=== PATIENT | female | born 1975 | race Caucasian/White ===

== ENCOUNTER 2023-04-22 14:44 | Emergency (ER) | payer MEDICARE, MEDICAID, SELFPAY ==
[2023-04-22 14:52] VITALS: BP 128/92; PULSE 96; RESP 18; TEMP 36.8; O2SAT 99; BMI 37.8
--- NOTE | 2023-04-22 15:15 | ED_ITS ---
HPI - General Adult General Chief complaint: Extremity Injury, Lower Stated complaint: LOWER EXTREMITY PAIN RIGHT LEG Time Seen by Provider: 04/22/23 15:00 Source: patient Mode of arrival: walk-in Limitations: no limitations History of Present Illness HPI narrative: [age] female presents for right hip pain. This is an ongoing issue. She sees an orthopedist in [place] and recently had an MRI. Some hardware she states was shifted and she is going to get an injection. She ran out of her Percocet. No new injury and no new symptoms. The pain is moderate to severe Related Data Previous Rx's Medication Instructions Recorded oxycodone-acetaminophen 5 mg-325 1 tab PO Q6H PRN pain 3 days #10 04/22/23 mg tablet (Percocet) tabs Review of Systems ROS Narrative A ten point review of systems is negative except as noted above. PFSH PFSH Social History Smoking status: Current every day smoker Exam Narrative Exam Narrative: Nurses note and vital signs reviewed and patient is not hypoxic. General: The patient appears well and in no apparent distress. Patient is resting comfortably on cart. Skin: Warm, dry, no pallor noted. There is no rash noted. Head: Normocephalic, atraumatic Eye: Normal conjunctiva, no drainage Ears, Nose, Mouth, and Throat: oral mucosa is moist. Nares patent. Cardiovascular: Regular Rate and Rhythm Respiratory: Patient is in no distress, no accessory muscle use Back: non-tender GI: Normal bowel sounds, no tenderness to palpation, no masses appreciated. No rebound, guarding, or rigidity noted. Musculoskeletal: lidocaine patch present on her right hip. No bruising or rash Neurological: A&O, normal speech Psychiatric: Cooperative Constitutional Vital Signs, click to edit/add: Last Vital Signs Temp 98.3 F 04/22/23 14:52 Pulse 96 H 04/22/23 14:52 Resp 18 04/22/23 14:52 BP 128/92 H 04/22/23 14:52 Pulse Ox 99 04/22/23 14:52 Course Vital Signs Vital signs: Vital Signs Temperature 98.3 F 04/22/23 14:52 Pulse Rate 96 H 04/22/23 14:52 Respiratory Rate 18 04/22/23 14:52 Blood Pressure 128/92 H 04/22/23 14:52 Pulse Oximetry 99 04/22/23 14:52 Temperature 98.3 F 04/22/23 14:52 Pulse Rate 96 H 04/22/23 14:52 Respiratory Rate 18 04/22/23 14:52 Blood Pressure 128/92 H 04/22/23 14:52 Pulse Oximetry 99 04/22/23 14:52 Medical Decision Making MDM Narrative Medical decision making narrative: she was provided a prescription for ten Percocet and she'll follow-up with her PCP. Treatment diagnosis and follow-up were discussed with the patient. Differential Diagnosis Differential Diagnosis: chronic hip pain Discharge Plan Discharge Chief Complaint: Extremity Injury, Lower Clinical Impression: Chronic right hip pain Patient Disposition: Home, Self-Care Time of Disposition Decision: 15:12 Condition: Good Mode of Transportation: Private Vehicle Prescriptions / Home Meds: New oxycodone-acetaminophen [Percocet] 5-325 mg tablet 1 tab PO Q6H PRN (Reason: pain) 3 Days Qty: 10 0RF Instructions: Hip Pain (ED) Stand Alone Forms: Portal Instructions Referrals: Physician,Non-Staff, MD [Primary Care Provider] - 1 week
== END 2023-04-22 15:18 | disposition home or self-care (01) ==
PROVIDERS: Emergency Provider Emergency Medicine
DX: M25.551 Pain in right hip (principal); G89.29 Other chronic pain; F17.210 Nicotine dependence, cigarettes, uncomplicated
CPT/HCPCS: 99283

== ENCOUNTER 2023-05-27 14:06 | Emergency (ER) | payer MEDICARE, MEDICAID, SELFPAY ==
[2023-05-27 14:12] VITALS: BP 143/96; PULSE 80; RESP 18; TEMP 36.7; O2SAT 98; BMI 29.8
--- NOTE | 2023-05-27 14:22 | XR_ITS ---
The [address] [address] Patient Name: CLAIRE VICKERS MRN: [id number] date: 1975 Sex: F Assigned Patient Location: ED.MAIN Current Patient Location: ER Accession/Order Number: [id number] Exam Date: 05/27/2023 14:40 Report Date: 05/27/2023 15:17 At the request of: JAGDISH ORLANDO Procedure: XR hip RT min 2V EXAM: XR hip RT min 2V INDICATION: hip pain, no injury. COMPARISON: None. TECHNIQUE: Right hip, 2 views FINDINGS: No acute fracture or dislocation. Right hip joint is preserved. Unremarkable soft tissues. XR/XR hip RT min 2V IMPRESSION: No acute osseous abnormality of the right hip. Electronically authenticated by: FILEMON FRANK Date: 05/27/2023 15:17
--- OUTSIDE RECORDS SUMMARY | 2023-05-27 14:35 | XMS_ITS | CCD ---
Demographics Address [address] [place] [address] Home Phone Preferred Language en Marital Status Single Quaker Affiliation Unknown Race White Ethnic Group Not or Lati no Author Name Unknown Address [address] [place] [address] Organization [facility] Care Team Providers Care Supervisor Water [employer] Name Role Phone E, Spasic Michael Primary Care Provider Unavailabl e E, SPASIC MICHAEL Primary Care Unavailable SELINA TYLER Attending Unavailable E, SPASIC MICHAEL Primary Care Unavailable JESSICA SMITH Attending Unavailable E, SPASIC MICHAEL Referring Unavailable E, SPASIC MICHAEL Primary Care Unavailable E, SPASIC MICHAEL Primary Care Unavailable E, SPASIC MICHAEL Primary Care Unavailable GEE MCMAHON Attending Unavailable PROVIDER, UNKNOWN Attending Unavailable PROVIDER, UNKNOWN Admitting Unavailable E, Spasic Michael Primary Care Provider Duglas Gomez Unavailable [facility] Primary Care [facility] ider RADHA Moreno-Vishal Oakley Attending Provider [phone] DR MATT RECINOS Admitting Unavailabl e JORJE, DR MATT Oalkey Attending Unavailabl e SPAAUSTINC, MICHAEL Primary Care Unavailable JORJE, DR MATT Oakley Consulting Unavailabl e JORJE, DR MATT Oakley Admitting Unavailabl e JORJE, DR MATT Oakley Attending Unavailabl e DIANESIC, MICHAEL Primary Care Unavailable JORJE, DR MATT Oakley Consulting Unavailabl e YOAV KOENIG Consulting Unavailable FABIEN ADAMS Consulting Unavailable JORJE, DR MATT Oakley Admitting Unavailabl e JORJE, DR MATT Oakley Attending Unavailabl e MISC, DR DOCTOR Primary Care Unavailable [facility] Care Prov ider Spasic, SUPERVISOR FINISHING DEPARTMENT-C Michael Oakley Attending Provider [facility] Prov ider Spasic, SUPERVISOR FINISHING DEPARTMENT-C Michael Oakley Attending Provider [facility] Prov ider Spasic, SUPERVISOR FINISHING DEPARTMENT-C Michael Oakley Attending Provider Spasic, Michael E Unavailable Kulwinder Atkinson DO Unavailable Kulwinder Atkinson DO Unavailable Spasic, Michael E Attending Unavailable Spasic, Michael E Admitting Unavailable [facility] Primary Care U navailable Spasic, Michael E Admitting Unavailable [facility] Primary Care U navailable Spasic, Michael E Attending Unavailable Spasic, Imchael E Admitting Unavailable [facility] Primary Care U navailable Spasic, Michael E Attending Unavailable Spasic, Michael E Admitting Unavailable [facility] Primary Care U navailable Spasic, Michael E Attending Unavailable Spasic, Michael E Attending Unavailable [facility] Primary Care U navailable Spasic, Michael E Admitting Unavailable Spasic, Michael E Attending Unavailable Spasic, Michael E Admitting Unavailable [facility] Primary Care U navailable Vonda Bautista Unavailable Spasic SUPERVISOR FINISHING DEPARTMENTMichael Unavailable [phone] FRANK, FRANK Referring Unavailable FRANK, FRANK Attending Unavailable FRANK, FRANK Admitting Unavailable SCOTCH, SALMA Attending Unavailable SCOTCH, SALMA Referring Unavailable SCOTCH, SALMA Referring Unavailable KULWINDER ATKINSON Referring Unavailable SCOTCH, SALMA Attending Unavailable SCOTCH, SALMA Referring Unavailable FRANK, FRANK Attending Unavailable Allergies Allergy Classification Reported Allergen(s) Allergy Type Date of Onset Reaction(s) Facility Anti-Epileptic Agents (3 sources) Phenytoin Drug Allergy 10-27-19 16 [facility] Baclofen (3 sources) Baclofen Drug Allergy 10-27-19 16 [facility] Quinolones (antibiotic) (3 sources) Ciprofloxacin Drug Allergy 01-11-20 19 [facility] (20 sources) Baclofen Drug Allergy 05-20-20 14 Hives [place], [place] (20 sources) Ciprofloxacin; Translations: [CIPROFLOXACIN] Drug Allergy 03-27-20 17 Other: See Comments [place], [place] (14 sources) Phenytoin Drug Allergy 10-27-19 16 [place] (4 sources) Buprenorphine / Naloxone Drug Allergy Unknown [facility] Other (20 sources) Phenytoin; Translations: [PHENYTOIN] Drug Allergy 05-20-20 14 Other: See Comments [facility] (4 sources) any type of ear drops Propensity to adverse reactions seizures [facility] Other (9 sources) Buprenorphine; Translations: [buprenorphine] Drug Allergy 11-30-19 19 Unknown Reaction [facility] (9 sources) Hydrocortisone; Translations: [hydrocortisone] Drug Allergy 11-30-19 19 Seizure [facility] (9 sources) Naloxone; Translations: [naloxone] Drug Allergy 11-30-19 19 Unknown Reaction [facility] (1 source) Baclofen Drug Allergy 01-24-20 13 [facility] (1 source) Ciprofloxacin Drug Allergy 04-11-20 22 [facility] (1 source) Dexamethasone Drug Allergy 04-11-20 22 [facility] (1 source) mirabegron Drug Allergy 08-18-19 21 [facility] (1 source) Phenytoin Drug Allergy 11-28-19 13 [facility] (1 source) Phenytoin Drug Allergy 04-11-20 22 [facility] (1 source) Baclofen Drug Allergy 11-30-19 19 [facility] (1 source) Ciprofloxacin Drug Allergy 11-30-19 19 [facility] (1 source) Phenytoin Drug Allergy 11-30-19 19 [facility] (1 source) Baclofen; Translations: [BACLOFEN (BULK)] Drug Allergy 05-20-20 14 [facility] Medications Current Medications Medication Drug Class(es) Dates Sig (Normalized) Sig (Original) acetaminophen 300 mg / codeine phosphate 30 mg oral tablet (2 sources) Opioid Agonist Start: 11-01-2020 End: 11-04-2020 acetaminophen-code ine (TYLENOL/CODEINE #3) 300-30 MG per tablet Indications: Strain of lumbar region, initial encounter Take 1 tablet by mouth every 8 hours as needed for Pain for up to 3 days. Intended supply: 3 days. Take lowest dose possible to manage pain 9 tablet 0 11/01/2020 11/04/2020 Active [id number] 200 actuat albuterol 0.09 mg/actuat metered dose inhaler (1 source) beta2-Adrenergic Agonist Start: 04-11-2023 take 2 puff(s) by inhalation every four to six hours as needed Albuterol Sulfate HFA 108 (90 Base) MCG/ACT 2 puffs as needed Inhalation every 4-6 hours for 14 days Apr, Active amitriptyline hydrochloride 25 mg oral tablet (20 sources) Tricyclic Antidepressant Start: 07-03-2018 take 25 mg by mouth once daily Amitriptyline Active 25 MG PO Daily July 03, 2018 1:00am Start: 03-26-2017 End: 11-21-2017 take 25 mg by mouth once daily at bedtime Amitriptyline Discontinued 25 MG PO Daily at bedtime March 26, 2017 12:00am November 21, 2017 4:53pm End: 06-11-2019 take 1 tablet by mouth twice daily amitriptyline (ELAVIL) 25 MG tablet Take 25 mg by mouth 2 times daily 0 06/11/2019 Discontinued (LIST CLEANUP) Comment on above: Take 25 mg by mouth daily at bedtime. amoxicillin 875 mg / clavulanate 125 mg oral tablet (4 sources) Penicillin-class Antibacterial Start: 06-11-2019 End: 06-21-2019 take 1 tablet by mouth twice daily amoxicillin-cla vulanate (AUGMENTIN) 875-125 MG per tablet Take 1 tablet by mouth 2 times daily for 10 days 20 tablet 0 06/11/2019 06/21/2019 Active Start: 06-11-2019 End: 06-11-2019 amoxicillin-clavulanate (AUG MENTIN) 875-125 MG per tablet 1 tablet amylase [id number] unt / lipase [id number] unt / protease [id number] unt delayed release oral capsule (5 sources) Start: 12-13-2021 take 1 capsule by mouth every eight hours Zenpep [id number] UNIT 1 CAPSULE Orally THREE TIMES A DAY for 30 days PLEASE CHECK ALLERGIES Dec, Active Start: 11-15-2021 take 1 capsule by mo [facility] every eight hours Creon [id number] UNIT 1 CAPSULE Orally THREE TIMES A DAY for 30 days Nov, Active atorvastatin 20 mg oral tablet (20 sources) HMG-CoA Reductase Inhibitor Start: 11-29-2018 take 20 mg by mouth once daily Atorvastatin Active 20 MG PO Daily November 29, 2018 12:00am benzocaine 15 mg / menthol 2.6 mg oral lozenge (7 sources) Standardized Chemical Allergen Start: 02-19-2020 End: 02-06-2021 Benzocaine-Menthol (CEPACOL SORE THROAT) 15-2.6 MG LOZG lozenge Take 1 lozenge by mouth every 2 hours as needed for Sore Throat 36 lozenge 0 02/19/2020 02/06/2021 Discontinued (Therapy completed) Start: 02-19-2020 End: 02-19-2020 benzocaine-menthol (CEPACOL SORE THROAT) lozenge 1 lozenge Start: 02-19-2020 End: 02-19-2020 benzocaine-menthol (CEPACOL SORE THROAT) lozenge 1 lozenge busPIRone hydrochloride 15 m g oral tablet (9 sources) [facility] BuSpar 15 MG 1 tablet Orally Twice a day Active take 1 tablet by mouth twice ingrid ly busPIRone (BUSPAR) 5 MG tablet Take 5 mg by mouth 2 times daily 0 Active clonazePAM 0.5 mg oral tablet (7 sources) Benzodiazepine End: 06-11-2019 take 1 tablet by mouth twice daily clonazePAM (KLONOPIN) 0.5 MG tablet Take 0.5 mg by mouth 2 times daily 0 06/11/2019 Discontinued (LIST CLEANUP) dextromethorphan hydrobromide 15 mg / guaiFENesin 400 mg / pseudoephedrine hydrochloride 60 mg oral tablet (1 source) alpha-Adrenergic Agonist, Uncompetitive U-thgncc-I-aspartate Receptor Antagonist, Sigma-1 Agonist Start: 04-11-2023 take 4 tablets by mouth every twenty-four hours as needed Capmist DM 60-15-400 MG as needed Orally every 4-6 hours as needed, max 4 tablets in 24 hours for 5 days Apr, Active dextromethorphan hydrobromide 3 mg/ml / promethazine hydrochloride 1.25 mg/ml oral solution (7 sources) Phenothiazine, Uncompetitive M-jfijbv-Y-aspartate Receptor Antagonist, Sigma-1 Agonist Start: 01-02-2019 End: 06-11-2019 promethazine-dext romethorphan (PROMETHAZINE-DM) 6.25-15 MG/5ML syrup Take 6.25 mLs by mouth every 4 hours as needed 0 01/02/2019 06/11/2019 Discontinued (LIST CLEANUP) dicyclomine hydrochloride 20 mg oral tablet (12 sources) Anticholinergic Start: 11-30-2017 End: 02-15-2018 take 1 tablet by mouth every eight hours Dicyclomine HCl 20 MG 1 tablet Orally three times a day for 30 day(s) Nov, Active DULoxetine 60 mg oral capsule (7 sources) Serotonin and Norepinephrine Reuptake Inhibitor End: 06-11-2019 take 60 mg by mouth once daily DULoxetine HCl (CYMBALTA PO) Take 60 mg by mouth daily 0 06/11/2019 Discontinued (LIST CLEANUP) esomeprazole 40 mg delayed release oral capsule (10 sources) Proton Pump Inhibitor Start: 09-15-2020 take 1 capsule by mouth every twelve hours Esomeprazole Magnesium 40 MG 1 capsule Orally bid for 30 days Sep, Active take 1 capsule by [facility] once daily, then take 6 capsules by mouth in the morning esomeprazole (NEXIUM) 20 mg capsule Take 20 mg by mouth DAILY (6 AM). 0 Active Comment on above: Take 20 mg by mouth DAILY (6 AM). Famotidine (4 sources) Histamine-2 Receptor Antagonist Pepcid Active fluticasone propionate 0.05 mg/actuat metered dose nasal spray (1 source) Corticosteroid Fluticasone Propionate 50 MCG/ACT SHAKE LIQUID AND USE 1 SPRAY IN EACH NOSTRIL TWICE DAILY FOR 14 DAYS for 90 Active gabapentin 600 mg oral tablet (20 sources) Anti-epileptic Agent Start: take 600 mg by mouth three times daily Gabapentin Active 600 MG PO Three times daily July 03, 2018 1:00am Start: 03-26-2017 End: 03-02-2018 take 600 mg by mouth three times daily Gabapentin Discontinued 600 MG PO Three times daily March 26, 2017 12:00am March 02, 2018 5:03pm gabapentin (NEUR ONTIN) 600 mg tablet Take 800 mg by mouth once daily. 0 Active gabapentin (NEUR ONTIN) 100 MG capsule Take 600 mg by mouth 3 times daily. 0 Active Comment on above: Take 600 mg by mouth three times daily. Take 800 mg by mouth once daily. hydrocortisone 10 mg/ml / neomycin 3.5 mg/ml / polymyxin b [id number] unt/ml otic suspension (3 sources) Aminoglycoside Antibacterial, Polymyxin-class Antibacterial, Corticosteroid Start: 06-11-19 End: 06-21-19 20 neomycin-polymyxin- hydrocortisone (CORTISPORIN) 3.5-29804-[address] 3 drops into the right ear 4 times daily for 10 days 1 Bottle 0 06/11/2019 06/21/2019 Active 12 hr hyoscyamine sulfate 0.375 mg extended release oral tablet (4 sources) take 1 tablet by mouth every twelve hours Hyoscyamine Sulfate ER 0.375 MG TAKE 1 TABLET BY MOUTH EVERY 12 HOURS for 90 Active ibuprofen 800 mg oral tablet (20 sources) Nonsteroidal Anti-inflammatory Drug Start: 01-16-20 19 take 1 tablet by mouth every eight hours as needed for pain ibuprofen (ADVIL;MOTRIN) 800 MG tablet Take 1 tablet by mouth every 8 hours as needed for Pain 30 tablet 0 02/19/2020 Active Start: 07-03-2018 take 800 mg by mouth three times daily Ibuprofen Active 800 MG PO Three times daily July 03, 2018 1:00am Start: 01-18-2018 End: 02-07-2018 Ibuprofen (Motrin Ib) 200 mg Tablet Discontinued 800 MG PO Q4H January 18, 2018 12:00am February 07, 2018 4:02pm Start: 10-14-2017 End: 01-18-2018 take 800 mg by mouth three times daily Ibuprofen Discontinued 800 MG PO Three times daily December 22, 2017 3:01pm January 18, 2018 3:04pm Start: 02-08-2017 End: 10-13-2017 Ibuprofen (Motrin Ib) 200 mg Tablet Discontinued 800 MG PO Once February 08, 2017 12:00am October 13, 2017 5:13pm Start: 09-16-2014 take 1 tablet by angie th every eight hours as needed ibuprofen (MOTRIN) 600 mg tablet Take 1 tablet by mouth every 8 hours as needed (for pain and inflammation. Take as prescribed for 10-14 days then as needed). 90 tablet 1 09/16/2014 Active Comment on above: Take 1 tablet by angie th every 8 hours as needed (for pain and inflammation. Take as prescribed for 10-14 days then as needed). meclizine hydrochloride 12.5 mg oral tablet (10 sources) Antiemetic Start: 06-11-19 End: 06-14-19 20 take 1 tablet by mouth three times daily as needed for dizziness meclizine (ANTIVERT) 12.5 MG tablet Take 1 tablet by mouth 3 times daily as needed for Dizziness 9 tablet 0 06/11/2019 06/14/2019 Active Start: 04-04-2018 End: 07-03-2018 take 25 mg by mouth three times daily Meclizine Discontinued 25 MG PO Three times daily April 04, 2018 12:00am July 03, 2018 4:12pm metroNIDAZOLE 500 mg oral tablet (2 sources) Nitroimidazole Antimicrobial Start: 02-06-2021 End: 02-06-2021 take 4 tablets by mouth once metroNIDAZOLE (FLAGYL) 500 MG tablet Take 4 tablets by mouth once for 1 dose 4 tablet 0 02/06/2021 02/06/2021 Discontinued (DUPLICATE) Start: 02-06-2021 End: 02-06-2021 metroNIDAZOLE (FLAGYL) table t 2,000 mg Misc. Devices (CRUTCH) MISC (7 sources) Start: 10-27-2015 End: 06-11-2019 Misc. Devices (CRUTCH) MISC 1 each by Does not apply route daily as needed Use cautiously to avoid fall or further trauma Diagnosis bilateral foot pain and right hip pain 1 each 0 10/27/2015 06/11/2019 Discontinued (LIST CLEANUP) Start: 10-27-2015 Misc. Devices (CRUTCH) MISC 1 each by Does not apply route daily as needed Use cautiously to avoid fall or further trauma Diagnosis bilateral foot pain and right hip pain 1 each 0 10/27/2015 Active mometasone furoate 0.05 mg/actuat metered dose nasal spray (8 sources) Corticosteroid Start: 07-29-2018 take 1 spray(s) nasal route once daily Mometasone (Nasonex) 50 mcg/actuation spray,non-aerosol Active 2 SPRAY INTRANASAL Daily July 29, 2018 1:00am administer into each nostril naloxone hydrochloride 40 mg/ml nasal spray (5 sources) Opioid Antagonist Start: 03-17-2019 End: 06-11-2019 naloxone 4 MG/0.1ML LIQD nasal spray 1 spray by Nasal route as needed for Opioid Reversal 1 each 5 03/17/2019 06/11/2019 Discontinued (LIST CLEANUP) pantoprazole 40 mg delayed release oral tablet (20 sources) Proton Pump Inhibitor Start: 10-13-2017 take 1 tablet by mouth every twelve hours Pantoprazole Sodium 40 MG 1 tablet Orally BID for 30 days Nov, Active take 1 tablet by mouth once annabel y pantoprazole DR (PROTONIX) 40 mg tablet Take 40 mg by mouth once daily. 0 Active Protonix Active take 20 mg by mouth twice daily Pantoprazole Sodium (PROTONIX PO) Take 20 mg by mouth 2 times daily 0 Active Comment on above: Take 40 mg by mouth once daily. predniSONE 20 mg oral tablet (12 sources) Start: 11-01-2020 End: 11-06-2020 take 2 tablets by mouth once daily predniSONE (DELTASONE) 20 MG tablet Take 2 tablets by mouth daily for 5 days 10 tablet 0 11/01/2020 11/06/2020 Active Start: 01-15-2019 End: 01-15-2019 predniSONE (DELTASONE) table t 60 mg Start: 01-15-2019 End: 01-25-2019 take 4 tablets by mouth once daily predniSONE (DELTASONE) 10 MG tablet Take 4 tablets by mouth once daily for 5 days 20 tablet 0 01/15/2019 01/25/2019 Active Start: 01-18-2018 End: 02-07-2018 take 60 mg by mouth once daily Prednisone Discontinued 60 MG PO Daily January 18, 2018 12:00am February 07, 2018 4:03pm rOPINIRole (7 sources) Nonergot Dopamine Agonist End: 06-11-2019 ROPINIRole HCl (REQUIP PO) Take 1 tablet by mouth 0 06/11/2019 Discontinued (LIST CLEANUP) ROPINIRole HCl ( REQUIP PO) Take 1 tablet by mouth 0 Active Sodium Chloride-Sodium Bicar b 1.57 g PACK (7 sources) Start: 01-02-2019 End: 06-11-2019 Sodium Chloride-Sodium Bicar b 1.57 g PACK 1 packet by Nasal route 2 times daily 0 01/02/2019 06/11/2019 Discontinued (LIST CLEANUP) Start: 01-02-2019 Sodium Chlorid e-Sodium Bicarb 1.57 g PACK 1 packet by Nasal route 2 times daily 0 01/02/2019 Active tiZANidine 4 mg oral tablet (16 sources) Central alpha-2 Adrenergic Agonist Start: 11-29-2018 take 4 mg by mouth at bedtime Tizanidine Active 4 MG PO Bedtime November 29, 2018 12:00am Start: 12-22-2017 End: 01-18-2018 take 1 tablet by mouth three times daily Tizanidine (Zanaflex) 4 mg Tablet Discontinued 4 MG PO Three times daily December 22, 2017 12:00am January 18, 2018 3:04pm traMADol hydrochloride 50 mg oral tablet (1 source) Opioid Agonist Start: 12-03-2020 End: 12-05-2020 traMADol (ULTRAM) 50 MG tablet Indications: Back spasm Take 1 tablet by mouth every 4 hours as needed for Pain for up to 6 doses. Intended supply: 3 days. Take lowest dose possible to manage pain 6 tablet 0 12/03/2020 12/05/2020 Active Completed/Discontinued Medications Medication Drug Class(es) Dates Sig (Normalized) Sig (Original) acetaminophen 325 mg / HYDROcodone bitartrate 5 mg oral tablet (20 sources) Opioid Agonist Start: 02-05-2021 End: 02-05-2021 HYDROcodone-acetam inophen (NORCO) 5-325 MG per tablet 1 tablet Start: 11-01-2020 End: 11-01-2020 HYDROcodone-acetaminophen (N ORCO) 5-325 MG per tablet 2 tablet Start: 06-11-2019 HYDROcodone-ac etaminophen (NORCO) 5-325 MG per tablet 1 tablet Start: 01-15-2019 hydrocodone-ac etaminophen (NORCO) tablet 5-325 mg (STARTER PACK) Start: 01-15-2019 End: 01-15-2019 HYDROcodone-acetaminophen (N ORCO) 5-325 MG per tablet 2 tablet Start: 01-11-2019 End: 01-14-2019 take 1 tablet by mouth every six hours as needed for pain HYDROcodone-acetaminophen (NORCO) 5-325 MG per tablet Indications: Postoperative pain Take 1 tablet by mouth every 6 hours as needed for Pain for up to 3 days. 12 tablet 0 01/11/2019 01/14/2019 Active Start: 03-01-2018 End: 03-08-2018 take 1 tablet by mouth every six hours Hydrocodone-Acetaminophen Discontinued 1 TAB PO Q6H 30 12March 01, 2018 March 08, 2018 12:02am Start: 10-13-2017 End: 10-16-2017 take 1 tablet by mouth every six hours Hydrocodone-Acetaminophen (Perley) 5-325 mg tablet Discontinued 1 TAB PO Q6H October 13, 2017 October 16, 2017 4:27pm Start: 06-06-2017 End: 06-23-2017 take 1 tablet by mouth every four to six hours Hydrocodone-Acetaminophen (Perley) 5-325 mg tablet Discontinued 1 TAB PO EVERY 4-6 HOURS June 06, 2017 June 23, 2017 1:09pm Start: 02-08-2017 End: 03-26-2017 Hydrocodone-Acetaminophen (N orco) 5-325 mg tablet Discontinued 1 TAB PO every 6 to 8 hours February 08, 2017 March 26, 2017 8:58pm take 1 tablet by angie th every eight hours as needed HYDROcodone-acetaminophen (NORCO) 5-325 mg per tablet Take 1 tablet by mouth every 8 hours as needed for pain. 0 Active End: 03-17-2019 take 30 mL by mouth four times daily as needed for pain, then take 15 mL by mouth as needed for pain HYDROcodone-acetaminophen 7.5-325 MG per 15ML solution Take 30 mLs by mouth 4 times daily as needed for Pain. 0 03/17/2019 Discontinued (LIST CLEANUP) Comment on above: Take 1 tablet by angie th every 8 hours as needed for pain. acetaminophen 325 mg / oxyCODONE hydrochloride 5 mg oral tablet (3 sources) Opioid Agonist Start: 03-16-2019 End: 03-16-2019 oxyCODONE-acetaminop hen (PERCOCET) 5-325 MG per tablet 2 tablet Start: 03-16-2019 End: 03-20-2019 take 1 tablet by mouth every six hours as needed for pain, then take 1 tablet by mouth as needed for pain oxyCODONE-acetaminophen (PERCOCET) 5-325 MG per tablet Indications: Sciatica of right side Take 1 tablet by mouth every 6 hours as needed for Pain for up to 3 days. Intended supply: 3 days. Take lowest dose possible to manage pain 12 tablet 0 03/17/2019 03/20/2019 Active amoxicillin 250 mg oral capsule (18 sources) Penicillin-class Antibacterial Start: 01-15-2019 End: 01-15-2019 amoxicillin (AMOXIL) capsule 500 mg Start: 01-15-2019 End: 01-22-2019 take 1 capsule by mouth three times daily amoxicillin (AMOXIL) 500 MG capsule Take 1 capsule by mouth 3 times daily for 7 days 21 capsule 0 01/15/2019 01/22/2019 Active Start: 06-23-2017 End: 06-28-2017 take 500 mg by mouth three times daily Amoxicillin Discontinued 500 MG PO Three times daily 30 June 23, 2017 1:00am June 28, 2017 7:56pm Start: 06-06-2017 End: 06-23-2017 take 875 mg by mouth twice daily Amoxicillin Discontinued 875 MG PO Twice daily June 06, 2017 1:00am June 23, 2017 1:09pm 12 hr carBAMazepine 400 mg extended release oral tablet (20 sources) Mood Stabilizer Start: 02-07-2018 End: 02-15-2018 take 400 mg by mouth twice daily Carbamazepine Discontinued 400 MG PO Twice daily February 07, 2018 12:00am February 15, 2018 12:57pm Start: 02-08-2017 End: 07-19-2017 take 1 tablet by mouth every twelve hours Carbamazepine (Tegretol) 200 mg Tablet Discontinued 200 MG PO Q12H February 08, 2017 12:00am July 19, 2017 8:29am End: 06-11-2019 take 1 tablet by mouth twice daily carBAMazepine (TEGRETOL XR) 100 MG SR tablet Take 100 mg by mouth 2 times daily 0 06/11/2019 Discontinued (LIST CLEANUP) cephalexin 500 mg oral capsule (8 sources) Cephalosporin Antibacterial Start: 03-02-2018 End: 03-12-2018 take 2 capsules by mouth twice daily Cephalexin (Keflex) 500 mg capsule Discontinued 1000 MG PO Twice daily 40 March 02, 2018 12:00am March 12, 2018 12:01am COMPOUNDED PRESCRIPTION (7 sources) Start: 04-01-2017 COMPOUNDED PRESCRIPTION Wheeled Walker Dx: gait and balance impairment 1 Each 0 04/01/2017 Active Comment on above: Wheeled Walker Dx: gait and balance impairment cyclobenzaprine hydrochloride 10 mg oral tablet (20 sources) Muscle Relaxant Start: 12-03-2020 End: 12-13-2020 cyclobenzaprine (FLEXERIL) tablet 10 mg Start: 11-01-2020 End: 11-08-2020 cyclobenzaprine (FLEXERIL) t ablet 10 mg Start: 01-18-2018 End: 02-07-2018 take 10 mg by mouth at bedtime Cyclobenzaprine Discont inued 10 MG PO Bedtime January 18, 2018 12:00am February 07, 2018 4:02pm Start: 11-21-2017 End: 12-22-2017 take 10 mg by mouth three times daily Cyclobenzaprine Discontinued 10 MG PO Three times daily November 21, 2017 12:00am December 22, 2017 2:11pm dexamethasone phosphate 10 mg/ml injectable solution (1 source) Corticosteroid Start: 11-01-2020 End: 11-01-2020 dexamethasone (DECADRON) injection 10 mg diazePAM 5 mg oral tablet (1 source) Benzodiazepine Start: 03-16-2019 End: 03-16-2019 diazepam (VALIUM) tablet 5 mg Start: 03-16-2019 End: 03-16-2019 diazepam (VALIUM) tablet 5 m g diphenhydrAMINE hydrochloride 25 mg oral tablet (8 sources) Histamine-1 Receptor Antagonist Start: 04-04-2018 End: 07-03-2018 take 1 tablet by mouth every six hours Diphenhydramine Hcl (Benadryl Allergy) 25 mg tablet Discontinued 25 MG PO Q6H April 04, 2018 12:00am July 03, 2018 4:12pm until resolution of severe allergic reaction 2 ml fentaNYL 0.05 mg/ml injection (1 source) Opioid Agonist Start: 12-03-2020 End: 12-03-2020 fentaNYL (SUBLIMAZE) injection 50 mcg 1 ml ketorolac tromethamine 15 mg/ml cartridge (2 sources) Nonsteroidal Anti-inflammatory Drug, Cyclooxygenase Inhibitor Start: 12-03-2020 End: 12-03-2020 ketorolac (TORADOL) injection 30 mg Start: 03-24-2019 End: 03-24-2019 ketorolac (TORADOL) injectio n 30 mg lidocaine 0.05 mg/mg medicated patch (14 sources) Antiarrhythmic, Amide Local Anesthetic Start: 11-21-2017 End: 12-22-2017 apply 1 dose topically once daily Lidocaine (Lidoderm) 5 % adhesive patch,medicated Discontinued 1 PATCH TOPICAL Daily November 21, 2017 12:00am December 22, 2017 2:13pm leave on for 12 hrs ; cover most painful area; may cut into smaller pieces apply 1 dose transde rmal route every twenty-four hours lidocaine (LIDODERM) 5 % Apply 1 Patch a s directed every 24 hours. 0 Active Comment on above: Apply 1 Patch as dir ected every 24 hours. naproxen sodium 220 mg oral tablet (20 sources) Nonsteroidal Anti-inflammatory Drug Start: 8 End: 8 take 2 tablets by mouth every four hours Naproxen Sodium (Aleve) 220 mg Tablet Discontinued 440 MG PO Q4H January 18, 2018 12:00am February 07, 2018 4:02pm Start: 06-23-2017 End: 07-03-2017 take 1 tablet by mouth twice daily at mealtime Naproxen (Naprosyn) 500 mg tablet Discontinued 500 MG PO Twice daily 24 03June 23, 2017 1:00am July 03, 2017 1:02am administer with food or milk Start: 02-08-2017 End: 03-26-2017 Naproxen Discontinued 375 MG PO 2-3 TIMES PER DAY February 08, 2017 12:00am March 26, 2017 8:58pm ondansetron 4 mg disintegrating oral tablet (18 sources) Serotonin-3 Receptor Antagonist Start: 11-01-2020 End: 11-01-2020 ondansetron (ZOFRAN-ODT) disintegrating tablet 4 mg Start: 01-15-2019 End: 01-15-2019 ondansetron (ZOFRAN) injecti on 4 mg Start: 04-04-2018 End: 04-09-2018 take 1 tablet by mouth every eight hours Ondansetron Hcl (Zofran) 4 mg tablet Discontinued 4 MG PO Q8H 17 10April 04, 2018 12:00am April 09, 2018 1:01am Start: 06-23-2017 End: 10-13-2017 take 1 tablet by mouth every eight hours Ondansetron (Zofran Odt) 4 mg tablet,disintegrating Discontinued 4 MG PO Q8H June 23, 2017 1:00am October 13, 2017 5:13pm 2 ml orphenadrine citrate 30 mg/ml injection (1 source) Muscle Relaxant Start: 03-24-2019 End: 03-24-2019 orphenadrine (NORFLEX) injection 60 mg oxybutynin chloride 5 mg oral tablet (6 sources) Cholinergic Muscarinic Antagonist take 1 tablet by mouth three times daily oxybutynin (DITROPAN) 5 mg tablet Take 5 mg by mouth three times daily. 0 Active Comment on above: Take 5 mg by mouth t hree times daily. penicillin v potassium 500 mg oral tablet (8 sources) Start: 10-13-2017 End: 11-21-2017 take 500 mg by mouth three times daily Penicillin V Potassium Discontinued 500 MG PO Three times daily October 13, 2017 12:00am November 21, 2017 4:53pm 50 ml sodium chloride 9 mg/ml injection (10 sources) Start: 01-15-2019 End: 01-15-2019 0.9 % sodium chloride bolus Start: 01-07-2019 End: 02-06-2021 sodium chloride (OCEAN) 0.65 % nasal spray 2 sprays by Nasal route 0 01/07/2019 02/06/2021 Discontinued (Therapy completed) topiramate 100 mg oral tablet (20 sources) Start: 12-22-2017 End: 03-01-2018 take 1 tablet by mouth three times daily Topiramate (Topamax) 100 mg Tablet Discontinued 100 MG PO Three times daily December 22, 2017 12:00am March 01, 2018 10:10am Start: 04-01-2017 End: 06-11-2019 take 1 tablet by mouth twice daily topiramate (TOPAMAX) 100 mg tablet Take 1 tablet by mouth twice daily. 0 04/01/2017 Active Start: 02-08-2017 End: 11-21-2017 take 1 tablet by mouth twice daily Topiramate (Topamax) 200 mg Tablet Discontinued 200 MG PO Twice daily February 08, 2017 12:00am November 21, 2017 4:53pm Comment on above: Take 1 tablet by angie th twice daily. Problems Active Problems Problem Classification Problem Date Documented Da te Episodic/Chronic Abdominal pain (20 sources) Vaginal pain; Translations: [Pelvic and perineal pain] Onset: 2 Resolved: 2 Episodic Administrative/social admission (17 sources) Impaired mobility; Translations: [Other reduced mobility] 02-22-2016 Episodic Biliary tract disease (8 sources) Biliary colic; Translations: [Calculus of bile duct without cholangitis or cholecystitis without obstruction] 07-19-2017 Episodic Diabetes mellitus with complications (1 source) Type 2 diabetes mellitus with diabetic polyneuropathy; Translations: [TYPE 2 DM W/DIABETIC POLYNEUROPATHY] Onset: 2 Chronic Disorders of lipid metabolism (2 sources) Hyperlipidemia, unspecified; Translations: [Mixed hyperlipidemia] Onset: 2 Chronic E Codes: Fall (1 source) Accidental fall ; Translations: [Fall (on) (from) other stairs and steps, initial encounter] Episodic Epilepsy; convulsions (8 sources) Epilepsy, unspecified, not intractable, without status epilepticus; Translations: [Epilepsy] Onset: 7 03-27-2017 Chronic Epilepsy; convulsions (20 sources) Seizure; Translations: [Unspecified convulsions] Onset: 1 04-25-2011 Episodic Esophageal disorders (20 sources) Gastroesophageal reflux disease; Translations: [Gastro-esophageal reflux disease without esophagitis] Onset: 2 Resolved: 2 08-10-2011 Chronic Gastritis and duodenitis (5 sources) Chronic gastritis; Translations: [Unspecified chronic gastritis without bleeding] Onset: 2 Chronic Gastroduodenal ulcer (except hemorrhage) (4 sources) Peptic ulcer; Translations: [Peptic ulcer, site unspecified, unspecified as acute or chronic, without hemorrhage or perforation] Chronic Gastroduodenal ulcer (except hemorrhage) (5 sources) Pyloric ulcer; Translations: [Acute gastric ulcer without hemorrhage or perforation] Onset: 2 Resolved: 2 Episodic Gastrointestinal hemorrhage (4 sources) Gastrointestinal hemorrhage; Translations: [Melena] Episodic Genitourinary symptoms and ill-defined conditions (1 source) Other symptoms and signs involving the genitourinary system; Translations: [Other symptoms and signs involving the genitourinary system] Onset: 3 Episodic Headache; including migraine (8 sources) Migraine; Translations: [Migraine, unspecified, not intractable, without status migrainosus] 07-19-2017 Chronic Joint disorders and dislocations; trauma-related (4 sources) Internal derangement of right knee; Translations: [Unspecified internal derangement of right knee] Chronic Joint disorders and dislocations; trauma-related (8 sources) Closed traumatic dislocation of coccyx; Translations: [Dislocation of sacroiliac and sacrococcygeal joint, initial encounter] 07-19-2017 Episodic Nausea and vomiting (20 sources) Nausea and vomiting; Translations: [Nausea with vomiting, unspecified] Onset: 2 07-19-2017 Episodic Other and unspecified benign neoplasm (1 source) Benign neoplasm of rectum; Translations: [BENIGN NEOPLASM OF RECTUM] Onset: 2 Episodic Other and unspecified benign neoplasm (1 source) Polyp of colon; Translations: [POLYP OF COLON] Onset: 2 Episodic Other and unspecified benign neoplasm (1 source) Personal history of colonic polyps; Translations: [PERSONAL HISTORY OF COLONIC POLYPS] Onset: 2 Episodic Other connective tissue disease (17 sources) Weakness of foot; Translations: [Other symptoms and signs involving the musculoskeletal system] 02-22-2016 Episodic Other connective tissue disease (4 sources) Enthesopathy of hip region; Translations: [Trochanteric bursitis, right hip] Episodic Other connective tissue disease (8 sources) Musculoskeletal finding; Translations: [Other symptoms and signs involving the musculoskeletal system] 07-19-2017 Episodic Other connective tissue disease (1 source) Fibromyalgia; Translations: [FIBROMYALGIA] Onset: 2 Episodic Other connective tissue disease (5 sources) Tendinitis of right psoas tendon; Translations: [Psoas tendinitis, right hip] Onset: 3 03-24-2023 Episodic Other endocrine disorders (7 sources) Disorder of pituitary gland; Translations: [Other disorders of pituitary gland] Onset: 7 01-10-2007 Chronic Other gastrointestinal disorders (4 sources) Irritable bowel syndrome with diarrhea; Translations: [Irritable bowel syndrome with diarrhea] Chronic Other gastrointestinal disorders (4 sources) Diarrhea; Translations: [Diarrhea, unspecified] Episodic Other gastrointestinal disorders (4 sources) Constipation; Translations: [Constipation, unspecified] Episodic Other gastrointestinal disorders (8 sources) Occult blood in stools; Translations: [Other fecal abnormalities] 10-02-2017 Episodic Other gastrointestinal disorders (1 source) Diarrhea, unspecified; Translations: [DIARRHEA UNSPECIFIED] Onset: 2 Episodic Other infections; including parasitic (1 source) Infection by Trichomonas; Translations: [Trichomonal vulvovaginitis] Episodic Other injuries and conditions due to external causes (2 sources) Traumatic AND/OR non-traumatic injury; Translations: [Injury] Episodic Other nervous system disorders (4 sources) Chronic pain; Translations: [Other chronic pain] Chronic Other nervous system disorders (1 source) Other chronic pain; Translations: [OTHER CHRONIC PAIN] Onset: 2 Chronic Other nervous system disorders (8 sources) Right-sided piriformis syndrome; Translations: [Lesion of sciatic nerve, right lower limb] Onset: 3 02-20-2023 Chronic Other nervous system disorders (1 source) Lesion of sciatic nerve, right lower limb; Translations: [Piriformis syndrome of right side] Onset: 3 Chronic Other nervous system disorders (15 sources) Paresthesia of skin; Translations: [Paresthesia of right lower limb] 02-22-2016 Episodic Other non-traumatic joint disorders (9 sources) Pain in right hip joint; Translations: [Pain in right hip] 02-21-2016 Episodic Other non-traumatic joint disorders (1 source) Pain in right hip; Translations: [Pain of right hip] Onset: 3 Episodic Other non-traumatic joint disorders (9 sources) Pain in right hip joint; Translations: [Right hip pain] 02-21-2016 Other nutritional; endocrine; and metabolic disorders (4 sources) Obese class II; Translations: [Body mass index (BMI) 35.0-35.9, adult] Chronic Other nutritional; endocrine; and metabolic disorders (4 sources) Weight loss; Translations: [Abnormal weight loss] Episodic Other nutritional; endocrine; and metabolic disorders (2 sources) Abnormal weight loss; Translations: [ABNORMAL WEIGHT LOSS] Onset: 2 Resolved: 2 Episodic Other screening for suspected conditions (not mental disorders or infectious disease) (8 sources) Elevated liver enzymes level; Translations: [Other specified abnormal findings of blood chemistry] Episodic Other upper respiratory infections (2 sources) Sore throat symptom; Translations: [Acute upper respiratory infection, unspecified] Episodic Otitis media and related conditions (17 sources) Acute serous otitis media of right ear; Translations: [Acute right otitis media] Episodic Residual codes; unclassified (1 source) Acquired absence of both cervix and uterus; Translations: [ACQUIRED ABSENCE BOTH CERVIX AND UTERUS] Onset: 2 Episodic Residual codes; unclassified (1 source) Pain; Translations: [Pain, unspecified] 02-27-2023 Episodic Residual codes; unclassified (1 source) Pain, unspecified; Translations: [Pain] Onset: 3 Episodic Rheumatoid arthritis and related disease (1 source) Rheumatoid arthritis, unspecified; Translations: [RHEUMATOID ARTHRITIS UNSPECIFIED] Onset: 2 Chronic Spondylosis; intervertebral disc disorders; other back problems (20 sources) Lumbosacral spondylosis without myelopathy; Translations: [Osteoarthritis of lumbar spinal facet joint] Onset: 6 01-15-2016 Chronic Spondylosis; intervertebral disc disorders; other back problems (20 sources) Backache; Translations: [Sciatica] Onset: 2 08-10-2011 Episodic Sprains and strains (14 sources) Low back strain; Translations: [Strain of muscle, fascia and tendon of lower back, initial encounter] Onset: 3 Episodic Substance-related disorders (5 sources) Opioid abuse; Translations: [Opioid abuse, uncomplicated] Onset: 2 Chronic Unclassified (1 source) GASTR-ESOPH RFLX DS ESPHGTS W/O BLD; Translations: [GASTR-ESOPH RFLX DS ESPHGTS W/O BLD] Onset: 2 Unclassified (1 source) CONTACT W/AND (SUSP) EXPOS COVID-19; Translations: [CONTACT W/AND (SUSP) EXPOS COVID-19] Onset: 2 Unclassified (1 source) Opioid use, unspecified, uncomplicated; Translations: [Opioid use, unspecified, uncomplicated] Onset: 3 Unclassified (1 source) Acquired absence of other organs; Translations: [Acquired absence of other organs] Onset: 3 Unclassified (1 source) Other specified disorders of bone, other site; Translations: [Other specified disorders of bone, other site] Onset: 3 Past or Other Problems Problem Classification Problem Date Documented Date Episodic/Chronic Conditions associated with dizziness or vertigo (1 source) Dizziness Episodic Diabetes mellitus without complication (17 sources) Blood glucose level - finding; Translations: [Other abnormal glucose] Onset: 04-25-2011 04-25-2011 Episodic Other ear and sense organ disorders (1 source) Otalgia of right ear Episodic Other nervous system disorders (2 sources) Postoperative pain ; Translations: [Postoperative pain] Episodic Other nervous system disorders (2 sources) Paresthesia of lower extremity; Translations: [Right leg paresthesias] 02-22-2016 Episodic Other nutritional; endocrine; and metabolic disorders (17 sources) H/O: raised blood lipids; Translations: [Personal history of other endocrine, metabolic, and immunity disorders] Onset: 04-25-2011 04-25-2011 Episodic Other skin disorders (17 sources) Eruption; Translations: [Rash and other nonspecific skin eruption] Onset: 08-30-2011 08-30-2011 Episodic Other skin disorders (1 source) Nonscarring hair loss, unspecified; Translations: [Nonscarring hair loss, unspecified] Onset: 09-06-2022 Episodic Other skin disorders (1 source) Localized swelling, mass and lump, trunk; Translations: [Localized swelling, mass and lump, trunk] Onset: 06-23-2022 Episodic Residual codes; unclassified (1 source) Disorientation, unspecified; Translations: [Disorientation, unspecified] Onset: 07-19-2022 Episodic Syncope (17 sources) Syncope; Translations: [Syncope and collapse] Onset: 04-25-2011 04-25-2011 Episodic Unclassified (1 source) Contact with and (suspected) exposure to covid-19 Z20.822 Urinary tract infections (1 source) Urinary tract infection, site not specified; Translations: [Urinary tract infection, site not specified] Onset: 08-11-2022 Episodic Results Test Name Value Interpretation Reference Range Facility HISTORY PHYSICALon 3 HISTORY PHYSICAL HNO ID: [id number] Author: Mayra Garrido APRN.[employer] Service: ? Author Type: Nurse Practitioner Type: HANDP Filed: 05/19/2023 2:22 PM Note Text: PROCEDURAL SEDATION HISTORY AND PHYSICAL EXAM SERVICE DATE: 05/19/2023 SERVICE TIME: 2:05 PM Subjective HPI: This is a 48 year old female who presents with back pain PAST ANESTHESIA HISTORY: No history of adverse event PAST MEDICAL HISTORY Diagnosis Date Anxiety Panic disorder PAST SURGICAL HISTORY Procedure Laterality Date CHOLECYSTECTOMY HIP SURGERY HX 2015 HYSTERECTOMY 2006 Prior to Admission medications as of 03/24/23 1523 Medication Sig Last Dose Taking HYDROcodone-acetaminophen (NORCO) 5-325 mg per tablet Take 1 tablet by mouth every 8 hours as needed for pain. esomeprazole (NEXIUM) 20 mg capsule Take 20 mg by mouth DAILY ([address] (PROTONIX) 40 mg tablet Take 40 mg by mouth once daily. oxybutynin (DITROPAN) 5 mg tablet Take 5 mg by mouth three times daily. lidocaine (LIDODERM) 5 % Apply 1 Patch as directed every 24 hours. COMPOUNDED PRESCRIPTION Wheeled Walker Dx: gait and balance impairment gabapentin (NEURONTIN) 600 mg tablet Take 800 mg by mouth once daily. ibuprofen (MOTRIN) 600 mg tablet Take 1 tablet by mouth every 8 hours as needed (for pain and inflammation. Take as prescribed for 10-14 days then as needed). ALLERGIES Allergen Reactions Baclofen (Bulk) Hives Ciprofloxacin Other: See Comments seizures Dilantin [Phenytoin] Other: See Comments Aches and pain Objective PHYSICAL EXAM: The remainder of the physical exam is noncontributory. AIRWAY: Airway Visualization of Uvula: Yes Mouth opening greater than 2 fingerbreadths: Yes Neck Full Range of Motion: Yes LUNGS: Lungs clear to auscultation CARDIAC: Regular rhythm,Regular rate Assessment/Plan ASA Class: ASA Class:: Patient with severe systemic disease Active Problems: Piriformis syndrome of right side [G57.01] Radiculopathy, lumbosacral region [M54.17] Medication and Non-Pharmacologic VTE Prophylaxis/Anticoagulant s VTE Prophylaxis: NA Provisional Diagnosis/Treatment Plan: BLOCK PIRIFORMIS INCLUDING IMAGING GUIDANCE,WHEN PERFORMED - Right SIGNATURE: Mayra Garrido APRN.CNP PATIENT NAME: Roseann Stephen Radhika DATE: May 19, 2023 TIME: 2:05 PM Normal [facility] OPERATIVE NOon 05-19-2023 OPERATIVE NO HNO ID: [id number] Author: Frank Marie DO Service: Pain Management Author Type: Physician Type: Operative Report Filed: 05/19/2023 3:32 PM Note Text: Patient Name Medical Record # Roseann Garrido [id number] Date of : 1975 Admit Date: May 19, 2023 Sex / Age: female/48 year old Discharge Date: May 19, 2023 Attending Physician: Frank Marie DO Date:May 19, 2023 LOG ID: [id number] Surgery/Procedure Date: 05/19/2023 Incision/Procedure Start Time: 3:29 PM Incision Close/Procedure End Time: 3:32 PM Surgeon(s)/Proceduralist( s) and Applied Mathematician(s): Surgeon(s) and Role: * Frank Marie DO - Primary * Nisha Ragland MD - Fellow No Additional Staff Service: OPERATIVE REPORT DATE OF PROCEDURE: May 19, 2023 PREOPERATIVE DIAGNOSIS: Right Piriformis muscle pain POSTOPERATIVE DIAGNOSIS: Same NAME OF OPERATION: Right piriformis muscle steroid injection under fluoroscopy ANESTHESIA: Moderate sedation and local anesthesia using: Versed 2 mg IV INFORMED CONSENT: Risks, benefits and alternatives were discussed with the patient in detail. She verbalized understanding and agreed to proceed. DESCRIPTION OF PROCEDURE: The patient was brought to the fluoroscopy suite. IV access was obtained prior to the procedure. The patient was positioned prone on the fluoroscopy table. Continuous hemodynamic monitoring was initiated including blood pressure, EKG, and pulse oximetry. Intravenous sedation was administered incrementally to allow the patient to remain comfortable and conversant throughout the procedure.. The skin was prepped with povidone-iodine three times, and draped in a sterile fashion. With a PMC 25 gauge needle 1.5 needle, was injected subcutaneously over the entry site. The Right hip joint was visualized in an AP view. The tip of a 22-gauge 3 1/2 inch Quincke-type spinal needle was advanced just above the right hip joint, midway between the greater trochanter and sacrum, and stopped before contacting the Right hip joint. After negative aspiration for blood, 2 ml of Omnipaque 300 contrast agent was slowly injected. Confirmation of spread of contrast agent within the piriformis muscle was made in the AP fluoroscopic view. Subsequently, 5 ml of Bupivacaine 0.25% and 40 mg Kenalog was slowly administered. The needle was removed and bleeding was nil. A sterile dressing was applied. Complications: None. Estimated Blood Loss: None. Drains: None. Implantable Device: None. Specimen: None. I was present during the entire procedure, assisted as needed, patient tolerated well and no apparant complications, plan as outlined. DO Roseann Moeller is status post Right piriformis injection. she did very well without any apparent complications. she She is to return to clinic in 4 weeks for followup. Postoperative instructions were given. She voiced understanding, and she was was taken to the Post-block Recovery Area for further observation. Frank Marie DO Pain Management May 19, 2023 [facility] 05-03-2023 [facility] Telephone (LOORRM) ----- ROSEANN GARRIDO ([id number]) 1975 F Date Time Provider Department 05/03/23 [facility] During your visit today, we recorded the following information about you: Gisele Ernst 05/03/2023 8:44 AM Signed Attempted to contact patient to schedule an US Hip Injection with Dr. Espinosa. Left voicemail with my direct phone number. Gisele Ernst 05/04/2023 2:23 PM Signed Second attempt. Contacted patient and scheduled an appointment with Dr. Espinosa on 06/13/23. Appointment has been placed on the waitlist. The patient only wants to be seen at [place]. Allergies As of Date: 05/03/2023 Noted Allergy Reaction BACLOFEN (BULK) 05/20/2014 4 - Hives CIPROFLOXACIN 03/27/2017 14 - Other: See Comments Comments: seizures DILANTIN (PHENYTOIN) 05/20/2014 14 - Other: See Comments Comments: Aches and pain Date Reviewed: 03/24/2023 Reviewed by: Salma Gamino PA-C - Fully Assessed Reason for Visit: Schedule US Hip Injection [Other] Prescriptions as of 05/04/2023 - HYDROcodone-acetaminophen (NORCO) 5-325 mg per tablet Take 1 tablet by mouth every 8 hours as needed for pain. - esomeprazole (NEXIUM) 20 mg capsule Take 20 mg by mouth DAILY (6 AM). - pantoprazole DR (PROTONIX) 40 mg tablet Take 40 mg by mouth once daily. - oxybutynin (DITROPAN) 5 mg tablet Take 5 mg by mouth three times daily. - lidocaine (LIDODERM) 5 % Apply 1 Patch as directed every 24 hours. - COMPOUNDED PRESCRIPTION Wheeled Walker Dx: gait and balance impairment - gabapentin (NEURONTIN) 600 mg tablet Take 800 mg by mouth once daily. - ibuprofen (MOTRIN) 600 mg tablet Take 1 tablet by mouth every 8 hours as needed (for pain and inflammation. Take as prescribed for 10-14 days then as needed). 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] 01/10/2007 Epilepsy (HCC) [G40.909] 03/27/2017 Piriformis syndrome of right side [G57.01] 02/20/2023 Radiculopathy, lumbosacral region [M54.17] 02/20/2023 Psoas tendinitis of right side [M76.11] 03/24/2023 Tear of right acetabular labrum [S73.191A] 03/24/2023 Encounter Status:Closed by GISELE ERNST on 05/03/23 Normal [facility] MRI HIP WO IVCON RTon 2022 MRI HIP WO IVCON RT * * *Final Report* * * DATE OF EXAM: Apr 13 2023 7:43AM M2M [id number] - MRI HIP WO IVCON RT / PROCEDURE REASON: Pain of right hip * * * * Physician Interpretation * * * * MRI HIP WO IVCON RT INDICATION: Hx of labral tear in 2014, ? re-tear, vs psoas tendinitis/bursitis, with pirifor mis tendinitis .. COMPARISON: Radiographs dated 03/24/2023. TECHNIQUE: Hip MRI protocol. RESULT: Right Hip: Postoperative changes with suture anchor tracks seen in the anterior acetabulum compatible with prior labral repair. There is increased T2 signal at the labral chondral junction in the superior labrum posterior to the suture anchors (7:10 and 6:15 for example). No articular cartilage defect. No fractures. No avascular necrosis. No joint effusion. No synovitis. Left Hip: Increased T2 signal seen at the superior labral chondral junction similar to the right hip. No fractures. No avascular necrosis. Large field of view images limits evaluation of labrum and cartilage Sacroiliac joints: Within normal limits. Pubic symphysis: Within normal limits. Tendons: Mild insertional gluteal tendinosis bilaterally, greater on the left. Otherwise within normal limits including the iliopsoas, hamstring, gluteal and rectus femoris tendons. Muscles: Within normal limits. Bone Marrow: Within normal limits. No fractures or marrow replacing lesions. Bilateral greater trochanteric bursal thickening bilaterally. IMPRESSION: 1. POSTOPERATIVE CHANGES OF ACETABULAR ANTERIOR LABRAL REPAIR IN THE RIGHT HIP WITH FINDINGS SUGGESTING LABRAL DEGENERATION AND DEGENERATIVE TEARING IN THE SUPERIOR LABRUM. 2. MILD INSERTIONAL GLUTEAL TENDINOSIS BILATERALLY, WORSE ON THE LEFT AND MILD GREATER TROCHANTERIC BURSITIS BILATERALLY. 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: [facility] Transcribe Date/Time: Apr 13 2023 7:59A Dictated by : LILLIAM GUEVARA MD This examination was interpreted and the report reviewed and electronically signed by: LILLIAM GUEVARA MD on Apr 13 2023 8:07AM EST [id number] Normal [facility] SARS-CoV-2 (COVID-19) RNA NA A+probe Ql (Resp)on 04-11-2023 SARS-CoV-2 (COVID-19) RNA LULU+probe Ql (Unsp spec) Negative [place] Other [place] 03-24-2023 [facility] Office Visit (LOORR ) ----- ROSEANN GARRIDO ([id number]) 1975 F Date Time Provider Department 03/24/23 2:30 PM SALMA GAMINO LOORRSue During your visit today, we recorded the following information about you: Salma Gamino PA-C 03/30/2023 5:55 PM Signed SERVICE DATE: March 24, 2023 PCP: No primary care provider on file. Consult requested by Kulwinder Atkinson DO for an opinion regarding chief complaint as stated below. My final impression and recommendations will be communicated back to the requesting physician by way of the shared medical record or letter via US mail. Subjective Patient ID: Roseann is a 47 year old female. Chief Complaint: Patient presents with: Right Hip - New, Pain Left Hip - New, Pain PAIN EVALUATION 03/24/2023 1500 Pain Level: 7 Pain Location: -- hips Description: Aching;Spasm;Sharp swelling Duration Units: Days Frequency: Continuous Intervention/Comfort measure: Heat;Medication;Exercise pain patches, PT Patient is a 47-year-old 5 foot 4 inch 192 pound female who is here with complaints of right hip pain which has been going on for about a year. She notes that it feels like a knot or ball in the buttock when she sits him for the past couple of days has been quite intense. She notes that is better with walking and worse with sitting and cannot find a comfortable position. She saw Dr. Marie who has been treating her for her back bulging disks who feels that it is piriformis syndrome and sent her for physical therapy. She has had 5 sessions and feels that it is making things worse rather than better. Has been using pain patches and heat and taking occasional Percocet. Now beginning to have achiness and spasms in her left hip from compensating. Pain level on the right is 6-7/10 and can be sharp at times. Pain is primarily at the anterior and posterior hip. Denies numbness or tingling. Denies radicular symptoms down the leg. She has a history of ulcers and cannot tolerate oral NSAIDs. She had a right hip arthroscopy done by Dr. Stark in 2014 for a labral tear. Did well after this. TREATMENTS PRIOR TO INITIAL CONSULT: Right Physical Therapy Right Physical Therapy - Patient Unable to Tolerate Right right hip arthroscopy surgery; Date: 2014 Review of Systems Constitutional: Negative for fever. HENT: Negative for congestion. Respiratory: Negative for cough and shortness of breath. Cardiovascular: History of mitral valve prolapse Gastrointestinal: History of gastritis and ulcers Endocrine: Diet-controlled diabetic Skin: Negative for color change and rash. Neurological: Negative for numbness. History of seizures Musculoskeletal: Negative for joint swelling. All other systems reviewed and are negative. ACTIVE PROBLEM LIST Other Disorders of The Pituitary and Other Syndromes of Diencephalohypophyseal Origin Epilepsy (Hcc) Piriformis Syndrome of Right Side Radiculopathy, Lumbosacral Region Psoas Tendinitis of Right Side Tear of Right Acetabular Labrum PAST MEDICAL HISTORY Diagnosis Date Anxiety Panic disorder PAST SURGICAL HISTORY Procedure Laterality Date CHOLECYSTECTOMY HIP SURGERY HX 2015 HYSTERECTOMY 2007 FAMILY HISTORY Problem Relation Age of Onset Seizures Father other (parkinsons) Father Seizures Brother Social History Tobacco Use Smoking status: Every Day Packs/day: 1 Types: Cigarettes Smokeless tobacco: Current Substance Use Topics Alcohol use: No Drug use: No ALLERGIES Allergen Reactions Baclofen (Bulk) Hives Ciprofloxacin Other: See Comments seizures Dilantin [Phenytoin] Other: See Comments Aches and pain MEDICATIONS: HYDROcodone-acetaminophen (NORCO) 5-325 mg per tablet Take 1 tablet by mouth every 8 hours as needed for pain. esomeprazole (NEXIUM) 20 mg capsule Take 20 mg by mouth DAILY ([address] (PROTONIX) 40 mg tablet Take 40 mg by mouth once daily. oxybutynin (DITROPAN) 5 mg tablet Take 5 mg by mouth three times daily. lidocaine (LIDODERM) 5 % Apply 1 Patch as directed every 24 hours. COMPOUNDED PRESCRIPTION Wheeled Walker Dx: gait and balance impairment gabapentin (NEURONTIN) 600 mg tablet Take 800 mg by mouth once daily. ibuprofen (MOTRIN) 600 mg tablet Take 1 tablet by mouth every 8 hours as needed (for pain and inflammation. Take as prescribed for 10-14 days then as needed). Allergies, medications, past surgical history, family history and past medical history were reviewed per this encounter. Objective Right Hip Exam Tenderness The patient is experiencing tenderness in the anterior and posterior (Tenderness at the psoas and anterior hip capsule as well as at the piriformis). Range of Motion Abduction: 40 Adduction: 30 Extension: 0 Flexion: 110 (Anterior hip discomfort at extreme) External rotation: 70 Internal rotation: 30 (Tightn (more content not included)... Normal [facility] XR HIP 3V PELV+ AP/LAT RTon 03-24-2023 XR HIP 3V PELV+ AP/LAT RT * * *Final Report* * * DATE OF EXAM: Mar 24 2023 2:36PM ALEJANDROX [id number] - XR HIP 3V PELV+ AP/LAT RT / PROCEDURE REASON: Pain * * * * Physician Interpretation * * * * EXAMINATION: XR HIP 3V PELV+ AP/LAT RT HISTORY: right hip pain/ feels out of place/ no injury Pain . TECHNIQUE: XR HIP 3V PELV+ AP/LAT RT Laterality: RIGHT Number of different views (projections): 3 M: XB_1 COMPARISON: RESULT: Maintained sacroiliac joints and pubic symphysis. There are minimal degenerative changes of the right hip joint. Similar degenerative change of the left hip. No acute fracture or dislocation. There are no bony erosions. IMPRESSION: Minimal degenerative changes. No acute osseous findings. 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 [facility] Comment on above: Result Comment: ===== TOXASSURE COMP DRUG ANALYSIS,UR ===== Test Result Flag Units Drug Present Hydromorphone 261 ng/mg creat Norhydrocodone 433 ng/mg creat Hydromorphone and norhydrocodone are expected metabolites of hydrocodone. Sources of hydrocodone are scheduled prescription medications. Hydromorphone is also available as a scheduled prescription medication. Gabapentin PRESENT Acetaminophen PRESENT Ibuprofen PRESENT ===== Test Result Flag Units Ref Range Creatinine 33 mg/dL >=20 ===== Declared Medications: Medication list was not provided. ===== For clinical consultation, please call . ===== Performed at: [facility] [address] [place] [address] [id number] Java Spring Developer: Amaya Martínez, Phone: [phone] PERFORMED BY: [facility] [place] [address] PATHOLOGIST TOP LIFT COMPRESSOR ANNALEE PARRISH M.D. Performed By: #### T OXASSURE #### [facility] , CNPNon 02-22-2023 CNPN Telephone (ORLORA) ----- RADHIKAROSEANN L ([id number]) 1975 F Date Time Provider Department 02/22/23 FRANK MARIE During your visit today, we recorded the following information about you: Marta Issa 02/22/2023 5:13 PM Signed Spoke to patient. She states that she is supposed to get updated imaging. A CT and Xray of her hip and MRI of the spine. I do not see any orders placed. Please advise and send to scheduling to contact patient for those as soon as possible. Right Piriformis muscle steroid injection ROSEANN GARRIDO [phone] RH FRANK -THINNERS -DM Patient prefers to have imaging done prior to injection. Clementina Silver LPN 02/23/2023 10:51 AM Signed Message left for patient to return call regarding her message below. Chart will be sent back over for xray order to be put in. Patient can still schedule Right Piriformis injection. Insurance will not pay for MRI until patient has completed conservative therapies (PT) first. Order for physical therapy in system can schedule. PLAN: Dr. Marie 02/20/23 1) Xray of lumbar spine 2) Right Piriformis injection 3) Physical therapy, consider MRI lumbar spine. 3) RTC in 8 weeks for F/U. Mulu Aquino LPN 02/24/2023 11:20 AM Signed Please assist pt with scheduling PT, Lumbar Xray AND follow up appt(8 weeks) PLAN: 1) Xray of lumbar spine 2) Right Piriformis injection 3) Physical therapy, consider MRI lumbar spine. 3) RTC in 8 weeks for F/U. Ivette Garcia 02/27/2023 1:06 PM Addendum Called patient in an attempt to get her scheduled for Xray and Physical Therapy. Patient expressed that she lives in [place] and requested that orders be faxed to [facility]. She would like to complete both Physical Therapy and Xray closed to home. PSS explained to patient that she would have to make sure that she asks for a disc after she gets the XRay and she would have to make sure that [facility] sends results to Dr. Marie. Patient aware that MRI would not be covered unless there is documentation of conservative therapies first. Patient aware and will get disc and [facility] to Dr. Marie. [facility] Marta Issa 03/14/2023 11:43 AM Signed Left voicemail for patient. Checking back to see if she got xray and PT done and if she wanted to schedule injection. If patient calls back, please connect with surgery coordinator at [phone]. Allergies As of Date: 02/22/2023 Noted Allergy Reaction BACLOFEN (BULK) 05/20/2014 4 - Hives CIPROFLOXACIN 03/27/2017 14 - Other: See Comments Comments: seizures DILANTIN (PHENYTOIN) 05/20/2014 14 - Other: See Comments Comments: Aches and pain Date Reviewed: 04/01/2017 Reviewed by: Colette Corbett (Rn) - Fully Assessed Reason for Visit: Schedule Injection [3498] Primary Visit Diagnosis:Radiculopathy, lumbosacral region [M54.17] Order(s):XR LUMBAR GENERAL 3V AP/LAT/L5-S1 [[id number]] Order #: [id number] FUTURE Prescriptions as of 03/14/2023 - COMPOUNDED PRESCRIPTION Wheeled Walker Dx: gait and balance impairment - esomeprazole (NEXIUM) 20 mg capsule Take 20 mg by mouth DAILY (6 AM). - gabapentin (NEURONTIN) 600 mg tablet Take 800 mg by mouth once daily. - HYDROcodone-acetaminophen (NORCO) 5-325 mg per tablet Take 1 tablet by mouth every 8 hours as needed for pain. - ibuprofen (MOTRIN) 600 mg tablet Take 1 tablet by mouth every 8 hours as needed (for pain and inflammation. Take as prescribed for 10-14 days then as needed). - lidocaine (LIDODERM) 5 % Apply 1 Patch as directed every 24 hours. - oxybutynin (DITROPAN) 5 mg tablet Take 5 mg by mouth three times daily. - pantoprazole DR (PROTONIX) 40 mg tablet Take 40 mg by mouth once daily. 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] 01/10/2007 Epilepsy (HCC) [G40.909] 03/27/2017 Piriformis syndrome of right side [G57.01] 02/20/2023 Radiculopathy, lumbosacral region [M54.17] 02/20/2023 Encounter Status:Closed by ROSEANN BRYSON on 02/27/23 Normal [facility] CNOVon 02-20-2023 CNOV Office Visit (PAINLN ) ----- RADHIKAROSEANN ([id number]) 1975 F Date Time Provider Department 02/20/23 2:30 PM FRANK MARIE PAINLN During your visit today, we recorded the following information about you: Pulse Height 96/minute 1.626 m Frank Marie, 02/20/2023 3:40 PM Signed [facility] Initial Evaluation February 20, 2023 This appointment was requested by Michael Moreno CNP, for my medical opinion regarding the evaluation and management of the patient's Roseann Garrido problems, and my final recommendations will be communicated to the requesting health care provider by way of the shared medical record for internal providers or letter via the [employer] for external providers. SUBJECTIVE: Roseann Garrido a 47 year old presents to [facility], accompanied by daughter, was referred by Michael Moreno CNP, for an initial evaluation for low back. The pain is located in the low back and radiates into the right hip area and around to the front of the hip Distribution: right hip area is greater in pain Started years ago, She states she feels a hard lump in the lower right buttocks area and has difficulty sitting. Patient has to put her weight to her left hip. , and symptoms have been persistent. Characterized as burning and dull Currently the pain is a rated at a 8 on a scale of 0-10. Worst pain score is rated at 10 on a scale of 0-10. Best pain score is rated at 5 on a scale of 0-10. Aggravated by sitting and walking. Mitigated by standing. Current treatments and response: Perley PRN - helps only 4 hrs Gabapentin 800 mg- once daily- Lidocaine Patch- some relief Response to previous treatments: Cortizone injection in [place] - no relief PT- yrs ago - no relief Alcohol Abuse - No Drug Abuse - No Current Anticoagulant Therapy: No Sleep Disturbance: Yes: Difficulty staying asleep. PAST MEDICAL HISTORY Diagnosis Date Anxiety Panic disorder PAST SURGICAL HISTORY Procedure Laterality Date CHOLECYSTECTOMY HIP SURGERY HX 2015 HYSTERECTOMY 2007 Social History Tobacco Use Smoking status: Every Day Packs/day: 1 Types: Cigarettes Smokeless tobacco: Current Substance Use Topics Alcohol use: No Drug use: No FAMILY HISTORY Problem Relation Age of Onset Seizures Father other (parkinsons) Father Seizures Brother ALLERGIES Allergen Reactions Baclofen (Bulk) Hives Ciprofloxacin Other: See Comments seizures Dilantin [Phenytoin] Other: See Comments Aches and pain Current Outpatient Medications Medication Sig HYDROcodone-acetaminophen (NORCO) 5-325 mg per tablet Take 1 tablet by mouth every 8 hours as needed for pain. esomeprazole (NEXIUM) 20 mg capsule Take 20 mg by mouth DAILY ([address] (PROTONIX) 40 mg tablet Take 40 mg by mouth once daily. oxybutynin (DITROPAN) 5 mg tablet Take 5 mg by mouth three times daily. COMPOUNDED PRESCRIPTION Wheeled Walker Dx: gait and balance impairment gabapentin (NEURONTIN) 600 mg tablet Take 800 mg by mouth once daily. ibuprofen (MOTRIN) 600 mg tablet Take 1 tablet by mouth every 8 hours as needed (for pain and inflammation. Take as prescribed for 10-14 days then as needed). No current facility-administered medications for this visit. Review of Symptoms: GENERAL:No weight loss, malaise or fevers., SEE HPI HEENT:Negative for frequent or significant headaches, No changes in hearing or vision, no nose bleeds or other nasal problems NECK:Negative for lumps, goiter, pain and significant neck swelling RESPIRATORY: Negative for cough, wheezing or shortness of breath. CARDIOVASCULAR: Negative for chest pain, leg swelling and palpitations GASTROINTESTINAL: Negative for abdominal discomfort, blood in stools or black stools or change in bowel habits GENITOURINARY: No history of dysuria, frequency or incontinence SOFTWARE LEAD: Negative for abnormal vaginal bleeding, abnormal vaginal discharge MUSCULOSKELETAL:low back NEUROLOGIC:Negative for focal numbness or weakness, headaches and dizziness or syncope. SKIN:Negative for lesions, rash, and itching. PSYCHIATRIC: Negative for sleep disturbance, mood disorder and recent psychosocial stressors. HEMATOLOGIC/LYMPHATIC/IMM UNOLOGIC:Negative for prolonged bleeding, bruising easily or swollen nodes. ENDOCRINE: Negative for cold or heat intolerance, polyuria, polydipsia and goiter. The remainder of the ROS was negative. PREVIOUS TREATMENTS LASTING SIX WEEKS IN THE LAST SIX MONTHS Active conservative therapy lasting 6 weeks in the last six months (see below) 1. Physical therapy: No 2. Home exercise program after PT: No 3. Occupational therapy: No 4. A physician supervised home exercise program (HEP): No 5. Plant Technician/Control Room Operator: No Passive conservative therapy lasting 6 weeks in the last six m (more content not included)... Normal [facility] Drugs identified in UrineOrd ered By: Michael Moreno on 01-12-2023 Drugs identified Nom (U) Final . [facility] Comment on above: =====TOXASSURE COMP DRUG ANALYSIS,UR Specimen AlertNote: Urinary creatinine is low; ability to detect somedrugs may be compromised. Interpret resultswith caution. Test Result Flag UnitsDrug Present Hydromorphone 617 ng/mg creat Norhydrocodone 1050 ng/mg creat Hydromorphone and norhydrocodone are expected metabolites of hydrocodone. Sources of hydrocodone are scheduled prescription medications. Hydromorphone is also available as a scheduled prescription medication. Gabapentin PRESENT Acetaminophen PRESENT Test Result Flag Units Ref Range Creatinine 18 L mg/dL >=20 =========Declared Medications: Medication list was not provided. For clinical consultation, please call . Performed at: [facility] [address] [id number] Director: Amaya Chapin [facility], Phone: [phone] Toxassure, Urineon 3 Toxassure, Urine Summary FINAL Normal . [facility] Comment on above: Order Comment: Reaso n for Exam Lumbago with sciatica, right side Specimen Comment: ToxAssure, ToxAssure FLEX or MAT drug testing: Specimen Comment: -Technical component - Data analysis performed at Specimen Comment: <[address] [facility], [id number]> Result Comment: ===== TOXASSURE COMP DRUG ANALYSIS,UR ===== Specimen Alert Note: Urinary creatinine is low; ability to detect some drugs may be compromised. Interpret results with caution. ===== Test Result Flag Units Drug Present Hydromorphone 617 ng/mg creat Norhydrocodone 1050 ng/mg creat Hydromorphone and norhydrocodone are expected metabolites of hydrocodone. Sources of hydrocodone are scheduled prescription medications. Hydromorphone is also available as a scheduled prescription medication. Gabapentin PRESENT Acetaminophen PRESENT ===== Test Result Flag Units Ref Range Creatinine 18 L mg/dL >=20 ===== Declared Medications: Medication list was not provided. ===== For clinical consultation, please call . ===== Performed at: [facility] [address] [place] [id number] Java Spring Developer: Amaya Chapin [facility], Phone: [phone] PERFORMED BY: [place] [address] PATHOLOGIST TOP LIFT COMPRESSOR ANNALEE PARRISH M.D. Performed By: #### T OXASSURE ####[facility] , XR hip RT min 2V(w/wo pelvis )*on 01-12-2023 XR hip RT min 2V(w/wo pelvis)* [facility] [place] [address] XRay Report Signed Patient: Roseann Garrido MR#: [id number] : 1975 Acct:[id number] Age/Sex: 47 / F ADM Date: 01/12/23 Loc: XD Room: Type: [facility] Attending Dr: Michael LISA Copies to: MARIA L Green Ordering Provider: MARIA L Green Date of Service: 01/12/23 XR/XR KUB: Urethral pain ([id number]) XR/XR hip RT min 2V(w/wo pelvis)*: R39.89, M25.551 CLINICAL DATA: Right hip and leg pain. History of kidney stones. KUB: COMPARISON: CT 08/17/2021 Supine view the abdomen and pelvis was obtained. There is moderate stool along the colon. No dilated small bowel is seen. The kidneys are obscured. No obvious radiopaque renal or ureteral stones are noted. There are no soft tissue masses. There is minor degenerative change at the spine. XR/XR KUB IMPRESSION: MODERATE STOOL. NO OBVIOUS RADIOPAQUE STONES. RIGHT HIP - 2 views COMPARISON: 12/30/2021 AP and frog-lateral views were obtained. No fracture or dislocation is identified. No joint space narrowing or hypertrophy is seen. No soft tissue abnormality is are present. IMPRESSION: NO ACUTE BONY FINDINGS. Impression dictated by: Alejandra Gutierrez M.D.01/12/2023 3:50 PM Dictation Location: [place] [address] Transcribed By: [facility] 01/12/23 1550 Dictated By: Alejandra Gutierrez MD 01/12/23 1543 Signed By: 01/12/23 1550 Normal [facility] Alanine aminotransferase [En zymatic activity/volume] in Serum or PlasmaOrdered By: Michael Moreno on 09-06-2022 ALT [Catalytic activity/Vol] 37 U/L 7-52 [facility] Albumin [Mass/volume] in Ser um or Plasma by Bromocresol green (BCG) dye binding methoOrdered By: Michael Moreno on 09-06-2022 Albumin BCG dye [Mass/Vol] 4.3 g/dL 3.5-5.7 [facility] Alkaline phosphatase [Enzyma tic activity/volume] in Serum or PlasmaOrdered By: Michael Moreno on 09-06-2022 ALP [Catalytic activity/Vol] 87 U/L 34-104 [facility] Aspartate aminotransferase [ Enzymatic activity/volume] in Serum or PlasmaOrdered By: Michael Moreno on 09-06-2022 AST [Catalytic activity/Vol] 24 U/L 13-39 [facility] Basophils Auto (Bld) [#/Vol] Ordered By: Michael Moreno on 09-06-2022 Basophils (Bld) [#/Vol] 0.0 10*3/uL 0.0-0.2 [facility] Basophils/100 WBC Auto (Bld) Ordered By: Michael Moreno on 09-06-2022 Basophils/100 WBC (Bld) 0.2 % . [facility] Bilirubin.total [Mass/volume ] in Serum or PlasmaOrdered By: Michael Moreno on 09-06-2022 Bilirubin [Mass/Vol] 0.3 mg/dL 0.3-1.0 [facility] Calcium [Mass/volume] in Ser um or PlasmaOrdered By: Michael Moreno on 09-06-2022 Calcium [Mass/Vol] 9.6 mg/dL 8.6-10.3 [facility] Carbon dioxide, total [Moles /volume] in Serum or PlasmaOrdered By: Michael Moreno on 09-06-2022 CO2 [Moles/Vol] 27.8 mmol/L 21.0-31.0 [facility] Chloride [Moles/volume] in S layla or PlasmaOrdered By: Michael Moreno on 09-06-2022 Chloride [Moles/Vol] 103 mmol/L 98-107 [facility] Complete Blood Count Auto Di ffon 09-06-2022 Basophils (Bld) [#/Vol] 0.0 10*3/uL Normal 0.0-0.2 [facility] Comment on above: Order Comment: Reaso n for Exam History of tonsillectomy Result Comment: PERF ORMED BY: [place] [address] PATHOLOGIST TOP LIFT COMPRESSOR ANNALEE PARRISH M.D. Performed By: #### F E and TIBC, TSH3, CBC, CMP #### [facility] [address] Basophils/100 WBC (Bld) 0.2 % Normal . [facility] Comment on above: Order Comment: Reaso n for Exam History of tonsillectomy Performed By: #### F E and TIBC, TSH3, CBC, CMP #### [facility] [address] Eosinophils (Bld) [#/Vol] 0.4 10*3/uL Normal 0.0-0.45 [facility] Comment on above: Order Comment: Reaso n for Exam History of tonsillectomy Performed By: #### F E and TIBC, TSH3, CBC, CMP #### [address] Eosinophils/100 WBC (Bld) 4.0 % Normal . [facility] Comment on above: Order Comment: Reaso n for Exam History of tonsillectomy Performed By: #### F E and TIBC, TSH3, CBC, CMP #### [address] Erythrocyte distribution width (RBC) [Ratio] 13.8 % Normal 11.9-15.3 [facility] Comment on above: Order Comment: Reaso n for Exam History of tonsillectomy Performed By: #### F E and TIBC, TSH3, CBC, CMP #### [address] Hematocrit (Bld) [Volume fraction] 42.9 % Normal 34.0-46.4 [facility] Comment on above: Order Comment: Reaso n for Exam History of tonsillectomy Performed By: #### F E and TIBC, TSH3, CBC, CMP #### [address] Hemoglobin (Bld) [Mass/Vol] 14.7 g/dL Normal 11.8-15.4 [facility] Comment on above: Order Comment: Reaso n for Exam History of tonsillectomy Performed By: #### F E and TIBC, TSH3, CBC, CMP #### [address] Lymphocytes (Bld) [#/Vol] 3.5 10*3/uL Normal 1.00-4.8 [facility] Comment on above: Order Comment: Reaso n for Exam History of tonsillectomy Performed By: #### F E and TIBC, TSH3, CBC, CMP #### [address] Lymphocytes/100 WBC (Bld) 36.2 % Normal . [facility] Comment on above: Order Comment: Reaso n for Exam History of tonsillectomy Performed By: #### F E and TIBC, TSH3, CBC, CMP #### [address] MCH (RBC) [Entitic mass] 32.3 pg Normal 24.7-34.3 [facility] Comment on above: Order Comment: Reaso n for Exam History of tonsillectomy Performed By: #### F E and TIBC, TSH3, CBC, CMP #### [address] MCV (RBC) [Entitic vol] 94.4 fL Normal 80-100 [facility] Comment on above: Order Comment: Reaso n for Exam History of tonsillectomy Performed By: #### F E and TIBC, TSH3, CBC, CMP #### [address] Mean Corpuscular HGB Conc 34.2 g/dL Normal 32.0-35.0 [facility] Comment on above: Order Comment: Reaso n for Exam History of tonsillectomy Performed By: #### F E and TIBC, TSH3, CBC, CMP #### [address] Monocytes (Bld) [#/Vol] 0.7 10*3/uL Normal 0.0-0.8 [facility] Comment on above: Order Comment: Reaso n for Exam History of tonsillectomy Performed By: #### F E and TIBC, TSH3, CBC, CMP #### [address] Monocytes/100 WBC (Bld) 6.8 % Normal . [facility] Comment on above: Order Comment: Reaso n for Exam History of tonsillectomy Performed By: #### F E and TIBC, TSH3, CBC, CMP #### [address] Neutrophils (Bld) [#/Vol] 5.2 10*3/uL Normal 1.8-7.7 [facility] Comment on above: Order Comment: Reaso n for Exam History of tonsillectomy Performed By: #### F E and TIBC, TSH3, CBC, CMP #### [facility] [facility] [address] Neutrophils/100 WBC (Bld) 52.8 % Normal . [facility] Comment on above: Order Comment: Reaso n for Exam History of tonsillectomy Performed By: #### F E and TIBC, TSH3, CBC, CMP #### [facility] [address] NRBC% 0.2 /100{WBC} Normal 0-0.5 [facility] Comment on above: Order Comment: Reaso n for Exam History of tonsillectomy Performed By: #### F E and TIBC, TSH3, CBC, CMP #### [facility] [address] Platelet mean volume (Bld) [Entitic vol] 7.1 fL Normal 6.3-10.7 [facility] Comment on above: Order Comment: Reaso n for Exam History of tonsillectomy Performed By: #### F E and TIBC, TSH3, CBC, CMP #### [facility] [address] Platelets (Bld) [#/Vol] 312 10*3/uL Normal 150-450 [facility] Comment on above: Order Comment: Reaso n for Exam History of tonsillectomy Performed By: #### F E and TIBC, TSH3, CBC, CMP #### [facility] [address] RBC (Bld) [#/Vol] 4.54 10*6/uL Normal 3.60-5.00 [facility] Comment on above: Order Comment: Reaso n for Exam History of tonsillectomy Performed By: #### F E and TIBC, TSH3, CBC, CMP #### [facility] [address] WBC (Bld) [#/Vol] 9.8 10*3/uL Normal 3.8-11.6 [facility] Comment on above: Order Comment: Reaso n for Exam History of tonsillectomy Performed By: #### F E and TIBC, TSH3, CBC, CMP #### [facility] [address] Comprehensive Metabolic Pane [place] 09-06-2022 Albumin [Mass/Vol] 4.3 g/dL Normal 3.5-5.7 [facility] Comment on above: Order Comment: Reaso n for Exam History of tonsillectomy Reason for Exam Hair loss Performed By: #### F E and TIBC, TSH3, CBC, CMP #### [facility] [address] Albumin/Globulin [Mass ratio] 2.4 {ratio} Normal [facility] Comment on above: Order Comment: Reaso n for Exam History of tonsillectomy Reason for Exam Hair loss Performed By: #### F E and TIBC, TSH3, CBC, CMP #### [address] ALP [Catalytic activity/Vol] 87 U/L Normal 34-104 [facility] Comment on above: Order Comment: Reaso n for Exam History of tonsillectomy Reason for Exam Hair loss Performed By: #### F E and TIBC, TSH3, CBC, CMP #### [address] ALT [Catalytic activity/Vol] 37 U/L Normal 7-52 [facility] Comment on above: Order Comment: Reaso n for Exam History of tonsillectomy Reason for Exam Hair loss Performed By: #### F E and TIBC, TSH3, CBC, CMP #### [address] Anion gap [Moles/Vol] 11.0 mmol/L Normal 6.0-15.0 [facility] Comment on above: Order Comment: Reaso n for Exam History of tonsillectomy Reason for Exam Hair loss Performed By: #### F E and TIBC, TSH3, CBC, CMP #### [facility] [address] AST [Catalytic activity/Vol] 24 U/L Normal 13-39 [facility] Comment on above: Order Comment: Reaso n for Exam History of tonsillectomy Reason for Exam Hair loss Performed By: #### F E and TIBC, TSH3, CBC, CMP #### [facility] [address] Bilirubin [Mass/Vol] 0.3 mg/dL Normal 0.3-1.0 [facility] Comment on above: Order Comment: Reaso n for Exam History of tonsillectomy Reason for Exam Hair loss Performed By: #### F E and TIBC, TSH3, CBC, CMP #### [facility] [address] Calcium [Mass/Vol] 9.6 mg/dL Normal 8.6-10.3 [facility] Comment on above: Order Comment: Reaso n for Exam History of tonsillectomy Reason for Exam Hair loss Performed By: #### F E and TIBC, TSH3, CBC, CMP #### [facility] [address] Chloride [Moles/Vol] 103 mmol/L Normal 98-107 [facility] Comment on above: Order Comment: Reaso n for Exam History of tonsillectomy Reason for Exam Hair loss Performed By: #### F E and TIBC, TSH3, CBC, CMP #### [facility] [address] CO2 [Moles/Vol] 27.8 mmol/L Normal 21.0-31.0 [facility] Comment on above: Order Comment: Reaso n for Exam History of tonsillectomy Reason for Exam Hair loss Performed By: #### F E and TIBC, TSH3, CBC, CMP #### [facility] [address] [place] [address] [place] Creatinine [Mass/Vol] 0.88 mg/dL Normal 0.60-1.20 [facility] Comment on above: Order Comment: Reaso n for Exam History of tonsillectomy Reason for Exam Hair loss Performed By: #### F E and TIBC, TSH3, CBC, CMP #### [facility] [address] [place] [address] [place] GFR/1.73 sq M.predicted MDRD (S/P/Bld) [Vol rate/Area] mL/min/{1.73_m2} [facility] Comment on above: Order Comment: Reaso n for Exam History of tonsillectomy Reason for Exam Hair loss Performed By: #### F E and TIBC, TSH3, CBC, CMP #### [facility] [address] Globulin (S) [Mass/Vol] 1.8 g/dL Normal [facility] Comment on above: Order Comment: Reaso n for Exam History of tonsillectomy Reason for Exam Hair loss Performed By: #### F E and TIBC, TSH3, CBC, CMP #### [address] Glucose [Mass/Vol] 89 mg/dL Normal 70-100 [facility] Comment on above: Order Comment: Reaso n for Exam History of tonsillectomy Reason for Exam Hair loss Result Comment: [facility] Glucose Reference Range is dependent on time and content of last meal. Glucose of more than 200 mg/dL in a nonstressed, ambulatory subject supports the diagnosis of Diabetes Mellitus. ADA recommended reference range Performed By: #### F E and TIBC, TSH3, CBC, CMP #### [address] Potassium [Moles/Vol] 4.8 mmol/L Normal 3.5-5.1 [facility] Comment on above: Order Comment: Reaso n for Exam History of tonsillectomy Reason for Exam Hair loss Performed By: #### F E and TIBC, TSH3, CBC, CMP #### [address] Protein [Mass/Vol] 6.1 g/dL Low 6.4-8.9 [facility] Comment on above: Order Comment: Reaso n for Exam History of tonsillectomy Reason for Exam Hair loss Performed By: #### F E and TIBC, TSH3, CBC, CMP #### [address] [place] [address] [place] Sodium [Moles/Vol] 137 mmol/L Normal 136-145 [facility] Comment on above: Order Comment: Reaso n for Exam History of tonsillectomy Reason for Exam Hair loss Performed By: #### F E and TIBC, TSH3, CBC, CMP #### [facility] [address] [place] [address] [place] Urea nitrogen [Mass/Vol] 12 mg/dL Normal 7-25 [facility] Comment on above: Order Comment: Reaso n for Exam History of tonsillectomy Reason for Exam Hair loss Performed By: #### F E and TIBC, TSH3, CBC, CMP #### [facility] [address] [place] [address] [place] Creatinine [Mass/volume] in Serum or PlasmaOrdered By: Michael Moreno on 09-06-2022 Creatinine [Mass/Vol] 0.88 mg/dL 0.60-1.20 [facility] Eosinophils Auto (Bld) [#/Vo l]Ordered By: Michael Moreno on 09-06-2022 Eosinophils (Bld) [#/Vol] 0.4 10*3/uL 0.0-0.45 [facility] Eosinophils/100 WBC Auto (Bl d)Ordered By: Michael Moreno on 09-06-2022 Eosinophils/100 WBC (Bld) 4.0 % . [facility] Erythrocyte distribution wid th Auto (RBC) [Ratio]Ordered By: Michael Moreno on 09-06-2022 Erythrocyte distribution width (RBC) [Ratio] 13.8 % 11.9-15.3 [facility] Globulin Calc (S) [Mass/Vol] Ordered By: Michael Moreno on 09-06-2022 Globulin (S) [Mass/Vol] 1.8 g/dL [facility] Glucose [Mass/volume] in Ser um or PlasmaOrdered By: Michael Moreno on 09-06-2022 Glucose [Mass/Vol] 89 mg/dL 70-100 [facility] Comment on above: ADA recommended refe rence rangeRandom Glucose Reference Range is dependent on time and content of last meal. Glucose of more than 200 mg/dL in a nonstressed, ambulatory subject supports the diagnosis of Diabetes Mellitus. Hematocrit Auto (Bld) [Volum e fraction]Ordered By: Michael Moreno on 09-06-2022 Hematocrit (Bld) [Volume fraction] 42.9 % 34.0-46.4 [facility] Hemoglobin [Mass/volume] in BloodOrdered By: Michael Moreno on 09-06-2022 Hemoglobin (Bld) [Mass/Vol] 14.7 g/dL 11.8-15.4 [facility] Iron [Mass/volume] in Serum or PlasmaOrdered By: Michael Moreno on 09-06-2022 Iron [Mass/Vol] 52 ug/dL 50-212 [facility] Iron and TIBC Profileon % Iron Saturation 11.8 % Low 20-50 [facility] Comment on above: Order Comment: Reaso n for Exam History of tonsillectomy Reason for Exam Hair loss Performed By: #### F E and TIBC, TSH3, CBC, CMP #### [facility] [address] [place] [id number] [facility] Iron [Mass/Vol] 52 ug/dL Normal 50-212 [facility] Comment on above: Order Comment: Reaso n for Exam History of tonsillectomy Reason for Exam Hair loss Performed By: #### F E and TIBC, TSH3, CBC, CMP #### [facility] [address] [place] [address] [place] Total Iron Binding Capacity 440 ug/dL Normal 255-450 [facility] Comment on above: Order Comment: Reaso n for Exam History of tonsillectomy Reason for Exam Hair loss Performed By: #### F E and TIBC, TSH3, CBC, CMP #### [facility] [address] [place] [address] [place] Transferrin [Mass/Vol] 314 mg/dL Normal 203-362 [facility] Comment on above: Order Comment: Reaso n for Exam History of tonsillectomy Reason for Exam Hair loss Performed By: #### F E and TIBC, TSH3, CBC, CMP #### [facility] [address] [place] [address] [facility] Iron binding capacity [Mass/ volume] in Serum or PlasmaOrdered By: Michael Moreno on 09-06-2022 Iron binding capacity [Mass/Vol] 440 ug/dL 255-450 [facility] Iron saturation [Mass Fracti on] in Serum or PlasmaOrdered By: Michael Moreno on 09-06-2022 Iron saturation [Mass fraction] 11.8 % 20-50 [facility] Leukocytes [#/volume] correc shirley for nucleated erythrocytes in Blood by Automated counOrdered By: Michael Moreno on 09-06-2022 WBC corrected for nucl RBC Auto (Bld) [#/Vol] 9.8 10*3/uL 3.8-11.6 [facility] Lymphocytes Auto (Bld) [#/Vo l]Ordered By: Michael Moreno on 09-06-2022 Lymphocytes (Bld) [#/Vol] 3.5 10*3/uL 1.00-4.8 [facility] Lymphocytes/100 WBC Auto (Bl d)Ordered By: Michael Moreno on 09-06-2022 Lymphocytes/100 WBC (Bld) 36.2 % . [facility] MCH Auto (RBC) [Entitic mass ]Ordered By: Michael Moreno on 09-06-2022 MCH (RBC) [Entitic mass] 32.3 pg 24.7-34.3 [facility] MCHC Auto (RBC) [Mass/Vol]Or dered By: Michael Moreno on 09-06-2022 MCHC (RBC) [Mass/Vol] 34.2 g/dL 32.0-35.0 [facility] MCV Auto (RBC) [Entitic vol] Ordered By: Michael Moreno on 09-06-2022 MCV (RBC) [Entitic vol] 94.4 fL 80-100 [facility] Monocytes Auto (Bld) [#/Vol] Ordered By: Michael Moreno on 09-06-2022 Monocytes (Bld) [#/Vol] 0.7 10*3/uL 0.0-0.8 [facility] Monocytes/100 WBC Auto (Bld) Ordered By: Michael Moreno on 09-06-2022 Monocytes/100 WBC (Bld) 6.8 % . [facility] Neutrophils Auto (Bld) [#/Vo l]Ordered By: Michael Moreno on 09-06-2022 Neutrophils (Bld) [#/Vol] 5.2 10*3/uL 1.8-7.7 [facility] Neutrophils/100 WBC Auto (Bl d)Ordered By: Michael Moreno on 09-06-2022 Neutrophils/100 WBC (Bld) 52.8 % . [facility] No Panel InformationOrdered By: Michael Moreno on 09-06-2022 Estimated GFR (CKD-EPI) > 60.0 mL/Min [facility] Creatinine Clearance (Chem N/A [facility] Nucleated erythrocytes [Pres ence] in Blood by Automated countOrdered By: Michael Moreno on 09-06-2022 Nucleated RBC Auto Ql (Bld) 0.2 /100{WBC} 0-0.5 [facility] Platelet mean volume Auto (B ld) [Entitic vol]Ordered By: Michael Moreno on 09-06-2022 Platelet mean volume (Bld) [Entitic vol] 7.1 fL 6.3-10.7 [facility] Platelets Auto (Bld) [#/Vol] Ordered By: Michael Moreno on 09-06-2022 Platelets (Bld) [#/Vol] 312 10*3/uL 150-450 [facility] Potassium [Moles/volume] in Serum or PlasmaOrdered By: Michael Moreno on 09-06-2022 Potassium [Moles/Vol] 4.8 mmol/L 3.5-5.1 [facility] Protein [Mass/volume] in Ser um or PlasmaOrdered By: Micheal Moreno on 09-06-2022 Protein [Mass/Vol] 6.1 g/dL 6.4-8.9 [facility] RBC Auto (Bld) [#/Vol]Ordere d By: Michael Moreno on 09-06-2022 RBC (Bld) [#/Vol] 4.54 10*6/uL 3.60-5.00 [facility] Serum or plasma albumin/glob ulin mass ratioOrdered By: Michael Moreno on 09-06-2022 Albumin/Globulin [Mass ratio] 2.4 {ratio} [facility] Serum or plasma anion gap de terminationOrdered By: Michael Moreno on 09-06-2022 Anion gap [Moles/Vol] 11.0 mmol/L 6.0-15.0 [facility] Sodium [Moles/volume] in Ser um or PlasmaOrdered By: Michael Moreno on 09-06-2022 Sodium [Moles/Vol] 137 mmol/L 136-145 [facility] Thyroid Stimulating Hormoneo n 09-06-2022 TSH Qn 1.32 m[IU]/L Normal 0.45-5.33 [facility] Comment on above: Order Comment: Reaso n for Exam History of tonsillectomy Reason for Exam Hair loss Result Comment: PERF ORMED BY: [facility] [address] [place] [address] PATHOLOGIST [employer] ANNALEE PARRISH M.D. Performed By: #### F E and TIBC, TSH3, CBC, CMP ####[facility] [address] [place] [id number] [facility] Thyrotropin [Units/volume] i n Serum or PlasmaOrdered By: Michael Moreno on 09-06-2022 TSH Qn 1.32 m[IU]/L 0.45-5.33 [facility] Transferrin [Mass/volume] in Serum or PlasmaOrdered By: Michael Moreno on 09-06-2022 Transferrin [Mass/Vol] 314 mg/dL 203-362 [facility] Urea nitrogen [Mass/volume] in Serum or PlasmaOrdered By: Michael Moreno on 09-06-2022 Urea nitrogen [Mass/Vol] 12 mg/dL 7-25 [facility] WBC Auto (Bld) [#/Vol]Ordere d By: Michael Moreno on 09-06-2022 WBC (Bld) [#/Vol] 9.8 10*3/uL 3.8-11.6 [facility] Alanine aminotransferase [En zymatic activity/volume] in Serum or PlasmaOrdered By: Michael Moreno on 08-11-2022 ALT [Catalytic activity/Vol] 31 U/L 7-52 [facility] Albumin [Mass/volume] in Ser um or Plasma by Bromocresol green (BCG) dye binding methoOrdered By: Michael Moreno on 08-11-2022 Albumin BCG dye [Mass/Vol] 4.6 g/dL 3.5-5.7 [facility] Alkaline phosphatase [Enzyma tic activity/volume] in Serum or PlasmaOrdered By: Michael Moreno on 08-11-2022 ALP [Catalytic activity/Vol] 94 U/L 34-104 [facility] Amphetamine Screen Ql (U)Ord ered By: Michael Moreno on 08-11-2022 Amphetamines Ql (U) Negative Negative [facility] Aspartate aminotransferase [ Enzymatic activity/volume] in Serum or PlasmaOrdered By: Michael Moreno on 08-11-2022 AST [Catalytic activity/Vol] 24 U/L 13-39 [facility] Barbiturates [Presence] in U rine by Screen methodOrdered By: Michael Moreno on 08-11-2022 Barbiturates Screen Ql (U) Negative Negative [facility] Basophils Auto (Bld) [#/Vol] Ordered By: Michael Moreno on 08-11-2022 Basophils (Bld) [#/Vol] 0.1 10*3/uL 0.0-0.2 [facility] Basophils/100 WBC Auto (Bld) Ordered By: Michael Moreno on 08-11-2022 Basophils/100 WBC (Bld) 0.6 % . [facility] Benzodiazepines Screen Ql (U )Ordered By: Michael Moreno on 08-11-2022 Benzodiazepines Ql (U) Negative Negative [facility] Benzoylecgonine [Presence] i n Urine by Screen methodOrdered By: Michael Moreno on 08-11-2022 Benzoylecgonine Screen Ql (U) Negative Negative [facility] Bilirubin.total [Mass/volume ] in Serum or PlasmaOrdered By: Michael Moreno on 08-11-2022 Bilirubin [Mass/Vol] 0.3 mg/dL 0.3-1.0 [facility] Calcium [Mass/volume] in Ser um or PlasmaOrdered By: Michael Moreno on 08-11-2022 Calcium [Mass/Vol] 9.7 mg/dL 8.6-10.3 [facility] Cannabinoids [Presence] in U rine by Screen methodOrdered By: Michael Moreno on 08-11-2022 Cannabinoids Screen Ql (U) Negative Negative [facility] Comment on above: These are unconfirme d results and should not be used for legal purposes. Drug Cut-Off Concentration: AMPH 1000 ng/mL KRISHNA 200 ng/mL GAURI 200 ng/mL COCM 300 ng/mL OP 300 ng/mL PCP 25 ng/mL THC 20 ng/mL Carbon dioxide, total [Moles /volume] in Serum or PlasmaOrdered By: Michael Moreno on 08-11-2022 CO2 [Moles/Vol] 26.9 mmol/L 21.0-31.0 [facility] Chloride [Moles/volume] in S layla or PlasmaOrdered By: Michael Moreno on 08-11-2022 Chloride [Moles/Vol] 107 mmol/L 98-107 [facility] Cholesterol [Mass/volume] in Serum or PlasmaOrdered By: Michael Moreno on 08-11-2022 Cholesterol [Mass/Vol] 207 mg/dL 140-200 [facility] Comment on above: Chol less than 200 m g/dl low riskChol 201-239 mg/dl borderline riskChol 240 mg/dl and greater high risk Cholesterol in LDL Calc [Mas s/Vol]Ordered By: Michael Moreno on 08-11-2022 Cholesterol in LDL [Mass/Vol] 127 mg/dL 0-100 [facility] Comment on above: LDL ATP III CLASSIFI CATIONLDL less than 100 mg/dL OptimalLDL 100-129 mg/dL Near or above optimalLDL 130-159 mg/dL Borderline highLDL 160-189 mg/dL HighLDL greater than 189 mg/dL Very high Cholesterol in VLDL Calc [Ma ss/Vol]Ordered By: Michael Moreno on 08-11-2022 Cholesterol in VLDL [Mass/Vol] 44 mg/dL [facility] Complete Blood Count Auto Di ffon 08-11-2022 Basophils (Bld) [#/Vol] 0.1 10*3/uL Normal 0.0-0.2 [facility] Comment on above: Order Comment: Reaso n for Exam Mixed hyperlipidemia Result Comment: PERF ORMED BY: [place] [id number] PATHOLOGIST [employer] ANNALEE PARRISH M.D. Performed By: #### C BC, URDS, CMP, LIPID #### [facility] [address] [place] [address] [place] Basophils/100 WBC (Bld) 0.6 % Normal . [facility] Comment on above: Order Comment: Reaso n for Exam Mixed hyperlipidemia Performed By: #### C BC, URDS, CMP, LIPID #### [facility] [address] [place] [address] Eosinophils (Bld) [#/Vol] 0.2 10*3/uL Normal 0.0-0.45 [facility] Comment on above: Order Comment: Reaso n for Exam Mixed hyperlipidemia Performed By: #### C BC, URDS, CMP, LIPID #### [facility] [address] [place] [address] [place] Eosinophils/100 WBC (Bld) 2.5 % Normal . [facility] Comment on above: Order Comment: Reaso n for Exam Mixed hyperlipidemia Performed By: #### C BC, URDS, CMP, LIPID #### [facility] [address] [place] [address] Erythrocyte distribution width (RBC) [Ratio] 13.3 % Normal 11.9-15.3 [facility] Comment on above: Order Comment: Reaso n for Exam Mixed hyperlipidemia Performed By: #### C BC, URDS, CMP, LIPID #### [facility] [address] [place] [address] Hematocrit (Bld) [Volume fraction] 44.0 % Normal 34.0-46.4 [facility] Comment on above: Order Comment: Reaso n for Exam Mixed hyperlipidemia Performed By: #### C BC, URDS, CMP, LIPID #### [facility] [address] Hemoglobin (Bld) [Mass/Vol] 15.0 g/dL Normal 11.8-15.4 [facility] Comment on above: Order Comment: Reaso n for Exam Mixed hyperlipidemia Performed By: #### C BC, URDS, CMP, LIPID #### [facility] [address] Lymphocytes (Bld) [#/Vol] 2.9 10*3/uL Normal 1.00-4.8 [facility] Comment on above: Order Comment: Reaso n for Exam Mixed hyperlipidemia Performed By: #### C BC, URDS, CMP, LIPID #### [address] Lymphocytes/100 WBC (Bld) 32.8 % Normal . [facility] Comment on above: Order Comment: Reaso n for Exam Mixed hyperlipidemia Performed By: #### C BC, URDS, CMP, LIPID #### [address] MCH (RBC) [Entitic mass] 32.1 pg Normal 24.7-34.3 [facility] Comment on above: Order Comment: Reaso n for Exam Mixed hyperlipidemia Performed By: #### C BC, URDS, CMP, LIPID #### [address] MCV (RBC) [Entitic vol] 94.1 fL Normal 80-100 [facility] Comment on above: Order Comment: Reaso n for Exam Mixed hyperlipidemia Performed By: #### C BC, URDS, CMP, LIPID #### [address] Mean Corpuscular HGB Conc 34.1 g/dL Normal 32.0-35.0 [facility] Comment on above: Order Comment: Reaso n for Exam Mixed hyperlipidemia Performed By: #### C BC, URDS, CMP, LIPID #### [address] Monocytes (Bld) [#/Vol] 0.6 10*3/uL Normal 0.0-0.8 [facility] Comment on above: Order Comment: Reaso n for Exam Mixed hyperlipidemia Performed By: #### C BC, URDS, CMP, LIPID #### [facility] [address] [place] [address] [place] Monocytes/100 WBC (Bld) 6.5 % Normal . [facility] Comment on above: Order Comment: Reaso n for Exam Mixed hyperlipidemia Performed By: #### C BC, URDS, CMP, LIPID #### [facility] [address] [place] [address] [place] Neutrophils (Bld) [#/Vol] 5.1 10*3/uL Normal 1.8-7.7 [facility] Comment on above: Order Comment: Reaso n for Exam Mixed hyperlipidemia Performed By: #### C BC, URDS, CMP, LIPID #### [facility] [address] [place] [address] [place] Neutrophils/100 WBC (Bld) 57.6 % Normal . [facility] Comment on above: Order Comment: Reaso n for Exam Mixed hyperlipidemia Performed By: #### C BC, URDS, CMP, LIPID #### [facility] [address] [place] [address] [place] NRBC% 0.0 /100{WBC} Normal 0-0.5 [facility] Comment on above: Order Comment: Reaso n for Exam Mixed hyperlipidemia Performed By: #### C BC, URDS, CMP, LIPID #### [facility] [address] [place] [address] [place] Platelet mean volume (Bld) [Entitic vol] 7.7 fL Normal 6.3-10.7 [facility] Comment on above: Order Comment: Reaso n for Exam Mixed hyperlipidemia Performed By: #### C BC, URDS, CMP, LIPID #### [facility] [address] [place] [address] [place] Platelets (Bld) [#/Vol] 284 10*3/uL Normal 150-450 [facility] Comment on above: Order Comment: Reaso n for Exam Mixed hyperlipidemia Performed By: #### C BC, URDS, CMP, LIPID #### [facility] [address] RBC (Bld) [#/Vol] 4.68 10*6/uL Normal 3.60-5.00 [facility] Comment on above: Order Comment: Reaso n for Exam Mixed hyperlipidemia Performed By: #### C BC, URDS, CMP, LIPID #### [facility] [address] WBC (Bld) [#/Vol] 8.8 10*3/uL Normal 3.8-11.6 [facility] Comment on above: Order Comment: Reaso n for Exam Mixed hyperlipidemia Performed By: #### C BC, URDS, CMP, LIPID #### [facility] [address] Comprehensive Metabolic Pane [place] 08-11-2022 Albumin [Mass/Vol] 4.6 g/dL Normal 3.5-5.7 [facility] Comment on above: Order Comment: Reaso n for Exam Mixed hyperlipidemia Performed By: #### C BC, URDS, CMP, LIPID #### [facility] [address] Albumin/Globulin [Mass ratio] 2.0 {ratio} Normal [facility] Comment on above: Order Comment: Reaso n for Exam Mixed hyperlipidemia Performed By: #### C BC, URDS, CMP, LIPID #### [facility] [address] [place] [id number] [facility] ALP [Catalytic activity/Vol] 94 U/L Normal 34-104 [facility] Comment on above: Order Comment: Reaso n for Exam Mixed hyperlipidemia Performed By: #### C BC, URDS, CMP, LIPID #### [facility] [address] [place] [id number] [place] ALT [Catalytic activity/Vol] 31 U/L Normal 7-52 [facility] Comment on above: Order Comment: Reaso n for Exam Mixed hyperlipidemia Performed By: #### C BC, URDS, CMP, LIPID #### [facility] [address] Anion gap [Moles/Vol] 10.0 mmol/L Normal 6.0-15.0 [facility] Comment on above: Order Comment: Reaso n for Exam Mixed hyperlipidemia Performed By: #### C BC, URDS, CMP, LIPID #### [facility] [address] AST [Catalytic activity/Vol] 24 U/L Normal 13-39 [facility] Comment on above: Order Comment: Reaso n for Exam Mixed hyperlipidemia Performed By: #### C BC, URDS, CMP, LIPID #### [facility] [address] Bilirubin [Mass/Vol] 0.3 mg/dL Normal 0.3-1.0 [facility] Comment on above: Order Comment: Reaso n for Exam Mixed hyperlipidemia Performed By: #### C BC, URDS, CMP, LIPID #### [facility] [address] [address] Calcium [Mass/Vol] 9.7 mg/dL Normal 8.6-10.3 [facility] Comment on above: Order Comment: Reaso n for Exam Mixed hyperlipidemia Performed By: #### C BC, URDS, CMP, LIPID #### [facility] [address] [place] [address] [place] Chloride [Moles/Vol] 107 mmol/L Normal 98-107 [facility] Comment on above: Order Comment: Reaso n for Exam Mixed hyperlipidemia Performed By: #### C BC, URDS, CMP, LIPID #### [facility] [address] [place] [address] [place] CO2 [Moles/Vol] 26.9 mmol/L Normal 21.0-31.0 [facility] Comment on above: Order Comment: Reaso n for Exam Mixed hyperlipidemia Performed By: #### C BC, URDS, CMP, LIPID #### [facility] [address] [place] [address] [place] Creatinine [Mass/Vol] 0.91 mg/dL Normal 0.60-1.20 [facility] Comment on above: Order Comment: Reaso n for Exam Mixed hyperlipidemia Performed By: #### C BC, URDS, CMP, LIPID #### [facility] [address] [place] [address] [place] GFR/1.73 sq M.predicted MDRD (S/P/Bld) [Vol rate/Area] mL/min/{1.73_m2} [facility] Comment on above: Order Comment: Reaso n for Exam Mixed hyperlipidemia Performed By: #### C BC, URDS, CMP, LIPID #### [facility] [address] Globulin (S) [Mass/Vol] 2.3 g/dL [facility] Comment on above: Order Comment: Reaso n for Exam Mixed hyperlipidemia Performed By: #### C BC, URDS, CMP, LIPID #### [address] Glucose [Mass/Vol] 107 mg/dL Normal 74-109 [facility] Comment on above: Order Comment: Reaso n for Exam Mixed hyperlipidemia Result Comment: [facility] Glucose Reference Range is dependent on time and content of last meal. Glucose of more than 200 mg/dL in a nonstressed, ambulatory subject supports the diagnosis of Diabetes Mellitus. ADA recommended reference range Performed By: #### C BC, URDS, CMP, LIPID #### [address] Potassium [Moles/Vol] 4.9 mmol/L Normal 3.5-5.1 [facility] Comment on above: Order Comment: Reaso n for Exam Mixed hyperlipidemia Performed By: #### C BC, URDS, CMP, LIPID #### [facility] [address] Protein [Mass/Vol] 6.9 g/dL Normal 6.4-8.9 [facility] Comment on above: Order Comment: Reaso n for Exam Mixed hyperlipidemia Performed By: #### C BC, URDS, CMP, LIPID #### [address] Sodium [Moles/Vol] 139 mmol/L Normal 136-145 [facility] Comment on above: Order Comment: Reaso n for Exam Mixed hyperlipidemia Performed By: #### C BC, URDS, CMP, LIPID #### [facility] [address] Urea nitrogen [Mass/Vol] 14 mg/dL Normal 7-25 [facility] Comment on above: Order Comment: Reaso n for Exam Mixed hyperlipidemia Performed By: #### C BC, URDS, CMP, LIPID #### [facility] [address] Creatinine [Mass/volume] in Serum or PlasmaOrdered By: Michael Moreno on 08-11-2022 Creatinine [Mass/Vol] 0.91 mg/dL 0.60-1.20 [facility] Drug Screen,Urineon 08-12-19 23 Amphetamine Screen,Urine Negative Normal Negative [facility] Comment on above: Order Comment: Reaso n for Exam Urinary tract infection without hematuria, site unspecified Performed By: #### C BC, URDS, CMP, LIPID #### [facility] [address] Barbiturate Screen,Urine Negative Normal Negative [facility] Comment on above: Order Comment: Reaso n for Exam Urinary tract infection without hematuria, site unspecified Performed By: #### C BC, URDS, CMP, LIPID #### [facility] [address] Benzodiazepines Screen,Urine Negative Normal Negative [facility] Comment on above: Order Comment: Reaso n for Exam Urinary tract infection without hematuria, site unspecified Performed By: #### C BC, URDS, CMP, LIPID #### [facility] [address] Cannabinoid Screen,Urine Negative Normal Negative [facility] Comment on above: Order Comment: Reaso n for Exam Urinary tract infection without hematuria, site unspecified Result Comment: Thes e are unconfirmed results and should not be used for legal purposes. Drug Cut-Off Concentration: AMPH 1000 ng/mL KRISHNA 200 ng/mL GAURI 200 ng/mL COCM 300 ng/mL OP 300 ng/mL PCP 25 ng/mL THC 20 ng/mL PERFORMED BY: [place] [id number] PATHOLOGIST [employer] ANNALEE PARRISH M.D. Performed By: #### C BC, URDS, CMP, LIPID #### [facility] [address] Cocaine Screen,Urine Negative Normal Negative [facility] Comment on above: Order Comment: Reaso n for Exam Urinary tract infection without hematuria, site unspecified Performed By: #### C BC, URDS, CMP, LIPID #### [facility] [address] Opiate Screen,Urine Negative Normal Negative [facility] Comment on above: Order Comment: Reaso n for Exam Urinary tract infection without hematuria, site unspecified Performed By: #### C BC, URDS, CMP, LIPID #### [facility] [address] Phencyclidine Screen,Urine Negative Normal Negative [facility] Comment on above: Order Comment: Reaso n for Exam Urinary tract infection without hematuria, site unspecified Performed By: #### C BC, URDS, CMP, LIPID #### [facility] [address] Eosinophils Auto (Bld) [#/Vo l]Ordered By: Michael Moreno on 08-11-2022 Eosinophils (Bld) [#/Vol] 0.2 10*3/uL 0.0-0.45 [facility] Eosinophils/100 WBC Auto (Bl d)Ordered By: Michael Moreno on 08-11-2022 Eosinophils/100 WBC (Bld) 2.5 % . [facility] Erythrocyte distribution wid th Auto (RBC) [Ratio]Ordered By: Michael Moreno on 08-11-2022 Erythrocyte distribution width (RBC) [Ratio] 13.3 % 11.9-15.3 [facility] Globulin Calc (S) [Mass/Vol] Ordered By: Michael Moreno on 08-11-2022 Globulin (S) [Mass/Vol] 2.3 g/dL [facility] Glucose [Mass/volume] in Ser um or PlasmaOrdered By: Michael Moreno on 08-11-2022 Glucose [Mass/Vol] 107 mg/dL 74-109 [facility] Comment on above: ADA recommended refe rence rangeRandom Glucose Reference Range is dependent on time and content of last meal. Glucose of more than 200 mg/dL in a nonstressed, ambulatory subject supports the diagnosis of Diabetes Mellitus. Hematocrit Auto (Bld) [Volum e fraction]Ordered By: Michael Moreno on 08-11-2022 Hematocrit (Bld) [Volume fraction] 44.0 % 34.0-46.4 [facility] Hemoglobin [Mass/volume] in BloodOrdered By: Michael Moreno on 08-11-2022 Hemoglobin (Bld) [Mass/Vol] 15.0 g/dL 11.8-15.4 [facility] Laboratory - Chemistry and C hemistry - challengeOrdered By: Michael Moreno on 08-11-2022 GFR/1.73 sq M.predicted MDRD (S/P/Bld) [Vol rate/Area] mL/min/{1.73_m2} [facility] Leukocytes [#/volume] correc shirley for nucleated erythrocytes in Blood by Automated counOrdered By: Michael Moreno on 08-11-2022 WBC corrected for nucl RBC Auto (Bld) [#/Vol] 8.8 10*3/uL 3.8-11.6 [facility] Lipid Panelon 08-11-2022 Cholesterol [Mass/Vol] 207 mg/dL High 140-200 [facility] Comment on above: Order Comment: Reaso n for Exam Mixed hyperlipidemia Result Comment: Chol less than 200 mg/dl low risk Chol 201-239 mg/dl borderline risk Chol 240 mg/dl and greater high risk Performed By: #### C BC, URDS, CMP, LIPID #### [facility] [address] [place] [address] [place] Cholesterol in HDL [Mass/Vol] 35 mg/dL Normal 35-85 [facility] Comment on above: Order Comment: Reaso n for Exam Mixed hyperlipidemia Result Comment: HDL CHOL ATP-III CLASSIFICATION Cardiovascular Risk HDL > or equal to 60 mg/dL LOW HDL < 40 mg/dL HIGH Performed By: #### C BC, URDS, CMP, LIPID #### [facility] [address] [place] [address] [place] Cholesterol.total/Chol esterol in HDL [Mass ratio] 5.9 {ratio} Normal <5.0 [facility] Comment on above: Order Comment: Reaso n for Exam Mixed hyperlipidemia Result Comment: PERF ORMED BY: [place] [id number] PATHOLOGIST [employer] ANNALEE PARRISH M.D. Performed By: #### C BC, URDS, CMP, LIPID #### [facility] [address] LDL Cholesterol,Calculated 127 mg/dL High 0-100 [facility] Comment on above: Order Comment: Reaso n for Exam Mixed hyperlipidemia Result Comment: LDL ATP III CLASSIFICATION LDL less than 100 mg/dL Optimal LDL 100-129 mg/dL Near or above optimal LDL 130-159 mg/dL Borderline high LDL 160-189 mg/dL High LDL greater than 189 mg/dL Very high Performed By: #### C BC, URDS, CMP, LIPID #### [facility] [address] Triglyceride w/Reflex 223 mg/dL High 0-149 [facility] Comment on above: Order Comment: Reaso n for Exam Mixed hyperlipidemia Result Comment: TRIG ATP III CLASSIFICATION TRIG less than 150 mg/dL Normal TRIG 150-199 mg/dL Borderline high TRIG 200-500 mg/dL High TRIG greater than 500 mg/dL Very high Standard traceable to the Center for Disease Conrtrol and Prevention (CDC) test method. Performed By: #### C BC, URDS, CMP, LIPID #### [facility] [address] VLDL CHOLESTEROL 44 mg/dL Normal [facility] Comment on above: Order Comment: Reaso n for Exam Mixed hyperlipidemia Performed By: #### C BC, URDS, CMP, LIPID #### [facility] [address] [place] [address] [place] Lymphocytes Auto (Bld) [#/Vo l]Ordered By: Michael Moreno on 08-11-2022 Lymphocytes (Bld) [#/Vol] 2.9 10*3/uL 1.00-4.8 [facility] Lymphocytes/100 WBC Auto (Bl d)Ordered By: Michael Moreno on 08-11-2022 Lymphocytes/100 WBC (Bld) 32.8 % . [facility] MCH Auto (RBC) [Entitic mass ]Ordered By: Michael Moreno on 08-11-2022 MCH (RBC) [Entitic mass] 32.1 pg 24.7-34.3 [facility] MCHC Auto (RBC) [Mass/Vol]Or dered By: Michael Moreno on 08-11-2022 MCHC (RBC) [Mass/Vol] 34.1 g/dL 32.0-35.0 [facility] MCV Auto (RBC) [Entitic vol] Ordered By: Michael Moreno on 08-11-2022 MCV (RBC) [Entitic vol] 94.1 fL 80-100 [facility] Monocytes Auto (Bld) [#/Vol] Ordered By: Michael Moreno on 08-11-2022 Monocytes (Bld) [#/Vol] 0.6 10*3/uL 0.0-0.8 [facility] Monocytes/100 WBC Auto (Bld) Ordered By: Michael Moreno on 08-11-2022 Monocytes/100 WBC (Bld) 6.5 % . [facility] Neutrophils Auto (Bld) [#/Vo l]Ordered By: Michael Moreno on 08-11-2022 Neutrophils (Bld) [#/Vol] 5.1 10*3/uL 1.8-7.7 [facility] Neutrophils/100 WBC Auto (Bl d)Ordered By: Michael Moreno on 08-11-2022 Neutrophils/100 WBC (Bld) 57.6 % . [facility] No Panel InformationOrdered By: Michael Moreno on 08-11-2022 Pharmacy Creatinine Clearance (Chem N/A [facility] Nucleated erythrocytes [Pres ence] in Blood by Automated countOrdered By: Michael Moreno on 08-11-2022 Nucleated RBC Auto Ql (Bld) 0.0 /100{WBC} 0-0.5 [facility] Opiates [Presence] in Urine by Screen methodOrdered By: Michael Moreno on 08-11-2022 Opiates Screen Ql (U) Negative Negative [facility] Phencyclidine Screen Ql (U)O rdered By: Michael Moreno on 08-11-2022 Phencyclidine Ql (U) Negative Negative [facility] Platelet mean volume Auto (B ld) [Entitic vol]Ordered By: Michael Moreno on 08-11-2022 Platelet mean volume (Bld) [Entitic vol] 7.7 fL 6.3-10.7 [facility] Platelets Auto (Bld) [#/Vol] Ordered By: Michael Moreno on 08-11-2022 Platelets (Bld) [#/Vol] 284 10*3/uL 150-450 [facility] Potassium [Moles/volume] in Serum or PlasmaOrdered By: Michael Moreno on 08-11-2022 Potassium [Moles/Vol] 4.9 mmol/L 3.5-5.1 [facility] Protein [Mass/volume] in Ser um or PlasmaOrdered By: Michael Moreno on 08-11-2022 Protein [Mass/Vol] 6.9 g/dL 6.4-8.9 [facility] RBC Auto (Bld) [#/Vol]Ordere d By: Michael Moreno on 08-11-2022 RBC (Bld) [#/Vol] 4.68 10*6/uL 3.60-5.00 [facility] Serum or plasma albumin/glob ulin mass ratioOrdered By: Michael Moreno on 08-11-2022 Albumin/Globulin [Mass ratio] 2.0 {ratio} [facility] Serum or plasma anion gap de terminationOrdered By: Michael Moreno on 08-11-2022 Anion gap [Moles/Vol] 10.0 mmol/L 6.0-15.0 [facility] Serum or plasma high density lipoprotein (HDL) cholesterol measurementOrdered By: Michael Moreno on 08-11-2022 Cholesterol in HDL [Mass/Vol] 35 mg/dL 35-85 [facility] Comment on above: HDL CHOL ATP-III CLA SSIFICATION Cardiovascular RiskHDL > or equal to 60 mg/dL LOWHDL < 40 mg/dL HIGH Serum or plasma total choles terol/high density lipoprotein (HDL) cholesterol mass ratOrdered By: Michael Moreno on 08-11-2022 Cholesterol.total/Chol esterol in HDL [Mass ratio] 5.9 {ratio} <5.0 [facility] Sodium [Moles/volume] in Ser um or PlasmaOrdered By: Michael Moreno on 08-11-2022 Sodium [Moles/Vol] 139 mmol/L 136-145 [facility] Triglyceride [Mass/volume] i n Serum or PlasmaOrdered By: Michael Moreno on 08-11-2022 Triglyceride [Mass/Vol] 223 mg/dL 0-149 [facility] Comment on above: TRIG ATP III CLASSIF ICATIONTRIG less than 150 mg/dL NormalTRIG 150-199 mg/dL Borderline highTRIG 200-500 mg/dL High TRIG greater than 500 mg/dL Very highStandard traceable to the Center for Disease Conrtrol and Prevention (CDC) test method. Urea nitrogen [Mass/volume] in Serum or PlasmaOrdered By: Michael Moreno on 08-11-2022 Urea nitrogen [Mass/Vol] 14 mg/dL 7-25 [facility] WBC Auto (Bld) [#/Vol]Ordere d By: Michael Moreno on 08-11-2022 WBC (Bld) [#/Vol] 8.8 10*3/uL 3.8-11.6 [facility] Drugs identified in UrineOrd ered By: Michael Moreno on 07-19-2022 Drugs identified Nom (U) Final . [facility] Comment on above: =====TOXASSURE COMP DRUG ANALYSIS,UR Test Result Flag UnitsDrug Present Carboxy-THC 540 ng/mg creat Carboxy-THC is a metabolite of tetrahydrocannabinol (THC). Source of THC is most commonly herbal marijuana or marijuana-based products, but THC is also present in a scheduled prescription medication. Trace amounts of THC can be present in hemp and cannabidiol (CBD) products. This test is not intended to distinguish between wutgo-3-tbdvplxyqquucnbkhfvp, the predominant form of THC in most herbal or marijuana-based products, and emzye-3-wruigmtlwopewjijghpx. Hydrocodone 1305 ng/mg creat Hydromorphone 595 ng/mg creat Norhydrocodone 1905 ng/mg creat Sources of hydrocodone include scheduled prescription medications. Hydromorphone and norhydrocodone are expected metabolites of hydrocodone. Hydromorphone is also available as a scheduled prescription medication. Gabapentin PRESENT Desmethylcyclobenzaprine PRESENT Desmethylcyclobenzaprine is an expected metabolite of cyclobenzaprine. Acetaminophen PRESENT Diphenhydramine PRESENT Test Result Flag Units Ref Range Creatinine 20 mg/dL >=20 =========Declared Medications: Medication list was not provided. For clinical consultation, please call . Performed at: [employer] [address] [id number] Director: Amaya Martínez, Phone: [phone] Toxassure, Urineon 3 Toxassure, Urine Summary FINAL Normal . [facility] Comment on above: Order Comment: Micaela villela for Exam Disorientation Result Comment: ===== TOXASSURE COMP DRUG ANALYSIS,UR ===== Test Result Flag Units Drug Present Carboxy-THC 540 ng/mg creat Carboxy-THC is a metabolite of tetrahydrocannabinol (THC). Source of THC is most commonly herbal marijuana or marijuana-based products, but THC is also present in a scheduled prescription medication. Trace amounts of THC can be present in hemp and cannabidiol (CBD) products. This test is not intended to distinguish between wkwye-9-tqihfkwvdsswdkoavbkt, the predominant form of THC in most herbal or marijuana-based products, and jyhnv-3-jikiwxcrikkttzxrqjma. Hydrocodone 1305 ng/mg creat Hydromorphone 595 ng/mg creat Norhydrocodone 1905 ng/mg creat Sources of hydrocodone include scheduled prescription medications. Hydromorphone and norhydrocodone are expected metabolites of hydrocodone. Hydromorphone is also available as a scheduled prescription medication. Gabapentin PRESENT Desmethylcyclobenzaprine PRESENT Desmethylcyclobenzaprine is an expected metabolite of cyclobenzaprine. Acetaminophen PRESENT Diphenhydramine PRESENT ===== Test Result Flag Units Ref Range Creatinine 20 mg/dL >=20 ===== Declared Medications: Medication list was not provided. ===== For clinical consultation, please call . ===== Performed at: [employer] [address] [place] [id number] [employer] Developer: Amaya Chapin [facility], Phone: [phone] PERFORMED BY: [address] [address] PATHOLOGIST [employer] COM[employer] ANNALEE PARRISH M.D. Performed By: #### T OXASSURE ####[facility] , CT lumbar spine wo [facility] CT lumbar spine wo [facility] Main [address] [address] [address] Scan Report Signed Patient: Roseann Garrido MR#: [id number] : 1975 Acct:[id number] Age/Sex: 47 / F ADM Date: 06/23/22 Loc: CT Room: Type: [facility] Attending Dr: Michael LISA Copies to: MARIA L Green Ordering Provider: MARIA L Green Date of Service: 06/23/22 CT/CT lumbar spine wo con: Mass of spine;Mass of buttock CT lumbar spine wo con 06/23/2022 5:48 PM History:Low back pain radiating down right leg TECHNIQUE: Multi detector CT axial slices of the lumbar spine were obtained without IV contrast. Volumetric acquisition sagittal, coronal, and 3-D reconstructions were performed and reviewed on a separate workstation. CT was performed with one or more of the following dose reduction techniques: Automated exposure control, adjustment of the mA and/or kV according to patient size, or use of iterative reconstruction technique. COMPARISON: Lumbar spine MRI 12/19/2017 FINDINGS: There is preservation of the vertebral body heights. Broad-based disc bulge is accompanied mild disc height loss at L3-4, L4-5, and L5-S1. Neural foraminal stenosis is present bilaterally at L3-L4 and L4-L5 similar to the prior MRI, greatest at L4-L5. No fractures or dislocations are seen. The alignment of the lumbar spine is normal. Mild degenerative changes are noted sacroiliac joints bilaterally. The paraspinous soft tissues are within normal limits. The visualized lung parenchyma is unremarkable. Surgical clips are present in the right upper quadrant consistent with prior cholecystectomy. Mild atherosclerotic changes are present in the abdominal aorta. CT/CT lumbar spine wo con IMPRESSION: Broad-based disc bulge is accompanied mild disc height loss at L3-4, L4-5, and L5-S1. Neural foraminal stenosis is present bilaterally at L3-L4 and L4-L5 similar to the prior MRI, greatest at L4-L5. Mild degenerative changes are noted sacroiliac joints bilaterally. Impression dictated by: Mehrdad Pino M.D.06/23/2022 6:22 PM Dictation Location: [place] [address] Transcribed By: [facility] 06/23/221821 Dictated By: Mehrdad Pino II, MD 06/23/221815 Signed By: 06/23/221821 [facility] H PYLORI TISSUEon 04-20-2022 H PYL TISSUE, UREASE Negative Normal NEGATIVE [facility] Comment on above: Performed By: #### H PYLT #### [facility] [address] [place] [address] Dr. Jet Nichols AMYLASEon 04-18-2022 Amylase [Catalytic activity/Vol] 35 U/L Normal 25-115 [facility] Comment on above: Performed By: #### L IPA, CMP, QUINCY #### [facility] [address] [place] [address] Dr. Jet Nichols CBC AUTO DIFFon 04-18-2022 BASO # 0.1 103/ul Normal 0.0-0.1 [facility] Comment on above: Performed By: #### C BC #### [facility] [address] [place] [address] Dr. Jet Nichols Basophils/100 WBC (Bld) 0.7 % Normal 0.2-2.0 [facility] Comment on above: Performed By: #### C BC #### [facility] [address] [place] [address] Dr. Jet Nichols EO # 0.3 103/ul Normal 0.0-0.7 [facility] Comment on above: Performed By: #### C BC #### [facility] [address] [place] [address] Dr. Jet Nichols Eosinophils/100 WBC (Bld) 3.6 % Normal 0.9-7.0 [facility] Comment on above: Performed By: #### C BC #### [facility] [address] [place] [address] Dr. Jet Nichols Erythrocyte distribution width (RBC) [Ratio] 12.7 % Normal 11.0-15.0 [facility] Comment on above: Performed By: #### C BC #### [facility] [address] [place] [address] Dr. Jet Nichols Hematocrit (Bld) [Volume fraction] 45.6 % Normal 36.0-48.0 [facility] Comment on above: Performed By: #### C BC #### [facility] [address] [place] [address] Dr. Jet Nichols Hemoglobin (Bld) [Mass/Vol] 15.9 g/dL Normal 12.0-16.0 [facility] Comment on above: Performed By: #### C BC #### [facility] [address] [place] [address] Dr. Jet Nichols IG # 0.01 10e3/ul Normal 0.00-0.03 [facility] Comment on above: Performed By: #### C BC #### [facility] [address] [place] [address] Dr. Jet Nichols IG % 0.1 % Normal 0.0-0.5 [facility] Comment on above: Performed By: #### C BC #### [facility] [address] [place] [address] Dr. Jet Nichols LYMPH # 2.6 103/ul Normal 1.2-3.8 [facility] Comment on above: Performed By: #### C BC #### [facility] [address] [place] [address] Dr. Jet Nichols Lymphocytes/100 WBC (Bld) 37.3 % Normal 20.5-60.0 [facility] Comment on above: Performed By: #### C BC #### [facility] [address] [place] [address] Dr. Jet Nichols MANUAL DIFF REQ NO Normal [facility] Comment on above: Performed By: #### C BC #### [facility] [address] [place] [address] Dr. Jet Nichols MCH (RBC) [Entitic mass] 32.3 pg Normal 26.7-34.0 [facility] Comment on above: Performed By: #### C BC #### [facility] [address] [place] [address] Dr. Jet Nichols MCHC (RBC) [Mass/Vol] 34.9 g/dL Normal 29.9-35.2 [facility] Comment on above: Performed By: #### C BC #### [facility] [address] [place] [address] Dr. Jet Nichols MCV (RBC) [Entitic vol] 92.7 fL Normal 81.0-99.0 [facility] Comment on above: Performed By: #### C BC #### [facility] [address] [place] [address] Dr. Jet Nichols MONO # 0.5 103/ul Normal 0.3-0.8 [facility] Comment on above: Performed By: #### C BC #### [facility] [address] [place] [address] Dr. Jet Nichols Monocytes/100 WBC (Bld) 7.3 % Normal 1.7-12.0 [facility] Comment on above: Performed By: #### C BC #### [facility] [address] [place] [address] Dr. Jet Nichols NEUT # 3.5 103/ul Normal 1.4-6.5 [facility] Comment on above: Performed By: #### C BC #### [facility] [address] [place] [address] Dr. Jet Nichols Neutrophils/100 WBC (Bld) 51.0 % Normal 43.0-75.0 [facility] Comment on above: Performed By: #### C BC #### [facility] [address] [place] [address] Dr. Jet Nichols Platelet mean volume (Bld) [Entitic vol] 8.9 fL Critically low 9.5-13.5 [facility] Comment on above: Performed By: #### C BC #### [facility] [address] [place] [address] Dr. Jet Nichols PLT 287 103/ul Normal 150-450 [facility] Comment on above: Performed By: #### C BC #### [facility] [address] [place] [address] Dr. Jet Nichols RBC 4.92 106/ul Normal 4.20-5.40 [facility] Comment on above: Performed By: #### C BC #### [facility] [address] [place] [address] Dr. Jet Nichols WBC 6.9 103/ul Normal 4.0-11.0 [facility] [facility] Comment on above: Performed By: #### C BC #### [facility] [address] [place] [address] Dr. Jet Nichols Covid-19 PCR (CVDTB)on 04-05 SARS-CoV-2 (COVID-19) RNA LULU+probe Ql (Unsp spec) Not detected Normal NOT DETECTED [facility] Comment on above: Result Comment: This test is not yet approved or cleared by the [place] FDA. When there are no FDA-approved or cleared tests available, and other criteria are met, FDA can make tests available under an emergency access mechanism called an Emergency Use Authorization (EUA). The EUA for this test is supported by the Dialysis Social Worker of Health and Human Service's (HHS's) declaration that circumstances exist to justify the emergency use of in vitro diagnostics for the detection and/or diagnosis of the virus that causes COVID-19. This EUA will remain in effect (meaning this test can be used) for the duration of the COVID-19 declaration justifying emergency of IVDs, unless it is terminated or revoked by FDA (after which the test may no longer be used). When diagnostic testing is negative, the possibility of a false negative should be considered in the context of a patient's recent exposures and the presence of clinical signs and symptoms consistent with SARS-CoV-2. Performed By: #### C VDTB #### [facility] [address] [place] [address] Dr. Jet Nichols LIPASEon 04-18-2022 Lipase [Catalytic activity/Vol] 45.0 U/L Critically low 73.0-393.0 [facility] Comment on above: Performed By: #### L IPA, CMP, QUINCY #### [facility] [address] [place] [address] Dr. Jet Nichols PROF 14(COMP METB)on 022 Albumin [Mass/Vol] 3.8 g/dL Normal 3.4-5.0 [facility] Comment on above: Performed By: #### L IPA, CMP, QUINCY #### [facility] [address] [place] [address] Dr. Jet Nichols Albumin/Globulin [Mass ratio] 1.1 {ratio} Normal [facility] Comment on above: Performed By: #### L IPA, CMP, QUINCY #### [facility] [address] [address] [address] Jet Nichols ALP [Catalytic activity/Vol] 107 U/L Normal 46-116 [facility] Comment on above: Performed By: #### L IPA, CMP, QUINCY #### [facility] [address] [address] [address] Jet Nichols ALT [Catalytic activity/Vol] 20 U/L Normal 14-59 [facility] Comment on above: Performed By: #### L IPA, CMP, QUINCY #### [facility] [address] [address] [address] Jet Nichols Anion gap [Moles/Vol] 9.8 mmol/L Normal [facility] Comment on above: Performed By: #### L IPA, CMP, QUINCY #### [facility] [address] [place] [address] Dr. Jet Nichols AST [Catalytic activity/Vol] 15 U/L Normal 15-37 [facility] Comment on above: Performed By: #### L IPA, CMP, QUINCY #### [facility] [address] [place] [address] Dr. Jet Nichols Bilirubin [Mass/Vol] 0.4 mg/dL Normal 0.2-1.0 [facility] Comment on above: Performed By: #### L IPA, CMP, QUINCY #### [facility] [address] [place] [address] Dr. Jet Nichols Calcium [Mass/Vol] 9.6 mg/dL Normal 8.5-10.1 [facility] Comment on above: Performed By: #### L IPA, CMP, QUINCY #### [facility] [address] [place] [address] Dr. Jet Nichols Chloride [Moles/Vol] 104 mmol/L Normal 98-107 [facility] Comment on above: Performed By: #### L IPA, CMP, QUINCY #### [facility] [address] [place] [address] Dr. Jet Nichols CO2 [Moles/Vol] 27.8 mmol/L Normal 21.0-32.0 [facility] Comment on above: Performed By: #### L IPA, CMP, QUINCY #### [facility] [address] [address] [address] Jet Nichols Creatinine [Mass/Vol] 0.96 mg/dL Normal 0.55-1.02 [facility] Comment on above: Performed By: #### L IPA, CMP, QUINCY #### [facility] [address] [address] [address] Jet Nichols EGFR-AF MALAGASY >60 Normal >=60 [facility] Comment on above: Performed By: #### L IPA, CMP, QUINCY #### [facility] [address] [address] [address] Jet Nichols EGFR-NON AF MALAGASY >60 Normal >=60 [facility] Comment on above: Performed By: #### L IPA, CMP, QUINCY #### [facility] [address] [address] [address] Jet Nichols Globulin (S) [Mass/Vol] 3.5 g/dL Normal [facility] Comment on above: Performed By: #### L IPA, CMP, QUINCY #### [facility] [address] [address] [address] Jet Nichols Glucose [Mass/Vol] 95 mg/dL Normal 74-106 [facility] Comment on above: Performed By: #### L IPA, CMP, QUINCY #### [facility] [address] [address] [address] Jet Nichols Potassium [Moles/Vol] 4.6 mmol/L Normal 3.5-5.1 [facility] Comment on above: Performed By: #### L IPA, CMP, QUINCY #### [facility] [address] [address] [address] Jet Nichols Protein [Mass/Vol] 7.3 g/dL Normal 6.4-8.2 [facility] Comment on above: Performed By: #### L IPA, CMP, QUINCY #### [facility] [address] [address] [address] Jet Nichols Sodium [Moles/Vol] 137 mmol/L Normal 136-145 [facility] Comment on above: Performed By: #### L IPA CMP, QUINCY #### [facility] [address] [address] [address] Jet Nichols Urea nitrogen [Mass/Vol] 13.0 mg/dL Normal 7.0-18.0 [facility] Comment on above: Performed By: #### L IPA CMP, QUINCY #### [facility] [address] [address] [address] Jet Nichols Urea nitrogen/Creatinine [Mass ratio] 13.5 mg/mg Normal [facility] Comment on above: Performed By: #### L IPA CMP, QUINCY #### [facility] [address] [place] [address] Dr. Jet Nichols Chlamydia/GC DNA, Uron 02-09 Chlamydia Probe, Ur Negative Normal NEG [facility] Comment on above: Result Comment: CHLA MYDIA TRACHOMATIS DNA not detected by nucleic acid amplification. This test is intended for medical purposes only and is not valid for the evaluation of suspected sexual abuse or for other forensic purposes. In certain contexts, culture may be required to meet applicable laws and regulations for diagnosis of C. trachomatis and N. gonorrhoeae infections. Per 2014 CDC recommendations, this test does not include confirmation of positive results by an alternative nucleic acid target. Performed By: #### U CG #### [place] [address] Java Spring Developer: Jerman Haynes MD Gonorrhea Probe, Ur Negative Normal NEG [facility] Comment on above: Result Comment: NEIS SERIA GONORRHOEAE DNA not detected by nucleic acid amplification. This test is intended for medical purposes only and is not valid for the evaluation of suspected sexual abuse or for other forensic purposes. In certain contexts, culture may be required to meet applicable laws and regulations for diagnosis of C. trachomatis and N. gonorrhoeae infections. Per 2014 CDC recommendations, this test does not include confirmation of positive results by an alternative nucleic acid target. Performed By: #### U CGP #### [facility] [place] [address] Java Spring Developer: Jerman Haynes MD Comp Metabolic Profon 2020 (cont.) Normal [facility] Comment on above: Result Comment: Aver age GFR for 40-49 years old: 99 mL/min/1.73sq m Chronic Kidney Disease: <60 mL/min/1.73sq m Kidney failure: <15 mL/min/1.73sq m eGFR calculated using average adult body mass. Additional eGFR calculator available at: http://www.[employer]/multiple_crcl_2012.htm Performed By: #### C P, CDP #### [facility] [address] [place] [address] Java Spring Developer: Duglas Hanley MD Albumin [Mass/Vol] 4.1 g/dL Normal 3.5-5.2 [facility] Comment on above: Performed By: #### C P, CDP #### [facility] [address] [place] [address] [address] [place], [place] [id number] Java [employer] Developer: Duglas Hanley MD Albumin/Glob Ratio 1.5 Normal 1.0-2.5 [facility] Comment on above: Performed By: #### C P, CDP #### [facility] [address] [place], [place] [id number] Java [employer] Developer: Duglas Hanley MD Alkaline Phos 85 U/L Normal 35-104 [facility] Comment on above: Performed By: #### C P, CDP #### [facility] [address] [place], [place] [id number] Java Spring Developer: Duglas Hanley MD ALT [Catalytic activity/Vol] 9 U/L Normal 5-33 [facility] Comment on above: Performed By: #### C P, CDP #### [facility] [address] [place] [address] [employer] Spring Developer: Duglas Hanley MD Anion gap [Moles/Vol] 11 mmol/L Normal 9-17 [facility] Comment on above: Performed By: #### C P, CDP #### [facility] [address] [place], [place] [phone] Java Spring Developer: Duglas Hanley MD AST [Catalytic activity/Vol] 13 U/L Normal <32 [facility] Comment on above: Performed By: #### C P, CDP #### [facility] [address] [place], [place] [phone] Java Spring Developer: Duglas Hanley MD Bilirubin [Mass/Vol] 0.18 mg/dL Low 0.3-1.2 [facility] Comment on above: Performed By: #### C P, CDP #### [facility] [address] [place], [place] [phone] Java Spring Developer: Duglas Hanley MD BUN/CRE Ratio 12 Normal 9-20 [facility] Comment on above: Performed By: #### C P, CDP #### [facility] [address] [place], [place] [id number] Java Spring Developer: Duglas Hanley MD Calcium [Mass/Vol] 9.4 mg/dL Normal 8.6-10.4 [facility] Comment on above: Performed By: #### C P, CDP #### [facility] [address] [place], [place] [id number] Java Spring Developer: Duglas Hanley MD Chloride [Moles/Vol] 103 mmol/L Normal 98-107 [facility] Comment on above: Performed By: #### C P, CDP #### [facility] [address] [place], [place] [phone] [employer] Developer: Duglas Hanley MD CO2 [Moles/Vol] 25 mmol/L Normal 20-31 [facility] Comment on above: Performed By: #### C P, CDP #### [facility] [address] [place], [place] [phone] Java Spring Developer: Duglas Hanley MD Creatinine [Mass/Vol] 1.11 mg/dL High 0.50-0.90 [facility] Comment on above: Performed By: #### C P, CDP #### [facility] [address] [place], [place] [phone] Java Spring Developer: Duglas Hanley MD GFR, Amer >60 Normal >60 [facility] Comment on above: Performed By: #### C P, CDP #### [facility] [address] [place], [place] [phone] Java Spring Developer: Duglas Hanley MD GFR,non Amer 54 mL/min Low >60 [facility] Comment on above: Performed By: #### C P, CDP #### [facility] [address] [place], [place] [phone] Java Spring Developer: Duglas Hanley MD Glucose [Mass/Vol] 88 mg/dL Normal 70-99 [facility] Comment on above: Performed By: #### C P, CDP #### [address] [place], [place] [phone] Java Spring Developer: Duglas Hanley MD Potassium [Moles/Vol] 3.8 mmol/L Normal 3.7-5.3 [facility] Comment on above: Performed By: #### C P, CDP #### [facility] [address] [place], [place] [phone] Java Spring Developer: Duglas Hanley MD Protein [Mass/Vol] 6.8 g/dL Normal 6.4-8.3 [facility] Comment on above: Performed By: #### C P, CDP #### [facility] [address] [place], [place] [phone] Java Spring Developer: Duglas Hanley MD Sodium [Moles/Vol] 139 mmol/L Normal 135-144 [facility] Comment on above: Performed By: #### C P, CDP #### [facility] [address] [place] [address] [place] [address] Java Spring Developer: Duglas Hanley MD Staging: Normal [facility] Comment on above: Result Comment: Stag e 1: Some kidney damage normal GFR Stage 2: Mild kidney damage GFR 60-89 Stage 3: Moderate kidney damage GFR 30-59 Stage 4: Severe kidney damage GFR 15-29 Stage 5: Severe kidney damage GFR <15 ESRD - chronic treatment by dialysis or transplant Performed By: #### C P, CDP #### [facility] [address] [place] [address] [place] [address] Java Spring Developer: Duglas Hanley MD Urea nitrogen [Mass/Vol] 13 mg/dL Normal 6-20 [facility] Comment on above: Performed By: #### C P, CDP #### [address] [place] [address] Java Spring Developer: Duglas Hanley MD Trichomonas/Wet Prepon 02-06 Trichomonas/Wet Prep Specimen Descriptio n .VAGINA Special Requests NOT REPORTED Direct Exam NO YEAST OBSERVED MODERATE TRICHOMONAS NO CLUE CELLS SEEN Report Status FINAL 02/06/2021 Normal [facility] Comment on above: Performed By: #### W P #### [address] [place], [place] [phone] Java Spring Developer: Duglas Hanley MD Wet Prep, GenitalOrdered By: Gee Mcmahon on 02-06-2021 Direct Exam NO [facility]BSERVED [facility]: Direct Exam MODERATE TRICHOMONAS Abnormal [facility] Phone: Direct Exam NO CLUE CELLS SEEN [facility] Phone: Interpretation and review of laboratory results Abnormal [facility] Phone: Special Requests NOT REPORTED [facility] Phone: Specimen Description .VAGINA [facility] [employer] Phone: [employer] Phone: CBC auto differentialOrdered By: Gee Mcmahon on 02-05-2021 [facility] # 0.41 [facility] Work Phone: Absolute Immature Granulocyte 0.05 [employer] Work Phone: Absolute Lymph # 4.23 High [facility] Work Phone: Absolute [place] # 1.01 [facility] Work Phone: Basophils (Bld) [#/Vol] 0.07 10*3/uL [employer] Work Phone: Basophils/100 WBC (Bld) 1 % 0 - 2 % [employer] Work Phone: Differential Type NOT REPORTED [employer] Phone: Eosinophils/100 WBC (Bld) 3 % 1 - 4 % [employer] Phone: Hematocrit (Bld) [Volume fraction] 42.8 % 36.3 - 47.1 % [employer] Work Phone: Hemoglobin.gastrointes tinal spec 1 Ql (Stl) 14.1 g/dL 11.9 - 15.1 g/dL [employer] Phone: Immature granulocytes/100 WBC (Bld) 0 % 0 [employer] Phone: Interpretation and review of laboratory results Abnormal [employer] Phone: Lymphocytes/100 WBC (Bld) 35 % 24 - 43 % [employer] Phone: MCH (RBC) [Entitic mass] 31.8 pg 25.2 - 33.5 pg [employer] Phone: MCHC (RBC) [Mass/Vol] 32.9 g/dL 28.4 - 34.8 g/dL [employer] Phone: MCV (RBC) [Entitic vol] 96.4 fL 82.6 - 102.9 fL [employer] Work Phone: Monocytes/100 WBC (Bld) 8 % 3 - 12 % [employer] Work Phone: NRBC Automated 0.0 0.0 per 100 WBC [employer] Phone: Platelet distribution width (Bld) [Ratio] 12.7 % 11.8 - 14.4 % [employer] Phone: Platelet Estimate NOT REPORTED [employer] Work Phone: Platelet mean volume (Bld) [Entitic vol] 9.3 fL 8.1 - 13.5 fL [employer] Phone: Platelets (Bld) [#/Vol] 288 10*3/uL [employer] Phone: RBC (Bld) [#/Vol] 4.44 10*6/uL 3.95 - 5.11 m/uL [employer] Work Phone: RBC (Bld) [#/Vol] NOT REPORTED [employer] Phone: Segmented neutrophils/100 WBC (Bld) 53 % 36 - 65 % [employer] Work Phone: Segs Absolute 6.48 [employer] Work Phone: WBC (Bld) [#/Vol] 12.3 10*3/uL High [employer] Work Phone: WBC (Bld) [#/Vol] NOT REPORTED [employer] Work Phone: [employer] Work Phone: CBC with Diffon 02-05-2021 Abs. Basophil 0.07 k/uL Normal 0.00-0.20 [facility] Comment on above: Performed By: #### C P, CDP #### [facility] [address] [place] [address] Java Spring Developer: Duglas Hanley MD Abs.Imm.Granulocyte 0.05 k/uL Normal 0.00-0.30 [facility] Comment on above: Performed By: #### C P, CDP #### [address] [place], [place] [address] Java Spring Developer: Duglas Hanley MD Abs.Neutrophil (Seg) 6.48 k/uL Normal 1.50-8.10 [facility] Comment on above: Performed By: #### C P, CDP #### [address] [place], [place] [address] [employer] Developer: Duglas Hanley MD Basophils/100 WBC (Bld) 1 % Normal 0-2 [facility] Comment on above: Performed By: #### C P, CDP #### [address] [place] [address] Java [employer] Developer: Duglas Hanley MD Eosinophils (Bld) [#/Vol] 0.41 10*3/uL Normal 0.00-0.44 [facility] Comment on above: Performed By: #### C P, CDP #### [address] [place] [address] Java [employer] Developer: Duglas Hanley MD Eosinophils/100 WBC (Bld) 3 % Normal 1-4 [facility] Comment on above: Performed By: #### C P, CDP #### [address] [place], [place] [address] [employer] Developer: Duglas Hanley MD Erythrocyte distribution width (RBC) [Ratio] 12.7 % Normal 11.8-14.4 [facility] Comment on above: Performed By: #### C P, CDP #### [address] [place] [id number] Java [employer] Developer: Duglas Hanley MD Hematocrit (Bld) [Volume fraction] 42.8 % Normal 36.3-47.1 [facility] Comment on above: Performed By: #### C P, CDP #### [facility] [address] [place], [place] [phone] Java [employer] Developer: Duglas Hanley MD Hemoglobin (Bld) [Mass/Vol] 14.1 g/dL Normal 11.9-15.1 [facility] Comment on above: Performed By: #### C P, CDP #### [facility] [address] [place], [place] [phone] Java Spring Developer: Duglas Hanley MD Immature granulocytes/100 WBC (Bld) 0 % Normal 0 [facility] Comment on above: Performed By: #### C P, CDP #### [address] [place], [place] [phone] [employer] Developer: Duglas Hanley MD Lymphocytes (Bld) [#/Vol] 4.23 10*3/uL High 1.10-3.70 [facility] Comment on above: Performed By: #### C P, CDP #### [address] [place], [place] [phone] [employer] Developer: Duglas Hanley MD Lymphocytes/100 WBC (Bld) 35 % Normal 24-43 [facility] Comment on above: Performed By: #### C P, CDP #### [address] [place], [place] [phone] Java [employer] Developer: Duglas Hanley MD MCH (RBC) [Entitic mass] 31.8 pg Normal 25.2-33.5 [facility] Comment on above: Performed By: #### C P, CDP #### [address] [place], [place] [address]83 Java [employer] Developer: Duglas Hanley MD MCHC (RBC) [Mass/Vol] 32.9 g/dL Normal 28.4-34.8 [facility] Comment on above: Performed By: #### C P, CDP #### [address] [place] [phone] Java [employer] Developer: Duglas Hanley MD MCV (RBC) [Entitic vol] 96.4 fL Normal 82.6-102.9 [facility] Comment on above: Performed By: #### C P, CDP #### [facility] [address] [place] [address] Java Spring Developer: Duglas Hanley MD Monocytes (Bld) [#/Vol] 1.01 10*3/uL Normal 0.10-1.20 [facility] Comment on above: Performed By: #### C P, CDP #### [address] [place] [address] Java [employer] Developer: Duglas Hanley MD Monocytes/100 WBC (Bld) 8 % Normal 3-12 [facility] Comment on above: Performed By: #### C P, CDP #### [address] [place], [facility] Java Spring Developer: Duglas Hanley MD Neutrophil (Seg) 53 % Normal 36-65 [facility] Comment on above: Performed By: #### C P, CDP #### [address] [place] [address] Java Spring Developer: Duglas Hanley MD NRBC Automated 0.0 per 100 WBC Normal 0.0 [facility] Comment on above: Performed By: #### C P, CDP #### [address] [place], [facility]83 Java Spring Developer: Duglas Hanley MD Platelet mean volume (Bld) [Entitic vol] 9.3 fL Normal 8.1-13.5 [facility] Comment on above: Performed By: #### C P, CDP #### [address] [place] [address] Java Spring Developer: Duglas Hanley MD Platelets (Bld) [#/Vol] 288 10*3/uL Normal 138-453 [facility] Comment on above: Performed By: #### C P, CDP #### [facility] [address] [place], [place] [phone] Java [employer] Developer: Duglas Hanley MD RBC (Bld) [#/Vol] 4.44 10*6/uL Normal 3.95-5.11 [facility] Comment on above: Performed By: #### C P, CDP #### [facility] [address] [place], [place] [phone] Java Spring Developer: Duglas Hanley MD WBC (Bld) [#/Vol] 12.3 10*3/uL High 3.5-11.3 [facility] Comment on above: Performed By: #### C P, CDP #### [facility] [address] [place] [address] Java Spring Developer: Duglas Hanley MD Auto Diff Performed NOT REPORTED Normal [facility] Comment on above: Performed By: #### C P, CDP #### [facility] [address] [place], [place] [address] Java Spring Developer: Duglas Hanley MD Platelet Estimate NOT REPORTED Normal [facility] Comment on above: Performed By: #### C P, CDP #### [facility] [address] [place] [address] [place] [address] Java [employer] Developer: Duglas Hanley MD RBC morphology finding Nom (Bld) NOT REPORTED Normal [facility] Comment on above: Performed By: #### C P, CDP #### [facility] [address] [place], [place] [phone] Java [employer] Developer: Duglas Hanley MD WBC Morphology NOT REPORTED Normal [facility] Comment on above: Performed By: #### C P, CDP #### [facility] [address] [place], [place] [phone] [employer] Developer: Duglas Hanley MD Comprehensive Metabolic Pane lOrdered By: Gee Mcmahon on 02-05-2021 Albumin [Mass/Vol] 4.1 g/dL 3.5 - 5.2 g/dL [employer] Phone: Albumin/Globulin [Mass ratio] 1.5 {ratio} [employer] Phone: ALP (Bld) [Catalytic activity/Vol] 85 U/L 35 - 104 U/L [employer] Phone: ALT [Catalytic activity/Vol] 9 U/L 5 - 33 U/L [employer] Phone: Anion gap [Moles/Vol] 11 mmol/L 9 - 17 mmol/L [employer] Phone: AST [Catalytic activity/Vol] 13 U/L <32 [employer] Phone: Bilirubin [Mass/Vol] 0.18 mg/dL Low 0.3 - 1 .2 mg/dL [employer] Phone: Calcium [Mass/Vol] 9.4 mg/dL 8.6 - 10. 4 mg/dL [employer] Phone: Chloride [Moles/Vol] 103 mmol/L 98 - 10 7 mmol/L [employer] Phone: CO2 [Moles/Vol] 25 mmol/L 20 - 31 mmol/L [employer] Phone: Creatinine [Mass/Vol] 1.11 mg/dL High 0.50 - 0.90 mg/dL [employer] Phone: Free PSA/Total PSA [Mass fraction] 6.8 g/dL 6.4 - 8.3 g/dL [employer] Phone: GFR >60 >60 mL/min [employer] Phone: GFR Non- 54 mL/min Low >60 [employer] Phone: Glucose [Mass/Vol] 88 mg/dL 70 - 99 mg/dL [employer] Phone: Interpretation and review of laboratory results Abnormal [employer] Phone: Potassium [Moles/Vol] 3.8 mmol/L 3.7 - 5.3 mmol/L [employer] Phone: Sodium [Moles/Vol] 139 mmol/L 135 - 144 mmol/L [employer] Phone: Urea nitrogen (BldV) [Mass/Vol] 13 mg/dL 6 - 20 mg/dL [employer] Phone: Urea nitrogen/Creatinine (Bld) [Mass ratio] 12 [employer] Phone: [employer] Phone: Laboratory - Chemistry and C hemistry - challengeOrdered By: Gee Mcmahon on 02-05-2021 GFR/1.73 sq M.predicted MDRD (S/P/Bld) [Vol rate/Area] [employer] Phone: Comment on above: Average GFR for 40-4 9 years old: 99 mL/min/1.73sq m Chronic Kidney Disease: <60 mL/min/1.73sq m Kidney failure: <15 mL/min/1.73sq m eGFR calculated using average adult body mass. Additional eGFR calculator available at: http://www.[employer]/multiple_crcl_2012.htm Stage 1: Some kidney damage normal GFR Stage 2: Mild kidney damage GFR 60-89 Stage 3: Moderate kidney damage GFR 30-59 Stage 4: Severe kidney damage GFR 15-29 Stage 5: Severe kidney damage GFR <15 ESRD - chronic treatment by dialysis or transplant Urinalysis w/ Microon 2020 ----- Normal [facility] Comment on above: Performed By: #### U AMI #### [facility] [address] [place] [address] Java Spring Developer: Duglas Hanley MD Bacteria 3+ Abnormal NONE [facility] Comment on above: Performed By: #### U AMIC #### [facility] [address] [place], [place] [id number] Java Spring Developer: Duglas Hanley MD Bilirubin, SemiQt,Ur SMALL Abnormal NEG [facility] Comment on above: Performed By: #### U AMIC #### [facility] [address] [place], [facility]83 Java Spring Developer: Duglas Hanley MD Blood, Urine 2+ Abnormal NEG [facility] Comment on above: Performed By: #### U AMIC #### [facility] [address] [place] [id number] Java Spring Developer: Duglas Hanley MD Clarity (U) CLOUDY Abnormal CLEAR [facility] Comment on above: Performed By: #### U AMIC #### [facility] [address] [place], [facility]83 Java Spring Developer: Duglas Hanley MD Color (U) YELLOW Normal YEL [facility] Comment on above: Performed By: #### U AMIC #### [facility] [address] [place] [address] Dr. [place], [facility]83 Java Spring Developer: Duglas Hanley MD Epithelial cells LM Ql (Urine sed) 5 TO 10 Normal 0-25 [facility] Comment on above: Performed By: #### U AMIC #### [facility] [address] [place], [facility]83 Java Spring Developer: Duglas Hanley MD Glucose Ql (U) Negative Normal NEG [facility] Comment on above: Performed By: #### U AMIC #### [facility] [address] [place] [address] Java Spring Developer: Duglas Hanley MD Ketones Ql (U) Negative Normal NEG [facility] Comment on above: Performed By: #### U AMIC #### [facility] [address] [place] [id number] Java Spring Developer: Duglas Hanley MD Leukocyte esterase Test strip Ql (U) MODERATE Abnormal NEG [facility] Comment on above: Performed By: #### U AMIC #### [facility] [address] [place] [address] Java Spring Developer: Duglas Hanley MD Nitrite,Ur Negative Normal NEG [facility] Comment on above: Performed By: #### U AMIC #### [facility] [address] [place] [address] Java Spring Developer: Duglas Hanley MD PH,Ur 6.0 Normal 5.0-9.0 [facility] Comment on above: Performed By: #### U AMIC #### [facility] [address] [place], [place] [id number] Java Spring Developer: Duglas Hanley MD Protein Ql (U) 1+ Abnormal NEG [facility] Comment on above: Performed By: #### U AMIC #### [facility] [address] [place] [address] Java Spring Developer: Duglas Hanley MD Spec. Napoleon,Ur >1.030 High 1.010-1.02 0 [facility] Comment on above: Performed By: #### U AMIC #### [facility] [address] [place], [place] [id number] Java Spring Developer: Duglas Hanley MD Urine RBC's 2 TO 5 Normal 0-2 [facility] Comment on above: Performed By: #### U AMIC #### [facility] [address] [place] [address] Java Spring Developer: Duglas Hanley MD Urine WBC's 20 TO 50 Normal 0-5 [facility] Comment on above: Performed By: #### U AMIC #### [facility] [address] [place] [address] Java Spring Developer: Duglas Hanley MD Urobilinogen,Ur Normal Normal NORM [facility] Comment on above: Performed By: #### U AMIC #### [facility] [address] [place] [address] Java Spring Developer: Duglas Hanley MD Amorphous sediment LM Ql (Urine sed) NOT REPORTED Normal NONE [facility] Comment on above: Performed By: #### U AMIC #### [facility] [address] [place] [address] Java Spring Developer: Duglas Hanley MD Casts NOT REPORTED Normal [facility] Comment on above: Performed By: #### U AMIC #### [facility] [address] [place] [address] Java Spring Developer: Duglas Hanley MD Comment NOT REPORTED Normal [facility] Comment on above: Performed By: #### U AMIC #### [facility] [address] [place], [place] [id number] Java Spring Developer: Duglas Hanley MD Crystals LM Nom (Urine sed) NOT REPORTED Normal [facility] Comment on above: Performed By: #### U AMIC #### [facility] [address] [place], [place] [id number] Java Spring Developer: Duglas Hanley MD Epithelial, Renal NOT REPORTED Normal 0 [facility] Comment on above: Performed By: #### U AMIC #### [facility] [address] [place], [place] [id number] Java Spring Developer: Duglas Hanley MD Mucus Strands NOT REPORTED Normal [facility] Comment on above: Performed By: #### U AMIC #### [facility] [address] [place], [place] [id number] Java Spring Developer: Duglas Hanley MD Other Observations NOT REPORTED Normal NREQ [facility] Comment on above: Performed By: #### U AMIC #### [facility] [address] [place], [place] [id number] Java Spring Developer: Duglas Hanley MD Trichomonas NOT REPORTED Normal [facility] Comment on above: Performed By: #### U AMIC #### [facility] [address] [place], [place] [id number] Java Spring Developer: Duglas Hanley MD Yeast NOT REPORTED Normal [facility] Comment on above: Performed By: #### U AMIC #### [facility] [address] [place] [address] Java Spring Developer: Duglas Hanley MD Urinalysis with microscopicO rdered By: Gee Mcmahon on 02-05-2021 - [facility] [employer] Work Phone: Amorphous, UA NOT REPORTED None [facility] Work Phone: Bacteria, UA 3+ Abnormal None [facility] Work Phone: Bilirubin Urine SMALL Abnormal NEGATIVE [facility] Work Phone: Casts UA NOT REPORTED /LPF [facility] Work Phone: Color, UA YELLOW YELLOW [facility] Work Phone: Crystals, UA NOT REPORTED None /HPF [facility] Work Phone: Epithelial Cells UA 5 TO 10 [facility] Work Phone: Glucose, Ur Negative NEGATIVE [facility] Work Phone: Interpretation and review of laboratory results Abnormal [facility] Work Phone: Ketones Ql (U) Negative NEGATIVE [facility] Work Phone: Leukocyte esterase Test strip Ql (U) MODERATE Abnormal NEGATIVE [facility] [employer] Phone: Mucus, UA NOT REPORTED None [facility] Work Phone: Nitrite, Urine Negative NEGATIVE [facility] Work Phone: Other Observations UA NOT REPORTED NOT REQ. [facility] Work Phone: pH, UA 6.0 [facility] Work Phone: Protein, UA 1+ Abnormal NEGATIVE [facility] Work Phone: RBC, UA 2 TO 5 [facility] Work Phone: Renal Epithelial, UA NOT REPORTED 0 /HPF [facility] [employer] Work Phone: Specific Napoleon, UA >1.030 High [employer] Work Phone: Trichomonas, UA NOT REPORTED None [facility] Work Phone: Turbidity UA CLOUDY Abnormal CLEAR [facility] Work Phone: Urinalysis Comments NOT REPORTED [facility] [employer] Work Phone: Urine Hgb 2+ Abnormal NEGATIVE [facility] Work Phone: Urobilinogen, Urine Normal Normal [facility] Work Phone: WBC, UA 20 TO 50 [facility] Work Phone: Yeast, UA NOT REPORTED None [facility] Work Phone: [facility] Work Phone: MRI LUMBAR SPINE WO CONTRAST on 11-23-2020 MRI LUMBAR SPINE WO CONTRAST EXAMINATION: MRI OF THE LUMBAR SPINE WITHOUT CONTRAST, 11/23/2020 2:18 pm TECHNIQUE: Multiplanar multisequence MRI of the lumbar spine was performed without the administration of intravenous contrast. COMPARISON: 04/03/2019 HISTORY: ORDERING SYSTEM PROVIDED HISTORY: Low back pain, unspecified back pain laterality, unspecified chronicity, unspecified whether sciatica present TECHNOLOGIST PROVIDED HISTORY: Is the patient ?->No FINDINGS: BONES/ALIGNMENT: There is normal alignment of the spine. The vertebral body heights are maintained. The bone marrow signal appears unremarkable. No acute fracture is detected. SPINAL CORD: The conus terminates normally. SOFT TISSUES: No paraspinal mass identified. L1-L2: There is no significant disc herniation, spinal canal stenosis or neural foraminal narrowing. L2-L3: Small central disc protrusion is identified resulting in no significant stenosis. L3-L4: Minimal shallow disc bulge flattens the thecal sac. L4-L5: There is no significant disc herniation, spinal canal stenosis or neural foraminal narrowing. L5-S1: Central annular tear is identified. No significant stenosis is identified. IMPRESSION: New small central disc protrusion at L2-L3 resulting in no significant nerve root compression or stenosis. Stable central annular tear at L5-S1. Interpreted by: Trip Garcia MD Signed by: Trip Garcia MD 11/23/20 Final result Normal [facility] MRI LUMBAR SPINE WO CONTRAST Ordered By: Josh [place] on 11-23-2020 New small central di sc protrusion at L2-L3 resulting in no significant nerve root compression or stenosis. Stable central annular tear at L5-S1. [employer] Phone: EXAMINATION: MRI OF THE LUMBAR SPINE WITHOUT CONTRAST, 11/23/2020 2:18 pm TECHNIQUE: Multiplanar multisequence MRI of the lumbar spine was performed without the administration of intravenous contrast. COMPARISON: 04/03/2019 HISTORY: ORDERING SYSTEM PROVIDED HISTORY: Low back pain, unspecified back pain laterality, unspecified chronicity, unspecified whether sciatica present TECHNOLOGIST PROVIDED HISTORY: Is the patient ?->No FINDINGS: BONES/ALIGNMENT: There is normal alignment of the spine. The vertebral body heights are maintained. The bone marrow signal appears unremarkable. No acute fracture is detected. SPINAL CORD: The conus terminates normally. SOFT TISSUES: No paraspinal mass identified. L1-L2: There is no significant disc herniation, spinal canal stenosis or neural foraminal narrowing. L2-L3: Small central disc protrusion is identified resulting in no significant stenosis. L3-L4: Minimal shallow disc bulge flattens the thecal sac. L4-L5: There is no significant disc herniation, spinal canal stenosis or neural foraminal narrowing. L5-S1: Central annular tear is identified. No significant stenosis is identified. [employer] Phone: Ivan, Mhpn Incoming Radiant Results From [address]/[facility] [employer] - 11/23/2020 4:04 PM EDT EXAMINATION: MRI OF THE LUMBAR SPINE WITHOUT CONTRAST, 11/23/2020 2:18 pm TECHNIQUE: Multiplanar multisequence MRI of the lumbar spine was performed without the administration of intravenous contrast. COMPARISON: 04/03/2019 HISTORY: ORDERING SYSTEM PROVIDED HISTORY: Low back pain, unspecified back pain laterality, unspecified chronicity, unspecified whether sciatica present TECHNOLOGIST PROVIDED HISTORY: Is the patient ?->No FINDINGS: BONES/ALIGNMENT: There is normal alignment of the spine. The vertebral body heights are maintained. The bone marrow signal appears unremarkable. No acute fracture is detected. SPINAL CORD: The conus terminates normally. SOFT TISSUES: No paraspinal mass identified. L1-L2: There is no significant disc herniation, spinal canal stenosis or neural foraminal narrowing. L2-L3: Small central disc protrusion is identified resulting in no significant stenosis. L3-L4: Minimal shallow disc bulge flattens the thecal sac. L4-L5: There is no significant disc herniation, spinal canal stenosis or neural foraminal narrowing. L5-S1: Central annular tear is identified. No significant stenosis is identified. IMPRESSION: New small central disc protrusion at L2-L3 resulting in no significant nerve root compression or stenosis. Stable central annular tear at L5-S1. [employer] Phone: [employer] Phone: XR LUMBAR SPINE (2-3 VIEWS)o n 11-01-2020 XR LUMBAR SPINE (2-3 VIEWS) EXAMINATION: THREE XRAY VIEWS OF THE LUMBAR SPINE 11/01/2020 5:36 pm COMPARISON: None. HISTORY: ORDERING SYSTEM PROVIDED HISTORY: low back pain TECHNOLOGIST PROVIDED HISTORY: low back pain FINDINGS: No acute fracture or subluxation. Minimal to mild degenerative and degenerative disc changes. Pedicles are intact. SI joints are symmetrical. Mild levo scoliotic curvature is noted. Surgical clips in the gallbladder fossa. IMPRESSION: Minimal to mild degenerative and degenerative disc changes without acute fracture or subluxation. Interpreted by: Abida Be MD Signed by: Abida Be MD 11/01/20 Final result Normal [facility] XR LUMBAR SPINE (2-3 VIEWS)O rdered By: Rui To on 11-01-2020 Minimal to mild degenerative and degenerative disc changes without acute fracture or subluxation. [employer] Phone: EXAMINATION: THREE X RAY VIEWS OF THE LUMBAR SPINE 11/01/2020 5:36 pm COMPARISON: None. HISTORY: ORDERING SYSTEM PROVIDED HISTORY: low back pain TECHNOLOGIST PROVIDED HISTORY: low back pain FINDINGS: No acute fracture or subluxation. Minimal to mild degenerative and degenerative disc changes. Pedicles are intact. SI joints are symmetrical. Mild levo scoliotic curvature is noted. Surgical clips in the gallbladder fossa. [employer] Work Phone: Ivan, Mhpn Incoming Radiant Results From [employer] - 11/01/2020 5:43 PM EDT EXAMINATION: THREE XRAY VIEWS OF THE LUMBAR SPINE 11/01/2020 5:36 pm COMPARISON: None. HISTORY: ORDERING SYSTEM PROVIDED HISTORY: low back pain TECHNOLOGIST PROVIDED HISTORY: low back pain FINDINGS: No acute fracture or subluxation. Minimal to mild degenerative and degenerative disc changes. Pedicles are intact. SI joints are symmetrical. Mild levo scoliotic curvature is noted. Surgical clips in the gallbladder fossa. IMPRESSION: Minimal to mild degenerative and degenerative disc changes without acute fracture or subluxation. [employer] Work Phone: [employer] Phone: C Urineon 02-22-2020 Bacteria identified Cx Nom (U) Microbiology PROCEDURE: Urine Culture [R1] SOURCE: U CleanCatch BODY SITE: COLLECTED DATE/TIME: 02/20/2020 18:30 EDT RECEIVED DATE/TIME: 02/20/2020 18:44 EDT START DATE/TIME: 02/20/2020 18:45 EDT FREE TEXT SOURCE: Kay Garcai DO, DO, Erin FINAL REPORTS Final Report [] Verified Date/Time: 02/22/2020 11:33 EDT 1,000 cfu/ml Mixed skin contaminants Performing Locations R1: [facility], [address] [place] [address], [phone] , , [facility] Comment on above: Performed By: #### 1 [id number] ####[facility] [place] [address] CT Abdomen/Pelvis w/o Contra maritza 02-21-2020 CT Abdomen/Pelvis w/o Contrast Exam Date/Time: 02/20/2020 20:04 EDT Reason for Exam: Flank pain, kidney stone suspected;Other (please specify) Report IMPRESSION: MILD RIGHT HYDRONEPHROSIS AND PERIURETERAL FAT STRANDING ALONG THE RIGHT DISTAL URETER. NO RADIOPAQUE URETERAL STONE. FINDING COMPATIBLE WITH RECENTLY PASSED RIGHT DISTAL URETER STONE. RECOMMEND CLINICAL CORRELATION. CLINICAL HISTORY: Flank pain, kidney stone suspected COMPARISON: 03/11/2018. FINDINGS: Multiple axial CT images of the abdomen and pelvis were obtained every 3 mm interval without intravenous and oral contrast. Both lung bases are unremarkable. CT abdomen shows mild right hydronephrosis. There is a stable mildly dilated common bile duct, probably secondary to previous cholecystectomy. The rest of organs are unremarkable. CT pelvis shows right distal periureteral fat haziness. There are no ureter stone. Urinary bladder is well distended without stone or other abnormality. Patient is status post hysterectomy. There is no free fluid in the pelvic cavity. Bony structures are unremarkable. All CT scans at this facility use dose modulation, iterative reconstruction, and/or weight based dosing when appropriate to reduce radiation dose to as low as reasonably achievable. FINAL REPORT Dictated: 02/21/2020 6:56 am Josue Benites M.D. Signed (Electronic Signature): 02/21/2020 6:56 am Signed by: Josue Benites M.D. Transcribed by: DP Technologist: DPR Technical Comments Rectal Contrast Given? No Oral contrast amount in ml's: 0 Normal [facility] Coding Summary.on 02-21-2020 Coding Summary. 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 However, the narrative phrase printed from the coding software may appear abbreviated, or result in slightly different terminology. Revised Coded By: Carito Mills Revised Date Saved: 02/21/2020 07:59 am Normal [facility] Discharge Instructionson Discharge Instructions [id number]:1 27 Normal [facility] ED Clinical Summaryon 2019 ED Clinical Summary (Inserted Image. Swati ble to display) [place] [id number] ED Clinical Summary Person Information Name: ROSEANN GARRIDO Maria Isabel/[facility] Age: 44 Years : 1975 Sex: Female Language: Filipino PCP: MICHAEL MORENO CNP Marital Status: Visit Id: Visit Reason: Flank pain; SIDE PAIN Speciality: Acuity: 3 Enc Type: Emergency Med Service: Emergency Arrival: 02/20/2020 18:18:26 Discharge: 02/20/2020 22:11:31 LOS: 000 03:53 Checkin: 02/20/2020 18:18:26 Checkout: 02/20/2020 22:11:31 Dispo Type: Home (Routine DC) EVENTS: Event Name Event Status Request Date/Time Start Date/Time Complete Date/Time Arrive Complete 02/20/2020 18:18:26 02/20/2020 18:18:26 02/20/2020 18:18:26 Document Home Meds Request 02/20/2020 18:18:26 Triage Complete 02/20/2020 18:18:26 02/20/2020 18:23:27 02/20/2020 18:23:27 Bed Assign Complete 02/20/2020 18:23:40 02/20/2020 18:23:40 02/20/2020 18:23:40 Dr Exam Complete 02/20/2020 18:23:40 02/20/2020 19:25:59 02/20/2020 19:25:59 RN Exam Complete 02/20/2020 18:23:40 02/20/2020 18:28:40 02/20/2020 18:28:40 Pending Labs Complete 02/20/2020 18:28:04 02/20/2020 18:44:00 Lab Complete 02/20/2020 18:28:04 02/20/2020 18:44:00 Urine Collect Complete 02/20/2020 18:28:04 02/20/2020 18:44:00 Meds Admin Complete 02/20/2020 18:28:35 02/20/2020 18:52:45 Pending Labs Complete 02/20/2020 18:28:35 02/20/2020 19:42:15 Lab Complete 02/20/2020 18:28:35 02/20/2020 19:42:15 Patient Care Complete 02/20/2020 18:28:35 02/20/2020 18:55:04 Pending Labs Inlab 02/20/2020 18:35:56 02/20/2020 18:35:56 Lab Inlab 02/20/2020 18:35:56 02/20/2020 18:35:56 Pending Labs Complete 02/20/2020 19:17:37 02/20/2020 19:17:37 02/20/2020 19:17:38 Pending Labs Complete 02/20/2020 19:17:51 02/20/2020 19:17:51 02/20/2020 19:17:51 Pending Labs Complete 02/20/2020 19:21:38 02/20/2020 19:21:38 02/20/2020 19:39:33 Lab Complete 02/20/2020 19:21:38 02/20/2020 19:21:38 02/20/2020 19:39:33 Pending Labs Complete 02/20/2020 19:22:23 02/20/2020 19:22:23 02/20/2020 19:22:31 Lab Complete 02/20/2020 19:22:23 02/20/2020 19:22:23 02/20/2020 19:22:31 Registration Complete 02/20/2020 19:25:59 02/20/2020 19:30:47 02/20/2020 19:30:47 Reg Complete Request 02/20/2020 19:30:47 Reg Bed Request Complete 02/20/2020 19:30:47 02/20/2020 19:30:47 02/20/2020 19:30:47 Meds Admin Complete 02/20/2020 19:41:36 02/20/2020 19:54:21 Pending Labs Cancel 02/20/2020 19:41:36 02/20/2020 19:44:35 Lab Cancel 02/20/2020 19:41:36 02/20/2020 19:44:35 CT Complete 02/20/2020 19:41:36 02/20/2020 19:45:53 02/20/2020 20:04:55 Pending Labs Complete 02/20/2020 19:45:02 02/20/2020 19:45:02 02/20/2020 20:00:05 Lab Complete 02/20/2020 19:45:02 02/20/2020 19:45:02 02/20/2020 20:00:05 Meds Admin Complete 02/20/2020 20:54:04 02/20/2020 21:08:22 Meds Admin Complete 02/20/2020 21:49:11 02/20/2020 22:07:56 Discharge Complete 02/20/2020 21:51:22 02/20/2020 22:11:37 02/20/2020 22:11:37 Transfer Complete 02/20/2020 22:11:37 02/20/2020 22:11:37 02/20/2020 22:11:37 ADDRESS: [address] [place] [phone] [facility] DOC NOTES: MEDICAL INFORMATION: Prescriptions Given: New Medications Printed Prescriptions ketorolac (ketorolac 10 mg Tab) 1 Tablets By Mouth 4 times a day as needed for pain. Refills: 0. sulfamethoxazole-trimetho prim (Bactrim D.S. 800 mg-160 mg Tab) 1 Tablets By Mouth 2 times a day for 5 Days. Refills: 0. Medications to Continue with No Changes Other Medications ascorbic acid (Vitamin C) 100 Milligram Chewed every day. atorvastatin (atorvastatin 20 mg Tab) 1 Tablets By Mouth every day. biotin (Hair, Skin & Nails 5 mg oral capsule) 1 Capsules By Mouth every day. cholecalciferol (Vitamin D 1000 intl units Tab) 1 Tablets By Mouth every day. famotidine (Pepcid 20 mg Tab) 1 Tablets By Mouth every day. gabapentin (gabapentin 800 mg Tab) 1 Tablets By Mouth 3 times a day. multivitamin (Vitamin B Complex oral capsule) 1 Capsules By Mouth every day. niacin By Mouth every day. pantoprazole (Protonix) 40 Milligram By Mouth every day. PATIENT EDUCATION INFORMATION: Instructions: Hydronephrosis; Flank Pain Follow up: With: Address: When: MICHAEL JOSH [address] [place] [address] [employer] In 1 day 02/21/2020 Comments: drink plenty of fluids and followup with your doctor for a recheck DIAGNOSIS: 1:Right flank pain; 2:Hydronephrosis of right kidney; 3:Hydroureter, right Normal [facility] ED Patient Education Noteon 02-21-2020 ED Patient Education Note Family Medicine Hydronephrosis Hydronephrosis is an abnormal enlargement of your kidney. It can affect one or both the kidneys. It results from the backward pressure of urine on the kidneys, when the flow of urine is blocked. Normally, the urine drains from the kidney through the urine tube (ureter), into a sac which holds the urine until urination (bladder). When the urinary flow is blocked, the urine collects above the block. This causes an increase in the pressure inside the kidney, which in turn leads to its enlargement. The block can occur at the point where the kidney joins the ureter. Treatment depends on the cause and location of the block. CAUSES The causes of this condition include: ? defect of the kidney or ureter. ? Kink at the point where the kidney joins the ureter. ? Stones and blood clots in the kidney or ureter. ? Cancer, injury, or infection of the ureter. ? Scar tissue formation. ? Backflow of urine (reflux). ? Cancer of bladder or prostate gland. ? Abnormality of the nerves or muscles of the kidney or ureter. ? Lower part of the ureter protruding into the bladder (ureterocele). ? Abnormal contractions of the bladder. ? Both the kidneys can be affected during . This is because the enlarging uterus presses on the ureters and blocks the flow of urine. SYMPTOMS The symptoms depend on the location of the block. They also depend on how long the block has been present. You may feel pain on the affected side. Sometimes, you may not have any symptoms. There may be a dull ache or discomfort in the flank. The common symptoms are: ? Flank pain. ? Swelling of the abdomen. ? Pain in the abdomen. ? Nausea and vomiting. ? Fever. ? Pain while passing urine. ? Urgency for urination. ? Frequent or urgent urination. ? Infection of the urinary tract. DIAGNOSIS Your caregiver will examine you after asking about your symptoms. You may be asked to do blood and urine tests. Your caregiver may order a special X-ray, ultrasound, or CT scan. Sometimes a rigid or flexible telescope (cystoscope) is used to view the site of the blockage. TREATMENT Treatment depends on the site, cause, and duration of the block. The goal of treatment is to remove the blockage. Your caregiver will plan the treatment based on your condition. The different types of treatment are: ? Putting in a soft plastic tube (ureteral stent) to connect the bladder with the kidney. This will help in draining the urine. ? Putting in a soft tube (nephrostomy tube). This is placed through skin into the kidney. The trapped urine is drained out through the back. A plastic bag is attached to your skin to hold the urine that has drained out. ? Antibiotics to treat or prevent infection. ? Breaking down of the stone (lithotripsy). HOME CARE INSTRUCTIONS ? It may take some time for the hydronephrosis to go away (resolve). Drink fluids as directed by your caregiver , and get a lot of rest. ? If you have a drain in, your caregiver will give you directions about how to care for it. Be sure you understand these directions completely before you go home. ? Take any antibiotics, pain medications, or other prescriptions exactly as prescribed. ? Follow-up with your caregivers as directed. SEEK MEDICAL CARE IF: ? You continue to have flank pain, nausea, or difficulty with urination. ? You have any problem with any type of drainage device. ? Your urine becomes cloudy or bloody. SEEK IMMEDIATE MEDICAL CARE IF: ? You have severe flank and/or abdominal pain. ? You develop vomiting and are unable to hold down fluids. ? You develop a fever above 100.5? F (38.1? C), or as per your caregiver. MAKE SURE YOU: ? Understand these instructions. ? Will watch your condition. ? Will get help right away if you are not doing well or get worse. Document Released: 03/18/2008 Document Revised: 08/13/2012 Document Reviewed: 05/05/2011 ExitCare? Patient Information ?2015 [employer]. This information is not intended to replace advice given to you by your health care provider. Make sure you discuss any questions you have with your health care provider. Flank Pain Flank pain refers to pain that is located on the side of the body between the upper abdomen and the back. The pain may occur over a short period of time (acute) or may be long-term or reoccurring (chronic). It may be mild or severe. Flank pain can be caused by many things. CAUSES Some of the more common causes of flank pain include: ? Muscle strains. ? ? Muscle spasms. ? ? A disease of your spine (vertebral disk disease). ? ? A lung infection (pneumonia). ? ? Fluid around your lungs (pulmonary edema). ? ? A kidney infection. ? ? Kidney stones. ? ? A very painful skin rash caused by the chickenpox virus (shingles). ? ? Gallbladder disease. ? HOME CARE INSTRUCTIONS Home care will depend on the cause of your pain. In general, ? Rest as directed by your caregiver. ? Drink enough fluids to keep your urine clear or pale yellow. ? Only take ivon-idp-opsdwey or prescription medicines as directed by your caregiver. Some medicines may help relieve the pain. ? Tell your caregiver about any changes in your pain. ? Follow up with your caregiver as directed. SEEK IMMEDIATE MEDICAL CARE IF: ? Your pain is not controlled with medicine. ? ? You have new or worsening symptoms. ? Your pain increases. ? ? You have abdominal pain. ? ? You have shortness of breath. ? ? You have persistent nausea or vomiting. ? ? You have swelling in your abdomen. ? ? You feel faint or pass out. ? ? You have blood in your urine. ? You have a fever or persistent symptoms for more than 2?3 days. ? You have a fever and your symptoms suddenly get worse. MAKE SURE YOU: ? Understand these instructions. ? Will watch your condition. ? Will get help right away if you are not doing well or get worse. Document Released: 07/13/2006 Document Revised: 02/13/2013 Document Reviewed: 01/03/2013 ExitCare? Patient Information ?2015 [employer]. This information is not intended to replace advice given to you by your health care provider. Make sure you discuss any questions you have with your health care provider. Normal [facility] ED Patient Summaryon 020 ED Patient Summary (Inserted Image. Swati ble to display) [address] [address] Patient Discharge Instructions Person Information Name: ROSEANN GARRIDO Age: 44 Years Arrival Date: 02/20/2020 18:18:26 Discharge Diagnosis: 1:Right flank pain; 2:Hydronephrosis of right kidney; 3:Hydroureter, right Primary Care Physician: MICHAEL MORENO CNP Provider Information Primary Provider: Warren Hodges MD Advanced Pyrotechnician:None The exam and treatment you received in the Emergency Department were for an urgent problem and are not intended as complete care. It is important that you follow up with a doctor, nurse practitioner, or physician?s contract assistant for ongoing care. If your symptoms become worse or you do not improve as expected and you are unable to reach your usual health care provider, you should return to the Emergency Department. We are available 24 hours a day. ROSEANN GARRIDO has been given the following list of patient education materials, prescriptions and follow-up instructions: Follow-up Instructions: With: Address: When: MICHAEL MORENO [address] [place] [address] Business (1) In 1 day 02/21/2020 Comments: drink plenty of fluids and followup with your doctor for a recheck In the event that this physician does not participate in your insurance network, please consult with your insurance company to find a nearby participating provider. Patient Education Materials: Hydronephrosis; Flank Pain A MESSAGE TO ALL PATIENTS REGARDING OPIOIDS PRESCRIPTION OPIOIDS: WHAT YOU NEED TO KNOW Prescription opioids can be used to help relieve fscyypvx-wy-zbrfba pain and are often prescribed following a surgery or injury, or for certain health conditions. These medications can be an important part of the treatment but also come with serious risks. It is important to work with your healthcare provider to make sure you are getting the safest, most effective care. WHAT ARE THE RISKS AND SIDE EFFECTS OF OPIOID USE? Prescription opioids carry serious risks of addiction and overdose, especially with prolonged use. An opioid overdose, often marked by slowed breathing, can cause sudden . The use of prescription opioids can have a number of side effects as well, even when taken as directed: ? Tolerance?meaning you might need to take more of the medication for the same pain relief ? Physical dependence?meaning you have symptoms of withdrawal when a medication is stopped ? Increased sensitivity to pain ? Constipation ? Nausea, vomiting, and dry mouth ? Sleepiness and dizziness ? Confusion ? Depression ? Low levels of testosterone that can result in lower sex drive, energy, and strength ? Itching and sweating RISKS ARE GREATER WITH: ? History of drug misuse, substance use disorder, or overdose ? Mental health conditions (such as depression or anxiety) ? Sleep apnea ? Older age (65 years and older) ? Avoid alcohol while taking prescription opioids. Also, unless specifically advised by your health care provider, medications to avoid include: ? Benzodiazepines (such as Xanax or Valium) ? Muscle relaxants (such as Soma or Flexeril) ? Hypnotics (such as Ambien or Lunesta) ? Other prescription opioids KNOW YOUR OPTIONS Talk to your health care provider about ways to manage your pain that don?t involve prescription opioids. Some of these options may actually work better and have fewer risks and side effects. Options may include: ? Pain relievers such as acetaminophen, ibuprofen, and naproxen ? Some medication that are also used for depression or seizures ? Physical therapy and exercise ? Cognitive behavioral therapy, a psychological, goal-directed approach, in which patients learn how to modify physical, behavioral, and emotional triggers of pain and stress. IF YOU ARE PRESCRIBED OPIOIDS FOR PAIN: ? Never take opioids in greater amounts or more often than prescribed. ? Follow up with your primary health care provider. o Work together to create a plan on how to manage your pain. o Talk about ways to help manage your pain that don?t involve prescription opioids. o Talk about any and all concerns and side effects. ? Help prevent misuse and abuse o Never sell or share prescription opioids. o Never use another person?s prescription opioids. ? Store prescription opioids in a secure place and out of reach of others (this may include visitors, children, friends, and family). ? Safely dispose of unused prescription opioids: Find your community drug take-back program or your pharmacy mail-back program, or flush them down the toilet, following guidance from the Food and Drug Administration (www.fda.gov/Drugs/Resour cesForYou). ? Visit www.cdc.gov/drugoverdose to learn about the risks of opioids abuse and overdose. ? If you believe you may be struggling with addiction, tell your health home care aide and ask for guidance or call [facility]S National Helpline at 3-396-740-MTOF. u Source: US Department of Health and Human Services/Center for Disease Control & Prevention [facility] Medications Given: Medication Dose Route Sodium Chloride 0.9% 1000.00 mL IV Right Antecubit Franklin morphine 4.00 mg IV Push Right Antecubit Liss ondansetron 4.00 mg Oral Sodium Chloride 0.9% 1000.00 mL IV Piggyback Right Antecubit [place] orphenadrine 60.00 mg IntraMuscular Left Ventragluteal fentanyl 50.00 microgram IV Push Right Antecubit [place] ondansetron 4.00 mg IV Push Right Antecubit [place] ketorolac 30.00 mg IV Push Right Antecubit Franklin ceftriaxone 1000.00 mg IV Piggyback Right Antecubit Liss acetaminophen-hydrocodone 1.00 EA Oral Medication Information: New Medications Printed Prescriptions ketorolac (ketorolac 10 mg Tab) 1 Tablets By Mouth 4 times a day as needed for pain. Refills: 0. sulfamethoxazole-trimetho prim (Bactrim D.S. 800 mg-160 mg Tab) 1 Tablets By Mouth 2 times a day for 5 Days. Refills: 0. Medications to Continue with No Changes Other Medications ascorbic acid (Vitamin C) 100 Milligram Chewed every day. atorvastatin (atorvastatin 20 mg Tab) 1 Tablets By Mouth every day. biotin (Hair, Skin & Nails 5 mg oral capsule) 1 Capsules By Mouth every day. cholecalciferol (Vitamin D 1000 intl units Tab) 1 Tablets By Mouth every day. famotidine (Pepcid 20 mg Tab) 1 Tablets By Mouth every day. gabapentin (gabapentin 800 mg Tab) 1 Tablets By Mouth 3 times a day. multivitamin (Vitamin B Complex oral capsule) 1 Capsules By Mouth every day. niacin By Mouth every day. pantoprazole (Protonix) 40 Milligram By Mouth every day. Comment: Pharmacy Information: LIANA Brar Thank you for choosing [facility] Patient Education Materials: Hydronephrosis Hydronephrosis is an abnormal enlargement of your kidney. It can affect one or both the kidneys. It results from the backward pressure of urine on the kidneys, when the flow of urine is blocked. Normally, the urine drains from the kidney through the urine tube (ureter), into a sac which holds the urine until urination (bladder). When the urinary flow is blocked, the urine collects above the block. This causes an increase in the pressure inside the kidney, which in turn leads to its enlargement. The block can occur at the point where the kidney joins the ureter. Treatment depends on the cause and location of the block. CAUSES The causes of this condition include: ? defect of the kidney or ureter. ? Kink at the point where the kidney joins the ureter. ? Stones and blood clots in the kidney or ureter. ? Cancer, injury, or infection of the ureter. ? Scar tissue formation. ? Backflow of urine (reflux). ? Cancer of bladder or prostate gland. ? Abnormality of the nerves or muscles of the kidney or ureter. ? Lower part of the ureter protruding into the bladder (ureterocele). ? Abnormal contractions of the bladder. ? Both the kidneys can be affected during . This is because the enlarging uterus presses on the ureters and blocks the flow of urine. SYMPTOMS The symptoms depend on the location of the block. They also depend on how long the block has been present. You may feel pain on the affected side. Sometimes, you may not have any symptoms. There may be a dull ache or discomfort in the flank. The common symptoms are: ? Flank pain. ? Swelling of the abdomen. ? Pain in the abdomen. ? Nausea and vomiting. ? Fever. ? Pain while passing urine. ? Urgency for urination. ? Frequent or urgent urination. ? Infection of the urinary tract. DIAGNOSIS Your caregiver will examine you after asking about your symptoms. You may be asked to do blood and urine tests. Your caregiver may order a special X-ray, ultrasound, or CT scan. Sometimes a rigid or flexible telescope (cystoscope) is used to view the site of the blockage. TREATMENT Treatment depends on the site, cause, and duration of the block. The goal of treatment is to remove the blockage. Your caregiver will plan the treatment based on your condition. The different types of treatment are: ? Putting in a soft plastic tube (ureteral stent) to connect the bladder with the kidney. This will help in draining the urine. ? Putting in a soft tube (nephrostomy tube). This is placed through skin into the kidney. The trapped urine is drained out through the back. A plastic bag is attached to your skin to hold the urine that has drained out. ? Antibiotics to treat or prevent infection. ? Breaking down of the stone (lithotripsy). HOME CARE INSTRUCTIONS ? It may take some time for the hydronephrosis to go away (resolve). Drink fluids as directed by your caregiver , and get a lot of rest. ? If you have a drain in, your caregiver will give you directions about how to care for it. Be sure you understand these directions completely before you go home. ? Take any antibiotics, pain medications, or other prescriptions exactly as prescribed. ? Follow-up with your caregivers as directed. SEEK MEDICAL CARE IF: ? You continue to have flank pain, nausea, or difficulty with urination. ? You have any problem with any type of drainage device. ? Your urine becomes cloudy or bloody. SEEK IMMEDIATE MEDICAL CARE IF: ? You have severe flank and/or abdominal pain. ? You develop vomiting and are unable to hold down fluids. ? You develop a fever above 100.5? F (38.1? C), or as per your caregiver. MAKE SURE YOU: ? Understand these instructions. ? Will watch your condition. ? Will get help right away if you are not doing well or get worse. Document Released: 03/18/2008 Document Revised: 08/13/2012 Document Reviewed: 05/05/2011 ExitCare? Patient Information ?2014 [employer]. This information is not intended to replace advice given to you by your health care provider. Make sure you discuss any questions you have with your health care provider. Flank Pain Flank pain refers to pain that is located on the side of the body between the upper abdomen and the back. The pain may occur over a short period of time (acute) or may be long-term or reoccurring (chronic). It may be mild or severe. Flank pain can be caused by many things. CAUSES Some of the more common causes of flank pain include: ? Muscle strains. ? ? Muscle spasms. ? ? A disease of your spine (vertebral disk disease). ? ? A lung infection (pneumonia). ? ? Fluid around your lungs (pulmonary edema). ? ? A kidney infection. ? ? Kidney stones. ? ? A very painful skin rash caused by the chickenpox virus (shingles). ? ? Gallbladder disease. ? HOME CARE INSTRUCTIONS Home care will depend on the cause of your pain. In general, ? Rest as directed by your caregiver. ? Drink enough fluids to keep your urine clear or pale yellow. ? Only take vytc-fxc-trjuxeu or prescription medicines as directed by your caregiver. Some medicines may help relieve the pain. ? Tell your caregiver about any changes in your pain. ? Follow up with your caregiver as directed. SEEK IMMEDIATE MEDICAL CARE IF: ? Your pain is not controlled with medicine. ? ? You have new or worsening symptoms. ? Your pain increases. ? ? You have abdominal pain. ? ? You have shortness of breath. ? ? You have persistent nausea or vomiting. ? ? You have swelling in your abdomen. ? ? You feel faint or pass out. ? ? You have blood in your urine. ? You have a fever or persistent symptoms for more than 2?3 days. ? You have a fever and your symptoms suddenly get worse. MAKE SURE YOU: ? Understand these instructions. ? Will watch your condition. ? Will get help right away if you are not doing well or get worse. Document Released: 07/13/2006 Document Revised: 02/13/2013 Document Reviewed: 01/03/2013 ExitCare? Patient Information ?2015 [employer]. This information is not intended to replace advice given to you by your health care provider. Make sure you discuss any questions you have with your health care provider. RADHIKA Enamorado JESSICA L , have received the following patient education materials/instructions and have verbalized understanding: Patient Education Materials: Hydronephrosis; Flank Pain Follow-up Instructions: With: Address: When: MICHAEL JOSH [address] [place] [address] [employer] In 1 day 02/21/2020 Comments: drink plenty of fluids and followup with your doctor for a recheck Patient Signature ____ Date Clinician/Nurse Signature Date 02/20/2020 22:11:40 Normal [facility] Amylaseon 02-20-2020 Amylase [Catalytic activity/Vol] 30 unit/L Normal 25-157 [facility] Comment on above: Performed By: #### 2 [id number], 5965963, 65938662, 6045890, 1768818, 6772868 #### [facility] [address] [place] [address] Auto Diffon 02-20-2020 Basophils/100 WBC (Bld) 1.2 % Normal 0.0-2.0 [facility] Comment on above: Order Comment: Order Added by Discern Expert. Performed By: #### 2 530485, 9324168, 6298960, 2213870, 7946937, 21573050, 6615302, 2207654 ####[facility] [address] [place] [address] Basophils/Leukocytes Auto (Bld) [Pure # fraction] 0.1 E9/L Normal 0.0-0.2 [facility] Comment on above: Order Comment: Order Added by Discern Expert. Performed By: #### 2 438071, 9057724, 7579439, 2234189, 9417591, 33508648, 6252910, 9375299 ####[facility] [address] [place] [address] Eosinophils/100 WBC (Bld) 1.2 % Normal 0.0-8.0 [facility] Comment on above: Order Comment: Order Added by Discern Expert. Performed By: #### 2 583222, 6479914, 8758259, 8026300, 0659149, 13757775, 3118966, 6918323 ####[facility] [address] [place] [address] Eosinophils/Leukocytes Auto (Bld) [Pure # fraction] 0.1 E9/L Normal 0.0-0.5 [facility] Comment on above: Order Comment: Order Added by Discern Expert. Performed By: #### 2 959745, 8352446, 5278084, 7142409, 3453891, 51174903, 0865418, 8404886 ####[address] [address] Lymphocytes/100 WBC (Bld) 30.1 % Normal 14.0-50.0 [facility] Comment on above: Order Comment: Order Added by Tamanna Expert. Performed By: #### 2 841694, 5454482, 3370366, 1829208, 8936051, 19588150, 3656379, 0402623 ####[address] [place] [address] Lymphocytes/Leukocytes Auto (Bld) [Pure # fraction] 3.1 E9/L Normal 1.0-4.0 [facility] Comment on above: Order Comment: Order Added by Discern Expert. Performed By: #### 2 530158, 3236977, 7106072, 8384372, 2846099, 45909877, 2103440, 8610376 ####[address] [place] [address] Monocytes/100 WBC (Bld) 8.6 % Normal 4.0-14.0 [facility] Comment on above: Order Comment: Order Added by Tamanna Expert. Performed By: #### 2 126137, 3523929, 3394056, 5783130, 4755589, 27571297, 8410202, 3696335 ####[facility] [address] [place] [address] Monocytes/Leukocytes Auto (Bld) [Pure # fraction] 0.9 E9/L Normal 0.2-1.0 [facility] Comment on above: Order Comment: Order Added by Discern Expert. Performed By: #### 2 724662, 9433605, 0623689, 6190116, 3647869, 73153995, 4988450, 6230621 ####[address] [place] [address] Neutrophils/100 WBC (Bld) 58.9 % Normal 36.0-75.0 [facility] Comment on above: Order Comment: Order Added by Discern Expert. Performed By: #### 2 089181, 6912117, 6073338, 0626661, 0520722, 74630981, 9588322, 5475742 ####[address] [place] [address] Neutrophils/Leukocytes Auto (Bld) [Pure # fraction] 6.1 E9/L Normal 2.0-7.5 [facility] Comment on above: Order Comment: Order Added by Discern Expert. Performed By: #### 2 360895, 0553414, 0875648, 0105060, 8591843, 79703533, 7721943, 9796399 ####[facility] [address] [place] [address] BMP 02-20-2020 Creatinine [Mass/Vol] 1.1 mg/dL Normal 0.5-1.3 [facility] Comment on above: Performed By: #### 2 948631, 2053187, 1774419, 0645479, 1597653, 12865808, 9388688, 2230183 ####[address] [place] [address] Urea nitrogen [Mass/Vol] 12 mg/dL Normal 5-21 [facility] Comment on above: Performed By: #### 2 028913, 2869495, 8125490, 2789252, 4212571, 04255280, 7905556, 5981425 ####[facility] [address] [place] [address] Urea nitrogen/Creatinine [Mass ratio] 11 No Units Normal 10-20 [facility] Comment on above: Performed By: #### 2 396122, 4602805, 2693760, 3283263, 6505130, 53085599, 7462078, 5244333 ####[facility] [address] [place] [address] Anion gap [Moles/Vol] 12 mmol/L Normal 6-16 [facility] Comment on above: Performed By: #### 2 929344, 8392419, 7518243, 3606088, 9766245, 95819476, 6918824, 5543211 ####[facility] [address] [place] [address] Calcium [Mass/Vol] 8.4 mg/dL Low 8.9-11.1 [facility] Comment on above: Performed By: #### 2 884356, 8189330, 6072055, 8544768, 7543180, 07746146, 0879410, 2588769 ####[facility] [address] [place] [address] Chloride [Moles/Vol] 107 mmol/L Normal 101-111 [facility] Comment on above: Performed By: #### 2 830258, 8514761, 3045821, 5281761, 6892114, 75117005, 8456917, 7997739 ####[facility] [address] [place] [address] CO2 [Moles/Vol] 22 mmol/L Normal 21-31 [facility] Comment on above: Performed By: #### 2 038599, 6486513, 2998704, 1002335, 7382843, 47997308, 7906593, 8235408 ####[facility] [address] [place] [address] Glucose [Mass/Vol] 87 mg/dL Normal 55-199 [facility] Comment on above: Result Comment: If t his glucose result represents a fasting glucose, interpretation should refer to the following reference range: 55-99 mg/dL Performed By: #### 2 154061, 2523671, 1112536, 4146135, 8983423, 27328778, 2942718, 1384039 ####[facility] [address] [place] [address] Potassium [Moles/Vol] 3.8 mmol/L Normal 3.5-5.3 [facility] Comment on above: Performed By: #### 2 498971, 8748874, 0333776, 0349422, 5944046, 33965477, 6262725, 6200819 ####[facility] [address] [place] [address] Sodium [Moles/Vol] 137 mmol/L Normal 135-145 [facility] Comment on above: Performed By: #### 2 796350, 0440081, 7684946, 5203796, 1430788, 74649212, 7462553, 3914874 ####[facility] [address] [place] [address] CBC w/ Auto Diffon 0 Erythrocyte distribution width (RBC) [Ratio] 13.8 % Normal 10.9-14.2 [facility] Comment on above: Performed By: #### 2 374884, 9777116, 7388459, 8114271, 8980069, 13423686, 9673478, 9070835 ####[facility] [address] [place] [address] Hematocrit (Bld) [Volume fraction] 41.7 % Normal 34.0-46.0 [facility] Comment on above: Performed By: #### 2 833388, 3140831, 0950079, 9252672, 9893995, 31803513, 3889689, 6635059 ####[facility] [address] [place] [address] Hemoglobin (Bld) [Mass/Vol] 14.2 g/dL Normal 12.0-16.0 [facility] Comment on above: Performed By: #### 2 366167, 9466047, 4237297, 2719930, 7737880, 87915598, 9689670, 8492223 ####[address] [address] MCH (RBC) [Entitic mass] 32.4 pg Normal 27.0-34.0 [facility] Comment on above: Performed By: #### 2 500218, 0053021, 1325108, 0658661, 4348837, 93895028, 9348205, 7934151 ####[address] [address] MCHC (RBC) [Mass/Vol] 34.2 g/dL Normal 31.4-36.0 [facility] Comment on above: Performed By: #### 2 480638, 3166407, 2979709, 1380555, 6842472, 82564394, 6319588, 1310404 ####[address] [address] MCV (RBC) [Entitic vol] 94.9 fL Normal 80.0-100.0 [facility] Comment on above: Performed By: #### 2 935740, 5586211, 1384776, 5658994, 1258367, 72624205, 4739524, 0387458 ####[address] [address] Platelet mean volume (Bld) [Entitic vol] 8.2 fL Normal 6.4-10.8 [facility] Comment on above: Performed By: #### 2 711770, 1779835, 8814111, 2906199, 7941573, 88877800, 9368801, 3017704 ####[address] [address] Platelets (Bld) [#/Vol] 244.0 E9/L Normal 150.0-500. 0 [facility] Comment on above: Performed By: #### 2 161261, 3798330, 6880648, 1357513, 7629206, 12581166, 0627144, 0497060 ####[facility] [address] [place] [address] RBC (Bld) [#/Vol] 4.4 E12/L Normal 4.3-5.9 [facility] Comment on above: Performed By: #### 2 212776, 8171042, 7018118, 0244824, 5020627, 08425812, 6443395, 1097121 ####[facility] [address] [place] [address] WBC corrected for nucl RBC Auto (Bld) [#/Vol] 10.4 E9/L Normal 4.0-11.0 [facility] Comment on above: Performed By: #### 2 780319, 3785272, 8810944, 5277656, 8149337, 69758685, 8035261, 1780373 ####[facility] [address] [place] [address] Consent for Treatmenton 02-03 Consent for Treatment [id number]#1.00CD:12 7 Normal [facility] ED Note-Physicianon 02-20-20 20 ED Note-Physician Basic Information Time Seen: Warren Hodges MD 02/20/2020 19:26 Chief Complaint Urology surgery Monday, right sided flank pain comes and goes. Vomiting since Monday. PCP sent here for pain History of Present Illness presents complaining of right flank pain. States she has a procedure by Urology at [facility] 4 days ago and was discharged and in this pain ever since. Was seen by her PCP today and directed to the ER. Denies fever or dysuria. Complains of hematuria and nausea. States pain radiates to her genitalia Review of Systems Constitutional: no fever, no chills, no sweats, no weakness Respiratory: no shortness of breath, no cough, no orthopnea, no wheezing Cardiovascular: no chest pain, no palpitations, no edema Additional ROS info: Except as noted in the above Review of Systems and in the History of Present Illness all other systems have been reviewed and are negative or noncontributory. Physical Exam Vitals & Measurements T: 37.1 ?C (Oral) HR: 83(Monitored) RR: 16 BP: 124/74 SpO2: 95% HT: 163.0 cm HT: 163 cm WT: 94.0 kg WT: 94 kg BMI: 35.38 General: alert, moderate distress Skin: warm, dry Head: no trauma, normocephalic Neck: Trachea midline, no adenopathy, no tenderness Eye: normal conjunctiva, sclera clear ENMT: , oral mucosa moist, Cardiovascular: regular rate and rhythm, normal peripheral perfusion Respiratory: Lungs CTA, respirations non labored Chest wall: no deformity. Gastrointestinal: soft, non distended, RLQ tenderness, no guarding. tenderness right CVA, FLANK and RLQ Back: No tenderness, Normal ROM, Normal alignment. Extremities: no deformity, no trauma Neurological: oriented x 4, LOC appropriate for age, CN II-XII intact, motor strength equal & normal bilaterally, sensation equal & normal bilaterally, speech normal Psychiatric: cooperative, affect appropriate for age, normal judgement, normal psychiatric thoughts. Medical Decision Making patient presents complaining of pain for 4 days. pain started after Urologic procedure 4 days ago at [facility]. Patient states she is here now because of the continued pain. No fever or vomiting. CT with mild right sided hydroureteronephrosis and periureteral fat stranding. No visible obstructing radiopaque stone. Findings may be on the basis of recently passed stone or UTI. UA neg. nitrite and positive leukocyte. Patient treated with course of antibiotics and advised to followup with her physician. Assessment/Plan 1. Right flank pain (R10.9: Unspecified abdominal pain) 2. Hydronephrosis of right kidney (N13.30: Unspecified hydronephrosis) 3. Hydroureter, right (N13.4: Hydroureter) Orders: ceftriaxone + Sodium Chloride 0.9% intravenous solution 50 mL, 1,000 mg = 1 EA, IV Piggyback, Once, Stop date 02/20/20 20:53:00 EDT, STAT, Start date 02/20/20 20:53:00 EDT, 100 mL/hr, Infuse over 30 minute(s) fentanyl, 50 microgram = 1 mL, Injection, IV Push, Once, Stop date 02/20/20 19:40:00 EDT, STAT, Start date 02/20/20 19:40:00 EDT ketorolac, 30 mg = 1 mL, Injection, IV Push, Once, Stop date 02/20/20 20:53:00 EDT, STAT, Start date 02/20/20 20:53:00 EDT ondansetron, 4 mg = 2 mL, Injection, IV Push, Once, Stop date 02/20/20 19:41:00 EDT, STAT, Start date 02/20/20 19:41:00 EDT orphenadrine, 60 mg = 2 mL, Injection, IntraMuscular, Once, Stop date 02/20/20 19:39:00 EDT, STAT, Start date 02/20/20 19:39:00 EDT Sodium Chloride 0.9% intravenous solution, 1,000 mL, Soln-IV, IV Piggyback, Once, Stop date 02/20/20 19:39:00 EDT, STAT, Start date 02/20/20 19:39:00 EDT, 1,000 mL/hr, Infuse over 1, hour(s), Total Vol (mL): 1,000 CT Abdomen/Pelvis w/o Contrast Medications Administered Given fentaNYL 50 mcg/mL Inj 2 mL, 50 microgram, IV Push ketorolac 30 mg/mL Inj 1 mL, 30 mg, IV Push morphine 2 mg/mL Inj, 4 mg, IV Push NS 1000 ml Bolus, 1000 mL, IV [id number] [F], 1000 mL, IV Piggyback ondansetron 4 mg Dis Tab, 4 mg, Oral orphenadrine 30 mg/mL Inj, 60 mg, IntraMuscular Sodium Chloride 0.9% intravenous solution 50 mL + ceftriaxone additive 1000 mg, IV Piggyback Zofran 4 mg/2 mL Injection, 4 mg, IV Push Disposition Plan Discharge Prescription List Prescriptions No active prescription medications Follow-up No qualifying data available Problem List/Past Medical History Ongoing Anxiety Arthritis of spine Diabetes Diabetes mellitus Obesity 05-DEC-2013 12:37:00<$> Smoker 05-DEC-2013 12:37:00<$> Historical Acid reflux Anxiety Arthritis Bipolar Bursitis of hip Neurogenic syncope Seizure Sleep apnea Procedure/Surgical History Fasciotomy (10/30/2019), Epidural injection of cervical spine using fluoroscopic guidance (01/05/2015), Laparoscopic adhesiolysis (09/29/2014), Injection of steroid into hip joint (07/07/2014), Injection of sacroiliac joint using fluoroscopic guidance (06/04/2014), Epidural injection of lumbar spine using fluoroscopic guidance (03/07/2014), Arthroscopy of hip, gallbladder removed, Hysterectomy, Nasal septoplasty, NECK SURGERY 1990, Ovarian cystectomy, Tonsillectomy. Medications Inpatient No active inpatient medications Home atorvastatin 20 mg Tab, 20 mg= 1 tab(s), Oral, Daily gabapentin 800 mg Tab, 800 mg= 1 tab(s), Oral, TID Hair, Skin & Nails 5 mg oral capsule, 5 mg= 1 cap(s), Oral, Daily niacin, Oral, Daily Pepcid 20 mg Tab, 20 mg= 1 tab(s), Oral, Daily Protonix, 40 mg, Oral, Daily Vitamin B Complex oral capsule, 1 cap(s), Oral, Daily Vitamin C, 100 mg, Chewed, Daily Vitamin D 1000 intl units Tab, 1000 International_Unit= 1 tab(s), Oral, Daily Allergies Dilantin (made arm swell and cramp bad) baclofen (hives) Social History Alcohol - Denies Alcohol Use, 11/24/2011 Current, 02/20/2020 Substance Abuse - Denies Substance Abuse, 11/24/2011 Current, 02/20/2020 Tobacco - Medium Risk, 10/28/2014 10 or more cigarettes (1/2 pack or more)/day in last 30 days Tobacco Use:., 02/20/2020 Current, Cigarettes, 20 per day., 11/15/2011 Lab Results WBC: 10.4 E9/L (02/20/20 19:09:00) RBC: 4.4 E12/L (02/20/20:09:00) Hgb: 14.2 gm/dL (02/20/20 19:09:00) Hct: 41.7 % (02/20/20 19:09:00) MCV: 94.9 fL (02/20/20 19:09:00) MCH: 32.4 pg (02/20/20 19:09:00) MCHC: 34.2 gm/dL (02/20/20 19:09:00) RDW: 13.8 % (02/20/20 19:09:00) Platelet: 244 E9/L (02/20/20:09:00) MPV: 8.2 fL (02/20/20:09:00) Neutro Auto: 58.9 % (02/20/20:09:00) Lymph Auto: 30.1 % (02/20/20:09:00) Beckham Auto: 8.6 % (02/20/20:09:00) Eos Auto: 1.2 % (02/20/20:09:00) Basophil Auto: 1.2 % (02/20/20:09:00) Neutro Absolute: 6.1 E9/L (02/20/20:09:00) Lymph Absolute: 3.1 E9/L (02/20/20:09:00) Beckham Absolute: 0.9 E9/L (02/20/20:09:00) Eos Absolute: 0.1 E9/L (02/20/20:09:00) Basophil Absolute: 0.1 E9/L (02/20/20:09:00) Glucose Lvl: 87 mg/dL (02/20/20:09:00) BUN: 12 mg/dL (02/20/20:09:00) Creatinine: 1.1 mg/dL (02/20/20:09:00) eGFR: 54 mL/min/1.73 m2 Low (02/20/20::) eGFR AA: >60 (02/20/20:09:) BUN/Creat Ratio: 11 (02/20/20:09:) Sodium Lvl: 137 mmol/L (02/20/20:09:00) Potassium Lvl: 3.8 mmol/L (02/20/20:09:00) Chloride: 107 mmol/L (02/20/20:09:00) CO2: 22 mmol/L (02/20/20:09:00) AGAP: 12 mEq/L (02/20/20:09:00) Calcium Lvl: 8.4 mg/dL Low (02/20/20:09:00) Alk Phos: 63 Int._Unit/L (02/20/20:09:00) ALT: 9 Int._Unit/L (02/20/20 19:09:00) AST: 13 Int._Unit/L (02/20/20 19:09:00) Total Protein: 5.9 gm/dL Low (02/20/20 19:09:00) Albumin Lvl: 3.5 gm/dL (02/20/20 19:09:00) Globulin: 2.4 gm/dL (02/20/20 19:09:00) A/G Ratio: 1.5 (02/20/20 19:09:00) Bili Total: 0.9 mg/dL (02/20/20 19:09:00) Bili Direct: 0.1 mg/dL (02/20/20:09:00) Bili Indirect: 0.8 mg/dL (02/20/20:09:00) Amylase Lvl: 30 unit/L (02/20/20:09:00) Lipase Lvl: 14 unit/L (02/20/20:09:00) Lactic Acid Lvl: 0.8 mmol/L (02/20/20:09:00) UA Spec Desc: Clean Catch (02/20/20 18:30:00) UA Color: Yellow2 (02/20/20 18:30:00) UA Clarity: Cloudy2 Abnormal (02/20/20 18:30:00) UA Spec Grav: 1.010 (02/20/20 18:30:00) UA pH: 6.0 (02/20/20 18:30:00) UA Protein: NEGATIVE1 (02/20/20 18:30:00) UA Glucose: NEGATIVE1 (02/20/20 18:30:00) UA Ketones: NEGATIVE1 (02/20/20 18:30:00) UA Bili: NEGATIVE1 (02/20/20 18:30:00) UA Blood: 3+ Abnormal (02/20/20 18:30:00) UA Nitrite: NEGATIVE1 (02/20/20 18:30:00) UA Urobilinogen: 0.2 (02/20/20 18:30:00) UA Leuk Est: 1+ Abnormal (02/20/20 18:30:00) UA RBC: >30 Abnormal (02/20/20 18:30:00) UA Squam Epithelial: 3-4 (02/20/20 18:30:00) UA WBC: 0-5 (02/20/20 18:30:00) UA Bacteria: Trace2 (02/20/20 18:30:00) Diagnostic Results No qualifying data available. Normal [facility] Comment on above: Result Comment: Elec tronically Signed By: Carroll ZAMBRANO, Warren\.br\Date and Time Signed: 02/20/20 21:58 EDT Hep Func Panelon 02-20-2020 Albumin [Mass/Vol] 1.5 g/dL Normal 1.1-2.2 [facility] Comment on above: Performed By: #### 2 958521, 6704675, 4231006, 7494085, 9797508, 76413795, 8891595, 5670393 ####[facility] [address] [place] [address] Albumin [Mass/Vol] 3.5 g/dL Normal 3.3-5.0 [facility] Comment on above: Performed By: #### 2 705065, 2755976, 5072336, 2314957, 0259640, 62793780, 4079979, 4453132 ####[facility] [address] [place] [address] ALP [Catalytic activity/Vol] 63 Int._Unit/L Normal 21-98 [facility] Comment on above: Performed By: #### 2 126184, 5121380, 1925080, 1324376, 6457747, 06522156, 0360257, 9738798 ####[facility] [address] [place] [facility] [place] [address] ALT No additional P-5'-P [Catalytic activity/Vol] 9 Int._Unit/L Normal 6-46 [facility] Comment on above: Performed By: #### 2 190059, 0811246, 1905127, 1089846, 3813702, 19530918, 8485108, 9282753 ####[facility] [address] [place] [address] AST [Catalytic activity/Vol] 13 Int._Unit/L Normal 5-43 [facility] Comment on above: Performed By: #### 2 777834, 3583545, 4572517, 4508354, 0032326, 52581729, 7713157, 3336163 ####[facility] [address] [place] [address] Bilirubin [Mass/Vol] 0.9 mg/dL Normal 0.0-1.1 [facility] Comment on above: Performed By: #### 2 547661, 5742051, 1387438, 8930850, 3955603, 20006709, 9069674, 5863714 ####[address] [place] [address] Bilirubin.direct [Mass/Vol] 0.1 mg/dL Normal 0.1-0.4 [facility] Comment on above: Performed By: #### 2 356462, 0309015, 7352201, 4832305, 3913599, 02400690, 2234277, 3152607 ####[facility] [address] [place] [address] Bilirubin.direct [Mass/Vol] 0.8 mg/dL Normal 0.1-0.9 [facility] Comment on above: Performed By: #### 2 482672, 2183426, 6149588, 1663651, 4188978, 87997422, 8036369, 0878838 ####[facility] [address] [place] [address] Globulin (S) [Mass/Vol] 2.4 g/dL Normal 1.4-4.0 [facility] Comment on above: Performed By: #### 2 241505, 6798246, 3305130, 5884710, 9505291, 54981241, 0808882, 3617131 ####[facility] [address] [place] [address] Protein [Mass/Vol] 5.9 g/dL Low 6.0-7.8 [facility] Comment on above: Performed By: #### 2 227150, 9482782, 1986078, 0573880, 5989970, 56117792, 2061732, 1905825 ####[facility] [address] [place] [address] Lactic Acidon 02-20-2020 Lactate [Mass/Vol] 0.8 mmol/L Normal 0.5-2.2 [facility] Comment on above: Performed By: #### 2 693819, 0993213, 37075839, 5927780, 8170866, 7209838 #### [facility] [address] [place] [address] Lipase Levelon 02-20-2020 Lipase [Catalytic activity/Vol] 14 unit/L Normal 13-58 [facility] Comment on above: Performed By: #### 2 609075, 5493740, 2380161, 2061757, 9949812, 37552850, 4824555, 5292911 ####[facility] [address] [place] [address] RAD - Preliminary Cat Scan R eporton 02-20-2020 RAD - Preliminary Cat Scan Report [id number]#[id number]:1 27 Normal [facility] UA With Cult Reflexon 2019 Bacteria LM Ql (Urine sed) TRACE Normal Trace [facility] Comment on above: Performed By: #### 1 3875924, 1092524 ####[facility] [address] [place] [address] Bilirubin Ql (U) Negative Normal Negative [facility] Comment on above: Performed By: #### 1 0713691, 8631839 ####[facility] [address] [place] [address] Clarity (U) CLOUDY Abnormal Clear [facility] Comment on above: Performed By: #### 1 4537483, 9701681 ####[facility] [address] [place] [address] Color (U) YELLOW Normal Yellow [facility] Comment on above: Performed By: #### 1 1870921, 9778893 ####[facility] [address] [place] [address] Epithelial cells.squamous LM.HPF (Urine sed) [#/Area] 3-4 Normal 0-2 [facility] Comment on above: Performed By: #### 1 7348297, 3967141 ####[facility] [address] [place] [address] Glucose Test strip (U) [Mass/Vol] Negative Normal Negative [facility] Comment on above: Performed By: #### 1 6622133, 0616216 ####[facility] [address] [place] [address] Hemoglobin Ql (U) 3+ Abnormal Negative [facility] Comment on above: Performed By: #### 1 3682553, 6170670 ####[facility] [address] [place] [address] Ketones (U) [Mass/Vol] Negative Normal Negative [facility] Comment on above: Performed By: #### 1 5363293, 2317186 ####[facility] [address] [place] [address] [place].plasma/[place] .RBC (Bld) [Mass ratio] >30 Abnormal 0-3 [facility] Comment on above: Performed By: #### 1 0851444, 7605269 ####[facility] [address] [place] [address] Nitrite Ql (U) Negative Normal Negative [facility] Comment on above: Performed By: #### 1 9640260, 9381518 ####[facility] [address] [place] [address] pH (U) 6.0 [pH] 5.0-9.0 [facility] Comment on above: Performed By: #### 1 0752658, 4277660 ####[facility] [address] [place] [address] Protein (U) [Mass/Vol] Negative Normal Negative [facility] Comment on above: Performed By: #### 1 0493517, 8244657 ####[facility] [address] [place] [address] Specific gravity (U) [Rel density] 1.010 1.005-1.03 0 [facility] Comment on above: Performed By: #### 1 9175297, 0697522 ####[facility] [address] [place] [address] UA Spec Desc Clean Catch Normal [facility] Comment on above: Performed By: #### 1 9340093, 6633192 ####[facility] [address] [place] [address] Urobilinogen Qn (U) 0.2 {Shikha'U}/dL Normal 0.0-1.0 [facility] Comment on above: Performed By: #### 1 9922355, 0207198 ####[facility] [address] [place] [address] WBC Auto Ql (U) 1+ Abnormal Negative [facility] Comment on above: Performed By: #### 1 2952794, 6263667 ####[facility] [address] [place] [address] WBC LM.HPF (Urine sed) [#/Area] 0-5 Normal 0-5 [facility] Comment on above: Performed By: #### 1 8100912, 2353317 ####[facility] [address] [place] [address] eGFRon 02-20-2020 GFR/1.73 sq M predicted among blacks MDRD (S/P/Bld) [Vol rate/Area] mL/min/{1.73_m2} Normal >=59 [facility] Comment on above: Order Comment: Order added by Discern Expert. Result Comment: eGFR is race adjusted. AA=. Performed By: #### 2 453995, 8794901, 79991932, 6407886, 9052147, 3822502 #### [facility] [address] [place] [address] GFR/1.73 sq M predicted among non-blacks MDRD (S/P/Bld) [Vol rate/Area] 54 mL/min/1.73 m2 Low >=59 [facility] Comment on above: Order Comment: Order added by Discern Expert. Result Comment: Marketing Operations Assistant maddison kidney disease could be indicated at eGFR's of less than 60 mL/min/1.73m2. Kidney failure is indicated at less than 15 mL/min/1.73m2. Performed By: #### 2 381955, 8560626, 83362264, 6107590, 2322600, 9223503 #### [facility] [address] [place] [address] XR NECK SOFT TISSUEon 2019 XR NECK SOFT TISSUE EXAMINATION: TWO XRAY VIEWS OF THE NECK SOFT TISSUES 02/19/2020 12:52 am COMPARISON: None. HISTORY: ORDERING SYSTEM PROVIDED HISTORY: Throat pain and foreign body sensation. R/O gas in tissue and foreign body. TECHNOLOGIST PROVIDED HISTORY: Throat pain and foreign body sensation. R/O gas in tissue and foreign body. FINDINGS: The neck soft tissues are unremarkable. Airways are patent with normal morphology. No evidence of radiopaque foreign body is identified. Cervical spine alignment is grossly unremarkable. Disc joint spaces are preserved. IMPRESSION: Unremarkable radiographic views of the neck soft tissues and airways. Interpreted by: Frank Gr MD Signed by: Frank Gr MD 02/19/20 Final result Normal [facility] Unremarkable radiogr aphic views of the neck soft tissues and airways. [place] EXAMINATION: TWO XRA Y VIEWS OF THE NECK SOFT TISSUES 02/19/2020 12:52 am COMPARISON: None. HISTORY: ORDERING SYSTEM PROVIDED HISTORY: Throat pain and foreign body sensation. R/O gas in tissue and foreign body. TECHNOLOGIST PROVIDED HISTORY: Throat pain and foreign body sensation. R/O gas in tissue and foreign body. FINDINGS: The neck soft tissues are unremarkable. Airways are patent with normal morphology. No evidence of radiopaque foreign body is identified. Cervical spine alignment is grossly unremarkable. Disc joint spaces are preserved. [place], [place] Ivan, Mhpn Incoming Radiant Results From [employer] - 02/19/2020 1:11 AM EDT EXAMINATION: TWO XRAY VIEWS OF THE NECK SOFT TISSUES 02/19/2020 12:52 am COMPARISON: None. HISTORY: ORDERING SYSTEM PROVIDED HISTORY: Throat pain and foreign body sensation. R/O gas in tissue and foreign body. TECHNOLOGIST PROVIDED HISTORY: Throat pain and foreign body sensation. R/O gas in tissue and foreign body. FINDINGS: The neck soft tissues are unremarkable. Airways are patent with normal morphology. No evidence of radiopaque foreign body is identified. Cervical spine alignment is grossly unremarkable. Disc joint spaces are preserved. IMPRESSION: Unremarkable radiographic views of the neck soft tissues and airways. [employer] XR ANKLE RIGHT (2 VIEWS)on 0 12-20-2019 Partially radiopaque wrap obscuring right ankle. No definite acute bony abnormality appreciated. [employer] EXAMINATION: 2 XRAY VIEWS OF THE RIGHT ANKLE 12/20/2019 2:25 pm COMPARISON: None. HISTORY: ORDERING SYSTEM PROVIDED HISTORY: Injury FINDINGS: Ankle is obscured by overlying wrap. I see no definite evidence of of fracture line or dislocation. Alignment appears normal. [employer] Ivan, Mhpn Incoming Radiant Results From [employer] - 12/20/2019 2:51 PM EDT EXAMINATION: 2 XRAY VIEWS OF THE RIGHT ANKLE 12/20/2019 2:25 pm COMPARISON: None. HISTORY: ORDERING SYSTEM PROVIDED HISTORY: Injury FINDINGS: Ankle is obscured by overlying wrap. I see no definite evidence of of fracture line or dislocation. Alignment appears normal. IMPRESSION: Partially radiopaque wrap obscuring right ankle. No definite acute bony abnormality appreciated. [employer] XR FOOT RIGHT (MIN 3 VIEWS)o n 12-20-2019 Exam degraded by overlying cast material. No fracture demonstrated in the foot. Forefoot soft tissue swelling. [employer] EXAMINATION: THREE X RAY VIEWS OF THE RIGHT FOOT 12/20/2019 2:25 pm COMPARISON: None. HISTORY: ORDERING SYSTEM PROVIDED HISTORY: Injury FINDINGS: The patient is imaged in a cast, limiting osseous detail. Soft tissue swelling in the forefoot is noted. No discrete fracture is demonstrated in the foot. No malalignment identified. The joint spaces appear maintained. [employer] Ivan, Mhpn Incoming Radiant Results From [employer] - 12/20/2019 3:03 PM EDT EXAMINATION: THREE XRAY VIEWS OF THE RIGHT FOOT 12/20/2019 2:25 pm COMPARISON: None. HISTORY: ORDERING SYSTEM PROVIDED HISTORY: Injury FINDINGS: The patient is imaged in a cast, limiting osseous detail. Soft tissue swelling in the forefoot is noted. No discrete fracture is demonstrated in the foot. No malalignment identified. The joint spaces appear maintained. IMPRESSION: Exam degraded by overlying cast material. No fracture demonstrated in the foot. Forefoot soft tissue swelling. [place], [place] Postoperative Documentson Postoperative Documents [id number]#[id number]:12 7 Normal [facility] Operative Reporton 0 Operative Report Date of Surgery: 10/30/2019 SURGEON: Scotty Eller D.P.M. PREOPERATIVE DIAGNOSIS: Left plantar fasciitis and right plantar fasciitis POSTOPERATIVE DIAGNOSIS: Left plantar fasciitis and right plantar fasciitis OPERATION: 1. Left plantar instep plantar fasciotomy 2. Injection of steroid to right plantar fascia of 1 cc of Kenalog 40 ANESTHESIA: General HEMOSTASIS: 250 mm Hg left ankle tourniquet ESTIMATED BLOOD LOSS: None MATERIALS: 3-0 Prolene INJECTABLES: 10 cc of 0.5% Sensorcaine plain to the left incision site and 1 cc of Kenalog 40 to the right plantar fascial band PROCEDURE: The patient brought to the Operating Room and placed on the operating table in supine position at which point in time ankle tourniquet was placed around the patient's left ankle. Following I.V. sedation the foot was scrubbed, prepped and draped in the usual sterile manner. An Esmarch bandage was utilized to exsanguinate the patient's left foot and the tourniquet was inflated to 250 mm Hg for a total of 9 minutes. Attention was then directed to the right heel of the patient's right foot. The area for injection was then scrubbed and prepped in the usual sterile manner for injection at which point in time 1 cc of Kenalog 40 was injected into the right medial calcaneal tubercle. Attention was then directed to the left foot at which point in time attention was directed to the plantar aspect of the left foot. Next a transverse incision was made over the plantar fascial band. The incision was deepened through the subcutaneous tissues. Using sharp and blunt dissection with care being taken to identify and retract all vital neurovascular structures at which point in time the plantar fascial band was visualized. Next a sharp 15 blade was utilized the transect the band medially and laterally thus transecting two-thirds of the band leaving the lateral one-third of the band intact. The wound was flushed with copious amounts of sterile Normal Saline. The skin was reapproximated and coapted utilizing 3-0 Prolene in a vertical mattress suture technique. Next the tourniquet was deflated and prompt hyperemic response was noted to the left foot and a sterile compressive dressing consisting of Xeroform, 4 x 4s, abdominal pad, Kerlix and Tim wrap was applied. The patient tolerated the anesthesia and the procedure well, left the Operating Room for Recovery with vital signs stable and vascular status intact. She will be discharged home when stable on the following oral and written postoperative instructions: 1. Keep dressing dry and intact. 2. Patient to remain non-weight bearing to the left foot. 3. Patient given Dr. Eller's postoperative care sheet including office and hospital number if any problems should arise. Otherwise she is to return to the clinic in one week for the first postoperative visit. Lei Varghese Dictated: 10/30/2019 #[id number] Typed: 10/30/2019 #[id number] cc: Scotty Eller D.P.M. [facility] Comment on above: Result Comment: Elec tronically Signed By: Scotty Eller DPM\.br\Date and Time Signed: 11/06/19 17:17 EDT Coding Summary.on 11-04-2019 Coding Summary. 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 However, the narrative phrase printed from the coding software may appear abbreviated, or result in slightly different terminology. Revised Coded By: Seema Cervantes Revised Date Saved: 11/04/2019 10:32 am Normal [facility] IntraOperative Documentson 0 11-04-2019 IntraOperative Documents [id number]:12 7 Normal [facility] Main OR Intraoperative Recor don 11-01-2019 Main OR Intraoperative Record IntraOp Document Type FT Summary Primary Physician: Scotty Eller DPM Finalized Date/Time: 11/01/19 10:04:36 Pt. Name: ROSEANN GARRIDO/Sex: 1975 Female Med Rec #: [id number] Physician: Scotty Eller DPM Financial #: [id number] Pt. Type: A Room/Bed: [place] [address] Admit/Disch: 10/30/19 08:02:13 - 10/30/19 12:50:00 Institution: Case Times FT Entry 1 Patient Times In Room 10/30/19 09:33:00 Out Room 10/30/19 10:01:00 Procedure Times Start 10/30/19 09:49:00 Stop 10/30/19 09:58:00 Anesthesia Times Start 10/30/19 09:33:00 Stop 10/30/19 10:01:00 Last Modified By: Antonia Cat RN 10/30/19 10:05:00 General Comments: 11/01/2019 Chart opened to review and send charges Gi Spencer TOWER ERECTOR Case Attendance FT Entry 1 Entry 2 Entry 3 Case Attendee Raffaele Spencer MD, DPM, Scotty Best RN, CNOR, Susy Role Performed Anesthesiologist of Surgeon - Primary LIGHTHOUSE KEEPER Record Time In 10/30/19 09:33:00 10/30/19 09:33:00 10/30/19 09:33:00 Time Out 10/30/19 10:01:00 10/30/19 10:01:00 10/30/19 10:01:00 Procedure PLANTAR FASCIA PLANTAR FASCIA PLANTAR FASCIA RELEASE(Left) RELEASE(Left) RELEASE(Left) Comments Last Modified By: Stephania LANCE, Antonia Cat RN, Antonia Berry RN 10/30/19 10:05:03 10/30/19 10:05:03 10/30/19 10:05:03 Entry 4 Entry 5 Case Attendee Eugene LEIJA, Kathi Cat RN, Antonia Lewis Role Performed Scrub - Primary Automatic Packer Operator - Primary Time In 10/30/19 09:33:00 10/30/19 09:33:00 Time Out 10/30/19 10:01:00 10/30/19 10:01:00 Procedure PLANTAR FASCIA PLANTAR FASCIA RELEASE(Left) RELEASE(Left) Comments Last Modified By: Stephania LANCE, Antonia Berry RN 10/30/19 10:05:03 10/30/19 10:05:03 Perioperative Protocols FT Pre-Care Text: Implements protective measures prior to operative or invasive procedure, confirms identity before the operative or invasive procedure, verifies operative procedure, surgical site, and laterality Entry 1 Procedure(s) PLANTAR FASCIA Patient Identity Birthday, ID Band RELEASE(Left) Verified (select at Check, Patient least 2): Participation Consents / H and P Anesthesia Consent, Operative Site Present Verified HandP, Surgery/Procedure Marking Verified Consent Surgical Site Yes Laterality Verified Yes Verified Procedure Verified Yes Correct Patient Yes Position Verified Availability Equipment, Medication Prep Dry Yes Verified (If Applicable) PreOp Antibiotic Yes Time Out Raffaele Spencer MD, Given Participants Rafita JOSEPH, Estephania Lagos RN, CNOR, Eugene Jain CST, Stephania Martel RN, Antonai Lewis Time Out Complete 10/30/19 09:47:00 Outcomes Met? Yes Last Modified By: Antonia Cat RN 10/30/19 10:05:35 Post-Care Text: The patient is free from signs and symptoms of injury caused by extraneous objects Allergy Information FT Pre-Care Text: Verifies allergies Entry 1 Allergies Reviewed? Yes Allergies Reviewed Self/Patient With Outcomes Met? Yes Last Modified By: Antonia Cat RN 10/30/19 09:56:09 Post-Care Text: The patient received appropriate medication(s) safely administered during the perioperative period Surgical Procedures FT Entry 1 Procedure Description Procedure PLANTAR FASCIA RELEASE Modifiers Left Surgeon Description LEFT FOOT PLANTAR FASCIOTOMY; RIGHT HEEL CORTISONE INJECTION Primary Procedure Yes Primary Surgeon Scotty Eller DPM Start 10/30/19 09:49:00 Stop 10/30/19 09:58:00 Anesthesia Type General Surgical Service Podiatry Wound Class 1 - Clean Last Modified By: Antonia Cat RN 10/30/19 09:58:30 General Case Data FT Pre-Care Text: Classifies surgical wound, implements aseptic technique, initiates traffic control Entry 1 Case Information OR OR 4 FT Case Level Level 2 Wound Class 1 - Clean Specialty Podiatry ASA Class 2 Preop Diagnosis LEFT FOOT PLANTAR Postop Same As Preop Yes FASCIITIS Postop Diagnosis LEFT FOOT PLANTAR Outcomes Met? Yes FASCIITIS Last Modified By: Antonia Cat RN 10/30/19 10:05:41 Post-Care Text: The patient is free from signs and symptoms of infection Skin Assessment (Pre Procedure) FT Pre-Care Text: Implements protective measures to prevent skin/ tissue injury due to thermal or mechanical sources Evaluates for signs and symptoms of physical injury to skin and tissue Entry 1 Skin Integrity Intact, [place], Warm, and Skin Abnormality No Dry Outcomes Met? Yes Last Modified By: Antonia Cat RN 10/30/19 10:05:51 Post-Care Text: The patient is free from signs and symptoms of injury caused by extraneous objects Patient Positioning FT Pre-Care Text: Identifies physical alterations that require additional precautions for procedure-specific positioning, verifies presence of prosthetics or corrective devices, positions the patient, evaluates the patient for signs and symptoms of injury as a result of positioning Entry 1 Procedure PLANTAR FASCIA Body Position Supine RELEASE(Left) Feet Uncrossed? Yes Left Arm Position Extended on Padded Arm Board Right Arm Position Extended on Padded Arm Left Leg Position Extended Board Right Leg Position Extended Positioning Device Safety Strap, Pillow Under Head Large Press Points Checked Yes By Antonia Cat RN, Barney MD, Estephania Castorena RN, CNOR, Siena Morales Outcomes Met? Yes Last Modified By: Antonia Cat RN 10/30/19 10:07:29 Post-Care Text: The patient is free from signs and symptoms of injury related to positioning Patient Care Devices FT Pre-Care Text: Implements protective measures to prevent skin/ tissue injury due to thermal or mechanical sources Entry 1 Entry 2 Entry 3 Equipment Type MISTRAL FORCED AIR MONITOR CHARGE SURGERY TOURNIQUET CRISTIN [F] WARMING SYSTEM UNIT[F] [F] Equipment Number M1 OR 4 C Equipment Setting HIGH/43C 250 mmHg Outcomes Met? Yes Yes Yes Last Modified By: Antonia Cat RN, RN, Kimberly Y Barbee RN, Kimberly Y 10/30/19 10:09:23 10/30/19 10:09:23 10/30/19 10:09:24 Post-Care Text: The patient is free from signs and symptoms of injury caused by extraneous objects Transport To OR FT Pre-Care Text: Transports according to individual needs. Evaluates for signs and symptoms of skin and tissue injury as a result of transfer or transport Entry 1 Via Cart By Antonia Cat RN Safety Precautions Side Rails Up Outcomes Met? Yes Last Modified By: Antonia Cat RN 10/30/19 09:56:02 Post-Care Text: The patient is free from signs and symptoms of injury related to transfer/transport Counts Verification FT Pre-Care Text: Performs required counts Entry 1 Entry 2 Procedure(s) PLANTAR FASCIA PLANTAR FASCIA RELEASE(Left) RELEASE(Left) Type Initial Final Items Instruments, Sponges, Sponges, Sharps Sharps Status Correct Correct Time 10/30/19 09:35:00 10/30/19 09:53:00 By Kathi Knight CST, Barbee RN, Kimberly Y, Blank RN, CNORSiena CST, Liane E Outcomes Met? Yes Yes Last Modified By: Antonia Cat RN, RN, Kimberly Y 10/30/19 09:53:40 10/30/19 09:53:40 Post-Care Text: The patient is free from signs and symptoms of injury caused by extraneous objects Skin Prep FT Pre-Care Text: Performs skin preparations Entry 1 Procedure PLANTAR FASCIA Prep Area RIGHT FOOT TO ANKLE RELEASE(Left) (TOURNIQUET) Prep Agents Chloraprep/Dry Prior to Start Dry Time 10/30/19 09:43:00 Draping Stop Dry Time 10/30/19 09:47:00 Hair Removal Methods Not Indicated By Antonia Cat RN Outcomes Met? Yes Last Modified By: Antonia Cat RN 10/30/19 09:54:23 Post-Care Text: The patient is free from signs and symptoms of infection Departure From OR FT Pre-Care Text: Transports according to individual needs. Evaluates for signs and symptoms of skin and tissue injury as a result of transfer or transport. Entry 1 Via Cart Safety Precautions Side Rails Up PostOp Destination PACU Transported By Antonia Cat RN Patient Status Stable Skin. Condition Intact, [place], Warm, and Dry Airway Maintenance Oxygen in Use? Yes Airway Device Simple Mask Flow Rate 8 L Outcomes Met? Yes Last Modified By: Antonia Cat RN 10/30/19 09:54:53 Post-Care Text: The patient is free from signs and symptoms of injury related to transfer/transport General Comments: REPORT GIVEN TO PACU NURSE. NATALIO TAVERAS Dressing/Packing FT Pre-Care Text: Administers care to wound sites Entry 1 Type Dressing Items BANDAGE ELASTIC HONEYCOMB 4 X 5YD [514LF][F] Site and Details LEFT FOOT - xeroform , Outcomes Met? Yes 4x4`s, kerlix roll, abd, and 4 inch tim Last Modified By: Antonia Cat RN 10/30/19 09:55:19 Post-Care Text: The patient is free from signs and symptoms of infection Medication Administration FT Pre-Care Text: Verifies allergies, administers prescribed medications and solutions, administers prescribed antibiotic therapy and immunizing agents as ordered, evaluates response to medications Administers prescribed medications and solutions Entry 1 Route of Admin Field Expiration Date Yes Verified Ordered By Scotty Eller DPM Transcribed/To Antonia Cat RN Field By Administered By Scotty Eller DPM Outcomes Met? Yes Last Modified By: Antonia Cat RN 10/30/19 09:51:54 Post-Care Text: The patient received appropriate medication(s) safely administered during the perioperative period For [place] please see scanned medication reconcilliation form for medications used at the field during the procedure. Tourniquet FT Pre-Care Text: Implements protective measures to prevent skin/tissue injury due to mechanical sources Entry 1 Tourniquet Type TOURNIQUET CUFF RED 18 Setting 250 mmHg X 4 [[id number]][F] Equipment Number C Placement Left Ankle Cuff Size 18 Padding Under Cuff Yes Applied Applied By Antonia Cat RN Skin Assessment Unremarkable Before Inflation Skin Assessment Unremarkable After Inflation Tourniquet Times Inflated 10/30/19 09:48:00 Deflated 10/30/19 09:57:00 Total Time 9 minute(s) Outcomes Met? Yes Last Modified By: Antonia Cat RN 10/30/19 09:57:41 Post-Care Text: The patient is free from signs and symptoms of injury caused by extraneous objects Temperature Control Entry 1 Temperature Control BLANKET MISTRAL AIR Quantity 1 Aid TORSO [[id number]][F] Fluid/Bryan Unit Mistral warming system Setting HIGH/43C Body Site Upper anterior torso Last Modified By: Antonia Cat RN 10/30/19 09:50:17 Case Comments Finalized By: April Spencer CST Document Signatures Signed By: Antonia Cat RN 10/30/19 10:17 April Spencer CST 11/01/19 10:04 [facility] PACU Recordon 11-01-2019 PACU Record [id number]:1 27 [facility] Consent for Anesthesiaon Consent for Anesthesia [id number]#1.00CD:1 27 [facility] Discharge Instructionson Discharge Instructions [id number]#1.00CD:1 27 [facility] IntraOperative Documentson 0 10-31-2019 IntraOperative Documents [id number]#1.00CD:1 27 [facility] IntraOperative Documents [id number]#1.00CD:1 27 [facility] Preoperative Documentson Preoperative Documents [id number]:1 27 [facility] Progress Note-Physicianon Progress Note-Physician Patient: ROSEANN GARRIDO Age: 44 years Sex: Female : 1975 Associated Diagnoses: None Author: Raffaele Spencer MD Preoperative Information Anesthesia history: Patient History: No personal or Family history of problems with anesthesia. Re-eval prior to induction: Inital eval reviewed: No significant interval change. Review of Systems Constitutional: Negative. Cardiovascular: Cardiovascular risk stratafacation reviewed, 1 FOS without difficulty, No chest pain. Respiratory: No SOB. Hematology/Lymphatics: Negative. Gastrointestinal: Negative. Musculoskeletal: Negative. Neurologic: Negative. Health Status Allergies: Allergic Reactions (Selected) Severity Not Documented Dilantin- Made arm swell and cramp bad. Nonallergic Reactions (Selected) Severity Not Documented Baclofen- Hives. Current medications: (Selected) Inpatient Medications Ordered Lactated Ringers IV Humera 1000 mL 1,000 mL: 1,000 mL, IV, 150 mL/hr, Routine, Start date 10/30/19 8:00:00 EDT, 6.7 hour(s), Total volume (mL): 1,000 cefazolin additive + Premix Dextrose 5% Diluent 50 mL: 2 gram = 50 mL, IV Piggyback, PREOP, Routine, Start date 10/30/19 8:00:00 EDT, 100 mL/hr, Infuse over 30 minute(s) Incomplete Durable Medical Equipment: Documented Medications Documented Hair, Skin & Nails 5 mg oral capsule: 5 mg, 1 cap(s), Oral, Daily, Prophylaxis Pepcid 20 mg Tab: 20 mg = 1 tab(s), Oral, Daily, Control of stomach acid Protonix: 40 mg, Oral, Daily, Refills(s) 0, Control of stomach acid Vitamin B Complex oral capsule: 1 cap(s), Oral, Daily, Prophylaxis Vitamin C: 100 mg, Chewed, Daily, Prophylaxis Vitamin D 1000 intl units Tab: 1,000 International_Unit = 1 tab(s), Oral, Daily, Prophylaxis atorvastatin 20 mg Tab: 20 mg = 1 tab(s), Oral, Daily, High cholesterol gabapentin 800 mg Tab: 800 mg = 1 tab(s), Oral, TID, Neuropathy niacin: Oral, Daily, Prophylaxis Problem list: All Problems Arthritis of spine / SNOMED CT 4308408973 / Confirmed Diabetes / SNOMED CT 839509442 / Confirmed Diabetes mellitus / SNOMED CT 694480886 / Confirmed Plantar fasciitis / SNOMED CT 129669639 / Confirmed Vitamin D deficiency, unspecified / SNOMED CT 61200920 / Confirmed Vitamin B deficiency, unspecified / SNOMED CT 30409407 / Confirmed Anxiety / SNOMED CT 19664931 / Confirmed Smoker 05-DEC-2013 12:37:00<$> / SNOMED CT [id number]-M [id number] / Confirmed Added secondary to documentation in Social History. Obesity 05-DEC-2013 12:37:00<$> / SNOMED CT [id number] / Confirmed Resolved: Sleep apnea / SNOMED CT 807874814 Resolved: Bursitis of hip / SNOMED CT 367800669 Resolved: Seizure / SNOMED CT 204851455 has not had one in 2 years Resolved: Acid reflux / SNOMED CT 2353557194 Resolved: Bipolar / SNOMED CT 424395228 Resolved: Neurogenic syncope / SNOMED CT [id number]-[id number] [id number] cardio neurogenic syncope no problems in 2 yers Resolved: Arthritis / SNOMED CT 3723960 Resolved: Anxiety / SNOMED CT 45980284 Canceled: CPAP (continuous positive airway pressure) dependence / SNOMED CT 7586268357 Canceled: Biliary colic / SNOMED CT 78236971 Histories Past Medical History: Active Diabetes mellitus (203159943) Resolved Seizure (691548435): Resolved. Comments: 10/29/2019 EDT 13:41 EDT - Alpa LANCE, Martha has not had one in 2 years Bipolar (422589737): Resolved. Neurogenic syncope ([id number]-[id number]- [id number]): Resolved. Comments: 10/29/2019 EDT 13:43 EDT - Alpa LANCE, [facility] cardio neurogenic syncope no problems in 2 yers Sleep apnea (537888088): Resolved. Acid reflux (4202319249): Resolved. Anxiety (40572094): Resolved. Arthritis (5928495): Resolved. Bursitis of hip (722288832): Resolved. Procedure history: Epidural injection of cervical spine using fluoroscopic guidance ([id number]) on 01/05/2015 at 39 Years. Comments: 01/19/2015 8:41 EDT - Jose LANCE, Kay L5-S1 Laparoscopic adhesiolysis (1642086094) on 09/29/2014 at 39 Years. Injection of steroid into hip joint (8478677207) on 07/07/2014 at 39 Years. Comments: 10/22/2014 17:18 Kandy Justice RIGHT Injection of sacroiliac joint using fluoroscopic guidance (4294800121) on 06/04/2014 at 39 Years. Comments: 10/22/2014 17:17 Kandy Justice RIGHT Epidural injection of lumbar spine using fluoroscopic guidance (4848690149) on 03/07/2014 at 38 Years. Comments: 10/22/2014 17:16 Kandy Justice RIGHT L5-S1 Hysterectomy. gallbladder removed. Ovarian cystectomy (9829196027). NECK SURGERY 1990. Arthroscopy of hip (921927549). Tonsillectomy (427355166). Nasal septoplasty and ear dilation (10127450). Social History Social & Psychosocial Habits Alcohol 11/24/2011 Risk Assessment: Denies Alcohol Use Substance Abuse 11/24/2011 Risk Assessment: Denies Substance Abuse Tobacco 11/15/2011 Tobacco Use: Current Type: Cigarettes Tobacco use per day: 20 10/28/2014 Risk Assessment: Medium Risk Comment: smokes 1 ppd. - 06/10/2015 16:19 - [place] LANCE, Adina Slade Physical Examination Pain assessment: Self-reports no pain. Airway: Mallampati classification: II (soft palate, fauces, uvula visible). Distance: Adequate. Mouth: Adequate opening. Neck: Full range of motion. Respiratory: Respirations are non-labored. Cardiovascular: Regular rhythm. Neurologic: Alert, Oriented. Review / Management Results review: No qualifying data available . Plan [place] [employer] Anesthesiologists (ASA) physical status classification: Class II. Anesthetic Preoperative Plan Anesthesia: General. , discussed the benefits of obstaing from tobacco products. Anesthetic plan, risks, benefits, and alternatives discussed with the patient and/or family. Patient verbalized understanding. Pt agrees with anesthetic plan and accepts all risks including but not limited to; Bleeding, infection(including covid-19), nerve injury, dental injury, eye injury, headache, low blood pressure, serious problems with the heart and lungs, allergic reactions, and .. Normal [facility] Comment on above: Result Comment: Elec tronically Signed By: Tj ZAMBRANO, Raffaele\.br\Date and Time Signed: 10/31/19 10:32 EDT Advance Beneficiary Notifica tionson 10-30-2019 Advance Beneficiary Notifications [id number]#[id number]:1 27 [facility] Coding Summary.on 10-30-2019 Coding Summary. CODING DATE: 020 FINAL [facility] STATUS: Home (Routine DC) PAYOR: Medicare APC DESCRIPTION 5521 Level 1 Imaging without Contrast ADMIT DX: REASON FOR VISIT DX: Z01.818 Encounter for other preprocedural examination FINAL DX: PRINCIPAL: Z01.818 Encounter for other preprocedural examination SECONDARY: Z11.59 Encounter for screening for other viral diseases PYMT PROC APC STAT DESCRIPTION DOCTOR NAME DATE NOTE: The code number assigned matches the documented diagnosis and / or procedure in the patient's chart. However, the narrative phrase printed from the coding software may appear abbreviated, or result in slightly different terminology. Coded By: Dolly Alonzo CphT Date Saved: 10/30/2019 01:00 pm [facility] Consent for Treatmenton 10-04 Consent for Treatment [id number]:12 7 [facility] Inpatient Patient Summaryon 10-30-2019 Inpatient Patient Summary [place] [id number] [facility] Clinical Discharge Instructions PERSON INFORMATION Name: ROSEANN GARRIDO PHYSICIANS Admitting Physician: Scotty Eller DPM Attending Physician: Scotty Eller DPM PCP: michael tam Discharge Diagnosis: Comment: PATIENT EDUCATION INFORMATION Instructions: Foot Cryocuff Patient Instructions - FT (CUSTOM); Post Op Patient Instructions - FT (CUSTOM); Rafita - Post Operative Instructions (Revised 05/15/19) (Custom) ([id number]) (Custom) Medication Leaflets: Follow up: MEDICATION LIST Medications to Continue with No Changes Other Medications ascorbic acid (Vitamin C) 100 Milligram Chewed every day. atorvastatin (atorvastatin 20 mg Tab) 1 Tablets By Mouth every day. biotin (Hair, Skin & Nails 5 mg oral capsule) 1 Capsules By Mouth every day. cholecalciferol (Vitamin D 1000 intl units Tab) 1 Tablets By Mouth every day. famotidine (Pepcid 20 mg Tab) 1 Tablets By Mouth every day. gabapentin (gabapentin 800 mg Tab) 1 Tablets By Mouth 3 times a day. multivitamin (Vitamin B Complex oral capsule) 1 Capsules By Mouth every day. niacin By Mouth every day. pantoprazole (Protonix) 40 Milligram By Mouth every day. Comment: Normal [facility] Main OR PACU I Recordon 10-04 Main OR PACU I Record PACU Phase I Docum ent Type FT Summary Primary Physician: Scotty Eller DPM Finalized Date/Time: 10/30/19 10:53:10 Pt. Name: ROSEANN GARRIDO [place] /Sex: 1975 Female Med Rec #: [id number] Physician: Scotty Eller DPM Financial #: [id number] Pt. Type: A Room/Bed: [facility]/ Admit/Disch: 10/30/19 08:02:13 - Institution: Case Times PACU I FT Pre-Care Text: Identifies barriers to communication and implements measures to provide psychological support Develops individualized plan of care, and ensures continuity of care Maintains patient's dignity and privacy, and maintains patient confidentiality Identifies and reports philosophical, cultural, and spiritual beliefs and values Identifies individual values and wishes concerning care Implements aseptic technique, and administers prescribed antibiotic therapy and immunizing agents as ordered Evaluates postoperative tissue perfusion Implements thermoregulation measures, and monitors body temperature Evaluates postoperative respiratory status Evaluates postoperative cardiac status Evaluates postoperative neurological status Assesses pain control, collaborated in initiating patient-controlled analgesia and implements alternative methods of pain control Verifies allergies, administers prescribed medications and solutions, evaluates response to medications Entry 1 In PACU I 10/30/19 10:02:00 Discharge from PACU 10/30/19 10:43:00 I Outcomes Met? Yes Last Modified By: Adenike Infante RN 10/30/19 10:53:06 Post-Care Text: The patient demonstrates knowledge of the expected response to the operative or invasive procedure The patient's care is consistent with the individualized perioperative plan of care The patient's right to privacy is maintained The patient's value system, lifestyle, ethnicity, and culture are considered, respected, and incorporated into the perioperative plan of care The patient participates in decisions affecting his or her perioperative plan of care The patient is free from signs and symptoms of infection The patient has wound/tissue perfusion consistent with or improved from baseline levels established preoperatively The patient is at or returning to normothermia at the conclusion of the immediate postoperative period The patient's respiratory function is consistent with or improved from baseline levels established preoperatively The patient's cardiovascular status is consistent with or improved from baseline levels established preoperatively The patient's cardiovascular status is consistent with or improved from baseline levels established preoperatively The patient demonstrates and/or reports adequate pain control throughout the perioperative period The patient received appropriate medication(s), safely administered during the perioperative period Acuity Level PACU I FT Entry 1 Start Time 10/30/19 10:02:00 Stop Time 10/30/19 10:43:00 Acuity Level Acuity Level I Last Modified By: Adenike Infante RN 10/30/19 10:52:48 Finalized By: Adenike Infante RN Document Signatures Signed By: Adenike Infante RN 10/30/19 10:53 Normal [facility] Main OR PACU II Recordon Main OR PACU II Record PACU Phase II Doc ument Type FT Summary Primary Physician: Scotty Eller DPM Finalized Date/Time: 10/30/19 13:25:44 Pt. Name: ROSEANN GARRIDO /Sex: 1975 Female Med Rec #: [id number] Physician: Scotty Eller DPM Financial #: [id number] Pt. Type: A Room/Bed: [place] [address] Admit/Disch: 10/30/19 08:02:13 - Institution: Case Times PACU II FT Pre-Care Text: Identifies barriers to communication and implements measures to provide psychological support and determines knowledge level Develops individualized plan of care, and ensures continuity of care Maintains patient's dignity and privacy, and maintains patient confidentiality Identifies and reports philosophical, cultural, and spiritual beliefs and values Identifies individual values and wishes concerning care administers prescribed antibiotic therapy and immunizing agents as ordered, Evaluates postoperative tissue perfusion Implements thermoregulation measures, and monitors body temperature Evaluates postoperative respiratory status Evaluates postoperative cardiac status Evaluates postoperative neurological status Assesses pain control, collaborated in initiating patient-controlled analgesia and implements alternative methods of pain control Verifies allergies, administers prescribed medications and solutions, evaluates response to medications Entry 1 In PACU II 10/30/19 10:45:00 Discharge from PACU 10/30/19 12:50:00 II Outcomes Met? Yes Last Modified By: Daniella Rao RN 10/30/19 13:25:42 Post-Care Text: The patient demonstrates knowledge of the expected response to the operative or invasive procedure The patient's care is consistent with the individualized perioperative plan of care The patient's right to privacy is maintained The patient's value system, lifestyle, ethnicity, and culture are considered, respected, and incorporated into the perioperative plan of care The patient participates in decisions affecting his or her perioperative plan of care. The patient is free from signs and symptoms of infection The patient has wound/tissue perfusion consistent with or improved from baseline levels established preoperatively The patient is at or returning to normothermia at the conclusion of the immediate postoperative period The patient's respiratory function is consistent with or improved from baseline levels established preoperatively The patient's cardiovascular status is consistent with or improved from baseline levels established preoperatively The patient's neurological status is consistent with or improved from baseline levels established preoperatively The patient demonstrates and/or reports adequate pain control throughout the perioperative period The patient received appropriate medication(s), safely administered during the perioperative period Finalized By: Daniella Rao RN Document Signatures Signed By: Daniella Rao RN 10/30/19 13:25 Normal [facility] Main OR Preoperative Recordo n 10-30-2019 Main OR Preoperative Record PreOp Document Type FT Summary Primary Physician: Scotty Eller DPM Finalized Date/Time: 10/30/19 09:50:43 Pt. Name: ROSEANN GARRIDO Hailee LeeB./Sex: 1975 Female Med Rec #: [id number] Physician: Scotty Eller DPM Financial #: [id number] Pt. Type: A Room/Bed: [place] [address] Admit/Disch: 10/30/19 08:02:13 - Institution: Case Times PreOp FT Pre-Care Text: Verifies consent for planned procedure, identifies individual values and wishes concerning care, includes family members in perioperative teaching Entry 1 Patient Times. In Pre Surgery 10/30/19 08:05:00 Out Pre Surgery 10/30/19 09:31:00 Outcomes Met? Yes Last Modified By: Antonia Cat RN 10/30/19 09:50:38 Post-Care Text: The patient participates in decisions affecting his or her perioperative plan of care Finalized By: Antonia Cat RN Document Signatures Signed By: Antonia Cat RN 10/30/19 09:50 Normal [facility] Patient Education - Texton 0 10-30-2019 Patient Education - Text [place], [place] Scotty Eller DPM, FACFAS POST OPERATIVE INSTRUCTIONS Keep bandage clean and dry and DO NOT REMOVE Keep foot elevated on white foam pillow Apply cryocuff to top of ankle, one hour on one hour off, until first office visit Non weight bearing on operative foot. Take pain medications as directed Do not be alarmed if you notice slight bleeding on the bandage, this is normal Resume regular diet. Call the office if you develop: persistent bleeding temperature above 100 degrees persistent vomiting calf pain or shortness of breath redness or pus at operative site Call the office tomorrow for 1st post-operative dressing change appointment. If you have any problems or questions, feel free to call the doctor at: [phone] or [phone] Eller paged. ___ Patient signature Date ___ Dr.Nicholas Rafita DPM, FACFAS Date Revised: 07-13 [facility] Progress Note-Physicianon Progress Note-Physician Patient: ROSEANN GARRIDO Age: 44 years Sex: Female : 1975 Associated Diagnoses: None Author: Scotty Eller DPM Postoperative Information Procedure: 1) left plantar fasciotomy 2)Injection of steroid to right plantar fascia of 1cc Kenalog 40 Date/ Time: 10/30/2019 10:00:00 Preoperative Diagnosis: left plantar fascitis and right plantar fascitis. Postoperative Diagnosis: radha. Performed by: Scotty Eller DPM Estimated Blood Loss: 0 ml. Medications: 1cc kenalog 40 to right heel. Complications: None. Anesthesia type: General. [facility] Comment on above: Result Comment: Elec tronically Signed By: Scotty Eller DPM\.br\Date and Time Signed: 10/30/19 10:01 EDT BUNon 10-29-2019 Urea nitrogen [Mass/Vol] 11 mg/dL Normal 5-21 [facility] Comment on above: Performed By: #### 2 [id number], 8661436, 60405196, 5498163, 5976340, 1823388 #### [facility] [address] [place] [address] CBC w/Indiceson 10-29-2019 Erythrocyte distribution width (RBC) [Ratio] 14.0 % Normal 10.9-14.2 [facility] Comment on above: Performed By: #### 2 725227, 1480295, 84231234, 6248679, 1637600, 4886680 #### [facility] [address] [place] [address] Hematocrit (Bld) [Volume fraction] 43.4 % Normal 34.0-46.0 [facility] Comment on above: Performed By: #### 2 646911, 1853024, 02128203, 3393653, 6454855, 6165805 #### [facility] [address] [place] [address] Hemoglobin (Bld) [Mass/Vol] 14.7 g/dL Normal 12.0-16.0 [facility] Comment on above: Performed By: #### 2 452747, 0787045, 36477783, 0667178, 5196651, 4629536 #### [facility] [address] [place] [address] MCH (RBC) [Entitic mass] 31.7 pg Normal 27.0-34.0 [facility] Comment on above: Performed By: #### 2 740599, 7968864, 65184626, 9192192, 3454233, 3931363 #### [facility] [address] [place] [address] MCHC (RBC) [Mass/Vol] 34.0 g/dL Normal 31.4-36.0 [facility] Comment on above: Performed By: #### 2 172642, 3290728, 96409930, 6972617, 6362216, 7747392 #### [facility] [address] [place] [address] MCV (RBC) [Entitic vol] 93.3 fL Normal 80.0-100.0 [facility] Comment on above: Performed By: #### 2 696055, 1311321, 68082308, 9745304, 2555072, 7601373 #### [facility] [address] [place] [address] Platelet mean volume (Bld) [Entitic vol] 7.9 fL Normal 6.4-10.8 [facility] Comment on above: Performed By: #### 2 496785, 7999283, 46707130, 0734724, 8203004, 5027752 #### [facility] [address] [place] [address] Platelets (Bld) [#/Vol] 296.0 E9/L Normal 150.0-500. 0 [facility] Comment on above: Performed By: #### 2 717652, 6865041, 73732168, 6788140, 4986021, 0859005 #### [facility] [address] [place] [address] RBC (Bld) [#/Vol] 4.6 E12/L Normal 4.3-5.9 [facility] Comment on above: Performed By: #### 2 474585, 3963686, 28526438, 5339871, 0894258, 2450213 #### [facility] [address] [place], [place] [address] WBC corrected for nucl RBC Auto (Bld) [#/Vol] 8.1 E9/L Normal 4.0-11.0 [facility] Comment on above: Performed By: #### 2 861460, 6213076, 28952014, 2947071, 2106894, 4745921 #### [facility] [address] [place] [address] Consent for Treatmenton 10-04 Consent for Treatment [id number]#[id number]:12 7 Normal [facility] Creatinineon 10-29-2019 Creatinine [Mass/Vol] 0.8 mg/dL Normal 0.5-1.3 [facility] Comment on above: Performed By: #### 2 772906, 4499109, 60970788, 7633465, 7495779, 5660508 #### [facility] [address] [place] [address] Glucoseon 10-29-2019 Glucose [Mass/Vol] 87 mg/dL Normal 55-199 [facility] Comment on above: Performed By: #### 2 743496, 3639836, 30221949, 6951913, 5821807, 5808957 #### [facility] [address] [place] [address] History and Physicalon 10-28 History and Physical [id number]:12 7 Normal [facility] History and Physical [id number]#[id number]:12 7 Normal [facility] Lyteson 10-29-2019 Anion gap [Moles/Vol] 11 mmol/L Normal 6-16 [facility] Comment on above: Performed By: #### 2 759076, 8497519, 13612742, 0670341, 9190685, 0966280 #### [facility] [address] [place] [address] Chloride [Moles/Vol] 106 mmol/L Normal 101-111 [facility] Comment on above: Performed By: #### 2 288121, 6113812, 44427273, 5275103, 0367991, 5687909 #### [facility] [address] [place] [address] CO2 [Moles/Vol] 26 mmol/L Normal 21-31 [facility] Comment on above: Performed By: #### 2 503888, 3380903, 51476193, 8692806, 1154112, 7336483 #### [facility] [address] [place] [address] Potassium [Moles/Vol] 4.5 mmol/L Normal 3.5-5.3 [facility] Comment on above: Performed By: #### 2 561294, 1527973, 84186038, 2717860, 3213056, 1672893 #### [facility] [address] [place] [address] Sodium [Moles/Vol] 138 mmol/L Normal 135-145 [facility] Comment on above: Performed By: #### 2 479025, 4606253, 92353344, 7298911, 2756333, 1479603 #### [facility] [address] [place] [address] XR Chest 2 Viewson 0 XR Chest 2 Views Exam Date/Time: 10/29/2019 14:34 EDT Reason for Exam: Pre Op Report IMPRESSION: NO EVIDENCE OF ACTIVE CHEST DISEASE. CLINICAL HISTORY: Pre Op. COMPARISON: 11/16/2016. COMMENT: The heart is normal in size. The mediastinum is unremarkable. The lungs appear clear. No infiltration nor pleural effusion is evident. No significant change is noted when compared to the prior exam. FINAL REPORT Dictated: 10/29/2019 2:43 pm Kelby Thornton M.D. Signed (Electronic Signature): 10/29/2019 2:43 pm Signed by: Kelby Thornton M.D. Transcribed by: AVTAR Technologist: CC Normal [facility] eGFRon 10-29-2019 GFR/1.73 sq M predicted among blacks MDRD (S/P/Bld) [Vol rate/Area] mL/min/{1.73_m2} Normal >=59 [facility] Comment on above: Order Comment: Order added by Discern Expert. Result Comment: eGFR is race adjusted. AA=. Performed By: #### 2 960282, 2960016, 71483809, 1616436, 6541692, 4551664 #### [facility] [address] [place] [address] GFR/1.73 sq M predicted among non-blacks MDRD (S/P/Bld) [Vol rate/Area] mL/min/{1.73_m2} Normal >=59 [facility] Comment on above: Order Comment: Order added by Discern Expert. Result Comment: Marketing Operations Assistant maddison kidney disease could be indicated at eGFR's of less than 60 mL/min/1.73m2. Kidney failure is indicated at less than 15 mL/min/1.73m2. Performed By: #### 2 964518, 4945306, 77892126, 0631246, 0253494, 6817914 #### [facility] [address] [place] [address] No Panel InformationOrdered By: Josh Oakley on 06-17-2019 1. No acute intracra nial abnormality. 2. Partial opacification of the right mastoid air cells and right middle ear with no adjacent bone nor soft tissue abnormalities, most likely due to effusion. Mastoiditis could appear similar in the correct clinical setting. Minimal partial opacification of the left mastoid air cells is almost certainly due to effusion. 3. Paranasal sinus disease predominantly involving the ethmoid sinuses and frontoethmoidal recesses as above. Acute sinusitis may be present especially in the left ethmoid sinuses. 4. Minimal leftward deviation of the anterior nasal septum without spurring. 5. Dental disease. [facility] Phone: EXAMINATION: CT OF T HE SINUS WITHOUT CONTRAST; CT OF THE HEAD WITHOUT CONTRAST 06/17/2019 2:42 pm TECHNIQUE: CT of the sinuses was performed without the administration of intravenous contrast. Multiplanar reformatted images are provided for review. Dose modulation, iterative reconstruction, and/or weight based adjustment of the mA/kV was utilized to reduce the radiation dose to as low as reasonably achievable.; CT of the head was performed without the administration of intravenous contrast. Dose modulation, iterative reconstruction, and/or weight based adjustment of the mA/kV was utilized to reduce the radiation dose to as low as reasonably achievable. COMPARISON: Brain MRI 02/22/2016 HISTORY: ORDERING SYSTEM PROVIDED HISTORY: Dizziness TECHNOLOGIST PROVIDED HISTORY: Is the patient ?->No; ORDERING SYSTEM PROVIDED HISTORY: Right ear pain TECHNOLOGIST PROVIDED HISTORY: Is the patient ?->No FINDINGS: HEAD BRAIN/VENTRICLES: No masses nor acute intracranial hemorrhage. Intact hurley/white matter differentiation without findings of acute ischemia. No mass effect nor midline shift. Patent basilar cisterns and foramen magnum. No hydrocephalus. Minimal bifrontal atrophy. ORBITS: Normal without acute abnormality. SINUSES: As below. SOFT TISSUES/SKULL: No obvious acute soft tissue abnormality. No acute fracture. SINUSES SINUSES: Minimal mucosal thickening in the bilateral frontal sinuses near the frontoethmoidal recesses, more prominent on the right with associated partial to complete occlusion. Minimal to moderate mucosal thickening in the anterior to mid bilateral ethmoid sinuses with possible layering fluid especially on the left. Minimal mucosal thickening in the left sphenoid sinus near the left sphenoethmoidal recess. Patency of the bilateral maxillary sinus ostia and bilateral sphenoethmoidal recesses. MASTOIDS: Partial opacification of the right mastoid air cells and right middle ear with minimal involvement of the left mastoid air cells. No evident adjacent bone nor soft tissue abnormalities. Patent left middle ear. SOFT TISSUES: No acute soft tissue abnormality. Normal appearance of the globes and other intraorbital contents. Limited imaging of the intracranial contents without obvious acute abnormality. OTHER: Minimal deviation of the anterior nasal septum to the left without spurring. Partial inclusion of the left nasal cavity superior to the left middle nasal turbinate due to secretions and/or mucosal thickening. Otherwise patent nasal cavities with patent choanae. Absence of few teeth, and presence of a few dental fillings. [facility] Phone: Ivan, [facility] Incoming Radiant Results From [address]/[facility] - 06/17/2019 3:09 PM EST EXAMINATION: CT OF THE SINUS WITHOUT CONTRAST; CT OF THE HEAD WITHOUT CONTRAST 06/17/2019 2:42 pm TECHNIQUE: CT of the sinuses was performed without the administration of intravenous contrast. Multiplanar reformatted images are provided for review. Dose modulation, iterative reconstruction, and/or weight based adjustment of the mA/kV was utilized to reduce the radiation dose to as low as reasonably achievable.; CT of the head was performed without the administration of intravenous contrast. Dose modulation, iterative reconstruction, and/or weight based adjustment of the mA/kV was utilized to reduce the radiation dose to as low as reasonably achievable. COMPARISON: Brain MRI 02/22/2016 HISTORY: ORDERING SYSTEM PROVIDED HISTORY: Dizziness TECHNOLOGIST PROVIDED HISTORY: Is the patient ?->No; ORDERING SYSTEM PROVIDED HISTORY: Right ear pain TECHNOLOGIST PROVIDED HISTORY: Is the patient ?->No FINDINGS: HEAD BRAIN/VENTRICLES: No masses nor acute intracranial hemorrhage. Intact hurley/white matter differentiation without findings of acute ischemia. No mass effect nor midline shift. Patent basilar cisterns and foramen magnum. No hydrocephalus. Minimal bifrontal atrophy. ORBITS: Normal without acute abnormality. SINUSES: As below. SOFT TISSUES/SKULL: No obvious acute soft tissue abnormality. No acute fracture. SINUSES SINUSES: Minimal mucosal thickening in the bilateral frontal sinuses near the frontoethmoidal recesses, more prominent on the right with associated partial to complete occlusion. Minimal to moderate mucosal thickening in the anterior to mid bilateral ethmoid sinuses with possible layering fluid especially on the left. Minimal mucosal thickening in the left sphenoid sinus near the left sphenoethmoidal recess. Patency of the bilateral maxillary sinus ostia and bilateral sphenoethmoidal recesses. MASTOIDS: Partial opacification of the right mastoid air cells and right middle ear with minimal involvement of the left mastoid air cells. No evident adjacent bone nor soft tissue abnormalities. Patent left middle ear. SOFT TISSUES: No acute soft tissue abnormality. Normal appearance of the globes and other intraorbital contents. Limited imaging of the intracranial contents without obvious acute abnormality. OTHER: Minimal deviation of the anterior nasal septum to the left without spurring. Partial inclusion of the left nasal cavity superior to the left middle nasal turbinate due to secretions and/or mucosal thickening. Otherwise patent nasal cavities with patent choanae. Absence of few teeth, and presence of a few dental fillings. IMPRESSION: 1. No acute intracranial abnormality. 2. Partial opacification of the right mastoid air cells and right middle ear with no adjacent bone nor soft tissue abnormalities, most likely due to effusion. Mastoiditis could appear similar in the correct clinical setting. Minimal partial opacification of the left mastoid air cells is almost certainly due to effusion. 3. Paranasal sinus disease predominantly involving the ethmoid sinuses and frontoethmoidal recesses as above. Acute sinusitis may be present especially in the left ethmoid sinuses. 4. Minimal leftward deviation of the anterior nasal septum without spurring. 5. Dental disease. [facility] Work Phone: [id number] B y: Josh Oakley on 05-20-2019 A-1 Antitrypsin 146 mg/dL 90 - 200 mg/dL [facility] Work Phone: CBC Auto DifferentialOrdered By: Josh Oakley on 05-20-2019 Absolute Eos # 0.41 [facility] Work Phone: Absolute Immature Granulocyte 0.03 [facility] Work Phone: Absolute Lymph # 2.36 [facility] Work Phone: Absolute [place]ham # 0.56 [facility] [facility] Work Phone: Basophils (Bld) [#/Vol] 0.04 10*3/uL [facility] Work Phone: Basophils/100 WBC (Bld) 1 % 0 - 2 % [facility] Phone: Differential Type NOT REPORTED [facility] Phone: Eosinophils/100 WBC (Bld) 5 % High 1 - 4 % [facility] Phone: Erythrocyte distribution width (RBC) [Ratio] 13.1 % 11.8 - 14.4 % [facility] Work Phone: Hematocrit (Bld) [Volume fraction] 45.5 % 36.3 - 47.1 % [facility] Phone: Hemoglobin (Bld) [Mass/Vol] 14.7 g/dL 11.9 - 15.1 g/dL [facility] Phone: Immature granulocytes/100 WBC (Bld) 0 % 0 [facility] Phone: Interpretation and review of laboratory results Abnormal [facility] Phone: Lymphocytes/100 WBC (Bld) 30 % 24 - 43 % [facility] Phone: MCH (RBC) [Entitic mass] 31.4 pg 25.2 - 33.5 pg [facility] Phone: MCHC (RBC) [Mass/Vol] 32.3 g/dL 28.4 - 34.8 g/dL [facility] Phone: MCV (RBC) [Entitic vol] 97.2 fL 82.6 - 102.9 fL [facility] Phone: Monocytes/100 WBC (Bld) 7 % 3 - 12 % [facility] Phone: NRBC Automated 0.0 0.0 per 100 WBC [facility] Phone: Platelet Estimate NOT REPORTED [facility] Work Phone: Platelet mean volume (Bld) [Entitic vol] 9.6 fL 8.1 - 13.5 fL [facility] Work Phone: Platelets (Bld) [#/Vol] 287 10*3/uL [facility] Work Phone: RBC (Bld) [#/Vol] 4.68 10*6/uL 3.95 - 5.11 m/uL [facility] Work Phone: RBC morphology finding Nom (Bld) NOT REPORTED [facility] Work Phone: Segmented neutrophils/100 WBC (Bld) 57 % 36 - 65 % [facility] Work Phone: Segs Absolute 4.45 [email or web address] Work Phone: WBC (Bld) [#/Vol] 7.9 10*3/uL [facility] Work Phone: WBC Morphology NOT REPORTED [employer] ([email or web address]) Work Phone: Comprehensive Metabolic Pane lOrdered By: Josh Oakley on 05-20-2019 Albumin [Mass/Vol] 4.2 g/dL 3.5 - 5.2 g/dL [facility] Phone: Albumin/Globulin [Mass ratio] 1.4 {ratio} [facility] Phone: ALP [Catalytic activity/Vol] 103 U/L 35 - 104 U/L [facility] Work Phone: ALT [Catalytic activity/Vol] 32 U/L 5 - 33 U/L [facility] Work Phone: Anion gap [Moles/Vol] 11 mmol/L 9 - 17 mmol/L [facility] Work Phone: AST [Catalytic activity/Vol] 31 U/L <32 [facility] Work Phone: Bilirubin [Mass/Vol] mg/dL Low 0.3 - 1 .2 mg/dL [facility] Phone: Bun/Cre Ratio 11 [employer] Work Phone: Calcium [Mass/Vol] 9.7 mg/dL 8.6 - 10. 4 mg/dL [facility] Phone: Chloride [Moles/Vol] 101 mmol/L 98 - 10 7 mmol/L [facility] Phone: CO2 [Moles/Vol] 25 mmol/L 20 - 31 mmol/L [facility] Phone: Creatinine [Mass/Vol] 1.16 mg/dL High 0.5 - 0.9 mg/dL [facility] Phone: GFR >60 >60 mL/min [employer] Phone: GFR Comment [facility] Phone: Comment on above: Average GFR for 40-4 9 years old: 99 mL/min/1.73sq m Chronic Kidney Disease: <60 mL/min/1.73sq m Kidney failure: <15 mL/min/1.73sq m eGFR calculated using average adult body mass. Additional eGFR calculator available at: http://www.[employer]/multiple_crcl_2012.htm GFR Non- 51 mL/min Low >60 [facility] Phone: GFR Staging [facility] Phone: Comment on above: Stage 1: Some kidney damage normal GFR Stage 2: Mild kidney damage GFR 60-89 Stage 3: Moderate kidney damage GFR 30-59 Stage 4: Severe kidney damage GFR 15-29 Stage 5: Severe kidney damage GFR <15 ESRD - chronic treatment by dialysis or transplant Glucose [Mass/Vol] 85 mg/dL 70 - 99 mg/dL [facility] Phone: Interpretation and review of laboratory results Abnormal [facility] Phone: Potassium [Moles/Vol] 4.9 mmol/L 3.7 - 5.3 mmol/L [facility] Phone: Protein [Mass/Vol] 7.3 g/dL 6.4 - 8.3 g/dL [facility] Work Phone: Sodium [Moles/Vol] 137 mmol/L 135 - 144 mmol/L [facility] Phone: Urea nitrogen [Mass/Vol] 13 mg/dL 6 - 20 mg/dL [facility] Phone: Iron and TIBCOrdered By: Diane Oakley on 05-20-2019 Interpretation and review of laboratory results Abnormal [facility] Phone: Iron [Mass/Vol] 69 ug/dL 37 - 145 ug/dL [facility] Phone: Iron Saturation 19 % Low 20 - 55 % [employer] [facility] Work Phone: TIBC 364 ug/dL 250 - 450 ug/dL [facility] Work Phone: UIBC 295 ug/dL 112 - 347 ug/dL [facility] Phone: Vitamin [id number] By: Rox Oakley on 05-20-2019 Cobalamin (Vitamin B12) [Mass/Vol] 416 pg/mL 232 - 1245 pg/mL [facility] Phone: MRI LUMBAR SPINE WO CONTRAST on 04-03-2019 Degenerative disc di sease as described above. No spinal canal narrowing Foraminal narrowing, minimal at bilateral L4-5 and right L5-S1. [facility]- [place], [place] EXAMINATION: MRI OF THE LUMBAR SPINE WITHOUT CONTRAST, 04/03/2019 1:52 pm TECHNIQUE: Multiplanar multisequence MRI of the lumbar spine was performed without the administration of intravenous contrast. COMPARISON: MRI lumbar spine February 21, 2016 HISTORY: ORDERING SYSTEM PROVIDED HISTORY: Lumbar radiculopathy TECHNOLOGIST PROVIDED HISTORY: Is the patient ?->No FINDINGS: BONES/ALIGNMENT: There is normal alignment of the lumbar spine. The vertebral body heights are maintained. The bone marrow signal appears unremarkable. There is no fracture or destructive osseous lesion. There is disc desiccation. The intervertebral disc heights are grossly maintained. SPINAL CORD: The conus terminates normally. SOFT TISSUES: No paraspinal mass identified. L1-L2: There is no significant disc herniation, spinal canal stenosis or neural foraminal narrowing. Stable. L2-L3: There is disc bulge, annular fissure, without spinal canal or foraminal stenosis. Mildly progressed. L3-L4: There is disc bulge, annular fissure, without spinal canal or foraminal stenosis. Stable. L4-L5: There is disc bulge with minimal bilateral foraminal narrowing. No spinal canal narrowing. Stable. L5-S1: There is disc bulge, annular fissure, with minimal right foraminal narrowing. No spinal canal narrowing. Stable. [facility] [place], [place] Ivan, [facility] Incoming Radiant Results From [address] - 04/03/2019 2:27 PM EDT EXAMINATION: MRI OF THE LUMBAR SPINE WITHOUT CONTRAST, 04/03/2019 1:52 pm TECHNIQUE: Multiplanar multisequence MRI of the lumbar spine was performed without the administration of intravenous contrast. COMPARISON: MRI lumbar spine February 21, 2016 HISTORY: ORDERING SYSTEM PROVIDED HISTORY: Lumbar radiculopathy TECHNOLOGIST PROVIDED HISTORY: Is the patient ?->No FINDINGS: BONES/ALIGNMENT: There is normal alignment of the lumbar spine. The vertebral body heights are maintained. The bone marrow signal appears unremarkable. There is no fracture or destructive osseous lesion. There is disc desiccation. The intervertebral disc heights are grossly maintained. SPINAL CORD: The conus terminates normally. SOFT TISSUES: No paraspinal mass identified. L1-L2: There is no significant disc herniation, spinal canal stenosis or neural foraminal narrowing. Stable. L2-L3: There is disc bulge, annular fissure, without spinal canal or foraminal stenosis. Mildly progressed. L3-L4: There is disc bulge, annular fissure, without spinal canal or foraminal stenosis. Stable. L4-L5: There is disc bulge with minimal bilateral foraminal narrowing. No spinal canal narrowing. Stable. L5-S1: There is disc bulge, annular fissure, with minimal right foraminal narrowing. No spinal canal narrowing. Stable. IMPRESSION: Degenerative disc disease as described above. No spinal canal narrowing Foraminal narrowing, minimal at bilateral L4-5 and right L5-S1. [place] Strep Screen Group A Throato n 01-15-2019 S. pyogenes Ag IA Ql (Unsp spec) Rapid Strep A negative. A negative Rapid Group A Strep Screen result does not rule out the possibility of Group A Streptococci in the specimen. A Group A Strep DNA test is available upon request. [place], [place] Special Requests NOT REPORTED [place] Specimen Description .THROAT [place] XR Neck Soft Tissueon 2018 No acute abnormality [place] EXAMINATION: TWO XRA Y VIEWS OF THE NECK SOFT TISSUES 01/15/2019 9:21 pm COMPARISON: None. HISTORY: ORDERING SYSTEM PROVIDED HISTORY: Sore throat, recently post op. TECHNOLOGIST PROVIDED HISTORY: Sore throat, recently post op. FINDINGS: Prevertebral soft tissue thickness is normal. Epiglottis is normal in caliber. There is no prevertebral soft tissue air density. There loss of the normal lordotic curvature in the cervical spine. There is no acute fracture. Apices are clear [place], [place] Ivan, [facility] Incoming Radiant Results From [facility] - 01/15/2019 9:29 PM EDT EXAMINATION: TWO XRAY VIEWS OF THE NECK SOFT TISSUES 01/15/2019 9:21 pm COMPARISON: None. HISTORY: ORDERING SYSTEM PROVIDED HISTORY: Sore throat, recently post op. TECHNOLOGIST PROVIDED HISTORY: Sore throat, recently post op. FINDINGS: Prevertebral soft tissue thickness is normal. Epiglottis is normal in caliber. There is no prevertebral soft tissue air density. There loss of the normal lordotic curvature in the cervical spine. There is no acute fracture. Apices are clear IMPRESSION: No acute abnormality [place] Vital Signs Date Time Vital Sign Value Performing Clinician Facility 04-11-2023 14:10-0500 Body height 162.56 cm Vonda Bautista Other [facility] Other 04-11-2023 14:10-0500 Body mass index (BMI) [Ratio] 31.75 kg/m2 Vonda Bautista Other [facility] Other 04-11-2023 14:10-0500 Body temperature 98.8 [degF] Vonda Bautista Other [employer] Other 04-11-2023 14:10-0500 Body weight 83.92 kg Vonda Bautista Other [employer] Other 04-11-2023 14:10-0500 Diastolic blood pressure 42 mm[Hg] Vonda Bautista Other [employer] Other 04-11-2023 14:10-0500 Respiratory rate 18 /min Vonda Bautista Other [employer] Other 04-11-2023 14:10-0500 SaO2% (BldA) [Mass fraction] 96 % Vonda Bautista Other [facility] Other 04-11-2023 14:10-0500 Systolic blood pressure 126 mm[Hg] Vonda Bautista Other [employer] Other 11-08-2021 11:45-0400 Body height 162.56 cm Duglas Whalenwerner Other [employer] Other 11-08-2021 11:45-0400 Body mass index (BMI) [Ratio] 28.49 kg/m2 Duglas Whalenwerner Other [employer] Other 11-08-2021 11:45-0400 Body weight 75.3 kg Duglas Gomez Other [employer] Other 02-05-2021 18:53-0400 Body temperature 97.9 [degF] Gee Mcmahon MD Work Phone: [facility] Work Phone: 02-05-2021 18:53-0400 Diastolic blood pressure 82 mm[Hg] Gee Mcmahon MD Work Phone: [facility] Work Phone: 02-05-2021 18:53-0400 Heart rate 76 /min Gee Mcmahon MD Work Phone: [facility] Work Phone: 02-05-2021 18:53-0400 Respiratory rate 16 /min Gee Mcmahon MD Work Phone: [facility] Work Phone: 02-05-2021 18:53-0400 SaO2% (BldA) [Mass fraction] 98 % Gee Mcmahon MD Work Phone: [facility] Work Phone: 02-05-2021 18:53-0400 Systolic blood pressure 110 mm[Hg] Gee Mcmahon MD Work Phone: [facility] Work Phone: 12-03-2020 17:39-0400 Body mass index (BMI) [Ratio] 32.61 kg/m2 Jessica Smith DO Work Phone: [facility] Work Phone: 12-03-2020 17:39-0400 Body temperature 98.6 [degF] Jessica Smith DO Work Phone: [facility] Work Phone: 12-03-2020 17:39-0400 Body weight 86.18 kg Jessica Smith DO Work Phone: [facility] Work Phone: 12-03-2020 17:39-0400 Diastolic blood pressure 99 mm[Hg] Jessica Smith DO Work Phone: [facility] Work Phone: 12-03-2020 17:39-0400 Heart rate 109 /min Jessica Smith DO Work Phone: [facility] Work Phone: 12-03-2020 17:39-0400 Respiratory rate 24 /min Jessica Smith DO Work Phone: [facility] Work Phone: 12-03-2020 17:39-0400 SaO2% (BldA) [Mass fraction] 99 % Jessica Smith DO Work Phone: [facility] Work Phone: 12-03-2020 17:39-0400 Systolic blood pressure 126 mm[Hg] Jessica Smith DO Work Phone: [facility] Work Phone: 11-01-2020 16:37-0400 Body temperature 98.01 [degF] Spasic E Work Phone: [facility] Work Phone: 11-01-2020 16:37-0400 Heart rate 108 /min Spasic E Work Phone: [facility] Work Phone: 11-01-2020 16:37-0400 SaO2% (BldA) [Mass fraction] 99 % Spasic E Work Phone: [facility] Work Phone: 02-19-2020 00:19-0400 Body Temperature 98.01 [degF] [facility], 02-19-2020 00:19-0400 BP Diastolic 72 mm[Hg] [facility] [place] [place] , 02-19-2020 00:19-0400 BP Systolic 131 mm[Hg] Selina [facility]- [place] , 02-19-2020 00:19-0400 Pulse (Heart Rate) 71 /min [facility], [place] 02-19-2020 00:19-0400 Pulse Oximetry 96 % Selina [facility] , [place] 02-19-2020 00:19-0400 Respiratory Rate 16 /min Selina Tyler [facility], [place] 06-11-2019 13:30-0500 Diastolic blood pressure 94 mm[Hg] Spasic E Work Phone: [facility] Work Phone: 06-11-2019 13:30-0500 Systolic blood pressure 142 mm[Hg] Spasic E Work Phone: [facility] Work Phone: 06-11-2019 12:40-0500 Body mass index (BMI) [Ratio] 36.05 kg/m2 Spasic E Work Phone: [facility] Work Phone: 06-11-2019 12:40-0500 Body temperature 98.91 [degF] Spasic E Work Phone: [facility] Work Phone: 06-11-2019 12:40-0500 Body weight 95.25 kg Spasic E Work Phone: [facility] Work Phone: 06-11-2019 12:40-0500 Heart rate 82 /min Spasic E Work Phone: [facility] Work Phone: 06-11-2019 12:40-0500 Respiratory rate 19 /min Spasic E Work Phone: [facility] Work Phone: 06-11-2019 12:40-0500 SaO2% (BldA) [Mass fraction] 99 % Spasic E Work Phone: [facility] Work Phone: 03-24-2019 22:40-0400 Body Temperature 98.49 [degF] [facility] [place] 03-24-2019 22:40-0400 BP Diastolic 103 mm[Hg] [facility] [place] , [place] 03-24-2019 22:40-0400 BP Systolic 172 mm[Hg] [facility] [place] 03-24-2019 22:40-0400 Pulse (Heart Rate) 107 /min Reynaldo Martinez [facility], [place] 03-24-2019 22:40-0400 Pulse Oximetry 96 % [facility] [place] 03-24-2019 22:40-0400 Respiratory Rate 16 /min Reynaldo [facility], [place] 03-16-2019 22:29-0400 BP Diastolic 96 mm[Hg] [facility] , [place] 03-16-2019 22:29-0400 BP Systolic 151 mm[Hg] [facility] , [place] 03-16-2019 22:21-0400 Body Temperature 97.9 [degF] [facility], [place] 03-16-2019 22:21-0400 Pulse (Heart Rate) 89 /min [facility], [place] 03-16-2019 22:21-0400 Pulse Oximetry 99 % [facility] , [place] 03-16-2019 22:21-0400 Respiratory Rate 18 /min [facility], [place] 01-15-2019 20:08-0400 BMI (Body Mass Index) 36.05 kg/m2 [facility], [place] 01-15-2019 20:08-0400 Body Temperature 98.71 [degF] [facility], [place] 01-15-2019 20:08-0400 Body weight 95.25 kg [facility] , [place] 01-15-2019 20:08-0400 Height 162.6 cm [facility] , [place] 01-15-2019 20:08-0400 Pulse (Heart Rate) 87 /min [facility], [place] 01-15-2019 20:08-0400 Pulse Oximetry 95 % [facility] , [place] 01-15-2019 20:08-0400 Respiratory Rate 20 /min [facility], [place] 01-11-2019 14:47-0400 Body Temperature 97.3 [degF] Mehrdad Antonio [facility], [place] 01-11-2019 14:47-0400 BP Diastolic 88 mm[Hg] Mehrdad Antonio [facility] , [place] 01-11-2019 14:47-0400 BP Systolic 124 mm[Hg] Mehrdad Antonio [facility] , [place] 01-11-2019 14:47-0400 Pulse (Heart Rate) 88 /min Mehrdad Antonio [facility], [place] 01-11-2019 14:47-0400 Pulse Oximetry 97 % Mehrdad Antonio [facility] , [place] 01-11-2019 14:47-0400 Respiratory Rate 14 /min Mehrdad Antonio [facility], [place] Encounters Encounter Date Encounter Type Care Provider Facility Start: 05-19-2023 End: 05-19-2023 ambulatory [facility] Facility[facility] Start: 05-03-2023 Telephone encounter [facility] Provider Becac andrade Comment on above: Schedule US Hip Inje ction Start: 04-25-2023 ambulatory [facility] E Gir s DO Work Phone: Pain Management Comment on above: Pirifomis injection Start: 04-21-2023 End: 04-21-2023 ambulatory [facility] Facility[facility] Start: 04-13-2023 End: 04-13-2023 [facility] Facility:[facility] Start: 04-11-2023 End: 04-11-2023 ambulatory Vonda Bautista Other [employer] Other Start: 04-11-2023 Office outpatient vi sit 25 minutes Vonda Bautista [facility] Ur[facility] Luis Start: 03-24-2023 End: 03-24-2023 ambulatory Ana M Krissy RT(R) Radiology Comment on above: Radiology XR Start: 03-24-2023 End: 03-24-2023 Patient encounter procedure Ana Mbryan AlbertKrissy RT(R) DAVID LOPEZ Comment on above: Psoas tendinitis of right side (Primary Dx); Tear of right acetabular labrum, initial encounter; Piriformis syndrome of right side; Pain of right hip Start: 02-27-2023 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 Work Phone: [facility] Start: 02-22-2023 Telephone encounter Frank Adin Estevez irgis DO Work Phone: Ambulatory Surgery Comment on above: Schedule Injection Start: 02-20-2023 End: 02-20-2023 ambulatory FRANK FRANK Facility:[facility] Start: 02-15-2023 Telephone encounter Frank Estevez irgis DO Work Phone: Pain Management Comment on above: Erroneous encounter- disregard Start: 01-12-2023 End: 01-12-2023 ambulatory Michael E Spasic Facility:[facility] Start: 01-12-2023 End: 01-12-[address] [facility] Work Phone: [facility] Work Phone: Start: 01-12-2023 End: 01-12-[address] [facility] Work Phone: [facility] [place] Work Phone: Start: 09-06-2022 End: 09-06-2022 ambulatory Michael E Spasic Facility:[facility] Start: 09-06-2022 End: 09-06-2022 ambulatory Services [facility] Work Phone: [facility] Work Phone: Start: 09-06-2022 End: 09-06-2022 Departed Referred Services [facility] Work Phone: [facility] Start: 08-11-2022 End: 08-11-2022 ambulatory Michael E Spasic Facility:[facility] Start: 08-11-2022 End: 08-11-2022 ambulatory [facility] Work Phone: [facility] Work Phone: Start: 08-11-2022 End: 08-11-2022 Departed Referred Services [facility] Work Phone: [facility] Start: 07-19-2022 End: 07-19-2022 ambulatory Michael E Spasic Facility:[facility] Start: 07-19-2022 End: 07-19-2022 ambulatory [facility] Work Phone: [facility] Work Phone: Start: 07-19-2022 End: 07-19-2022 Departed Referred Services [facility] Work Phone: [facility] Start: 06-23-2022 End: 06-23-2022 ambulatory Michael E Spasic Facility:[facility] Start: 06-23-2022 End: 06-23-2022 ambulatory [facility] Work Phone: [facility] Work Phone: Start: 06-23-2022 End: 06-23-2022 Patient encounter procedure [facility] Work Phone: [facility] [place] Work Phone: Start: 04-21-2022 Encounter for preprocedural laboratory examination DR MATT RECINOS [facility] Start: 04-20-2022 End: 04-20-[address] MATT RECINOS Facility:[facility] Start: 04-18-2022 End: 04-19-[address] MATT RECINOS Facility:[facility] Start: 04-18-2022 End: 04-19-2022 Encounter for preprocedural laboratory examination DR MATT RECINOS Facility:[facility] Start: [address] MATT RECINOS Facility:[facility] Start: 02-17-2022 End: 02-17-[address] [facility] Work Phone: [facility] Start: 12-30-2021 End: 12-30-20[address] [facility] Work Phone: [facility]-XRay [facility] Start: 12-13-2021 End: 12-13-2021 ambulatory Duglas Gomez Other [employer] Other Start: 12-13-2021 Telephone encounter Duglas Gomez [facility] Gastroenterology Start: 11-10-2021 End: 11-10-2021 ambulatory Duglas Gomez Other [employer] Other Start: 11-10-2021 Telephone encounter Duglas Gomez [facility] Gastroenterology Start: 11-08-2021 End: 11-08-2021 ambulatory Duglas Gomez Other [employer] Other Start: 11-08-2021 Office outpatient vi sit 25 minutes Duglas Gomez [facility] Gastroenterology Start: 04-09-2021 End: 2021 ambulatory UNKNOWN PROVIDER Facility:[facility] Start: 02-05-2021 End: 02-06-2021 Emergency department patient visit [facility] Start: 02-05-2021 End: 02-06-2021 Emergency department patient visit Gee Mcmahon MD Work Phone: [facility] ED Comment on above: Trichomonas vaginali s (TV) infection (Primary Dx); Vaginal pain Start: 12-03-2020 End: 12-03-2020 Emergency department patient visit [facility] Start: 12-03-2020 End: 12-03-2020 Emergency department patient visit Jessica Smith DO Work Phone: [facility] ED Comment on above: Back spasm (Primary Dx) Start: 11-23-2020 End: 11-26-2020 ambulatory [facility] Start: 11-23-2020 End: 11-25-2020 Subsequent hospital visit by physician [facility] Comment on above: Low back pain, unspe cified back pain laterality, unspecified chronicity, unspecified whether sciatica present; Accidental fall on or from stairs or steps, initial encounter; Radicular syndrome of lower limbs Start: 11-01-2020 Emergency department patient visit [facility] Start: 11-01-2020 End: 11-01-2020 Emergency department patient visit [facility] E Work Phone: [facility] ED Comment on above: Strain of lumbar reg ion, initial encounter (Primary Dx) Start: 02-19-2020 End: 02-19-2020 Emergency department patient visit [facility] Start: 02-19-2020 End: 02-19-2020 Emergency department patient visit Selina Tyler Work Phone: [facility] ED Comment on above: Sore throat (Primary Dx) Start: 12-20-2019 End: 12-22-2019 [facility] Covid Screening Comment on above: Arrived Injury Start: 06-17-2019 End: 06-19-2019 Subsequent hospital visit by physician [facility] Room [facility] Scan Comment on above: Dizziness Right ear pain Start: 06-11-2019 End: 06-11-2019 Emergency department patient visit Spasi E Work Phone: [facility] ED Comment on above: Right acute serous o titis media, recurrence not specified (Primary Dx) Start: 05-20-2019 End: 05-20-2019 Subsequent hospital visit by physician Josh Oakley Work Phone: [facility] Laboratory Start: 04-03-2019 End: 04-05-2019 Subsequent hospital visit by physician [facility] Comment on above: Lumbar radiculopathy Start: 03-24-2019 End: 03-25-2019 Emergency department patient visit Reynaldo Martinez Work Phone: [facility] ED Comment on above: Acute exacerbation o f chronic low back pain (Primary Dx); Sciatica of right side Start: 03-16-2019 End: 03-17-2019 Emergency department patient visit Garry Valdez Work Phone: [facility] ED Comment on above: Sciatica of right si de (Primary Dx) Start: 01-15-2019 End: 01-15-2019 Emergency department patient visit Selina Tyler Work Phone: [facility] ED Comment on above: Post-op pain (Primar y Dx) Start: 01-11-2019 End: 01-11-2019 Emergency department patient visit Mehrdad Palomino Work Phone: [facility] ED Comment on above: Postoperative pain ( Primary Dx) Procedures Date Procedure Procedure Detail Performing Clinician Start: 01-12-2023 Diagnostic radiograp hy of abdomen Services [facility] [employer] Work Phone: Start: 01-12-2023 Plain X-ray of right hip Services [facility] [employer] Work Phone: Start: 06-23-2022 CT of lumbar spine w ithout contrast [facility] [employer] Work Phone: Start: 12-30-2021 Plain X-ray of right hip [facility] Phone: Start: 12-30-2021 X-ray of right knee Ser vices [facility] [employer] Work Phone: Start: 02-05-2021 End: 02-05-2021 Smr prim src wet mount nfct agt Gee Mcmahon MD Work Phone: Start: 02-05-2021 Comprehensive metabo lic panel Gee Mcmahon MD Work Phone: Start: 11-23-2020 Mri spinal canal lum bar w/o contrast material [facility] Michael Oakley Work Phone: Start: 11-01-2020 Radex spine lumbosac ral 2/3 views Rui To PA-C Work Phone: Start: 02-19-2020 Radiologic examinati on neck soft tissue SPASIC E Start: 02-19-2020 Radiologic examinati on neck soft tissue Selina A Gab Work Phone: Start: 12-20-2019 Radiologic examinati on ankle 2 views Spasic Michael E Work Phone: Start: 12-20-2019 Radex foot complete minimum 3 views Spasic Michael E Work Phone: Start: 06-17-2019 End: 06-17-2019 Ct maxillofacial w/o contrast material [facility] Michael E Work Phone: Start: 05-20-2019 Comprehensive metabo lic panel Spasic Michael E Work Phone: Start: 04-03-2019 Mri spinal canal lum bar w/o contrast material [facility] Michael E Start: 01-15-2019 Radiologic examinati on neck soft tissue Selina A Gab Work Phone: Start: 01-15-2019 Iaadiadoo streptococ cus group a Selina A Gab Work Phone: Plan of Treatment Date Care Activity Detail Author Start: 04-14-2025 Diabetes Screening Diabetes Screenin g [facility] Start: 02-23-2023 [facility] Start: 02-03-2023 Influenza vaccination Influenza Vacc ine (#1) [facility] Start: 06-05-2022 Depression Assessment Depression Ass essment [facility] Start: 2022 Cologuard (FIT-DNA) Cologuard (FIT-D NA) [facility] Start: 2022 Colonoscopy Colonoscopy [facility] Start: 2022 Colorectal Cancer Screening Colorectal Cancer Screening [facility] Start: [address] COLONOGRAPHY [facility] Start: 2022 Diabetes Screening Diabetes Screenin g [facility] Start: 2022 Fecal Occult Blood Fecal Occult Bloo d [facility] Start: 2022 Lipid 1996 panel - S layla or Plasma Lipid Screening [facility] Start: 2022 SIGMOIDOSCOPY SIGMOIDOSCOPY [facility] Start: 02-03-2021 Influenza vaccination [facility] [employer] Phone: Start: 02-04-2020 Influenza vaccination Flu vaccine (# 1) [place] Start: 02-03-2019 Influenza vaccination Flu vaccine (# 1) [place] Start: 11-25-2018 Annual Wellness Visi t (AWV) Annual Wellness Visit (AWV) [place], [place] Start: 2017 Lipid screen Lipid screen [place], [place] Start: 2017 Mammography Mammogram Screening [facility] Start: 08-16-2012 Lipid panel Lipid screen [place] Start: 08-16-2012 Lipid screen Lipid screen [facility] [employer] Phone: Start: 2007 HPV Testing HPV Testing [facility] Start: 1998 Cervical cancer screen Cervical canc er screen [place], [place] Start: 1998 Pap Testing Pap Testing [facility] Start: 1998 Screening for malign ant neoplasm of cervix Cervical cancer screen [place], [place] Start: 1996 DTaP/Tdap/Td vaccine (1 - Tdap) DTaP/Tdap/Td vaccine (1 - Tdap) [place] Start: 1996 Urine microalbumin profile DTaP,Tdap,Td Vaccine (1 - Tdap) [facility] Start: 1995 Hepatitis C Screening Hepatitis C [facility] Start: 1995 HIV Screening HIV Screening [facility] Start: 1992 HIV screen HIV screen [place], [place] Start: 1992 HIV screening HIV screen [place], [place] Start: 1989 COVID-19 Vaccine (1) COVID-19 Vaccin e (1) [facility] [employer] Phone: Start: 1988 DTaP/Tdap/Td vaccine (1 - Tdap) DTaP/Tdap/Td vaccine (1 - Tdap) [employer] Phone: Start: 1987 A1C test (Diabetic o r Prediabetic) A1C test (Diabetic or Prediabetic) [place], [place] Start: 1987 HbA1c (Bld) [Mass fraction] A1C test (Diabetic or Prediabetic) [place], [place] Start: 1987 Hemoglobin A1c measurement A[facility]C test (Diabetic or Prediabetic) [facility] Start: 1983 Pneumococcal 0-64 ye ars Vaccine (1 of 1 - PPSV23) Pneumococcal 0-64 years Vaccine (1 of 1 - PPSV23) [place] Start: 1983 Pneumococcal 0-64 ye ars Vaccine (1 of 2 - PPSV23) Pneumococcal 0-64 years Vaccine (1 of 2 - PPSV23) [facility] Start: 1983 Pneumococcal vaccination Pneum ococcal Vaccine (1 - PCV) [facility] Start: 1977 Covid-19 Vaccine (#1) Covid-19 Vacci ne (#1) [facility] Start: 1977 Hepatitis B Vaccine (1 of 3 - 3-dose series) Hepatitis B Vaccine (1 of 3 - 3-dose series) [facility] Start: 1977 Hepatitis C screening Hepatitis C sc jossietika [employer] Phone: End: 05-20-2019 Xtirt-3-Jdxuknlzsla w Phenotype Hkewy-1-Mgsxbqtyqin w Phenotype Lab Routine Once for 1 Occurrences starting 05/20/2019 until 05/20/2019 [employer] Phone: Comment on above: Once for 1 Occurrenc es starting 05/20/2019 until 05/20/2019 Afjbn-3-Rwkpdivyenn w Phenotype Uuuas-6-Mrmhdxipohz w Phenotype Lab Routine 05/20/2019 12:57 PM EST [employer] Phone: End: 02-05-2021 C.trachomatis N.gonorrhoeae DNA, Urine C.trachomatis N.gonorrhoeae DNA, Urine Microbiology Routine One Time for 1 Occurrences starting 02/05/2021 until 02/05/2021 [facility] Work Phone: Comment on above: One Time for 1 Occur rences starting 02/05/2021 until 02/05/2021 C.trachomatis N.gonorrhoeae DNA, Urine C.trachomatis N.gonorrhoeae DNA, Urine Microbiology STAT 02/05/2021 10:49 PM EDT [facility] Work Phone: End: 12-20-2019 Covid-19 Ambulatory Covid-19 Ambulatory Lab Routine Once for 1 Occurrences starting 12/20/2019 until 12/20/2019 [facility], [place] Comment on above: Once for 1 Occurrenc es starting 12/20/2019 until 12/20/2019 Covid-19 Ambulatory Covid-19 Amb ulatory Lab Routine 12/20/2019 1:39 PM EDT [place], [place] Drugs identified in [facility] Work Phone: Drugs identified in [facility] Drugs identified in [facility] Drugs identified in [facility] End: 04-22-2024 MRI HIP WO IVCON RIGHT MRI HIP WO IVCON RIGHT Radiology STAT Pain of right hip 1 Occurrences starting 03/24/2023 until 04/22/2024 [facility] Work Phone: Comment on above: 1 Occurrences starti ng 03/24/2023 until 04/22/2024 End: 03-28-2024 Radex spine lumbosacral 2/3 views XR LUMBAR GENERAL 3V AP/LAT/L5-S1 Radiology Routine Radiculopathy, lumbosacral region 1 Occurrences starting 02/27/2023 until 03/28/2024 [facility] Work Phone: Comment on above: 1 Occurrences starti ng 02/27/2023 until 03/28/2024 End: 05-20-2019 Vitamin D 25 Hydroxy Vitamin D 25 Hydroxy Lab Routine Once for 1 Occurrences starting 05/20/2019 until 05/20/2019 [facility] Work Phone: Comment on above: Once for 1 Occurrenc es starting 05/20/2019 until 05/20/2019 Vitamin D 25 Hydroxy Vitamin D 2 5 Hydroxy Lab Routine 05/20/2019 12:57 PM EST [facility] Work Phone: End: 03-28-2024 XR HIP GENERAL 3V PELV/AP/LAT RIGHT XR HIP GENERAL 3V PELV/AP/LAT RIGHT Radiology Routine Pain 1 Occurrences starting 02/27/2023 until 03/28/2024 [facility] Work Phone: Comment on above: 1 Occurrences starti ng 02/27/2023 until 03/28/2024 End: 05-20-2019 Zinc Zinc Lab Routine Once for 1 Occurrences starting 05/20/2019 until 05/20/2019 [facility] Work Phone: Comment on above: Once for 1 Occurrenc es starting 05/20/2019 until 05/20/2019 Zinc Zinc Lab Routine 05/20/2019 12:57 PM EST [facility] Work Phone: [facility] Immunizations Immunization Date Immunization Notes Care Provider [facility] 03-27-2017 influenza, injectabl e, quadrivalent, preservative free Frank Frank DO Work Phone: [facility] 03-27-2017 influenza virus vacc ine, unspecified formulation Frank Frank DO Work Phone: [facility] Payers Date Payer Category Payer Self-pay [id number] 2021 Medicare UHC MEDICARE UHC DUAL COMPLETE HMO POS SNP [id number] 2021-Present [phone] [address] [place] [address] Medicare [id number] 2020 Medicare [id number] 2017 Medicare [id number] 2015 Medicaid MEDICAID [facility] DEPT OF JOB xxxxxxxxxxxx 2015-Present [phone] [address] [place] [address] xxxxxxxxxxxx [id number] 2015 Medicaid MEDICAID [facility] DEPT OF JOB [id number] 2015-Present [phone] [address] [place] [address] [id number] 2015 Medicare MEDICARE MEDICAR E PART A AND B xxxxxxxxxx 2015-Present [phone] [place] [address] xxxxxxxxxx [id number] 2015 Medicare MEDICARE MEDICAR E PART A AND B xxxxxxxxxxx 2015-Present [phone] [place] [address] xxxxxxxxxxx [id number] 2015 Medicare MEDICARE MEDICAR E PART A AND B [id number] 2015-Present [phone] [place] [address] [id number] .[id number] 2015 Medicare [id number] [id number] .[id number] 2014 Medicaid [id number] .[id number] 2014 Medicaid MEDICAID [facility] MEDICAID [id number] 2014-Present [phone] [address] [place] [address] Medicaid [id number] .[id number] 1977 Unknown [id number] 1977 Unknown [id number] 2.16.840.1.286360.3.579.2.173 1977 Unknown [id number] 2.16.840.1.850250.3.579.2.173 1977 Unknown [id number] 2.16.840.1.569034.3.579.2.173 1977 Unknown [id number] 2.16.840.1.186866.3.579.2.173 1977 Unknown [id number] 2.16.840.1.773472.3.579.2.732 1977 Unknown [id number] 2.16.840.1.042156.3.579.2.593 1977 Unknown [id number] 2.16.840.1.786932.3.579.2.593 1977 Unknown [id number] 2.16.840.1.093651.3.579.2.593 Medicare [id number] [id number] Unknown [id number] 2.16.840.1.125128.3.579.2.531 Unknown [id number] 2.16.840.1.273232.3.579.2.531 Unknown [id number] 2.16.840.1.473022.3.579.2.531 Unknown [id number] 2.16.840.1.133056.3.579.2.531 Unknown [id number] 2.16.840.1.705642.3.579.2.531 Unknown [id number] Social History Date Type Detail Facility Start: 01-10-2019 End: 02-20-2023 Tobacco smoking status PAIS Current every day smoker [facility] Work Phone: Start: 01-10-2019 End: 03-24-2023 Cigarettes smoked current (pack per day) - Reported [facility] Start: 01-10-2019 End: 03-24-2023 Alcohol intake No [facility] Start: 1975 Sex Assigned At Not on file [facility] Start: 06-11-2019 End: 02-06-2021 Tobacco use and exposure Never used [facility] Start: 06-11-2019 End: 02-20-2023 Alcohol intake Current non-drinker of alcohol (finding) [facility] Work Phone: Exposure to SARS-CoV -2 (event) Yes [facility] Exposure to SARS-CoV -2 (event) Not sure [facility] Start: 11-29-2018 End: 11-29-2018 Tobacco smoking status NHIS Smoker (finding) [facility] Start: 1975 Sex Assigned At Female F [facility] History of tobacco use Cigarette Smoker [facility] [place] Work Phone: Start: 03-27-2017 End: 02-20-2023 Tobacco use and exposure User of smokeless tobacco [facility] Work Phone: National Score (1-10 0), lower number is lower risk 72 [facility] Medical Equipment Procedure Code Equipment Code Equipment Origin al Text Equipment Identifier Dates Sut Anchr 1.8m Q-Fx All Sut - [id number] Start: 08-04-2014 Comment on above: Description: Q-FIX I MPLANT Clinical Notes 10-03-2014 to 05-03-2023 Telephone Encounter - Gisele Ernst - 05/03/2023 8:44 AM ESTTelephone Encounter - Marta Issa - 04/28/2023 9:09 AM ESTTelephone Encounter - Clementina Silver LPN - 04/25/2023 2:31 PM EST Note Date & Type Note Facility 05-03-2023 Miscellaneous Notes Formattin g of this note might be different from the original. Attempted to contact patient to schedule an US Hip Injection with Dr. Espinosa. Left voicemail with my direct phone number. documented in this encounter [facility] 05-02-2023 Note HNO ID: [id number] Author: Salma Gamino PA-C Service: ? Author Type: Physician Applied Mathematician Type: Progress Notes Filed: 05/12/2023 9:39 AM Note Text: AMBULATORY TELEPHONE VISIT Roseann Garrido has consented to this telephone encounter. Persons Present: patient Chief Complaint/Reason: Recheck of right hip and discussion of MRI findings. HPI: She reports that she is having continued discomfort at the anterior hip as well as some discomfort posteriorly. Denies any real catching sensation presently. Denies any pain complaints on the left. Denies any numbness or tingling. Data Reviewed: MRI of the right hip done 04/13/2023 was personally interpreted and has been reviewed with Dr. Stark's team who has treated her labral tear in the past and reviewed with the patient today. It shows post operative changes of the anterior labrum with labral repair and possible labral degeneration at the superior labrum. Also shows insertional tendinitis of the gluteal tendon on both hips. Assessment: (S73.191A) Tear of right acetabular labrum, initial encounter (primary encounter diagnosis) (G57.01) Piriformis syndrome of right side Plan: We discussed that her MRI does not show definitive retear of the labrum and her symptoms are vague enough that the should consider possible cortisone injection intra-articularly at this point to see if we can relieve the pain. This was recommended by 's team as well. If her symptoms persist after this then we will refer her back to Dr. Stark. She agrees with this plan. Will arrange for intra-articular injection under ultrasound guidance with Dr. Espinosa. Total Time Spent: 9 minutes Salma Gamino PA-C [facility] 04-28-2023 Miscellaneous Notes Formattin g of this note might be different from the original. Right Piriformis injection ROSEANN GARRIDO [id number] [facility] 05/19 -thinners -DM Patient was made aware that the [facility] will call the day prior to scheduled procedure between the hours of 12 and 4 pm to advise patient of arrival time the day of procedure. Patient was advised that they will require a cart driver on the day of their procedure, and procedure will be cancelled if they arrive without a responsible adult to transport them home from the procedure. Patient advised that all medication management instructions prior to procedure will need addressed by clinical staff. Patient expresses understanding with no further questions or concerns at this time. Patient transferred to [facility] scheduling line to authorize [facility], [facility]. Please assist with scheduling the below injection: Right Piriformis injection -DM -thinners documented in this encounter [facility] 04-13-2023 Note HNO ID: [id number] Author: Rosie Steward RT(R) Service: Radiology Author Type: Technologist Type: Progress Notes Filed: 04/13/2023 7:48 AM Note Text: Summary: mri Radiology Service Progress Note PATIENT NAME: Roseann Garrido DATE OF SERVICE: April 13, 2023 TIME: 7:47 AM PATIENT IDENTITY VERIFICATION COMPLETED USING TWO (2) IDENTIFIERS: Name and Date of confirmed by patient verbally and Name and Date of confirmed by identification band. FALL SCREENING: Has the patient had 2 falls in the last year or 1 fall with injury or currently using an Ambulatory Assistive Device (Walker, Cane, Wheelchair, Crutches, etc.)? No PATIENT GENDER DATA: Female. status: : No status: NO. PATIENT RELEVANT IMPLANT DATA REVIEWED: Yes RADIOLOGY DEPARTMENT: MR; Exam(s) Completed: Lower MSK: Hip, right PERIPHERAL IV DATA: Not applicable SIGNED BY: Rosie Steward RT(R) April 13, 2023 7:47 AM [facility] 04-11-2023 Evaluation note Encounter Date Diagnosis Assessment Notes Apr, Contact with and (suspected) exposure to covid-19 (ICD-10 - Z20.822) Apr, Viral URI with cough (ICD-10 - J06.9) Advised patient that COVID PCR test was negative today. Advised patient that will treat as viral URI. Supportive care as directed, increase fluids and rest, Tylenol/Motrin as directed, rx of Capmist and Flonase as directed. cool mist humidifier, throat lozenges. Use albuterol inhaler as directed as needed. Discussed infection control practices such as good hand washing and mask wearing. Patient to follow up with PCP if symptoms persist or worsen despite treatment. Immediate eval for SOB, difficulty breathing, chest pain, fevers that do not break with antipyretic or any other concerning symptoms as reviewed on patient education handout. Patient verbalizes understanding and is agreeable to treatment plan. Patient left in stable condition [facility] Other 10-20-2023 NoteHNO ID: [id number] Author: Salma Gamino PA-C Service: ? Author Type: Physician Applied Mathematician Type: Progress Notes Filed: 03/30/2023 5:55 PM Note Text: SERVICE DATE: March 24, 2023 PCP: No primary care provider on file. Consult requested by Kulwinder Atkinson DO for an opinion regarding chief complaint as stated below. My final impression and recommendations will be communicated back to the requesting physician by way of the shared medical record or letter via US mail. Subjective Patient ID: Roseann is a 47 year old female. Chief Complaint: Patient presents with: Right Hip - New, Pain Left Hip - New, Pain PAIN EVALUATION 03/24/2023 1500 Pain Level: 7 Pain Location: -- hips Description: Aching;Spasm;Sharp swelling Duration Units: Days Frequency: Continuous Intervention/Comfort measure: Heat;Medication;Exercise pain patches, PT Patient is a 47-year-old 5 foot 4 inch 192 pound female who is here with complaints of right hip pain which has been going on for about a year. She notes that it feels like a knot or ball in the buttock when she sits him for the past couple of days has been quite intense. She notes that is better with walking and worse with sitting and cannot find a comfortable position. She saw Dr. Marie who has been treating her for her back bulging disks who feels that it is piriformis syndrome and sent her for physical therapy. She has had 5 sessions and feels that it is making things worse rather than better. Has been using pain patches and heat and taking occasional Percocet. Now beginning to have achiness and spasms in her left hip from compensating. Pain level on the right is 6-7/10 and can be sharp at times. Pain is primarily at the anterior and posterior hip. Denies numbness or tingling. Denies radicular symptoms down the leg. She has a history of ulcers and cannot tolerate oral NSAIDs. She had a right hip arthroscopy done by Dr. Stark in 2014 for a labral tear. Did well after this. TREATMENTS PRIOR TO INITIAL CONSULT: Right Physical Therapy Right Physical Therapy - Patient Unable to Tolerate Right right hip arthroscopy surgery; Date: 2014 Review of Systems Constitutional: Negative for fever. HENT: Negative for congestion. Respiratory: Negative for cough and shortness of breath. Cardiovascular: History of mitral valve prolapse Gastrointestinal: History of gastritis and ulcers Endocrine: Diet-controlled diabetic Skin: Negative for color change and rash. Neurological: Negative for numbness. History of seizures Musculoskeletal: Negative for joint swelling. All other systems reviewed and are negative. ACTIVE PROBLEM LIST Other Disorders of The Pituitary and Other Syndromes of Diencephalohypophyseal Origin Epilepsy (Hcc) Piriformis Syndrome of Right Side Radiculopathy, Lumbosacral Region Psoas Tendinitis of Right Side Tear of Right Acetabular Labrum PAST MEDICAL HISTORY Diagnosis Date Anxiety Panic disorder PAST SURGICAL HISTORY Procedure Laterality Date CHOLECYSTECTOMY HIP SURGERY HX 2015 HYSTERECTOMY 2007 FAMILY HISTORY Problem Relation Age of Onset Seizures Father other (parkinsons) Father Seizures Brother Social History Tobacco Use Smoking status: Every Day Packs/day: 1 Types: Cigarettes Smokeless tobacco: Current Substance Use Topics Alcohol use: No Drug use: No ALLERGIES Allergen Reactions Baclofen (Bulk) Hives Ciprofloxacin Other: See Comments seizures Dilantin [Phenytoin] Other: See Comments Aches and pain MEDICATIONS: HYDROcodone-acetaminophen (NORCO) 5-325 mg per tablet Take 1 tablet by mouth every 8 hours as needed for pain. esomeprazole (NEXIUM) 20 mg capsule Take 20 mg by mouth DAILY ([address] (PROTONIX) 40 mg tablet Take 40 mg by mouth once daily. oxybutynin (DITROPAN) 5 mg tablet Take 5 mg by mouth three times daily. lidocaine (LIDODERM) 5 % Apply 1 Patch as directed every 24 hours. COMPOUNDED PRESCRIPTION Wheeled Walker Dx: gait and balance impairment gabapentin (NEURONTIN) 600 mg tablet Take 800 mg by mouth once daily. ibuprofen (MOTRIN) 600 mg tablet Take 1 tablet by mouth every 8 hours as needed (for pain and inflammation. Take as prescribed for 10-14 days then as needed). Allergies, medications, past surgical history, family history and past medical history were reviewed per this encounter. Objective Right Hip Exam Tenderness The patient is experiencing tenderness in the anterior and posterior (Tenderness at the psoas and anterior hip capsule as well as at the piriformis). Range of Motion Abduction: 40 Adduction: 30 Extension: 0 Flexion: 110 (Anterior hip discomfort at extreme) External rotation: 70 Internal rotation: 30 (Tightness at extreme) Muscle Strength Right hip normal muscle strength: Has pain with active hip flexion against resistance. Abduction: 5/5 Adduction: 5/5 Flexion: 5/5 Tests (more content not included)...[facility]10-[facility]-2023 NoteHNO ID: [id number] Author: Ana M Rey RT(R) Service: ? Author Type: Technologist Type: Progress Notes Filed: 03/24/2023 2:35 PM Note Text: Radiology Service Progress Note PATIENT NAME: Roseann Garrido DATE OF SERVICE: March 24, 2023 TIME: 2:34 PM PATIENT IDENTITY VERIFICATION COMPLETED USING TWO (2) IDENTIFIERS: Name and Date of confirmed by patient verbally. FALL SCREENING: Has the patient had 2 falls in the last year or 1 fall with injury or currently using an Ambulatory Assistive Device (Walker, Cane, Wheelchair, Crutches, etc.)? No PATIENT GENDER DATA: Female. status: : No status: NO. PATIENT RELEVANT IMPLANT DATA REVIEWED: Yes RADIOLOGY DEPARTMENT: General X-ray: Exam(s) Completed: Pelvis X-Ray: Pelvis with Hip Right PERIPHERAL IV DATA: Not applicable SIGNED BY: RT Jaciel(R) March 24, 2023 2:34 [facility]10-20-2023 History of Present illness Narrative* Salma Gamino PA-C - 03/24/2023 3:46 PM EDT Images from the original note were not included. SERVICE DATE: March 24, 2023 PCP: No primary care provider on file. Consult requested by Kulwinder Atkinson DO for an opinion regarding chief complaint as stated below. My final impression and recommendations will be communicated back to the requesting physician by way of the shared medical record or letter via US mail. Subjective Patient ID: Roseann is a 47 year old female. Chief Complaint: Patient presents with: Right Hip - New, Pain Left Hip - New, Pain PAIN EVALUATION 03/24/2023 1500 Pain Level: 7 Pain Location: -- hips Description: Aching;Spasm;Sharp swelling Duration Units: Days Frequency: Continuous Intervention/Comfort measure: Heat;Medication;Exercise pain patches, PT Patient is a 47-year-old 5 foot 4 inch 192 pound female who is here with complaints of right hip pain which has been going on for about a year. She notes that it feels like a knot or ball in the buttock when she sits him for the past couple of days has been quite intense. She notes that is better with walking and worse with sitting and cannot find a comfortable position. She saw Dr. Marie who has been treating her for her back bulging disks who feels that it is piriformis syndrome and sent herfor physical therapy. She has had 5 sessions and feels that it is making things worse rather than better. Has been using pain patches and heat and taking occasional Percocet. Now beginning to have achiness and spasms in her left hip from compensating. Pain level on the right is 6-7/10 and can be sharp at times. Pain is primarily at the anterior and posterior hip. Denies numbness or tingling. Denies radicular symptoms down the leg. She has a history of ulcers and cannot tolerate oral NSAIDs. Shehad a right hip arthroscopy done by Dr. Stark in 2014 for a labral tear. Did well after this. TREATMENTS PRIOR TO INITIAL CONSULT: Right Physical Therapy Right Physical Therapy - Patient Unable to Tolerate Right right hip arthroscopy surgery; Date: 2014 Review of Systems Constitutional: Negative for fever. HENT: Negative for congestion. Respiratory: Negative for cough and shortness of breath. Cardiovascular: History of mitral valve prolapse Gastrointestinal: History of gastritis and ulcers Endocrine: Diet-controlled diabetic Skin: Negative for color change and rash. Neurological: Negative for numbness. History of seizures Musculoskeletal: Negative for joint swelling. All other systems reviewed and are negative. ACTIVE PROBLEM LIST Other Disorders of The Pituitary and Other Syndromes of Diencephalohypophyseal Origin Epilepsy (Hcc) Piriformis Syndrome of Right Side Radiculopathy, Lumbosacral Region Psoas Tendinitis of Right Side Tear of Right Acetabular Labrum PAST MEDICAL HISTORY Diagnosis Date Anxiety Panic disorder PAST SURGICAL HISTORY Procedure Laterality Date CHOLECYSTECTOMY HIP SURGERY HX 2015 HYSTERECTOMY 2006 FAMILY HISTORY Problem Relation Age of Onset Seizures Father other (parkinsons) Father Seizures Brother Social History Tobacco Use Smoking status: Every Day Packs/day: 1 Types: Cigarettes Smokeless tobacco: Current Substance Use Topics Alcohol use: No Drug use: No ALLERGIES Allergen Reactions Baclofen (Bulk) Hives Ciprofloxacin Other: See Comments seizures Dilantin [Phenytoin] Other: See Comments Aches and pain MEDICATIONS: HYDROcodone-acetaminophen (NORCO) 5-325 mg per tablet Take 1 tablet by mouth every 8 hours as needed for pain. esomeprazole (NEXIUM) 20 mg capsule Take 20 mg by mouth DAILY ([address] (PROTONIX) 40 mg tablet Take 40 mg by mouth once daily. oxybutynin (DITROPAN) 5 mg tablet Take 5 mg by mouth three times daily. lidocaine (LIDODERM) 5 % Apply 1 Patch as directed every 24 hours. COMPOUNDED PRESCRIPTION Wheeled Walker Dx: gait and balance impairment gabapentin (NEURONTIN) 600 mg tablet Take 800 mg by mouth once daily. ibuprofen (MOTRIN) 600 mg tablet Take 1 tablet by mouth every 8 hours as needed (for pain and inflammation. Take as prescribed for 10-14 days then as needed). Allergies, medications, past surgical history, family history and past medical history were reviewed per this encounter. Objective Right Hip Exam Tenderness The patient is experiencing tenderness in the anterior and posterior (Tenderness at the psoas and anterior hip capsule as well as at the piriformis). Range of Motion Abduction: 40 Adduction: 30 Extension: 0 Flexion: 110 (Anterior hip discomfort at extreme) External rotation: 70 Internal rotation: 30 (Tightness at extreme) Muscle Strength Right hip normal muscle strength: Has pain with active hip flexion against resistance. Abduction: 5/5 Adduction: 5/5 Flexion: 5/5 Tests KRISTINE: positive Other Erythema: absent Sensation: normal Pulse: present Comments: Pain in the groin with grind testing Left Hip Exam Left hip exam is normal. RADIOGRAPHS: X-rays of the right hip taken today were personally interpreted and reviewed with the patient and show minimal degenerative changes but good maintenance of joint space. Assessment/Plan ASSESSMENT Diagnosis (M76.11) Psoas tendinitis of right side (primary encounter diagnosis) (S73.191A) Tear of right acetabular labrum, initial encounter (G57.01) Piriformis syndrome of right side (M25.551) Pain of right hip Plan: MRI HIP WO IVCON RIGHT Office Visit on 03/24/23 MRI HIP WO IVCON RIGHT PLAN We discussed that she has piriformis irritation and at the very least has psoas tendinitis on the right but do have concern for retear of her acetabular labrum. We will obtain an MRI to further evaluate this. In the meantime she will continue physical therapy doing only activities that do not irritate the hip. Once we obtain the MRI I will call her with the results. In the meantime she will pay attention to where most of her symptoms lie. I discussed the possibility of an intra-articular hip injection versus a psoas bursitis injection versus possibly a follow-up with Dr. Garcia for a labral tear once again. She agrees with this plan. FOLLOW-UP: Return for after MRI, Telephone Follow Up. SIGNATURE: Salma Gamino PA-C PATIENT NAME: Roseann Garrido DATE: March 24, 2023 TIME: 3:51 PM [facility] History of Present illness Narrative* Ana M Rey RT(R) - 03/24/2023 2:34 PM EDT Radiology Service Progress Note PATIENT NAME: Roseann Garrido DATE OF SERVICE: March 24, 2023 TIME: 2:34 PM PATIENT IDENTITY VERIFICATION COMPLETED USING TWO (2) IDENTIFIERS: Name and Date of confirmedby patient verbally. FALL SCREENING: Has the patient had 2 falls in the last year or 1 fall with injury or currently using an Ambulatory Assistive Device (Walker, Cane, Wheelchair, Crutches, etc.)? No PATIENT GENDER DATA: Female. status: : No status: NO. PATIENT RELEVANT IMPLANT DATA REVIEWED: Yes RADIOLOGY DEPARTMENT: General X-ray: Exam(s) Completed: Pelvis X-Ray: Pelvis with Hip Right PERIPHERAL IV DATA: Not applicable SIGNED BY: RT Jaciel(R) March 24, 2023 2:34 PM [facility] Miscellaneous Notes* Telephone Encounter - Ivette Garcia - 02/27/2023 12:09 PM EDT Called patient in an attempt to get her scheduled for Xray and Physical Therapy. Patient expressed that she lives in [place] and requested that orders be faxed to [facility]. She would like tocomplete both Physical Therapy and Xray closed to home. PSS explained to patient that she would have to make sure that she asks for a disc after she gets the XRay and she would have to make sure that [facility] sends results to Dr. Marie. Patient aware that MRI would not be covered unless there is documentation of conservative therapiesfirst. Patient aware and will get disc and have [facility] to fax all results to Dr. Marie. PSS will fax orders to [facility]. * Telephone Encounter - Mulu Aquino LPN - 02/24/2023 11:16 AM EDT Please assist pt with scheduling PT, Lumbar Xray & follow up appt(8 weeks) PLAN: 1) Xray of lumbar spine 2) Right Piriformis injection 3) Physical therapy, consider MRI lumbar spine. 3) RTC in 8 weeks for F/U. * Telephone Encounter - Clementina Silver LPN - 02/23/2023 10:43 AM EDT Message left for patient to return call regarding her message below. Chart will be sent back over for xray order to be put in. Patient can still schedule Right Piriformis injection. Insurance will not pay for MRI until patient has completed conservative therapies (PT)first. Order for physical therapy in system can schedule. PLAN: Dr. Marie 02/20/23 1) Xray of lumbar spine 2) Right Piriformis injection 3) Physical therapy, consider MRI lumbar spine. 3) RTC in 8 weeks for F/U. * Telephone Encounter - Marta Issa - 02/22/2023 5:02 PM EDT Spoke to patient. She states that she is supposed to get updated imaging. A CT and Xray of her hip and MRI of the spine. I do not see any orders placed. Please advise and send to scheduling to contact patient for those as soon as possible. Right Piriformis muscle steroid injection ROSEANN GARRIDO [id number] FRANK -THINNERS -DM Patient prefers to have imaging done prior to injection. [facility] NoteHNO ID: [id number] Author: Frank Marie, DO Service: ? Author Type: Physician Type: Progress Notes Filed: 02/20/2023 3:40 PM Note Text: [facility] Initial Evaluation February 20, 2023 This appointment was requested by Michael Moreno CNP, for my medical opinion regarding the evaluation and management of the patient's Roseann Garrido problems, and my final recommendations will be communicated to the requesting health care provider by way of the shared medical record for internal providers or letter via the [employer] for external providers. SUBJECTIVE: Roseann Garrido a 47 year old [facility] to [facility], accompanied by daughter, was referred by Michael Moreno CNP, for an initial evaluation for low back. The pain is located in the low back and radiates into the right hip area and around to the front of the hip Distribution: right hip area is greater in pain Started years ago, She states she feels a hard lump in the lower right buttocks area and has difficulty sitting. Patient has to put her weight to her left hip. , and symptoms have been persistent. Characterized as burning and dull Currently the pain is a rated at a 8 on a scale of 0-10. Worst pain score is rated at 10 on a scale of 0-10. Best pain score is rated at 5 on a scale of 0-10. Aggravated by sitting and walking. Mitigated by standing. Current treatments and response: Perley PRN - helps only 4 hrs Gabapentin 800 mg- once daily- Lidocaine Patch- some relief Response to previous treatments: Cortizone injection in [place] - no relief PT- yrs ago - no relief Alcohol Abuse - No Drug Abuse - No Current Anticoagulant Therapy: No Sleep Disturbance: Yes: Difficulty staying asleep. PAST MEDICAL HISTORY Diagnosis Date Anxiety Panic disorder PAST SURGICAL HISTORY Procedure Laterality Date CHOLECYSTECTOMY HIP SURGERY HX 2015 HYSTERECTOMY 2007 Social History Tobacco Use Smoking status: Every Day Packs/day: 1 Types: Cigarettes Smokeless tobacco: Current Substance Use Topics Alcohol use: No Drug use: No FAMILY HISTORY Problem Relation Age of Onset Seizures Father other (parkinsons) Father Seizures Brother ALLERGIES Allergen Reactions Baclofen (Bulk) Hives Ciprofloxacin Other: See Comments seizures Dilantin [Phenytoin] Other: See Comments Aches and pain Current Outpatient Medications Medication Sig HYDROcodone-acetaminophen (NORCO) 5-325 mg per tablet Take 1 tablet by mouth every 8 hours as needed for pain. esomeprazole (NEXIUM) 20 mg capsule Take 20 mg by mouth DAILY ([address] (PROTONIX) 40 mg tablet Take 40 mg by mouth once daily. oxybutynin (DITROPAN) 5 mg tablet Take 5 mg by mouth three times daily. COMPOUNDED PRESCRIPTION Wheeled Walker Dx: gait and balance impairment gabapentin (NEURONTIN) 600 mg tablet Take 800 mg by mouth once daily. ibuprofen (MOTRIN) 600 mg tablet Take 1 tablet by mouth every 8 hours as needed (for pain and inflammation. Take as prescribed for 10-14 days then as needed). No current facility-administered medications for this visit. Review of Symptoms: GENERAL:No weight loss, malaise or fevers., SEE HPI HEENT:Negative for frequent or significant headaches, No changes in hearing or vision, no nose bleeds or other nasal problems NECK:Negative for lumps, goiter, pain and significant neck swelling RESPIRATORY: Negative for cough, wheezing or shortness of breath. CARDIOVASCULAR: Negative for chest pain, leg swelling and palpitations GASTROINTESTINAL: Negative for abdominal discomfort, blood in stools or black stools or change in bowel habits GENITOURINARY: No history of dysuria, frequency or incontinence SOFTWARE LEAD: Negative for abnormal vaginal bleeding, abnormal vaginal discharge MUSCULOSKELETAL:low back NEUROLOGIC:Negative for focal numbness or weakness, headaches and dizziness or syncope. SKIN:Negative for lesions, rash, and itching. PSYCHIATRIC: Negative for sleep disturbance, mood disorder and recent psychosocial stressors. HEMATOLOGIC/LYMPHATIC/IMMUNOLOGIC:Negative for prolonged bleeding, bruising easily or swollen nodes. ENDOCRINE: Negative for cold or heat intolerance, polyuria, polydipsia and goiter. The remainder of the ROS was negative. PREVIOUS TREATMENTS LASTING SIX WEEKS IN THE LAST SIX MONTHS Active conservative therapy lasting 6 weeks in the last six months (see below) 1. Physical therapy: No 2. Home exercise program after PT: No 3. Occupational therapy: No 4. A physician supervised home exercise program (HEP): No 5. Plant Technician/Control Room Operator: No Passive conservative therapy lasting 6 weeks in the last six months (see below) 1. Medical devises: No 2. Acupuncture: No 3. Tens unit: No 4. Prescription pain medication: Yes 5. NSAIDS: Do you feel safe at home? Yes Risk assessment at risk due to fall:NONE Michelle Sy, (more content not included)...[facility] 11-08-2021 Evaluation note* Encounter Date Diagnosis Assessment Notes Treatment Notes Treatment Clinical Notes Nov, Gastroesophageal reflux disease with esophagitis (ICD-10 - K21.0) Nov, History of peptic ulcer disease (ICD-10 - Z87.11) Nov, Abdominal pain (ICD- 10 - R10.9) STOP DICYCLOMINE START LEVBID BID ABD US RUQ Nov, Weight loss (ICD-10 - R63.4) [facility] Other 07-01-2021 Hospital Discharge instructions* Instructions* Jessica Smith, DO - 12/03/2020 Week medication as prescribed follow-up with your primary care provider return ER for additional concerns. Avoid heavy lifting twisting, or bending over at the waist to lift up objects. Return to ER for numbness, tingling or persistent pain that is not controlled. documented in this encounterQwilr Phone: [phone]) 751-413405-01-2015 History general Narrative - Reported* Type Description Date Medical History Seizures Medical History NCS (neurocardiogenic syncope) Medical History Bipolar Medical History GERD Medical History 10-03-14 EGD and biopsy Medical History 10-03-14 Colonoscopy and biopsy Medical History 10/05/14 abdominal laparoscopy Surgical History Colonoscopy 2013 Surgical History Hysterectomy 2006 Surgical History Benign cyst on neck 1990 Surgical History laparoscopy 2014 Surgical History cholecystectomy Hospitalization History See past surgical hx [facility] Other Evaluation note* Diagnosis Strain of lumbar region, initial encounter- Primary documented in this encounter [facility] Phone: evaluation note* Diagnosis Low back pain, unspecified back pain laterality, unspecified chronicity, unspecified whether sciatica present Accidental fall on or from stairs or steps, initial encounter Radicular syndrome of lower limbs Thoracic or lumbosacral neuritis or radiculitis, unspecified documented in this encounter [facility] Phone: evaluation note* Diagnosis Back spasm- Primary Other symptoms referable to back documented in this encounter [facility] Phone: evaluation note* Diagnosis Trichomonas vaginalis (TV) infection- Primary Vaginal pain Unspecified symptom associated with female genital organs documented in this encounter [facility] Work Phone: [email or web address] note* Diagnosis Right acute serous otitis media, recurrence not specified- Primary documented in this encounter [facility] Phone: evaluation note* Diagnosis Dizziness Dizziness and giddiness documented in this encounter [facility] Work Phone: evaluation note* Diagnosis Right ear pain Otalgia, unspecified documented in this encounter [facility] Work Phone: [email or web address] noteNo [employer] Other Evaluation noteNo assessment information [facility] Work Phone: Evaluation note* Diagnosis Radiculopathy, lumbosacral region- Primary Thoracic or lumbosacral neuritis or radiculitis, unspecified [facility] Diagnosis Pain- Primary Generalized pain [facility]* Diagnosis Psoas tendinitis of right side- Primary Enthesopathy of hip region Tear of right acetabular labrum, initial encounter Piriformis syndrome of right side Lesion of sciatic nerve Pain of right hip [facility]* Diagnosis Piriformis syndrome of right side- Primary Lesion of sciatic nerve Radiculopathy, lumbosacral region Thoracic or lumbosacral neuritis or radiculitis, unspecified Piriformis syndrome of right side Lesion of sciatic nerve Radiculopathy, lumbosacral region Thoracic or lumbosacral neuritis or radiculitis, unspecified [facility]* Attachments The following attachments cannot be sent through Care Everywhere. * Back: Strain (Filipino) documented in this encounterPremier HealthPharmaDiagnostics Phone: Hospital Discharge instructions* Attachments The following attachments cannot be sent through Care Everywhere. * Trichomoniasis (Filipino) documented in this [facility]Prem[facility] Phone: Hospital Discharge instructions* Instructions* Amalia Cochran PA-C - 06/11/2019 Keep your appointment as scheduled for with your ENT. If you go home and exhibit any worsening symptoms before then please return to the ER. Please discuss with your ENT the drops for your ear infection. * Attachments The following attachments cannot be sent through Care Everywhere. * Serous Otitis Media (Filipino) documented in this encounterQwilr Phone: reason for referral (narrative)* Diagnostic Procedure Only (Routine) - Pending Review Specialty Diagnoses / Procedures Referred By Corin clemens Referred To Contact XR IMAGING Diagnoses Radiculopathy, lumbosacral region Procedures XR LUMBAR GENERAL 3V AP/LAT/L5-S1 RADEX SPINE LUMBOSACRAL 2/3 VIEWS Roseann Bryson, L[address]ARD[address] [place] [address] [place] [address] Referral ID Status Reason Start Date Expiration Date Visits Requested Visits Authorized [id number] Pending Review Auto-Generat ed Referral 02/27/2023 03/28/2024 1 1 [facility] Diagnostic Procedure Only (Routine) - Pending Review Specialty Diagnoses / Procedures Referred By Corin clemens Referred To Contact XR IMAGING Diagnoses Pain Procedures XR HIP GENERAL 3V PELV/AP/LAT RIGHT RADEX HIP UNILATERAL WITH PELVIS 2-3 VIEWS Salma Gamino PA-C [address] [place] [address] [place] [address] Referral ID Status Reason Start Date Expiration Date Visits Requested Visits Authorized [id number] Pending Review Auto-Generat ed Referral 02/27/2023 03/28/2024 1 1 [facility] Discharge Instructions * Attachments The following attachments cannot be sent through Care Everywhere. * Pain Post-Surgery: Acute (Filipino) documented in this encounter* Attachments The following attachments cannot be sent through Care Everywhere. * Back Pain (Filipino) * Sciatica (Filipino) documented in this encounter* Instructions* Selina Tyler MD - 02/19/2020 Please take all medications as prescribed. Please follow up with your primary care physician by calling today, or as soon as possible, for thefirst available appointment. If you do not have a primary care physician, please contact a physician or clinic listed below today to establish care. Please return to the emergency department IMMEDIATELY if you develop uncontrolled fevers, uncontrolled vomiting, change in symptoms, worsening of symptoms, or ANY other concerns. * Attachments The following attachments cannot be sent through Care Everywhere. * Sore Throat (Filipino) documented in this encounter* Instructions* Selina Tyler MD - 01/15/2019 Please take all medications as prescribed. Please follow up with your primary care physician by calling today, or as soon as possible, for thefirst available appointment. If you do not have a primary care physician, please contact a physician or clinic listed below today to establish care. Please return to the emergency department IMMEDIATELY if you develop uncontrolled fevers, uncontrolled vomiting, change in symptoms, worsening of symptoms, or ANY other concerns. * Attachments The following attachments cannot be sent through Care Everywhere. * Pain Post-Surgery: Acute (Filipino) documented in this encounter* Attachments The following attachments cannot be sent through Care Everywhere. * Back Pain (Filipino) documented in this encounter Assessments Diagnosis Postoperative pain- Primary Other acute postoperative pain Diagnosis Sciatica of right side- Primary Sciatica Diagnosis Lumbar radiculopathy Thoracic or lumbosacral neuritis or radiculitis, unspecified Diagnosis Injury Injury, other and unspecified, unspecified site Diagnosis Sore throat Acute pharyngitis Diagnosis Post-op pain- Primary Other acute postoperative pain Diagnosis Acute exacerbation of chronic low back pain- Primary Sciatica of right side Sciatica Advance Directives No Advanced Directives Records FoundDocuments on File Type Date Recorded Patient Pluck Trimmer Expl anation Advance Directives and Living Will Power of Quiller Machine Fixer Latest Code Status on File Code Status Date Activated Date Inactivated Comments Full Code 02/21/2016 2:19 AM 02/22/2016 9:12 PM Documents on File Type Date Recorded Patient Pluck Trimmer Expl anation Advance Directives and Living Will Power of Quiller Machine Fixer Latest Code Status on File Code Status Date Activated Date Inactivated Comments Full Code 02/21/2016 2:19 AM 02/22/2016 9:12 PM Documents on File Type Date Recorded Patient Pluck Trimmer Expl anation ACP-Advance Directive ACP-Power of Quiller Machine Fixer Documents on File Type Date Recorded Patient Pluck Trimmer Expl anation ACP-Advance Directive ACP-Power of Quiller Machine Fixer Advance Directive Response Recorded Date/ Time Advance Directives No February 9:12am Advance Directive Response Recorded Date/ Time Advance Directives No February 8:12am Reason for Referral Status Reason Specialty Diagnoses / Procedures Referre d By Contact Referred To Contact Open Radiology Diagnoses Lumbar radiculopathy Procedures MRI LUMBAR SPINE WO CONTRAST E, Spasic Michael Status Reason Specialty Diagnoses / Procedures Referre d By Contact Referred To Contact Closed Radiology Diagnoses Low back pain, unspecified back pain laterality, unspecified chronicity, unspecified whether sciatica present Accidental fall on or from stairs or steps, initial encounter Radicular syndrome of lower limbs Procedures MRI LUMBAR SPINE WO CONTRAST E, Spasic Michael [address] [place] [address] Status Reason Specialty Diagnoses / Procedures Referred By Contact Referred To Contact Pending Review Radiology Diagnoses Dizziness Procedures CT SINUS WO CONTRAST E, Spasic Michael [address] [place] [address] Status Reason Specialty Diagnoses / Procedures Referred By Contact Referred To Contact Pending Review Radiology Diagnoses Right ear pain Procedures CT HEAD WO CONTRAST E, Spasic Michael [address] [place] [address] Specialty Diagnoses / Procedures Referred By Contac t Referred To Contact MR IMAGING Diagnoses Pain of right hip Procedures MRI HIP WO IVCON RIGHT MRI ANY JT LOWER EXTREM W/O CONTRAST MATRSalma Major PA-C [address] [place] [address] [place] [address] Referral ID Status Reason Start Date Expiration Date Visits Requested Visits Authorized [id number] Authorized Auto-Generat ed Referral 3 04/22/2024 1 1 Summary Purpose Family History No Family History Records FoundNo Family History Records FoundNo Family History Records FoundNo Family History Records FoundNo Family History Records FoundNo Family History Records Found Procedure Findings Note Patient: ROSEANN GARRIDO Age: 44 years Sex: Female : 1975 Associated Diagnoses: None Author: Raffaele Spencer MD Postoperative Information Post Operative Note: Post Anesthesia Care Unit. Anesthetic utilized: General. Health Status Allergies: Allergic Reactions (All) Severity Not Documented Dilantin- Made arm swell and cramp bad. Nonallergic Reactions (All) Severity Not Documented Baclofen- Hives. Canceled/Inactive Reactions (All) No Known Allergies Problem list: All Problems Arthritis of spine / SNOMED CT 2828293995 / Confirmed Diabetes / SNOMED CT 424716124 / Confirmed Diabetes mellitus / SNOMED CT 639932426 / Confirmed Plantar fasciitis / SNOMED CT 960186748 / Confirmed Vitamin D deficiency, unspecified / SNOMED CT 11921100 / Confirmed Vitamin B deficiency, unspecified / SNOMED CT 90442985 / Confirmed Anxiety / SNOMED CT 72156788 / Confirmed Smoker 05-DEC-2013 12:37:00<$> / SNOMED CT [id number] / Confirmed Added seconda (more content not included)... Chief Complaint and Reason for Visit Chief Complaint M25.561 M25.559 Chief Complaint M25.561 M25.559 Unexplained weight loss Chief Complaint M89.8X8 R22.2 Chief Complaint M89.8X8 R22.2 Disorientation Chief Complaint M89.8X8 R22.2 R41.0 Chief Complaint M89.8X8 R22.2 R41.0 E78.2 N39.0 Hair loss History of tonsillectomy Chief Complaint R39.89;M25.551 Additional Source Comments Reason for Visit (unrecogniz ed section and content) Reason Comments Post-op Problem patient had nasal luis rgery on Monday. she is having pain without relief. she was seen here yesterday. she was given a rx from her doctor but couldn't get if filled due to cost. Reason Comments Back Pain lower Leg Pain shoots to bilateral buttocks and legs Status Reason Specialty Diagnoses / Procedures Referre d By Contact Referred To Contact Closed Radiology Diagnoses Lumbago with sciatica, right side Procedures HC MRI-SPINE LUMBAR WO CONTRAST E, Spasic Michael [facility] [place] [address] Reason Comments Pharyngitis surgery yesterday, o nset this AM sore throat and feeling of something being stuck in throat Reason Comments Pharyngitis tonsilectomy 01/07/19. patient unable to get relief and reporting it feels like her throat is more swolen Nausea Reason Comments Back Pain ongoing for the past couple of weeks. patient states she has an outpatient mri order but hasnt scheduled it. pain is becoming worse. she was also diagnosed with lupus on monday Reason Comments Back Pain patient woke up with severe back pain. Status Reason Specialty Diagnoses / Procedures Referre d By Contact Referred To Contact Closed Radiology Diagnoses Low back pain, unspecified back pain laterality, unspecified chronicity, unspecified whether sciatica present Accidental fall on or from stairs or steps, initial encounter Radicular syndrome of lower limbs Procedures MRI LUMBAR SPINE WO CONTRAST E, Spasic Michael [address] [place] [address] Reason Comments Back Pain pt states low back p ain when she bent over this evening - pt states she had an MRI last week and has not received the results yet Reason Comments Vaginal Itching complains of vaginal itching and pain, lower abd cramping Abdominal Pain Reason Comments Otalgia right sided, onset x 2 days. Pt states it is now draining Status Reason Specialty Diagnoses / Procedures Referre d By Contact Referred To Contact Closed Radiology Diagnoses Dizziness and giddiness Otalgia, right ear Otitis media, unspecified, unspecified ear Procedures HC CT FACIAL BONES W/O CONTRAST E, Spasic Michael [address] [place] [address] [facility] [address] [facility] [address] [place] [address] Status Reason Specialty Diagnoses / Procedures Referre d By Contact Referred To Contact Closed Radiology Diagnoses Dizziness and giddiness Otalgia, right ear Otitis media, unspecified, unspecified ear Procedures HC CT BRAIN W/O CONTRAST E, Spasic Michael [address] [place] [address] [facility] [address] [place] [address] Reason Comments Erroneous encounter-disregard Reason Comments Schedule Injection Reason Comments Radiology XR Reason Comments New Pain Reason Comments Schedule US Hip Injection INFORMATION SOURCE (unrecogn ized section and content) DATE CREATED AUTHOR 02/22/2020 Giuseppe Toro [facility] DATE CREATED AUTHOR AUTHOR'S ORGANIZ ATION 02/14/2021 [facility] DATE CREATED AUTHOR AUTHOR'S ORGANIZ ATION 04/13/2021 [facility] DATE CREATED AUTHOR AUTHOR'S ORGANIZ ATION 04/23/2022 [facility] DATE CREATED AUTHOR AUTHOR'S ORGANIZ ATION 03/08/2023 [facility] DATE CREATED AUTHOR AUTHOR'S ORGANIZ ATION 05/21/2023 [facility] Ordered Prescriptions (unrec ognized section and content) Prescription Sig Dispensed Refills Start Date End Da te acetaminophen-codeine (TYLENOL/CODEINE #3) 300-30 MG per tabletIndications:Strain of lumbar region, initial encounter Take 1 tablet by mouth every 8 hours as needed for Pain for up to 3 days. Intended supply: 3 days. Take lowest dose possible to manage pain 9 tablet 0 11/01/2020 11/04/2020 cyclobenzaprine (FLEXERIL) 10 MG tablet Take 1 tablet by mouth 2 times daily as needed for Muscle spasms 14 tablet 0 11/01/2020 11/08/2020 predniSONE (DELTASONE) 20 MG tablet Take 2 tablets by mouth daily for 5 days 10 tablet 0 11/01/2020 11/06/2020 acetaminophen-codeine (TYLENOL/CODEINE #3) 300-30 MG per tabletIndications:Strain of lumbar region, initial encounter Take 1 tablet by mouth every 8 hours as needed for Pain for up to 3 days. Intended supply: 3 days. Take lowest dose possible to manage pain 9 tablet 0 11/01/2020 11/01/2020 cyclobenzaprine (FLEXERIL) 10 MG tablet Take 1 tablet by mouth 2 times daily as needed for Muscle spasms 14 tablet 0 11/01/2020 11/01/2020 predniSONE (DELTASONE) 20 MG tablet Take 2 tablets by mouth daily for 5 days 10 tablet 0 11/01/2020 11/01/2020 Prescription Sig Dispensed Refills Start Date End Da te traMADol (ULTRAM) 50 MG tabletIndications:Back spasm Take 1 tablet by mouth every 4 hours as needed for Pain for up to 6 doses. Intended supply: 3 days. Take lowest dose possible to manage pain 6 tablet 0 12/03/2020 12/05/2020 cyclobenzaprine (FLEXERIL) 10 MG tablet Take 1 tablet by mouth 3 times daily as needed for Muscle spasms 21 tablet 0 12/03/2020 12/13/2020 Prescription Sig Dispensed Refills Start Date End Da te metroNIDAZOLE (FLAGYL) 500 MG tablet Take 4 tablets by mouth once for 1 dose 4 tablet 0 02/06/2021 02/06/2021 Scheduled Active and Recently Administ ered Medications (unrecognized section and content) Medication Order 10/30/2020 10/31/2020 11/01/2020 cyclobenzaprine (FLEXERIL) tablet 10 mg (COMPLETED) 10 mg, Oral, ONCE, On 11/01/20 at 1700, For 1 dose 1709 (Given - Provid er: Kayleen Malone RN) dexamethasone (DECADRON) injection 10 mg (COMPLETED) 10 mg, Intramuscular, ONCE, On 11/01/20 at 1700, For 1 dose 170 (Given - Provid er: Kayleen Malone RN) HYDROcodone-acetaminophen (NORCO) 5-325 MG per tablet 2 tablet (COMPLETED) 2 tablet, Oral, ONCE, On 11/01/20 at 1700, For 1 dose, Maximum dose of acetaminophen is 4000 mg from all sources in 24 hours. 1709 (Given - Provid er: Kayleen Malone RN) ondansetron (ZOFRAN-ODT) disintegrating tablet 4 mg (COMPLETED) 4 mg, Oral, ONCE, On 11/01/20 at 1700, For 1 dose 1709 (Given - Provid er: Kayleen Malone RN) Scheduled Medication Order 12/01/2020 12/02/2020 12/03/2020 cyclobenzaprine (FLEXERIL) tablet 10 mg (COMPLETED) 10 mg, Oral, ONCE, On Ros 12/03/20 at 1800, For 1 dose 1800 (Given - Provid er: Sienna Kay RN) fentaNYL (SUBLIMAZE) injection 50 mcg (COMPLETED) 50 mcg, Intravenous, ONCE, On Ros 12/03/20 at 1800, For 1 dose, If oral and IV narcotics ordered, use oral first and only use IV if oral is ineffective or cannot take oral. Do Not give oral and IV within 1 hour of each other unless specifically ordered. 180 (Given - Provid er: Sienna Kay, NATALIO) ketorolac (TORADOL) injection 30 mg (COMPLETED) 30 mg, Intramuscular, ONCE, On Ros 12/03/20 at 1800, For 1 dose, Do not administer for more than 5 days. 1801 (Given - Provid er: Sienna Kay, NATALIO) Scheduled Medication Order 02/04/2021 02/05/2021 02/06/2021 HYDROcodone-acetaminophen (NORCO) 5-325 MG per tablet 1 tablet (COMPLETED) 1 tablet, Oral, ONCE, On 02/05/21 at 2145, For 1 dose, Maximum dose of acetaminophen is 4000 mg from all sources in 24 hours. 2140 (Given - Provider: Nicole Baker RN) metroNIDAZOLE (FLAGYL) tablet 2,000 mg (COMPLETED) 2,000 mg, Oral, ONCE, On 02/06/21 at 0045, For 1 dose 0039 (Given - Provid er: Ruth Rodrigez RN) Care Teams (unrecognized sec tion and content) Team Status: Active Member Role Status [facility] Primary Care Provider Papo snell Team Status: Inactive Member Role Status [facility] Primary Care Provider Papo Moreno SUPERVIS[employer] Attending Provider Active Supervisor [employer] Relationship Specialty Start Date End Date Michael Moreno [address] [place] [address] Referring Family Medicine 12/22/22 Supervisor [employer] Relationship Specialty Start Date End Date Michael Moreno [address] [place] [address] Referring Family Medicine 12/22/22 Kulwinder Atkinson DO [address] [place] [address] Referring Family Medicine 02/23/23 Kulwinder Atkinson DO [address] [place] [address] Referring Family Medicine 02/24/23 Supervisor [employer] Relationship Specialty Start Date End Date Michael Moreno [address] [place] [address] Referring Family Medicine 12/22/22 Kulwinder Atkinson DO [address] [place] [address] Referring Family Medicine 02/23/23 Kulwinder Atkinson DO [address] [place] [address] Referring Family Medicine 02/24/23 Supervisor [employer] Relationship Specialty Start Date End Date Michael Moreno [address] [place] [address] Referring Family Medicine 12/22/22 Kulwinder Atkinson DO [address] [place] [address] Referring Family Medicine 02/23/23 Kulwinder Atkinson DO [address] [place] [address] Referring Family Medicine 02/24/23 Supervisor [employer] Relationship Specialty Start Date End Date Michael Moreno [address] [place] [address] Referring Family Medicine 12/22/22 Kulwinder Atkinson DO [address] [place] [address] Referring Family Medicine 02/23/23 Kulwinder Atkinson DO [address] [place] [address] Referring Family Medicine 02/24/23 Supervisor [employer] Relationship Specialty Start Date End Date Michael Moreno NP [address] [place] [address] Referring Family Medicine 12/22/22 Kulwinder Atkinson DO [address] [place] [address] Referring Family Medicine 02/23/23 Kulwinder Atkinson DO [address] [place] [address] Referring Family Medicine 02/24/23 Supervisor [employer] Relationship Specialty Start Date End Date iMchael Moreno NP [address] [place] [address] Referring Family Medicine 12/22/22 Kulwinder Atkinson DO [address] [place] [address] Referring Family Medicine 02/23/23 Kulwinder Atkinson DO [address] [place] [address] Referring Family Medicine 02/24/23 Goals (unrecognized section and content) Goals may be documented in a n alternate section Source Comments (unrecognize d section and content) In the event this informatio n is protected by the Federal Confidentiality of Alcohol and Drug Abuse Patient Records regulations: The Federal rules restrict any use of the information to criminally investigate or prosecute any alcohol or drug abuse patient.[facility] the event this information is protected by the Federal Confidentiality of Alcohol and Drug Abuse Patient Records regulations: The Federal rules restrict any use of the information to criminally investigate or prosecute any alcohol or drug abuse patient.[facility] the event this information is protected by the Federal Confidentiality of Alcohol and Drug Abuse Patient Records regulations: The Federal rules restrict any use of the information to criminally investigate or prosecute any alcohol or drug abuse patient.[facility] the event this information is protected by the Federal Confidentiality of Alcohol and Drug Abuse Patient Records regulations: The Federal rules restrict any use of the information to criminally investigate or prosecute any alcohol or drug abuse patient.[facility] the event this information is protected by the Federal Confidentiality of Alcohol and Drug Abuse Patient Records regulations: The Federal rules restrict any use of the information to criminally investigate or prosecute any alcohol or drug abuse patient.[facility] the event this information is protected by the Federal Confidentiality of Alcohol and Drug Abuse Patient Records regulations: The Federal rules restrict any use of the information to criminally investigate or prosecute any alcohol or drug abuse patient.[facility] the event this information is protected by the Federal Confidentiality of Alcohol and Drug Abuse Patient Records regulations: The Federal rules restrict any use of the information to criminally investigate or prosecute any alcohol or drug abuse patient.[facility] FOR RECORDS PERTAINING TO PATIENTS WHO ARE OR HAVE BEEN ENROLLED IN A CHEMICAL DEPENDENCY/SUBSTANCEABUSE PROGRAM, SOME INFORMATION MAY BE OMITTED. This clinical summary was aggregated from multiple sources. Caution should be exercised in using it in the provision of clinical care. This summary normalizes information from multiple sources, and as a consequence, information in this document may materially change the coding, format and clinical context of patient data. In addition, data may be omitted in some cases. CLINICAL DECISIONS SHOULD BE BASED ON THE PRIMARY CLINICAL RECORDS. [facility]. provides no warranty or guarantee of the accuracy or completeness of information in this document.
--- NOTE | 2023-05-27 14:43 | ED.GENADUL1 ---
HPI - General Adult General Chief complaint: Extremity Injury, Lower Stated complaint: RIGHT HIP PAIN Time Seen by Provider: 05/27/23 14:22 Source: patient Mode of arrival: walk-in Limitations: no limitations History of Present Illness HPI narrative: 48-year-old female presented to the emergency department for pain in her right groin and hip area. No trauma. She has a history of torn labrum and had an MRI last month. It has been discussion of possible surgery but she wants to go with an injection. No new injury but the pain got much worse today and she ran out of her pain medicine that starts with the letter O. Related Data Home Medications Medication Instructions Recorded Confirmed atorvastatin 80 mg tablet mg 05/27/23 buspirone 15 mg tablet mg 05/27/23 famotidine 20 mg tablet mg 05/27/23 famotidine 40 mg tablet mg 05/27/23 gabapentin 800 mg tablet mg 05/27/23 lidocaine 5 % topical patch patch 05/27/23 loratadine 10 mg tablet mg 05/27/23 meclizine 25 mg tablet mg 05/27/23 oxybutynin chloride 5 mg tablet mg 05/27/23 pantoprazole 40 mg tablet,delayed mg PO 05/27/23 release pregabalin 75 mg capsule mg 05/27/23 Previous Rx's Medication Instructions Recorded oxycodone-acetaminophen 5 mg-325 1 tab PO Q6H PRN pain 3 days #10 04/22/23 mg tablet (Percocet) tabs oxycodone-acetaminophen 5 mg-325 1 tab PO Q6H PRN pain 5 days #20 05/27/23 mg tablet (Percocet) tabs Allergies Allergy/AdvReac Type Severity Reaction Status Date / Time baclofen Allergy Mild Hives Verified 05/27/23 14:21 phenytoin [From Dilantin] AdvReac Mild Muscle Pain Verified 05/27/23 14:21 Review of Systems ROS Narrative A ten point review of systems is negative except as noted above. PFSH PFSH Social History Smoking status: Current every day smoker Exam Narrative Exam Narrative: Nurses note and vital signs reviewed and patient is not hypoxic. General: The patient appears well and in no apparent distress. Patient is resting comfortably on cart. Skin: Warm, dry, no pallor noted. There is no rash noted. Head: Normocephalic, atraumatic Eye: Normal conjunctiva, no drainage Ears, Nose, Mouth, and Throat: oral mucosa is moist. Nares patent. Cardiovascular: Regular Rate and Rhythm Respiratory: Patient is in no distress, no accessory muscle use, lungs are clear to auscultation, no wheezing, rales or rhonchi Back: non-tender GI: soft and nontender Musculoskeletal: her right leg is not swollen. There is no erythema bruising or rash in the groin area. Hip has good range of motion though it causes discomfort. Knee is nontender and has good range of motion. Neurological: A&O, normal speech Psychiatric: Cooperative Constitutional Vital Signs, click to edit/add: Last Vital Signs Temp 98.0 F 05/27/23 14:12 Pulse 80 05/27/23 14:12 Resp 18 05/27/23 14:12 BP 143/96 H 05/27/23 14:12 Pulse Ox 98 05/27/23 14:12 O2 Del Method Room Air 05/27/23 14:12 Course Vital Signs Vital signs: Vital Signs Temperature 98.0 F 05/27/23 14:12 Pulse Rate 80 05/27/23 14:12 Respiratory Rate 18 05/27/23 14:12 Blood Pressure 143/96 H 05/27/23 14:12 Pulse Oximetry 98 05/27/23 14:12 Oxygen Delivery Method Room Air 05/27/23 14:12 Temperature 98.0 F 05/27/23 14:12 Pulse Rate 80 05/27/23 14:12 Respiratory Rate 18 05/27/23 14:12 Blood Pressure 143/96 H 05/27/23 14:12 Pulse Oximetry 98 05/27/23 14:12 Oxygen Delivery Method Room Air 05/27/23 14:12 Medical Decision Making [facility] Narrative Medical decision making narrative: x-ray shows no acute findings and she's prescribed pain medication and she'll follow-up with her established orthopedist. Treatment diagnosis and follow-up were discussed with the patient. Differential Diagnosis Differential Diagnosis: hip fracture, hip strain, pelvic fracture Imaging Data right hip x-ray: Radiologist's impression: Procedure: XR hip RT min 2V EXAM: XR hip RT min 2V INDICATION: hip pain, no injury. COMPARISON: None. TECHNIQUE: Right hip, 2 views FINDINGS: No acute fracture or dislocation. Right hip joint is preserved. Unremarkable soft tissues. IMPRESSION: No acute osseous abnormality of the right hip. Electronically authenticated by: FILEMON FRANK Date: 05/27/2023 15:17 Discharge Plan Discharge Chief Complaint: Extremity Injury, Lower Clinical Impression: Chronic right hip pain Patient Disposition: Home, Self-Care Time of Disposition Decision: 15:30 Condition: Good Mode of Transportation: Private Vehicle Prescriptions / Home Meds: New oxycodone-acetaminophen [Percocet] 5-325 mg tablet 1 tab PO Q6H PRN (Reason: pain) 5 Days Qty: 20 0RF No Action oxycodone-acetaminophen [Percocet] 5-325 mg tablet 1 tab PO Q6H PRN (Reason: pain) 3 Days Qty: 10 0RF atorvastatin 80 mg tablet famotidine 40 mg tablet famotidine 20 mg tablet gabapentin 800 mg tablet meclizine 25 mg tablet pantoprazole 40 mg tablet,delayed release (DR/EC) PO lidocaine 5 % adhesive patch,medicated oxybutynin chloride 5 mg tablet loratadine 10 mg tablet buspirone 15 mg tablet pregabalin 75 mg capsule Instructions: Chronic Pain (ED), Hip Pain (ED) Stand Alone Forms: Portal Instructions Referrals: Physician,Non-Staff, MD [Primary Care Provider] - 1 week
== END 2023-05-27 15:42 | disposition home or self-care (01) ==
PROVIDERS: Emergency Provider Emergency Medicine
DX: M25.551 Pain in right hip (principal); G89.29 Other chronic pain; Z79.899 Other long term (current) drug therapy; F17.210 Nicotine dependence, cigarettes, uncomplicated
CPT/HCPCS: 73502; 99283

== ENCOUNTER 2023-08-20 12:22 | Emergency (ER) | payer MEDICARE, MEDICAID, SELFPAY ==
[2023-08-20 12:26] VITALS: BP 147/88; PULSE 93; RESP 22; TEMP 36.6; O2SAT 98; BMI 29.2
--- OUTSIDE RECORDS SUMMARY | 2023-08-20 12:29 | XMS_ITS | CCD ---
Demographics Address [address] [place] [address] Home Phone Preferred Language en Marital Status Single [employer] Affiliation Unknown Race White Ethnic Group Not or Lati no Author Name Unknown Address [address] [place] [address] Organization [facility] Care Team Providers Care Grade Checker Name Role Phone E, Spasic Michael Primary [...] Unavailable E, Spasic Michael Primary Care Provider [phone] Duglas Gomez Unavailable [facility], Services Primary Care Prov ider MARIA L Moreno Attending Provider DR MATT RECINOS Admitting Unavailabl e JORJE, DR MATT Oakley Attending Unavailabl e SPADELORIS, MICHAEL Primary Care Unavailable JORJE, DR MATT Oakley Consulting Unavailabl e JORJE, DR MATT Oakley Admitting Unavailabl e JORJE, DR MATT Oakley Attending Unavailabl e JOSH, MICHAEL Primary Care Unavailable JORJE, DR MATT Oakley Consulting Unavailabl e YOAV KOENIG Consulting Unavailable FABIEN ADAMS Consulting Unavailable JORJE, DR MATT Oakley Admitting Unavailabl e JORJE, DR MATT Oakley Attending Unavailabl e MISC, DR DE LA FUENTE Primary Care Unavailable [facility] Prov ider Spasic, THERMODYNAMICS ENGINEER-C Michael Oakley Attending Provider [facility], Services [facility] Prov ider Spasic, THERMODYNAMICS ENGINEER-C Michael Oakley Attending Provider [facility], Services [facility] Prov ider Spasic, THERMODYNAMICS ENGINEER-C Michael Oakley Attending Provider Spasic, Michael E Unavailable Kulwinder Atkinson DO Unavailable Kulwinder Atkinson DO Unavailable Vonda Bautista Unavailable Spasic THERMODYNAMICS ENGINEERMichael Unavailable [facility], Services [facility] Prov ider Spasic, THERMODYNAMICS ENGINEERDeshaunC Michael Oakley Attending Provider Spasic, Michael E Admitting Unavailable [facility] Primary Care U navailable Spasic, Michael E Attending Unavailable Spasic, Michael E Admitting Unavailable [facility] Primary Care U navailable Spasic, Michael E Attending Unavailable Spasic, Michael E Admitting Unavailable [facility] Primary Care U navailable Spasic, Michael E Attending Unavailable Spasic, Michael E Admitting Unavailable [facility] Primary Care U navailable Spasic, Michael E Attending Unavailable Spasic, Michael E Admitting Unavailable [facility] Primary Care U navailable Spasic, Michael E Attending Unavailable Spasic, Michael E Admitting Unavailable [facility] Primary Care U navailable Spasic, Michael E Attending Unavailable [facility] Primary Care U navailable Spasic, Michael E Attending Unavailable Spasic, Michael E Admitting Unavailable Spasic THERMODYNAMICS ENGINEERMichael Primary Care Provider KULWINDER ATKINSON Referring Unavailable SCOTCH, SALMA Attending Unavailable SCOTCH, SALMA Referring Unavailable FRANK, FRANK E Attending Unavailable SPASIC, MICHAEL E Primary Care Unavailable PAKONataliya MATT Attending Unavailable ROSEANN BRYSON Referring Unavailable FRANK, FRANK E Admitting Unavailable FRANK, FRANK E Attending Unavailable FRANK, FRANK E Referring Unavailable SPASIC, MICHAEL E Primary Care Unavailable ROSEANN BRYSON Attending Unavailable SPASIC, MICHAEL E Primary Care Unavailable PERRI GRIMALDO Attending Unavailable SCOTCH, SALMA Attending Unavailable SCOTCH, SALMA Referring Unavailable SCOTCH, SALMA Referring Unavailable SPASIC, MICHAEL BRANDON Referring Unavaila ble SPASIC, MICHAEL BRANDON Primary Care Unavaila ble SPASIC, MICHAEL BRANDON Referring Unavaila ble SPASIC, MICHAEL BRANDON Primary Care Unavaila ble Allergies Allergy Classification Reported Allergen(s) Allergy Type Date of Onset Reaction(s) Facility Anti-Epileptic Agents (3 sources) Phenytoin Drug Allergy 10-27-19 16 [facility] Baclofen (3 sources) Baclofen Drug Allergy 10-27-19 16 [facility] Quinolones (antibiotic) (3 sources) Ciprofloxacin Drug Allergy 01-11-20 19 [facility] (20 sources) Baclofen; Translations: [BACLOFEN] Drug Allergy 05-20-20 14 [place] (20 sources) Ciprofloxacin; Translations: [CIPROFLOXACIN] Drug Allergy 03-27-20 17 Other: See Comments [place] (14 sources) Phenytoin Drug Allergy 10-27-19 16 [place] (4 sources) Buprenorphine / Naloxone Drug Allergy Unknown [facility] Other (20 sources) Phenytoin; Translations: [PHENYTOIN] Drug Allergy 05-20-20 14 Other: See Comments [facility] (4 sources) any type of ear drops Propensity to adverse reactions seizures [facility] Other (10 sources) Buprenorphine; Translations: [buprenorphine] Drug Allergy 11-30-19 19 Unknown Reaction [facility] (10 sources) Hydrocortisone; Translations: [hydrocortisone] Drug Allergy 11-30-19 19 Seizure [facility] (10 sources) Naloxone; Translations: [naloxone] Drug Allergy 11-30-19 19 Unknown Reaction [facility] (1 source) Baclofen Drug Allergy 01-24-20 13 [facility] (1 source) Ciprofloxacin Drug Allergy 04-11-20 22 [facility] (1 source) Dexamethasone Drug Allergy 04-11-20 22 [facility] (1 source) mirabegron Drug Allergy 08-18-19 21 [facility] (1 source) Phenytoin Drug Allergy 11-28-19 13 [facility] (1 source) Phenytoin Drug Allergy 04-11-20 22 [facility] (1 source) Baclofen Drug Allergy 11-30-19 19 [facility] (1 source) Ciprofloxacin Drug Allergy 11-30-19 19 [facility] (1 source) Phenytoin Drug Allergy 11-30-19 19 [facility] (1 source) Baclofen; Translations: [BACLOFEN (BULK)] Drug Allergy 05-20-20 14 [facility] (2 sources) Ciprofloxacin / Dexamethasone; Translations: [CIPROFLOXACIN-DE XAMETHASONE] Drug Allergy 10-14-19 [facility] Medications Current Medications Medication Drug Class(es) [...] pain 9 tablet 0 11/01/2020 11/04/2020 Active [id number] 200 actuat albuterol 0.09 mg/actuat metered dose [...] 25 MG PO Daily July 03, 2018 12:00am Start: 03-26-2017 End: 11-21-2017 take 25 mg by mouth once daily at bedtime Amitriptyline Discontinued 25 MG PO Daily at bedtime March 25, 2017 11:00pm November 21, 2017 3:53pm End: 06-11-2019 take 1 tablet by mouth [...] 875-125 MG per tablet 1 tablet amylase [id number] unt / lipase [id number] unt / protease [id number] unt delayed release oral capsule (5 sources) Start: 12-13-2021 take 1 capsule by mouth every eight hours Zenpep [id number] UNIT 1 CAPSULE Orally THREE TIMES A DAY for 30 days PLEASE CHECK ALLERGIES Dec, Active Start: 11-15-2021 take 1 capsule by mo uth every eight hours Creon [id number] UNIT 1 CAPSULE Orally THREE TIMES A DAY for 30 days Nov, Active atorvastatin 20 mg oral tablet (20 sources) HMG-CoA Reductase Inhibitor Start: 11-29-2018 take 20 mg by mouth once daily Atorvastatin Active 20 MG PO Daily November 28, 2018 11:00pm take 1 tablet by mouth once annabel y atorvastatin (LIPITOR) 80 mg tablet Take 80 mg by mouth once daily. 0 Active Comment on above: Take 80 mg by mouth once daily. benzocaine 15 mg / menthol 2.6 mg [...] tablet (9 sources) take 1 tablet by angie th twice daily BuSpar 15 MG 1 tablet [...] oral tablet (1 source) alpha-Adrenergic Agonist, Uncompetitive K-pprtiy-E-aspartat e Receptor Antagonist, Sigma-1 Agonist Start: 04-11-2023 take 4 tablets by mouth every twenty-four hours as needed Capmist DM 60-15-400 MG as needed Orally every 4-6 hours as needed, max 4 tablets in 24 hours for 5 days Apr, Active dextromethorphan hydrobromide 3 mg/ml / promethazine hydrochloride 1.25 mg/ml oral solution (7 sources) Phenothiazine, Uncompetitive V-xbaunm-D-aspartat e Receptor Antagonist, Sigma-1 Agonist Start: 01-02-2019 End: 06-11-2019 promethazine-dext romethorphan (PROMETHAZINE-DM) 6.25-15 MG/5ML syrup Take 6.25 mLs by mouth every 4 hours as needed 0 01/02/2019 06/11/2019 Discontinued (LIST CLEANUP) DULoxetine 60 mg oral capsule (7 sources) Serotonin and Norepinephrine Reuptake Inhibitor End: 06-11-2019 take 60 mg by mouth once daily DULoxetine HCl (CYMBALTA PO) Take 60 mg by mouth daily 0 06/11/2019 Discontinued (LIST CLEANUP) esomeprazole 40 mg delayed release oral capsule (12 sources) Proton Pump Inhibitor Start: 09-15-2020 take 1 capsule by mouth every twelve hours Esomeprazole Magnesium 40 MG 1 capsule Orally bid for 30 days Sep, Active take 1 capsule by de ut once daily, then take 6 capsules by [...] PO Three times daily July 03, 2018 12:00am Start: 03-26-2017 End: 03-02-2018 take 600 mg by mouth three times daily Gabapentin Discontinued 600 MG PO Three times daily March 25, 2017 11:00pm March 02, 2018 4:03pm gabapentin (NEUR ONTIN) 600 mg tablet Take 800 mg by mouth once daily. 0 Active gabapentin (NEUR ONTIN) 100 MG capsule Take 600 mg by mouth 3 times daily. 0 Active Comment on above: Take 600 mg by mouth three times daily. Take 800 mg by mouth once daily. hydrocortisone 10 mg/ml / neomycin 3.5 mg/ml / polymyxin b [id number] unt/ml otic suspension (3 sources) Aminoglycoside Antibacterial, Polymyxin-class Antibacterial, Corticosteroid Start: 06-11-19 End: 06-21-19 20 neomycin-polymyxin- hydrocortisone (CORTISPORIN) 3.5-56970-[address] 3 drops into the [...] PO Three times daily July 03, 2018 12:00am Start: 01-18-2018 End: 02-07-2018 Ibuprofen (Motrin Ib) 200 mg Tablet Discontinued 800 MG PO Q4H January 17, 2018 11:00pm February 07, 2018 3:02pm Start: 10-14-2017 End: 01-18-2018 take 800 mg by mouth three times daily Ibuprofen Discontinued 800 MG PO Three times daily December 22, 2017 2:01pm January 18, 2018 2:04pm Start: 02-08-2017 End: 10-13-2017 Ibuprofen (Motrin Ib) 200 mg Tablet Discontinued 800 MG PO Once February 07, 2017 11:00pm October 13, 2017 4:13pm Start: 09-16-2014 take 1 tablet by angie [...] needed). meclizine hydrochloride 12.5 mg oral tablet (11 sources) Antiemetic Start: 06-11-19 20 End: 06-14-19 20 take 1 tablet by mouth three times daily as needed for dizziness meclizine (ANTIVERT) 12.5 MG tablet Take 1 tablet by mouth 3 times daily as needed for Dizziness 9 tablet 0 06/11/2019 06/14/2019 Active Start: 04-04-2018 End: 07-03-2018 take 25 mg by mouth three times daily Meclizine Discontinued 25 MG PO Three times daily April 03, 2018 11:00pm July 03, 2018 3:12pm metroNIDAZOLE 500 mg oral tablet (2 sources) [...] furoate 0.05 mg/actuat metered dose nasal spray (9 sources) Corticosteroid Start: 07-29-2018 take 1 spray(s) nasal route once daily Mometasone (Nasonex) 50 mcg/actuation spray,non-aerosol Active 2 SPRAY INTRANASAL Daily July 29, 2018 12:00am administer into each nostril naloxone hydrochloride 40 mg/ml nasal spray (5 sources) Opioid Antagonist Start: 03-17-2019 End: 06-11-2019 naloxone 4 MG/0.1ML LIQD nasal spray 1 spray by Nasal route as needed for Opioid Reversal 1 each 5 03/17/2019 06/11/2019 Discontinued (LIST CLEANUP) pantoprazole 40 mg delayed release oral tablet (20 sources) Proton Pump Inhibitor Start: 10-13-2017 take 40 mg by mouth twice daily Pantoprazole Active 40 MG PO Twice daily October 12, 2017 11:00pm take 1 tablet by mouth once annabel y pantoprazole DR (PROTONIX) 40 mg tablet Take 40 mg by mouth once daily. 0 Active Protonix Active take 20 mg by mouth twice daily Pantoprazole Sodium (PROTONIX PO) Take 20 mg by mouth 2 times daily 0 Active Comment on above: Take 40 mg by mouth once daily. predniSONE 20 mg oral tablet (13 sources) Start: 11-01-2020 End: 11-06-2020 take 2 [...] Prednisone Discontinued 60 MG PO Daily January 17, 2018 11:00pm February 07, 2018 3:03pm rOPINIRole (7 sources) Nonergot Dopamine Agonist End: [...] 01/02/2019 Active tiZANidine 4 mg oral tablet (18 sources) Central alpha-2 Adrenergic Agonist Start: 11-29-2018 take 4 mg by mouth at bedtime Tizanidine Active 4 MG PO Bedtime November 28, 2018 11:00pm Start: 12-22-2017 End: 01-18-2018 take 1 tablet by mouth three times daily Tizanidine (Zanaflex) 4 mg Tablet Discontinued 4 MG PO Three times daily December 21, 2017 11:00pm January 18, 2018 2:04pm traMADol hydrochloride 50 mg oral tablet (1 [...] hours Hydrocodone-Acetaminophen Discontinued 1 TAB PO Q6H 28 March 01, 2018 March 07, 2018 11:02pm Start: 10-13-2017 End: 10-16-2017 take 1 tablet by mouth every six hours Hydrocodone-Acetaminophen ([place]) 5-325 mg tablet Discontinued 1 TAB PO Q6H October 13, 2017 October 16, 2017 3:27pm Start: 06-06-2017 End: 06-23-2017 take 1 tablet by mouth every four to six hours Hydrocodone-Acetaminophen ([place]) 5-325 mg tablet Discontinued 1 TAB PO EVERY 4-6 HOURS June 06, 2017 June 23, 2017 12:09pm Start: 02-08-2017 End: 03-26-2017 Hydrocodone-Acetaminophen ([place]) 5-325 mg tablet Discontinued 1 TAB PO every 6 to 8 hours February 08, 2017 March 26, 2017 7:58pm take 1 tablet by angie th every [...] / oxyCODONE hydrochloride 5 mg oral tablet (5 sources) Opioid Agonist Start: 06-27-2023 oxyCODONE-acetaminop hen (PERCOCET) 5-325 mg tablet Start: 03-16-2019 End: 03-16-2019 oxyCODONE-acetaminophen (PER COCET) 5-325 MG per tablet 2 tablet Start: [...] 03/20/2019 Active amoxicillin 250 mg oral capsule (20 sources) Penicillin-class Antibacterial Start: 01-15-2019 End: 01-15-2019 [...] Three times daily 30 June 23, 2017 12:00am June 28, 2017 6:56pm Start: 06-06-2017 End: 06-23-2017 take 875 mg by mouth twice daily Amoxicillin Discontinued 875 MG PO Twice daily June 06, 2017 12:00am June 23, 2017 12:09pm 12 hr carBAMazepine 400 mg extended release oral tablet (20 sources) Mood Stabilizer Start: 02-07-2018 End: 02-15-2018 take 400 mg by mouth twice daily Carbamazepine Discontinued 400 MG PO Twice daily February 06, 2018 11:00pm February 15, 2018 11:57am Start: 02-08-2017 End: 07-19-2017 take 1 tablet by mouth every twelve hours Carbamazepine (Tegretol) 200 mg Tablet Discontinued 200 MG PO Q12H February 07, 2017 11:00pm July 19, 2017 7:29am End: 06-11-2019 take 1 tablet by mouth twice daily carBAMazepine (TEGRETOL XR) 100 MG SR tablet Take 100 mg by mouth 2 times daily 0 06/11/2019 Discontinued (LIST CLEANUP) cephalexin 500 mg oral capsule (9 sources) Cephalosporin Antibacterial Start: 03-02-2018 End: 03-12-2018 take 2 capsules by mouth twice daily Cephalexin (Keflex) 500 mg capsule Discontinued 1000 MG PO Twice daily 40 March 01, 2018 11:00pm March 11, 2018 11:01pm COMPOUNDED PRESCRIPTION (9 sources) Start: 04-01-2017 COMPOUNDED PRESCRIPTION Wheeled [place] [...] Discont inued 10 MG PO Bedtime January 17, 2018 11:00pm February 07, 2018 3:02pm Start: 11-21-2017 End: 12-22-2017 take 10 mg by mouth three times daily Cyclobenzaprine Discontinued 10 MG PO Three times daily November 20, 2017 11:00pm December 22, 2017 1:11pm dexamethasone phosphate 10 mg/ml injectable solution (1 source) Corticosteroid Start: 11-01-2020 End: 11-01-2020 dexamethasone (DECADRON) injection 10 mg diazePAM 5 mg oral tablet (1 source) Benzodiazepine Start: 03-16-2019 End: 03-16-2019 diazepam (VALIUM) tablet 5 mg Start: 03-16-2019 End: 03-16-2019 diazepam (VALIUM) tablet 5 m g dicyclomine hydrochloride 20 mg oral tablet (13 sources) Anticholinergic Start: 11-30-2017 End: 02-15-2018 take 20 mg by mouth three times daily Dicyclomine Discontinued 20 MG PO Three times daily February 06, 2018 11:00pm February 15, 2018 11:57am diphenhydrAMINE hydrochloride 25 mg oral tablet (9 sources) Histamine-1 Receptor Antagonist Start: 04-04-2018 End: 07-03-2018 take 1 tablet by mouth every six hours Diphenhydramine Hcl (Benadryl Allergy) 25 mg tablet Discontinued 25 MG PO Q6H April 03, 2018 11:00pm July 03, 2018 3:12pm until resolution of severe allergic reaction 2 ml fentaNYL 0.05 mg/ml injection (1 source) Opioid Agonist Start: 12-03-2020 End: 12-03-2020 fentaNYL (SUBLIMAZE) injection 50 mcg 1 ml ketorolac tromethamine 15 mg/ml cartridge (2 sources) Nonsteroidal Anti-inflammatory Drug, Cyclooxygenase Inhibitor Start: 12-03-2020 End: 12-03-2020 ketorolac (TORADOL) injection 30 mg Start: 03-24-2019 End: 03-24-2019 ketorolac (TORADOL) injectio n 30 mg lidocaine 0.05 mg/mg medicated patch (17 sources) Antiarrhythmic, Amide Local Anesthetic Start: 11-21-2017 End: 12-22-2017 apply 1 dose topically once daily Lidocaine (Lidoderm) 5 % adhesive patch,medicated Discontinued 1 PATCH TOPICAL Daily November 20, 2017 11:00pm December 22, 2017 1:13pm leave on for 12 hrs ; cover [...] Tablet Discontinued 440 MG PO Q4H January 17, 2018 11:00pm February 07, 2018 3:02pm Start: 06-23-2017 End: 07-03-2017 take 1 tablet by mouth twice daily at mealtime Naproxen (Naprosyn) 500 mg tablet Discontinued 500 MG PO Twice daily 24 03June 23, 2017 12:00am July 03, 2017 12:02am administer with food or milk Start: 02-08-2017 End: 03-26-2017 Naproxen Discontinued 375 MG PO 2-3 TIMES PER DAY February 07, 2017 11:00pm March 26, 2017 7:58pm ondansetron 4 mg disintegrating oral tablet (20 sources) Serotonin-3 Receptor Antagonist Start: 11-01-2020 End: 11-01-2020 ondansetron (ZOFRAN-ODT) disintegrating tablet 4 mg Start: 01-15-2019 End: 01-15-2019 ondansetron (ZOFRAN) injecti on 4 mg Start: 04-04-2018 End: 04-09-2018 take 1 tablet by mouth every eight hours Ondansetron Hcl (Zofran) 4 mg tablet Discontinued 4 MG PO Q8H 17 10April 03, 2018 11:00pm April 09, 2018 12:01am Start: 06-23-2017 End: 10-13-2017 take 1 tablet by mouth every eight hours Ondansetron (Zofran Odt) 4 mg tablet,disintegrating Discontinued 4 MG PO Q8H June 23, 2017 12:00am October 13, 2017 4:13pm 2 ml orphenadrine citrate 30 mg/ml injection (1 source) Muscle Relaxant Start: 03-24-2019 End: 03-24-2019 orphenadrine (NORFLEX) injection 60 mg oxybutynin chloride 5 mg oral tablet (8 sources) Cholinergic Muscarinic Antagonist take 1 tablet by mouth three times daily oxybutynin (DITROPAN) 5 mg tablet Take 5 mg by mouth three times daily. 0 Active Comment on above: Take 5 mg by mouth t hree times daily. penicillin v potassium 500 mg oral tablet (9 sources) Start: 10-13-2017 End: 11-21-2017 take 500 mg by mouth three times daily Penicillin V Potassium Discontinued 500 MG PO Three times daily October 12, 2017 11:00pm November 21, 2017 3:53pm 50 ml sodium chloride 9 mg/ml injection [...] 100 MG PO Three times daily December 21, 2017 11:00pm March 01, 2018 9:10am Start: 04-01-2017 End: 06-11-2019 take 1 tablet by mouth twice daily topiramate (TOPAMAX) 100 mg tablet Take 1 tablet by mouth twice daily. 0 04/01/2017 Active Start: 02-08-2017 End: 11-21-2017 take 1 tablet by mouth twice daily Topiramate (Topamax) 200 mg Tablet Discontinued 200 MG PO Twice daily February 07, 2017 11:00pm November 21, 2017 3:53pm Comment on above: Take 1 tablet by angie th twice daily. Problems Active Problems Problem Classification Problem Date Documented Da te Episodic/Chronic Abdominal pain (20 sources) Vaginal pain; Translations: [Pelvic and perineal pain] Onset: 2 Resolved: 2 Episodic Administrative/social admission (17 sources) Impaired mobility; Translations: [Other reduced mobility] 02-22-2016 Episodic Biliary tract disease (9 sources) Biliary colic; Translations: [Calculus of bile duct without cholangitis or cholecystitis without obstruction] 07-19-2017 Episodic Diabetes mellitus with complications (1 source) Type 2 diabetes mellitus with diabetic polyneuropathy; Translations: [TYPE 2 DM W/DIABETIC POLYNEUROPATHY] Onset: 2 Chronic Diabetes mellitus without complication (1 source) Type 2 diabetes mellitus without complications; Translations: [Type 2 diabetes mellitus without complications] Onset: 4 Chronic Disorders of lipid metabolism (2 sources) Hyperlipidemia, unspecified; Translations: [Mixed hyperlipidemia] Onset: 2 Chronic E Codes: Fall (1 source) Accidental fall ; Translations: [Fall (on) (from) other stairs and steps, initial encounter] Episodic Epilepsy; convulsions (10 sources) Epilepsy, unspecified, not intractable, without status [...] (4 sources) Gastrointestinal hemorrhage; Translations: [Melena] Episodic Headache; including migraine (9 sources) Migraine; Translations: [Migraine, unspecified, not intractable, without status migrainosus] 07-19-2017 Chronic Joint disorders and dislocations; trauma-related (4 sources) Internal derangement of right knee; Translations: [Unspecified internal derangement of right knee] Chronic Joint disorders and dislocations; trauma-related (9 sources) Closed traumatic dislocation of coccyx; Translations: [...] right hip] Episodic Other connective tissue disease (9 sources) Musculoskeletal finding; Translations: [Other symptoms and signs involving the musculoskeletal system] 07-19-2017 Episodic Other connective tissue disease (1 source) Fibromyalgia; Translations: [FIBROMYALGIA] Onset: 2 Episodic Other endocrine disorders (9 sources) Disorder of pituitary gland; Translations: [Other disorders of pituitary gland] Onset: 7 01-10-2007 Chronic Other gastrointestinal disorders (4 sources) Irritable bowel syndrome with diarrhea; Translations: [Irritable bowel syndrome with diarrhea] Chronic Other gastrointestinal disorders (4 sources) Diarrhea; Translations: [Diarrhea, unspecified] Episodic Other gastrointestinal disorders (4 sources) Constipation; Translations: [Constipation, unspecified] Episodic Other gastrointestinal disorders (9 sources) Occult blood in stools; Translations: [Other [...] Onset: 2 Chronic Other nervous system disorders (10 sources) Right-sided piriformis syndrome; Translations: [Lesion of sciatic nerve, right lower limb] Onset: 3 02-20-2023 Chronic Other nervous system disorders (1 source) Lesion of sciatic nerve, right lower limb; Translations: [Piriformis syndrome of right side] Onset: 3 Chronic Other nervous system disorders (15 sources) Paresthesia of skin; Translations: [Paresthesia of right lower limb] 02-22-2016 Episodic Other non-traumatic joint disorders (10 sources) Pain in right hip joint; Translations: [Pain in right hip] 02-21-2016 Episodic Other non-traumatic joint disorders (2 sources) Pain in right hip; Translations: [Pain in right hip] Onset: 3 Episodic Other non-traumatic [...] conditions (not mental disorders or infectious disease) (11 sources) Elevated liver enzymes level; Translations: [Other specified abnormal findings of blood chemistry] Onset: 4 Episodic Other upper respiratory infections (2 sources) Sore throat symptom; Translations: [Acute upper respiratory infection, unspecified] Episodic Otitis media and related conditions (19 sources) Acute serous otitis media of right ear; Translations: [Acute right otitis media] Episodic Residual codes; unclassified (1 source) Acquired absence of both cervix and uterus; Translations: [ACQUIRED ABSENCE BOTH CERVIX AND UTERUS] Onset: 2 Episodic Residual codes; unclassified (1 source) Pain; Translations: [Pain, unspecified] 02-27-2023 Episodic Rheumatoid arthritis and related disease (1 source) Rheumatoid arthritis, unspecified; Translations: [RHEUMATOID ARTHRITIS UNSPECIFIED] Onset: 2 Chronic Spondylosis; intervertebral disc disorders; other back problems (20 sources) Lumbosacral spondylosis without myelopathy; Translations: [Osteoarthritis of lumbar spinal facet joint] Onset: 6 01-15-2016 Chronic Spondylosis; intervertebral disc disorders; other back problems (20 sources) Backache; Translations: [Sciatica] Onset: 2 08-10-2011 Episodic Sprains and strains (20 sources) Low back strain; Translations: [Strain of [...] [Other abnormal glucose] Onset: 04-25-2011 04-25-2011 Episodic Genitourinary symptoms and ill-defined conditions (1 source) Other symptoms and signs involving the genitourinary system; Translations: [Other symptoms and signs involving the genitourinary system] Onset: 01-12-2023 Episodic Other connective tissue disease (7 sources) Tendinitis of right psoas tendon; Translations: [Psoas tendinitis, right hip] Onset: 03-24-2023 03-24-2023 Episodic Other ear and sense organ disorders [...] unspecified; Translations: [Disorientation, unspecified] Onset: 07-19-2022 Episodic Residual codes; unclassified (1 source) Pain, unspecified; Translations: [Pain] Onset: 03-24-2023 Episodic Syncope (17 sources) Syncope; Translations: [Syncope and collapse] Onset: 04-25-2011 04-25-2011 Episodic Unclassified (1 source) Contact with and (suspected) exposure to covid-19 Z20.822 Urinary tract infections (1 source) Urinary tract infection, site not specified; Translations: [Urinary tract infection, site not specified] Onset: 08-11-2022 Episodic Results Test Name Value Interpretation Reference Range 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 COMPARISON: Mammogram dated 10/06/2020 TECHNIQUE: Bilateral digital tomosynthesis MLO and CC views of the breasts were obtained, with creation of synthetic 2D views. Computer aided detection was utilized. FINDINGS: There are scattered areas of fibroglandular density. There are no suspicious masses, calcifications, or areas of architectural distortions. IMPRESSION: No mammographic evidence of malignancy. BI-RADS: BI-RADS 1 - Negative Recommendation: Routine screening mammogram in 1 year. Finalized by Mica Gutiérrez MD on 08/17/2023 12:02 PM 1 b MAMM 1 YR Normal [facility] CNPNon 07-21-2023 CNPN Telephone (RULTTB) ----- ROSEANN GARRIDO ([id number]) 1975 F Date Time Provider Department 07/21/23 WAYNE ROUSE ([facility]) RULTTB During your visit today, we recorded the following information about you: Wayne Rouse PCNA 07/21/2023 10:11 AM Signed Visit Type: INJ ONLY 2 Visit Length: 60 MINUTES Order Name/Protocol: US INJ TRIGGER POINT RT; RT HAMSTRING ORIGIN INJ PER DR. RAYA VIA EMAIL 07/19- Preferred Provider: DR. AISSATOU TEAGUE Comment: PT WILL NEED A SECURITY RESEARCHER [facility] Slot held: N/A Sultana Koo 07/21/2023 10:26 AM Signed Patient has been scheduled for their MSK US INJ exam on 07/31/23 : 1:00 PM at [facility]. Allergies As of Date: 07/21/2023 Noted Allergy Reaction BACLOFEN (BULK) 05/20/2014 4 - Hives CIPROFLOXACIN 03/27/2017 14 - Other: See Comments Comments: seizures DILANTIN (PHENYTOIN) 05/20/2014 14 - Other: See Comments Comments: Aches and pain Date Reviewed: 07/18/2023 Reviewed by: Tray Box, RN - Fully Assessed Reason for Visit: Appointment [186] Prescriptions as of 07/21/2023 - atorvastatin (LIPITOR) 80 mg tablet Take 80 mg by mouth once daily. - oxyCODONE-acetaminophen (PERCOCET) 5-325 mg tablet - esomeprazole (NEXIUM) 20 mg capsule Take [...] as needed). 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] 01/10/2007 Epilepsy (HCC) [G40.909] 03/27/2017 Piriformis syndrome of right side [G57.01] 02/20/2023 Radiculopathy, lumbosacral region [M54.17] 02/20/2023 Psoas tendinitis of right side [M76.11] 03/24/2023 Tear of right acetabular labrum [S73.191A] 03/24/2023 Encounter Status:Closed by SULTANA KOO on 07/21/23 [facility] CNOVon 07-18-2023 CNOV Office Visit (ORAVON ) ----- ROSEANN GARRIDO ([id number]) 1975 F Date Time Provider Department 07/18/23 1:00 PM MATT RAYA During your visit today, we recorded the following information about you: Matt Raya MD 07/18/2023 1:58 PM Signed NEW ENCOUNTER This patient is being seen at the request of Roseann Bryson CNP and the progress note from this visit will be communicated via shared medical record Chief Complaint: right acetabular labrum tear 04/13/23 RT HIP MRI W/O IMPRESSION: 1. POSTOPERATIVE CHANGES OF ACETABULAR ANTERIOR LABRAL REPAIR IN THE RIGHT HIP WITH FINDINGS SUGGESTING LABRAL DEGENERATION AND DEGENERATIVE TEARING IN THE SUPERIOR LABRUM. 2. MILD INSERTIONAL GLUTEAL TENDINOSIS BILATERALLY, WORSE ON THE LEFT AND MILD GREATER TROCHANTERIC BURSITIS BILATERALLY. History: Patient is a 48 year old female; she denies an acute injury event. Recently had right hip IA USG CSI with Dr. Grimaldo on 06/28/23 and also had right piriformis fluoro guided CSI with Dr. Marie on 05/19/23. Date of injury/duration of pain: pain started over a year ago. Location: right hip Intensity: Severe Quality: Burning throbbing Job Related: No Symptoms with the following activities: Sleeping, walking or sitting for too long. The following things help the symptoms: Percocet reports catching Social History: Tobacco Use: 1 packs/day Types: Cigarettes Work: Disability due to Hx of Epilepsy Exercise: No regular routine, but does walk and do stairs daily while caring for elderly parents. Patient History PAST MEDICAL HISTORY Diagnosis Date Anxiety Panic disorder PAST SURGICAL HISTORY Procedure Laterality Date CHOLECYSTECTOMY HIP SURGERY HX 2014 HYSTERECTOMY 2006 oxyCODONE-acetaminophen (PERCOCET) 5-325 mg tablet esomeprazole (NEXIUM) 20 mg capsule Take 20 [...] prescribed for 10-14 days then as needed). Allergies: ALLERGIES Allergen Reactions Baclofen (Bulk) Hives Ciprofloxacin Other: See Comments seizures Dilantin [Phenytoin] Other: See Comments Aches and pain REVIEW OF SYSTEMS: CONSTITUTIONAL: Denies fever and weight loss. EYES: Denies acute vision changes. ENT: Denies hearing changes or difficulty swallowing. CARDIAC: Denies chest pain or edema. RESPIRATORY: Denies dyspnea, cough or wheeze. GASTROINTESTINAL: Denies abdominal pain, nausea, vomiting. MUSCULOSKELETAL: See HPI. SKIN: Denies any recent rash or lesion. NEUROLOGICAL: Denies numbness or focal weakness. PSYCHIATRIC: No history of psychiatric symptoms or problems. ENDOCRINE: Denies current diagnosis of diabetes. HEMATOLOGY: Denies episodes of easy bleeding. Allergies, medications, past surgical history and past medical history were reviewed per this encounter. Physical Examination: Region: Hip General Appearance: Appears healthy, well-nourished, no deformities. Neck/Spine/Station/Gait: Antalgic gait Left Exam: AROM: Flexion 120, IR: 20, ER: 70 PROM: Normal and Same as active Point Tenderness location: none Swelling/Effusion: none Stability: normal Muscle Strength: normal Sensation:normal Reflexes:normal Skin: normal Pulses: normal Special Tests: None Right Exam: AROM: Flexion 120, IR 20, ER 60 PROM: Same as active Point Tenderness location:anterior hip, groin, ischial tuberosity, greater trochanter Swelling/Effusion: none Stability: normal Muscle Strength: 5/5 Abductor strength, 4/5 hip flexion, 4/5 resisted knee extension Sensation:normal Reflexes:normal Skin: normal Pulses: normal Special Tests: Positive KRISTINE, FADIR, Right Trendelenburg Images have been personally reviewed by me and discussed with patient. MRI which shows trochanteric bursitis and postoperative/degenerativ e changes of the labrum without discrete retear. There is also streaking in the proximal hamstring tendon at the origin from the ischial tuberosity, suggestive of tendinitis/tendinosis, Assessment and Plan: 48-year-old female with right hip pain. We discussed with her that based on her history, physical examination, and imaging, with believe that the primary local hazmat driver of her pain is the proximal hamstring tendon. She does have some tendinosis in this area. We explained to her that the treatment for this is primarily conservative management. We recommend a course of physical therapy focusing on hamst (more content not included)... Normal [facility] CNOVon 06-28-2023 CNOV Office Visit (PAINLN ) ----- ROSEANN GARRIDO ([id number]) 1975 F Date Time Provider Department 06/28/23 10:00 AM ROSEANN BRYSON PAINLN During your visit today, we recorded the following information about you: Pulse Weight Height 85/minute 84.4 kg 1.626 m Roseann Bryson APRN.CNP 06/28/2023 9:35 AM Signed Please watch for the following red flag symptoms: -weight loss, fevers -chills, night time awakening of pain - bowel bladder incontinence (difficulty holding your urine or stool) -saddle anesthesia (numbness and tingling in your groin area) - progressive numbness or weakness. If these symptoms should arise you should seek emergency treatment. If pain does not improve consider MRI of lumbar spine Continue to use Lidocaine patches GREG Borges Jessica L, APRN.CNP 06/28/2023 12:51 PM Signed Ms. Garrido a 48 year old female returns today for follow up of post injection, she states that symptoms are slightly worse. PAIN: Pain Yes. Location: low back and right hip, rates pain a 7 on a pain scale of 1-10. Patient describes pain as burning, duration to the present time occuring daily x 4. MEDICATIONS: Medications reviewed and verified. Current Outpatient Medications Medication Sig oxyCODONE-acetaminophen (PERCOCET) 5-325 mg tablet esomeprazole (NEXIUM) 20 mg capsule Take 20 [...] No current facility-administered medications for this visit. Patient feels that medications have helped PREVIOUS TREATMENTS LASTING SIX WEEKS IN THE LAST SIX MONTHS Active conservative therapy lasting 6 weeks in the last six months (see below) 1. Physical therapy: No 2. Home exercise program after PT: No 3. Occupational therapy: No 4. A physician supervised home exercise program (HEP): No 5. Aircraft Metalsmith: No Passive conservative therapy lasting 6 weeks in the last six months (see below) 1. Medical devises: No 2. Acupuncture: No 3. Tens unit: No 4. Prescription pain medication: Yes 5. NSAIDS: No TREATMENTS: Right piriformis muscle steroid injection under fluoroscopy On 05/19/2023 gave no relief Oxycodone 5-325 mg EXAM: Pulse 85 Ht 162.6 cm (5' 4 ) Wt 84.4 kg (186 lb) SpO2 96% BMI 31.93 kg/m? No acute distress noted, patient alert and oriented X's 3. Resistive testing proximal and distal in the upper and the lower extremeties show 5/5 strength. DTR's are symmetrical in the upper and the lower extremeties. Nerve root tension signs: Negative. Heart: RRR Lungs: Clear Abdomen: Soft, non tender Spine: Tenderness with palpation of right lumbar spine, gluteal area Right hip: GTB tenderness with limited ability to internally/externally rotate hip IMPRESSION: This is a 48 year old female with history of chronic right gluteal/hip pain in the setting of lumbar DDD, tear of right acetabular labrum. She recently established care with Dr. Marie. Since last office visit she has undergone the following procedures: 05/19/2023 Right piriformis injection She reports this injection did not offer her any relief of her pain. She continues to report having pain that is pronounced in her right gluteal area. She describes having difficulty sitting, at times it can feel like a pressure sensation in her gluteal area. This pain can wrap around her hip and radiate into her pelvic girdle. She has difficulty placing her socks and shoes on her right foot. She has GTB tenderness and cannot lay on her right side. She denies any red flag symptoms including weight loss, fevers, chills, night time awakening of pain, bowel bladder incontinence, saddle anesthesia, progressive numbness or weakness. We discussed that if these symptoms should arise she should seek emergency treatment. She had recent MRI of hip that was revealing for POSTOPERATIVE CHANGES OF ACETABULAR ANTERIOR LABRAL REPAIR IN THE RIGHT HIP WITH FINDINGS SUGGESTING LABRAL DEGENERATION AND DEGENERATIVE TEARING IN THE SUPERIOR LABRUM. 2. MILD INSERTIONAL GLUTEAL TENDINOSIS BILATERALLY, WORSE ON THE LEFT AND MILD GREATER TROCHANTERIC BURSITIS BILATERALLY. She was seen today in office by Dr. Grimaldo and underwent Right hip injection. She was also instructed to schedule office visit with Ortho surgery. I spent a total of 30 minutes on the date of the service which included preparing to see the patient (more content not included)... Normal [facility] CNOV Office Visit (LOORRM ) ----- ROSEANN GARRIDO ([id number]) 1975 F Date Time Provider Department 06/28/23 7:40 AM PERRI GRIMALDO LOORRM During your visit today, we recorded the following information about you: Perri Grimaldo, DO 06/28/2023 7:59 AM Signed Patient presents for a right hip injection. Large Joint Arthro/Inj: R hip joint Informed Consent Consent Obtained: Verbal [place] Protocol A moment to CARE was completed. SIGN IN Personnel directly involved with the procedure wore the appropriate PPE. Special Equipment: N/A Patient/Surrogate Stated/Verified: Patient name, Date of , Relevant allergies and Intended procedure TIME OUT Intended patient and procedure match the source document(s). Relevant labs, photos, and/or imaging studies have been reviewed. Correct side/site marked and visible. Medications required for procedure verified. No fire risk assessment and interventions applicable. No implant(s) inserted. 06/28/2023 7:56 AM The procedure site was prepped in the usual sterile fashion. Site: R hip joint Details:Musculoskeletal ultrasound was utilized to successfully localize placement of the injection needle at the appropriate site. Ultrasound images demonstrating local vasculature and demonstrating injection of solution were saved. Medications: 40 mg triamcinolone acetonide 40 mg/mL Anesthetics: 4 mL ROPivacaine (PF) 5 mg/mL (0.5 %) Outcome: Tolerated well, no immediate complications Post-injection instructions were reviewed with the patient and the patient voiced understanding of these instructions. SIGN OUT All instruments, equipment, possible retained foreign bodies accounted for. (S73.191A) Tear of right acetabular labrum, initial encounter (primary encounter diagnosis) Perri Grimaldo DO 06/28/2023 Allergies As of Date: 06/28/2023 Noted Allergy Reaction BACLOFEN (BULK) 05/20/2014 4 - Hives CIPROFLOXACIN 03/27/2017 14 - Other: See Comments Comments: seizures DILANTIN (PHENYTOIN) 05/20/2014 14 - Other: See Comments Comments: Aches and pain Date Reviewed: 06/28/2023 Reviewed by: Perri Grimaldo DO - Fully Assessed Reason for Visit: New [525721] Right Hip Pain [1554] Primary Visit Diagnosis:Tear of right acetabular labrum, initial encounter [S73.191A] Order(s): HIP-INJECTION RT (POC) JOEL USE ONLY [2213024] Order #: [id number]. #:[id number]: 1 Large Joint Arthro/Inj: R hip joint [QNP827] Order #: [id number] [] ROPivacaine (PF) 5 mg/mL (0.5 %) 4 mL injection (NAROPIN)Disp: Rfl: [] triamcinolone acetonide 40 mg injection (KeNALog 40)Disp: Rfl: Prescriptions as of 06/28/2023 - HYDROcodone-acetaminophen (NORCO) 5-325 mg per tablet [...] as needed). 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] 01/10/2007 Epilepsy (HCC) [G40.909] 03/27/2017 Piriformis syndrome of right side [G57.01] 02/20/2023 Radiculopathy, lumbosacral region [M54.17] 02/20/2023 Psoas tendinitis of right side [M76.11] 03/24/2023 Tear of right acetabular labrum [S73.191A] 03/24/2023 Prescriptions ordered this encounter Disp Refills Start End ROPIVACAINE (PF) 5 MG/ML (0.5 %) INJ* 06/28/2023 06/28/2023 Route: Inj-ORTHO TRIAMCINOLONE ACETONIDE 40 MG/ML ELSI* 06/28/2023 06/28/2023 Route: Inj-ORTHO Encounter Status:Closed by PERRI GRIMALDO on 06/28/23 [facility] Microalbumin [Mass/volume] i n UrineOrdered By: Michael Moreno on 06-15-2023 Albumin DL <= 20 mg/L (U) [Mass/Vol] mg/dL 0.0-1.8 [facility] Microalbumin, Urine (Random) on 06-15-2023 Albumin DL <= 20 mg/L (U) [Mass/Vol] mg/dL Normal 0.0-1.8 [facility] Comment on above: Order Comment: Micaela villela for Exam Diet-controlled diabetes mellitus Result Comment: PERF ORMED BY: [facility] [address] [place] [address] PATHOLOGIST ASSET RECOVERY SPECIALIST ANNALEE PARRISH M.D. Performed By: #### U A ####[facility] [place] [address] [facility] CNPLeana 06-12-2023 CNPN Telephone (LOORRM) ----- ROSEANN GARRIDO ([id number]) 1975 F Date Time Provider Department 06/12/23 PERRI GRIMALDO LOORRSue During your visit today, we recorded the following information about you: Jacqueline Gramajo RN 06/12/2023 12:20 PM Signed -Pt Verified by Name and Date of -pt calling to report went to URGENT care in [place] 06/08/23. DX URI, ear infection. -pt taking amoxicillin-clav for 7 days dose. -pt still having cough and ear problems. Pt states not getting much better yet. Pt states fever 101F today. -pt asking about R/S steroid injection for tomorrow?> -please advise Gisele Ernst 06/12/2023 1:25 PM Signed Attempted to contact patient and left voicemail to reschedule hip injection. Gisele Ernst 06/12/2023 2:51 PM Signed Patient's appointment has been rescheduled. Allergies As of Date: 06/12/2023 Noted Allergy Reaction BACLOFEN (BULK) 05/20/2014 4 - Hives CIPROFLOXACIN 03/27/2017 14 - Other: See Comments Comments: seizures DILANTIN (PHENYTOIN) 05/20/2014 14 - Other: See Comments Comments: Aches and pain Date Reviewed: 05/19/2023 Reviewed by: Maribeth Brock RN - Fully Assessed Reason for Visit: Patient Update [1234] Prescriptions as of 06/12/2023 - HYDROcodone-acetaminophen (NORCO) 5-325 mg per tablet [...] as needed). 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] 01/10/2007 Epilepsy (HCC) [G40.909] 03/27/2017 Piriformis syndrome of right side [G57.01] 02/20/2023 Radiculopathy, lumbosacral region [M54.17] 02/20/2023 Psoas tendinitis of right side [M76.11] 03/24/2023 Tear of right acetabular labrum [S73.191A] 03/24/2023 Encounter Status:Closed by ANTONIA JAIME on 06/12/23 Normal [facility] CNPNon 05-22-2023 CNPN Telephone (PAINLN) ----- ROSEANN GARRIDO ([id number]) 1975 F Date Time Provider Department 05/22/23 FRANK MARIE During your visit today, we recorded the following information about you: Clementina Silver LPN 05/22/2023 4:44 PM Signed Message left for patient to call in with an update. Please document the % (40%, 50%,etc) of improvement and any functional improvement since her procedure with Dr. Marie on 05/19/23. Right piriformis muscle steroid injection Pre pain: 4 Post pain: 0 Plan: Return to clinic in 4 weeks for followup Clementina Silver LPN 05/24/2023 9:37 AM Signed Message left for patient to call in with an update. Please document the % (40%, 50%,etc) of improvement and any functional improvement since her procedure with Dr. Marie on 05/19/23. Right piriformis muscle steroid injection Pre pain: 4 Post pain: 0 Plan: Return to clinic in 4 weeks for followup Mulu Aquino LPN 05/26/2023 10:04 AM Signed DATE OF SERVICE: 05/19/2023 PATIENT'S PHONE NUMBERS: [phone] PROVIDER: Dr. Marie PROCEDURE: Right piriformis muscle steroid injection PrePain 4 PostPain 0 3rd message left for patient to call in with an update. Please document the % (40%, 50%,etc) of improvement and any functional improvement since her procedure with Dr. Marie on 05/19/2023. Pt instructed she can also respond via My Chart Message for convenience. Plan: She is to return to clinic in 4 weeks for followup Left VM with plan Allergies As of Date: 05/22/2023 Noted Allergy Reaction BACLOFEN (BULK) 05/20/2014 4 - Hives CIPROFLOXACIN 03/27/2017 14 - Other: See Comments Comments: seizures DILANTIN (PHENYTOIN) 05/20/2014 14 - Other: See Comments Comments: Aches and pain Date Reviewed: 05/19/2023 Reviewed by: Maribeth Brock RN - Fully Assessed Reason for Visit: Pain Procedure Response AND follow up [Other] Cmt: Right piriformis muscle steroid injection Prescriptions as of 05/26/2023 - HYDROcodone-acetaminophen (NORCO) 5-325 mg per tablet [...] as needed). 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 Author Type: Nurse Practitioner Type: [...] SIGNATURE: Mayra Garrido APRN.CNP PATIENT NAME: Roseann Garrido DATE: May 19, 2023 TIME: 2:05 PM [facility] OPERATIVE NOon 05-19-2023 OPERATIVE NO HNO ID: [id number] Author: Frank Marie DO Service: Pain Management Author Type: Physician Type: Operative Report Filed: 05/19/2023 3:32 PM Note Text: Patient Name Medical Record # Roseann Garrido [id number] Date of : 1975 Admit Date: May 19, 2023 Sex / Age: female/48 year old Discharge Date: May 19, 2023 Attending Physician: Frank Marie DO Date:May 19, 2023 LOG ID: [id number] Surgery/Procedure Date: 05/19/2023 Incision/Procedure Start Time: 3:29 PM Incision Close/Procedure End Time: 3:32 PM Surgeon(s)/Proceduralist( s) and Sole Leather Cutting Machine Operator(s): Surgeon(s) and Role: * Frank Marie DO [...] Marie DO Pain Management May 19, 2023 Normal [facility] 05-03-2023 [facility] Telephone (JORGE LUIS) ----- ROSEANN GARRIDO ([id number]) 1975 F Date Time Provider Department 05/03/23 [facility] PROVIDER [facility] During your visit today, we recorded the following information about you: Gisele Ernst 05/03/2023 8:44 AM Signed Attempted to contact patient to schedule an US Hip Injection with Dr. Grimaldo. Left voicemail with my direct phone number. Gisele Ernst 05/04/2023 2:23 PM Signed Second attempt. Contacted patient and scheduled an appointment with Dr. Grimaldo on 06/13/23. Appointment has been placed on the waitlist. The patient only wants to be seen at [place]. Allergies As of Date: 05/03/2023 Noted Allergy [...] Status:Closed by GISELE ERNST on 05/03/23 [facility] MRI HIP WO IVCON RTon 2022 [...] LEFT AND MILD GREATER TROCHANTERIC BURSITIS BILATERALLY. [facility] Transcribe Date/Time: Apr 13 2023 7:59A Dictated by : LILLIAM GUEVARA MD This examination was interpreted and the report reviewed and electronically signed by: LILLIAM GUEVARA MD on Apr 13 2023 8:07AM EST [id number] [facility] SARS-CoV-2 (COVID-19) RNA NA A+probe Ql (Resp)on 04-11-2023 SARS-CoV-2 (COVID-19) RNA LULU+probe Ql (Unsp spec) Negative 1.618 Technology Other [facility] 03-24-2023 [facility] Office Visit (LOORRM ) ----- ROSEANN GARRIDO ([id number]) 1975 F Date Time Provider Department 03/24/23 2:30 PM SALMA GAMINOMARIA FERNANDA During your visit today, we recorded the [...] 30 (Tightn (more content not included)... [facility] XR HIP 3V PELV+ AP/LAT RTon 03-24-2023 XR HIP 3V PELV+ AP/LAT RT * * *Final Report* * * DATE OF EXAM: Mar 24 2023 2:36PM LZX [id number] - XR HIP 3V PELV+ AP/LAT [...] Minimal degenerative changes. No acute osseous findings. Brush Cleaner: [facility] Transcribe Date/Time: Mar 24 2023 2:50P Dictated by : MATT SEXTON MD This examination was interpreted and the report reviewed and electronically signed by: MATT SEXTON MD on Mar 24 2023 2:51PM EST [id number] [facility] Toxassure, Urineon 3 Toxassure, Urine Summary FINAL Normal . [facility] Comment on above: Result Comment: ===== TOXASSURE [...] consultation, please call . ===== Performed at: [facility] [address] [id number] Finishing Operator: Amaya Martínez, Phone: [phone] PERFORMED BY: [facility] [place] [address] PATHOLOGIST ASSET RECOVERY SPECIALIST ANNALEE PARRISH M.D. Performed By: #### T OXASSURE #### [facility] [place] 02-22-2023 CNPN Telephone (ORLORA) ----- ROSEANN GARRIDO ([id number]) 1975 F Date Time Provider Department 02/22/23 [...] Right Piriformis muscle steroid injection ROSEANN GARRIDO [id number] FRANK -THINNERS -DM Patient prefers to have [...] Therapy. Patient expressed that she lives in [place] and requested that orders be faxed to [facility]. She would like to complete both Physical Therapy and Xray closed to home. PSS explained to patient that she would have to make sure that she asks for a disc after she gets the XRay and she would have to make sure that Santa [facility] sends results to Dr. Marie. Patient aware that MRI would not be covered unless there is documentation of conservative therapies first. Patient aware and will get disc and have [facility] to fax all results to Dr. Marie. PSS will fax orders to [facility]. Marta Issa 03/14/2023 11:43 AM Signed Left voicemail for patient. Checking back to see if she got xray and PT done and if she wanted to schedule injection. If patient calls back, please connect with surgery coordinator at [phone]. Allergies As of Date: 02/22/2023 Noted Allergy Reaction BACLOFEN (BULK) 05/20/2014 4 - Hives CIPROFLOXACIN 03/27/2017 14 - Other: See Comments Comments: seizures DILANTIN (PHENYTOIN) 05/20/2014 14 - Other: See Comments Comments: Aches and pain Date Reviewed: 04/01/2017 Reviewed by: Colette Corbett (Rn) - Fully Assessed Reason for Visit: Schedule Injection [3498] Primary Visit Diagnosis:Radiculopathy, lumbosacral region [M54.17] Order(s):XR LUMBAR GENERAL 3V AP/LAT/L5-S1 [[id number]] Order #: [id number] FUTURE Prescriptions as of 03/14/2023 - COMPOUNDED [...] Encounter Status:Closed by ROSEANN BRYSON on 02/27/23 [facility] CNOVon 02-20-2023 CNOV Office Visit (PAINLN ) ----- ROSEANN GARRIDO ([id number]) 1975 F Date Time Provider Department 02/20/23 2:30 PM FRANK MARIE PAINLN During your visit today, we recorded the following information about you: Pulse Height 96/minute 1.626 m Frank Marie, DO 02/20/2023 3:40 PM Signed [facility] Initial Evaluation February 20, 2023 This appointment was requested by Michael Moreno CNP, for my medical opinion regarding the evaluation and management of the patient's Roseann Garrido problems, and my final recommendations will be communicated to the requesting health care provider by way of the shared medical record for internal providers or letter via the [employer] for external providers. SUBJECTIVE: Roseann Garrido a 47 year old presents to [facility] Pain Management Department, accompanied by daughter, was [...] Mitigated by standing. Current treatments and response: [place] PRN - helps only 4 hrs Gabapentin 800 mg- once daily- Lidocaine Patch- some relief Response to previous treatments: Cortizone injection in [place] - no relief PT- yrs ago - [...] No history of dysuria, frequency or incontinence PATIENT CONSUMER MARKETER: Negative for abnormal vaginal bleeding, abnormal vaginal [...] supervised home exercise program (HEP): No 5. 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 Normal [facility] Drugs identified in UrineOrd ered By: Michael Moreno on 01-12-2023 Drugs identified Nom (U) Final . [facility] Comment on above: =====TOXASSURE COMP DRUG ANALYSIS,UR [...] clinical consultation, please call . Performed at: [facility] [employer] [address] [place] [address] [id number] Director: Amaya Chapin [facility], Phone: [phone] [place] Urineon 3 Toxassure, Urine Summary FINAL Normal . [facility] Comment on above: Order Comment: Reaso n for Exam Lumbago with sciatica, right side Specimen Comment: ToxAssure, ToxAssure FLEX or MAT drug testing: Specimen Comment: -Technical component - Data analysis performed at Specimen Comment: <[address] [facility] [place] [facility], > Result Comment: ===== TOXASSURE COMP DRUG ANALYSIS,UR [...] consultation, please call . ===== Performed at: [employer] [address] [place] [address] [id number] Finishing Operator: Amaya Chapin [facility], Phone: [phone] PERFORMED BY: [address] [address] PATHOLOGIST ASSET RECOVERY SPECIALIST ANNALEE PARRISH M.D. Performed By: #### T OXASSURE ####[facility] , XR hip RT min 2V(w/wo pelvis )*on 01-12-2023 XR hip RT min 2V(w/wo pelvis)* [facility] [place] [address] XRay Report Signed Patient: Roseann Garrido MR#: [id number] : 1975 Acct:[id number] Age/Sex: 47 / F ADM Date: 01/12/23 Loc: XD Room: Type: [facility] CLI Attending Dr: Michael MONDRAGONC Copies to: MARIA L Green Ordering Provider: MARIA L Green Date of Service: 01/12/23 XR/XR KUB: Urethral pain ([id number]) XR/XR hip RT min 2V(w/wo pelvis)*: R39.89, [...] Alejandra Gutierrez M.D.01/12/2023 3:50 PM Dictation Location: [place] [address] Transcribed By: [facility] 01/12/23 1550 Dictated By: Alejandra Gutierrez MD 01/12/23 1543 Signed By: 01/12/23 1550 Normal [facility] Alanine aminotransferase [En zymatic activity/volume] in Serum or PlasmaOrdered By: Michael Moreno on 09-06-2022 ALT [Catalytic activity/Vol] 37 U/L 7-52 [facility] Albumin [Mass/volume] in Ser um or Plasma by Bromocresol green (BCG) dye binding methoOrdered By: Michael Moreno on 09-06-2022 Albumin BCG dye [Mass/Vol] 4.3 g/dL 3.5-5.7 [facility] Alkaline phosphatase [Enzyma tic activity/volume] in Serum or PlasmaOrdered By: Michael Moreno on 09-06-2022 ALP [Catalytic activity/Vol] 87 U/L 34-104 [facility] Aspartate aminotransferase [ Enzymatic activity/volume] in Serum or PlasmaOrdered By: Michael Moreno on 09-06-2022 AST [Catalytic activity/Vol] 24 U/L 13-39 [facility] Basophils Auto (Bld) [#/Vol] Ordered By: Michael Moreno on 09-06-2022 Basophils (Bld) [#/Vol] 0.0 10*3/uL 0.0-0.2 [facility] Basophils/100 WBC Auto (Bld) Ordered By: Michael Moreno on 09-06-2022 Basophils/100 WBC (Bld) 0.2 % . [facility] Bilirubin.total [Mass/volume ] in Serum or PlasmaOrdered By: Michael Gramajo on 09-06-2022 Bilirubin [Mass/Vol] 0.3 mg/dL 0.3-1.0 [facility] Calcium [Mass/volume] in Ser um or PlasmaOrdered By: Michael [facility] on 09-06-2022 Calcium [Mass/Vol] 9.6 mg/dL 8.6-10.3 [facility] Carbon dioxide, total [Moles /volume] in Serum or PlasmaOrdered By: Michael Moreno on 09-06-2022 CO2 [Moles/Vol] 27.8 mmol/L 21.0-31.0 [facility] Chloride [Moles/volume] in S layla or PlasmaOrdered By: Michael Moreno on 09-06-2022 Chloride [Moles/Vol] 103 mmol/L 98-107 [facility] Complete Blood Count Auto Di ffon 09-06-2022 Basophils (Bld) [#/Vol] 0.0 10*3/uL Normal 0.0-0.2 [facility] Comment on above: Order Comment: Reaso n for Exam History of tonsillectomy Result Comment: PERF ORMED BY: [facility] [address] [place] [address] PATHOLOGIST ASSET RECOVERY SPECIALIST ANNALEE PARRISH M.D. Performed By: #### F E and TIBC, TSH3, CBC, CMP #### [facility] [address] Basophils/100 WBC (Bld) 0.2 % Normal . [facility] Comment on above: Order Comment: Reaso n for Exam History of tonsillectomy Performed By: #### F E and TIBC, TSH3, CBC, CMP #### [address] Eosinophils (Bld) [#/Vol] 0.4 10*3/uL Normal 0.0-0.45 [facility] Comment on above: Order Comment: Reaso n for Exam History of tonsillectomy Performed By: #### F E and TIBC, TSH3, CBC, CMP #### [address] Eosinophils/100 WBC (Bld) 4.0 % Normal . [facility] Comment on above: Order Comment: Reaso n for Exam History of tonsillectomy Performed By: #### F E and TIBC, TSH3, CBC, CMP #### [address] Erythrocyte distribution width (RBC) [Ratio] 13.8 % Normal 11.9-15.3 [facility] Comment on above: Order Comment: Reaso n for Exam History of tonsillectomy Performed By: #### F E and TIBC, TSH3, CBC, CMP #### [address] Hematocrit (Bld) [Volume fraction] 42.9 % Normal 34.0-46.4 [facility] Comment on above: Order Comment: Reaso n for Exam History of tonsillectomy Performed By: #### F E and TIBC, TSH3, CBC, CMP #### [address] Hemoglobin (Bld) [Mass/Vol] 14.7 g/dL Normal 11.8-15.4 [facility] Comment on above: Order Comment: Reaso n for Exam History of tonsillectomy Performed By: #### F E and TIBC, TSH3, CBC, CMP #### [address] Lymphocytes (Bld) [#/Vol] 3.5 10*3/uL Normal 1.00-4.8 [facility] Comment on above: Order Comment: Reaso n for Exam History of tonsillectomy Performed By: #### F E and TIBC, TSH3, CBC, CMP #### [address] Lymphocytes/100 WBC (Bld) 36.2 % Normal . [facility] Comment on above: Order Comment: Reaso n for Exam History of tonsillectomy Performed By: #### F E and TIBC, TSH3, CBC, CMP #### [address] MCH (RBC) [Entitic mass] 32.3 pg Normal 24.7-34.3 [facility] Comment on above: Order Comment: Reaso n for Exam History of tonsillectomy Performed By: #### F E and TIBC, TSH3, CBC, CMP #### [address] MCV (RBC) [Entitic vol] 94.4 fL Normal 80-100 [facility] Comment on above: Order Comment: Reaso n for Exam History of tonsillectomy Performed By: #### F E and TIBC, TSH3, CBC, CMP #### [address] Mean Corpuscular HGB Conc 34.2 g/dL Normal 32.0-35.0 [facility] Comment on above: Order Comment: Reaso n for Exam History of tonsillectomy Performed By: #### F E and TIBC, TSH3, CBC, CMP #### [address] Monocytes (Bld) [#/Vol] 0.7 10*3/uL Normal 0.0-0.8 [facility] Comment on above: Order Comment: Reaso n for Exam History of tonsillectomy Performed By: #### F E and TIBC, TSH3, CBC, CMP #### [address] Monocytes/100 WBC (Bld) 6.8 % Normal . [facility] Comment on above: Order Comment: Reaso n for Exam History of tonsillectomy Performed By: #### F E and TIBC, TSH3, CBC, CMP #### [facility] [address] [place] [address] [place] Neutrophils (Bld) [#/Vol] 5.2 10*3/uL Normal 1.8-7.7 [facility] Comment on above: Order Comment: Reaso n for Exam History of tonsillectomy Performed By: #### F E and TIBC, TSH3, CBC, CMP #### [facility] [address] Neutrophils/100 WBC (Bld) 52.8 % Normal . [facility] Comment on above: Order Comment: Reaso n for Exam History of tonsillectomy Performed By: #### F E and TIBC, TSH3, CBC, CMP #### [facility] [address] [place] [address] NRBC% 0.2 /100{WBC} Normal 0-0.5 [facility] Comment on above: Order Comment: Reaso n for Exam History of tonsillectomy Performed By: #### F E and TIBC, TSH3, CBC, CMP #### [facility] [address] [place] [address] Platelet mean volume (Bld) [Entitic vol] 7.1 fL Normal 6.3-10.7 [facility] Comment on above: Order Comment: Reaso n for Exam History of tonsillectomy Performed By: #### F E and TIBC, TSH3, CBC, CMP #### [facility] [address] [place] [address] [place] Platelets (Bld) [#/Vol] 312 10*3/uL Normal 150-450 [facility] Comment on above: Order Comment: Reaso n for Exam History of tonsillectomy Performed By: #### F E and TIBC, TSH3, CBC, CMP #### [facility] [address] [place] [address] [place] RBC (Bld) [#/Vol] 4.54 10*6/uL Normal 3.60-5.00 [facility] Comment on above: Order Comment: Reaso n for Exam History of tonsillectomy Performed By: #### F E and TIBC, TSH3, CBC, CMP #### [facility] [address] WBC (Bld) [#/Vol] 9.8 10*3/uL Normal 3.8-11.6 [facility] Comment on above: Order Comment: Reaso n for Exam History of tonsillectomy Performed By: #### F E and TIBC, TSH3, CBC, CMP #### [facility] [address] Comprehensive Metabolic Pane [place] 09-06-2022 Albumin [Mass/Vol] 4.3 g/dL Normal 3.5-5.7 [facility] Comment on above: Order Comment: Reaso n for Exam History of tonsillectomy Reason for Exam Hair loss Performed By: #### F E and TIBC, TSH3, CBC, CMP #### [address] Albumin/Globulin [Mass ratio] 2.4 {ratio} Normal [facility] Comment on above: Order Comment: Reaso n for Exam History of tonsillectomy Reason for Exam Hair loss Performed By: #### F E and TIBC, TSH3, CBC, CMP #### [address] ALP [Catalytic activity/Vol] 87 U/L Normal 34-104 [facility] Comment on above: Order Comment: Reaso n for Exam History of tonsillectomy Reason for Exam Hair loss Performed By: #### F E and TIBC, TSH3, CBC, CMP #### [address] ALT [Catalytic activity/Vol] 37 U/L Normal 7-52 [facility] Comment on above: Order Comment: Reaso n for Exam History of tonsillectomy Reason for Exam Hair loss Performed By: #### F E and TIBC, TSH3, CBC, CMP #### [address] Anion gap [Moles/Vol] 11.0 mmol/L Normal 6.0-15.0 [facility] Comment on above: Order Comment: Reaso n for Exam History of tonsillectomy Reason for Exam Hair loss Performed By: #### F E and TIBC, TSH3, CBC, CMP #### [facility] [address] AST [Catalytic activity/Vol] 24 U/L Normal 13-39 [facility] Comment on above: Order Comment: Reaso n for Exam History of tonsillectomy Reason for Exam Hair loss Performed By: #### F E and TIBC, TSH3, CBC, CMP #### [address] Bilirubin [Mass/Vol] 0.3 mg/dL Normal 0.3-1.0 [facility] Comment on above: Order Comment: Reaso n for Exam History of tonsillectomy Reason for Exam Hair loss Performed By: #### F E and TIBC, TSH3, CBC, CMP #### [address] Calcium [Mass/Vol] 9.6 mg/dL Normal 8.6-10.3 [facility] Comment on above: Order Comment: Reaso n for Exam History of tonsillectomy Reason for Exam Hair loss Performed By: #### F E and TIBC, TSH3, CBC, CMP #### [facility] [address] [place] [address] Chloride [Moles/Vol] 103 mmol/L Normal 98-107 [facility] Comment on above: Order Comment: Reaso n for Exam History of tonsillectomy Reason for Exam Hair loss Performed By: #### F E and TIBC, TSH3, CBC, CMP #### [facility] [address] [place] [address] CO2 [Moles/Vol] 27.8 mmol/L Normal 21.0-31.0 [facility] Comment on above: Order Comment: Reaso n for Exam History of tonsillectomy Reason for Exam Hair loss Performed By: #### F E and TIBC, TSH3, CBC, CMP #### [facility] [address] Creatinine [Mass/Vol] 0.88 mg/dL Normal 0.60-1.20 [facility] Comment on above: Order Comment: Reaso n for Exam History of tonsillectomy Reason for Exam Hair loss Performed By: #### F E and TIBC, TSH3, CBC, CMP #### [facility] [address] GFR/1.73 sq M.predicted MDRD (S/P/Bld) [Vol rate/Area] mL/min/{1.73_m2} [facility] Comment on above: Order Comment: Reaso n for Exam History of tonsillectomy Reason for Exam Hair loss Performed By: #### F E and TIBC, TSH3, CBC, CMP #### [address] Globulin (S) [Mass/Vol] 1.8 g/dL [facility] Comment on above: Order Comment: Reaso n for Exam History of tonsillectomy Reason for Exam Hair loss Performed By: #### F E and TIBC, TSH3, CBC, CMP #### [address] Glucose [Mass/Vol] 89 mg/dL Normal 70-100 [facility] Comment on above: Order Comment: Reaso n for Exam History of tonsillectomy Reason for Exam Hair loss Result Comment: [place] Glucose Reference Range is dependent on time and content of last meal. Glucose of more than 200 mg/dL in a nonstressed, ambulatory subject supports the diagnosis of Diabetes Mellitus. ADA recommended reference range Performed By: #### F E and TIBC, TSH3, CBC, CMP #### [facility] [address] [place] [address] Potassium [Moles/Vol] 4.8 mmol/L Normal 3.5-5.1 [facility] Comment on above: Order Comment: Reaso n for Exam History of tonsillectomy Reason for Exam Hair loss Performed By: #### F E and TIBC, TSH3, CBC, CMP #### [facility] [address] Protein [Mass/Vol] 6.1 g/dL Low 6.4-8.9 [facility] Comment on above: Order Comment: Reaso n for Exam History of tonsillectomy Reason for Exam Hair loss Performed By: #### F E and TIBC, TSH3, CBC, CMP #### [facility] [address] Sodium [Moles/Vol] 137 mmol/L Normal 136-145 [facility] Comment on above: Order Comment: Reaso n for Exam History of tonsillectomy Reason for Exam Hair loss Performed By: #### F E and TIBC, TSH3, CBC, CMP #### [facility] [address] Urea nitrogen [Mass/Vol] 12 mg/dL Normal 7-25 [facility] Comment on above: Order Comment: Reaso n for Exam History of tonsillectomy Reason for Exam Hair loss Performed By: #### F E and TIBC, TSH3, CBC, CMP #### [facility] [address] Creatinine [Mass/volume] in Serum or PlasmaOrdered By: Michael Moreno on 09-06-2022 Creatinine [Mass/Vol] 0.88 mg/dL 0.60-1.20 [facility] Eosinophils Auto (Bld) [#/Vo l]Ordered By: Michael Moreno on 09-06-2022 Eosinophils (Bld) [#/Vol] 0.4 10*3/uL 0.0-0.45 [facility] Eosinophils/100 WBC Auto (Bl d)Ordered By: Michael Moreno on 09-06-2022 Eosinophils/100 WBC (Bld) 4.0 % . [facility] Erythrocyte distribution wid th Auto (RBC) [Ratio]Ordered By: Michael Moreno on 09-06-2022 Erythrocyte distribution width (RBC) [Ratio] 13.8 % 11.9-15.3 [facility] Globulin Calc (S) [Mass/Vol] Ordered By: Michael Moreno on 09-06-2022 Globulin (S) [Mass/Vol] 1.8 g/dL [facility] Glucose [Mass/volume] in Ser um or PlasmaOrdered By: Michael Moreno on 09-06-2022 Glucose [Mass/Vol] 89 mg/dL 70-100 [facility] Comment on above: ADA recommended refe rence rangeRandom Glucose Reference Range is dependent on time and content of last meal. Glucose of more than 200 mg/dL in a nonstressed, ambulatory subject supports the diagnosis of Diabetes Mellitus. Hematocrit Auto (Bld) [Volum e fraction]Ordered By: Michael Moreno on 09-06-2022 Hematocrit (Bld) [Volume fraction] 42.9 % 34.0-46.4 [facility] Hemoglobin [Mass/volume] in BloodOrdered By: Michael Moreno on 09-06-2022 Hemoglobin (Bld) [Mass/Vol] 14.7 g/dL 11.8-15.4 [facility] Iron [Mass/volume] in Serum or PlasmaOrdered By: Michael Moreno on 09-06-2022 Iron [Mass/Vol] 52 ug/dL 50-212 [facility] Iron and TIBC Profileon 04 % Iron Saturation 11.8 % Low 20-50 [facility] Comment on above: Order Comment: Reaso n for Exam History of tonsillectomy Reason for Exam Hair loss Performed By: #### F E and TIBC, TSH3, CBC, CMP #### [facility] [address] Iron [Mass/Vol] 52 ug/dL Normal 50-212 [facility] Comment on above: Order Comment: Reaso n for Exam History of tonsillectomy Reason for Exam Hair loss Performed By: #### F E and TIBC, TSH3, CBC, CMP #### [facility] [address] [place] [id number] [facility] Total Iron Binding Capacity 440 ug/dL Normal 255-450 [facility] Comment on above: Order Comment: Reaso n for Exam History of tonsillectomy Reason for Exam Hair loss Performed By: #### F E and TIBC, TSH3, CBC, CMP #### [facility] [address] [place] [id number] [place] Transferrin [Mass/Vol] 314 mg/dL Normal 203-362 [facility] Comment on above: Order Comment: Reaso n for Exam History of tonsillectomy Reason for Exam Hair loss Performed By: #### F E and TIBC, TSH3, CBC, CMP #### [facility] [address] [place] [id number] [facility] Iron binding capacity [Mass/ volume] in Serum or PlasmaOrdered By: Michael Moreno on 09-06-2022 Iron binding capacity [Mass/Vol] 440 ug/dL 255-450 [facility] Iron saturation [Mass Fracti on] in Serum or PlasmaOrdered By: Michael Moreno on 09-06-2022 Iron saturation [Mass fraction] 11.8 % 20-50 [facility] Leukocytes [#/volume] correc shirley for nucleated erythrocytes in Blood by Automated counOrdered By: Michael Moreno on 09-06-2022 WBC corrected for nucl RBC Auto (Bld) [#/Vol] 9.8 10*3/uL 3.8-11.6 [facility] Lymphocytes Auto (Bld) [#/Vo l]Ordered By: Michael Moreno on 09-06-2022 Lymphocytes (Bld) [#/Vol] 3.5 10*3/uL 1.00-4.8 [facility] Lymphocytes/100 WBC Auto (Bl d)Ordered By: Michael Moreno on 09-06-2022 Lymphocytes/100 WBC (Bld) 36.2 % . [facility] MCH Auto (RBC) [Entitic mass ]Ordered By: Michael Moreno on 09-06-2022 MCH (RBC) [Entitic mass] 32.3 pg 24.7-34.3 [facility] MCHC Auto (RBC) [Mass/Vol]Or dered By: Michael Moreno on 09-06-2022 MCHC (RBC) [Mass/Vol] 34.2 g/dL 32.0-35.0 [facility] MCV Auto (RBC) [Entitic vol] Ordered By: Michael Moreno on 09-06-2022 MCV (RBC) [Entitic vol] 94.4 fL 80-100 [facility] Monocytes Auto (Bld) [#/Vol] Ordered By: Michael Moreno on 09-06-2022 Monocytes (Bld) [#/Vol] 0.7 10*3/uL 0.0-0.8 [facility] Monocytes/100 WBC Auto (Bld) Ordered By: Michael Moreno on 09-06-2022 Monocytes/100 WBC (Bld) 6.8 % . [facility] Neutrophils Auto (Bld) [#/Vo l]Ordered By: Michael Moreno on 09-06-2022 Neutrophils (Bld) [#/Vol] 5.2 10*3/uL 1.8-7.7 [facility] Neutrophils/100 WBC Auto (Bl d)Ordered By: Michael Moreno on 09-06-2022 Neutrophils/100 WBC (Bld) 52.8 % . [facility] No Panel InformationOrdered By: Michael Moreno on 09-06-2022 Estimated GFR (CKD-EPI) > 60.0 mL/Min [facility] Creatinine Clearance (Chem N/A [facility] Nucleated erythrocytes [Pres ence] in Blood by Automated countOrdered By: Michael Moreno on 09-06-2022 Nucleated RBC Auto Ql (Bld) 0.2 /100{WBC} 0-0.5 [facility] Platelet mean volume Auto (B ld) [Entitic vol]Ordered By: Michael Moreno on 09-06-2022 Platelet mean volume (Bld) [Entitic vol] 7.1 fL 6.3-10.7 [facility] Platelets Auto (Bld) [#/Vol] Ordered By: Michael Moreno on 09-06-2022 Platelets (Bld) [#/Vol] 312 10*3/uL 150-450 [facility] Potassium [Moles/volume] in Serum or PlasmaOrdered By: Michael Moreno on 09-06-2022 Potassium [Moles/Vol] 4.8 mmol/L 3.5-5.1 [facility] Protein [Mass/volume] in Ser um or PlasmaOrdered By: Michael Moreno on 09-06-2022 Protein [Mass/Vol] 6.1 g/dL 6.4-8.9 [facility] RBC Auto (Bld) [#/Vol]Ordere d By: Michael Moreno on 09-06-2022 RBC (Bld) [#/Vol] 4.54 10*6/uL 3.60-5.00 [facility] Serum or plasma albumin/glob ulin mass ratioOrdered By: Michael Moreno on 09-06-2022 Albumin/Globulin [Mass ratio] 2.4 {ratio} [facility] Serum or plasma anion gap de terminationOrdered By: Michael Moreno on 09-06-2022 Anion gap [Moles/Vol] 11.0 mmol/L 6.0-15.0 [facility] Sodium [Moles/volume] in Ser um or PlasmaOrdered By: Michael Moreno on 09-06-2022 Sodium [Moles/Vol] 137 mmol/L 136-145 [facility] Thyroid Stimulating Hormoneo n 09-06-2022 TSH Qn 1.32 m[IU]/L Normal 0.45-5.33 [facility] Comment on above: Order Comment: Reaso n for Exam History of tonsillectomy Reason for Exam Hair loss Result Comment: PERF [facility]MED [facility]: [facility] [facility] [address] [place] [address] PATHOLOGIST ASSET RECOVERY SPECIALIST ANNALEE PARRISH M.D. Performed By: #### F E and TIBC, TSH3, CBC, CMP ####[facility] [id number] [place] [address] [facility] Thyrotropin [Units/volume] i n Serum or PlasmaOrdered By: Michael Moreno on 09-06-2022 TSH Qn 1.32 m[IU]/L 0.45-5.33 [facility] Transferrin [Mass/volume] in Serum or PlasmaOrdered By: Michael Moreno on 09-06-2022 Transferrin [Mass/Vol] 314 mg/dL 203-362 [facility] Urea nitrogen [Mass/volume] in Serum or PlasmaOrdered By: Michael Moreno on 09-06-2022 Urea nitrogen [Mass/Vol] 12 mg/dL 7-25 [facility] WBC Auto (Bld) [#/Vol]Ordere d By: Michael Moreno on 09-06-2022 WBC (Bld) [#/Vol] 9.8 10*3/uL 3.8-11.6 [facility] Alanine aminotransferase [En zymatic activity/volume] in Serum or PlasmaOrdered By: Michael Moreno on 08-11-2022 ALT [Catalytic activity/Vol] 31 U/L 7-52 [facility] Albumin [Mass/volume] in Ser um or Plasma by Bromocresol green (BCG) dye binding methoOrdered By: Michael Moreno on 08-11-2022 Albumin BCG dye [Mass/Vol] 4.6 g/dL 3.5-5.7 [facility] Alkaline phosphatase [Enzyma tic activity/volume] in Serum or PlasmaOrdered By: Michael Moreno on 08-11-2022 ALP [Catalytic activity/Vol] 94 U/L 34-104 [facility] Amphetamine Screen Ql (U)Ord ered By: Michael Moreno on 08-11-2022 Amphetamines Ql (U) Negative Negative [facility] Aspartate aminotransferase [ Enzymatic activity/volume] in Serum or PlasmaOrdered By: Michael Moreno on 08-11-2022 AST [Catalytic activity/Vol] 24 U/L 13-39 [facility] Barbiturates [Presence] in U rine by Screen methodOrdered By: Michael Moreno on 08-11-2022 Barbiturates Screen Ql (U) Negative Negative [facility] Basophils Auto (Bld) [#/Vol] Ordered By: Michael Moreno on 08-11-2022 Basophils (Bld) [#/Vol] 0.1 10*3/uL 0.0-0.2 [facility] Basophils/100 WBC Auto (Bld) Ordered By: Michael Moreno on 08-11-2022 Basophils/100 WBC (Bld) 0.6 % . [facility] Benzodiazepines Screen Ql (U )Ordered By: Michael Moreno on 08-11-2022 Benzodiazepines Ql (U) Negative Negative [facility] Benzoylecgonine [Presence] i n Urine by Screen methodOrdered By: Michael Moreno on 08-11-2022 Benzoylecgonine Screen Ql (U) Negative Negative [facility] Bilirubin.total [Mass/volume ] in Serum or PlasmaOrdered By: Michael Moreno on 08-11-2022 Bilirubin [Mass/Vol] 0.3 mg/dL 0.3-1.0 [facility] Calcium [Mass/volume] in Ser um or PlasmaOrdered By: Michael Moreno on 08-11-2022 Calcium [Mass/Vol] 9.7 mg/dL 8.6-10.3 [facility] Cannabinoids [Presence] in U rine by Screen methodOrdered By: Michael Moreno on 08-11-2022 Cannabinoids Screen Ql (U) Negative Negative [facility] Comment on above: These are unconfirme d results and should not be used for legal purposes. Drug Cut-Off Concentration: AMPH 1000 ng/mL KRISHNA 200 ng/mL GAURI 200 ng/mL COCM 300 ng/mL OP 300 ng/mL PCP 25 ng/mL THC 20 ng/mL Carbon dioxide, total [Moles /volume] in Serum or PlasmaOrdered By: Michael Moreno on 08-11-2022 CO2 [Moles/Vol] 26.9 mmol/L 21.0-31.0 [facility] Chloride [Moles/volume] in S layla or PlasmaOrdered By: Michael Moreno on 08-11-2022 Chloride [Moles/Vol] 107 mmol/L 98-107 [facility] Cholesterol [Mass/volume] in Serum or PlasmaOrdered By: Michael Moreno on 08-11-2022 Cholesterol [Mass/Vol] 207 mg/dL 140-200 [facility] Comment on above: Chol less than 200 m g/dl low riskChol 201-239 mg/dl borderline riskChol 240 mg/dl and greater high risk Cholesterol in LDL Calc [Mas s/Vol]Ordered By: Michael Moreno on 08-11-2022 Cholesterol in LDL [Mass/Vol] 127 mg/dL 0-100 [facility] Comment on above: LDL ATP III CLASSIFI CATIONLDL less than 100 mg/dL OptimalLDL 100-129 mg/dL Near or above optimalLDL 130-159 mg/dL Borderline highLDL 160-189 mg/dL HighLDL greater than 189 mg/dL Very high Cholesterol in VLDL Calc [Ma ss/Vol]Ordered By: Michael Moreno on 08-11-2022 Cholesterol in VLDL [Mass/Vol] 44 mg/dL [facility] Complete Blood Count Auto Di ffon 08-11-2022 Basophils (Bld) [#/Vol] 0.1 10*3/uL Normal 0.0-0.2 [facility] Comment on above: Order Comment: Reaso n for Exam Mixed hyperlipidemia Result Comment: PERF ORMED BY: [place] [address] PATHOLOGIST ASSET RECOVERY SPECIALIST ANNALEE PARRISH M.D. Performed By: #### U RDS, CMP, LIPID, CBC #### [facility] [address] Basophils/100 WBC (Bld) 0.6 % Normal . [facility] Comment on above: Order Comment: Reaso n for Exam Mixed hyperlipidemia Performed By: #### U RDS, CMP, LIPID, CBC #### [facility] [address] [place] [address] [place] Eosinophils (Bld) [#/Vol] 0.2 10*3/uL Normal 0.0-0.45 [facility] Comment on above: Order Comment: Reaso n for Exam Mixed hyperlipidemia Performed By: #### U RDS, CMP, LIPID, CBC #### [facility] [address] [place] [address] [place] Eosinophils/100 WBC (Bld) 2.5 % Normal . [facility] Comment on above: Order Comment: Reaso n for Exam Mixed hyperlipidemia Performed By: #### U RDS, CMP, LIPID, CBC #### [facility] [address] [place] [address] Erythrocyte distribution width (RBC) [Ratio] 13.3 % Normal 11.9-15.3 [facility] Comment on above: Order Comment: Reaso n for Exam Mixed hyperlipidemia Performed By: #### U RDS, CMP, LIPID, CBC #### [address] Hematocrit (Bld) [Volume fraction] 44.0 % Normal 34.0-46.4 [facility] Comment on above: Order Comment: Reaso n for Exam Mixed hyperlipidemia Performed By: #### U RDS, CMP, LIPID, CBC #### [address] Hemoglobin (Bld) [Mass/Vol] 15.0 g/dL Normal 11.8-15.4 [facility] Comment on above: Order Comment: Reaso n for Exam Mixed hyperlipidemia Performed By: #### U RDS, CMP, LIPID, CBC #### [address] Lymphocytes (Bld) [#/Vol] 2.9 10*3/uL Normal 1.00-4.8 [facility] Comment on above: Order Comment: Reaso n for Exam Mixed hyperlipidemia Performed By: #### U RDS, CMP, LIPID, CBC #### [address] Lymphocytes/100 WBC (Bld) 32.8 % Normal . [facility] Comment on above: Order Comment: Reaso n for Exam Mixed hyperlipidemia Performed By: #### U RDS, CMP, LIPID, CBC #### [address] MCH (RBC) [Entitic mass] 32.1 pg Normal 24.7-34.3 [facility] Comment on above: Order Comment: Reaso n for Exam Mixed hyperlipidemia Performed By: #### U RDS, CMP, LIPID, CBC #### [place] [address] [place] MCV (RBC) [Entitic vol] 94.1 fL Normal 80-100 [facility] Comment on above: Order Comment: Reaso n for Exam Mixed hyperlipidemia Performed By: #### U RDS, CMP, LIPID, CBC #### [address] Mean Corpuscular HGB Conc 34.1 g/dL Normal 32.0-35.0 [facility] Comment on above: Order Comment: Reaso n for Exam Mixed hyperlipidemia Performed By: #### U RDS, CMP, LIPID, CBC #### [facility] [address] Monocytes (Bld) [#/Vol] 0.6 10*3/uL Normal 0.0-0.8 [facility] Comment on above: Order Comment: Reaso n for Exam Mixed hyperlipidemia Performed By: #### U RDS, CMP, LIPID, CBC #### [facility] [address] [place] [address] [place] Monocytes/100 WBC (Bld) 6.5 % Normal . [facility] Comment on above: Order Comment: Reaso n for Exam Mixed hyperlipidemia Performed By: #### U RDS, CMP, LIPID, CBC #### [facility] [address] [place] [address] [place] Neutrophils (Bld) [#/Vol] 5.1 10*3/uL Normal 1.8-7.7 [facility] Comment on above: Order Comment: Reaso n for Exam Mixed hyperlipidemia Performed By: #### U RDS, CMP, LIPID, CBC #### [facility] [address] Neutrophils/100 WBC (Bld) 57.6 % Normal . [facility] Comment on above: Order Comment: Reaso n for Exam Mixed hyperlipidemia Performed By: #### U RDS, CMP, LIPID, CBC #### [facility] [address] [place] [address] [place] NRBC% 0.0 /100{WBC} Normal 0-0.5 [facility] Comment on above: Order Comment: Reaso n for Exam Mixed hyperlipidemia Performed By: #### U RDS, CMP, LIPID, CBC #### [facility] [address] [place] [address] [place] Platelet mean volume (Bld) [Entitic vol] 7.7 fL Normal 6.3-10.7 [facility] Comment on above: Order Comment: Reaso n for Exam Mixed hyperlipidemia Performed By: #### U RDS, CMP, LIPID, CBC #### [facility] [address] Platelets (Bld) [#/Vol] 284 10*3/uL Normal 150-450 [facility] Comment on above: Order Comment: Reaso n for Exam Mixed hyperlipidemia Performed By: #### U RDS, CMP, LIPID, CBC #### [facility] [address] RBC (Bld) [#/Vol] 4.68 10*6/uL Normal 3.60-5.00 [facility] Comment on above: Order Comment: Reaso n for Exam Mixed hyperlipidemia Performed By: #### U RDS, CMP, LIPID, CBC #### [facility] [address] WBC (Bld) [#/Vol] 8.8 10*3/uL Normal 3.8-11.6 [facility] Comment on above: Order Comment: Reaso n for Exam Mixed hyperlipidemia Performed By: #### U RDS, CMP, LIPID, CBC #### [facility] [address] [place] [address] Comprehensive Metabolic Pane austin 08-11-2022 Albumin [Mass/Vol] 4.6 g/dL Normal 3.5-5.7 [facility] Comment on above: Order Comment: Reaso n for Exam Mixed hyperlipidemia Performed By: #### U RDS, CMP, LIPID, CBC #### [facility] [address] [place] [address] Albumin/Globulin [Mass ratio] 2.0 {ratio} Normal [facility] Comment on above: Order Comment: Reaso n for Exam Mixed hyperlipidemia Performed By: #### U RDS, CMP, LIPID, CBC #### [facility] [address] ALP [Catalytic activity/Vol] 94 U/L Normal 34-104 [facility] Comment on above: Order Comment: Reaso n for Exam Mixed hyperlipidemia Performed By: #### U RDS, CMP, LIPID, CBC #### [facility] [address] [place] [address] ALT [Catalytic activity/Vol] 31 U/L Normal 7-52 [facility] Comment on above: Order Comment: Reaso n for Exam Mixed hyperlipidemia Performed By: #### U RDS, CMP, LIPID, CBC #### [facility] [address] Anion gap [Moles/Vol] 10.0 mmol/L Normal 6.0-15.0 [facility] Comment on above: Order Comment: Reaso n for Exam Mixed hyperlipidemia Performed By: #### U RDS, CMP, LIPID, CBC #### [facility] [address] AST [Catalytic activity/Vol] 24 U/L Normal 13-39 [facility] Comment on above: Order Comment: Reaso n for Exam Mixed hyperlipidemia Performed By: #### U RDS, CMP, LIPID, CBC #### [facility] [address] Bilirubin [Mass/Vol] 0.3 mg/dL Normal 0.3-1.0 [facility] Comment on above: Order Comment: Reaso n for Exam Mixed hyperlipidemia Performed By: #### U RDS, CMP, LIPID, CBC #### [facility] [address] [place] [address] [place] Calcium [Mass/Vol] 9.7 mg/dL Normal 8.6-10.3 [facility] Comment on above: Order Comment: Reaso n for Exam Mixed hyperlipidemia Performed By: #### U RDS, CMP, LIPID, CBC #### [facility] [address] [place] [address] [place] Chloride [Moles/Vol] 107 mmol/L Normal 98-107 [facility] Comment on above: Order Comment: Reaso n for Exam Mixed hyperlipidemia Performed By: #### U RDS, CMP, LIPID, CBC #### [facility] [address] [place] [address] [place] CO2 [Moles/Vol] 26.9 mmol/L Normal 21.0-31.0 [facility] Comment on above: Order Comment: Reaso n for Exam Mixed hyperlipidemia Performed By: #### U RDS, CMP, LIPID, CBC #### [facility] [address] Creatinine [Mass/Vol] 0.91 mg/dL Normal 0.60-1.20 [facility] Comment on above: Order Comment: Reaso n for Exam Mixed hyperlipidemia Performed By: #### U RDS, CMP, LIPID, CBC #### [facility] [address] GFR/1.73 sq M.predicted MDRD (S/P/Bld) [Vol rate/Area] mL/min/{1.73_m2} [facility] Comment on above: Order Comment: Reaso n for Exam Mixed hyperlipidemia Performed By: #### U RDS, CMP, LIPID, CBC #### [facility] [address] Globulin (S) [Mass/Vol] 2.3 g/dL [facility] Comment on above: Order Comment: Reaso n for Exam Mixed hyperlipidemia Performed By: #### U RDS, CMP, LIPID, CBC #### [facility] [address] Glucose [Mass/Vol] 107 mg/dL Normal 74-109 [facility] Comment on above: Order Comment: Reaso n for Exam Mixed hyperlipidemia Result Comment: [place] Glucose Reference Range is dependent on time and content of last meal. Glucose of more than 200 mg/dL in a nonstressed, ambulatory subject supports the diagnosis of Diabetes Mellitus. ADA recommended reference range Performed By: #### U RDS, CMP, LIPID, CBC #### [facility] [address] [place] [address] [place] Potassium [Moles/Vol] 4.9 mmol/L Normal 3.5-5.1 [facility] Comment on above: Order Comment: Reaso n for Exam Mixed hyperlipidemia Performed By: #### U RDS, CMP, LIPID, CBC #### [facility] [address] [place] [address] [place] Protein [Mass/Vol] 6.9 g/dL Normal 6.4-8.9 [facility] Comment on above: Order Comment: Reaso n for Exam Mixed hyperlipidemia Performed By: #### U RDS, CMP, LIPID, CBC #### [facility] [address] Sodium [Moles/Vol] 139 mmol/L Normal 136-145 [facility] Comment on above: Order Comment: Reaso n for Exam Mixed hyperlipidemia Performed By: #### U RDS, CMP, LIPID, CBC #### [facility] [address] Urea nitrogen [Mass/Vol] 14 mg/dL Normal 7-25 [facility] Comment on above: Order Comment: Reaso n for Exam Mixed hyperlipidemia Performed By: #### U RDS, CMP, LIPID, CBC #### [facility] [address] Creatinine [Mass/volume] in Serum or PlasmaOrdered By: Michael Moreno on 08-11-2022 Creatinine [Mass/Vol] 0.91 mg/dL 0.60-1.20 [facility] Drug Screen,Urineon 08-12-19 23 Amphetamine Screen,Urine Negative Normal Negative [facility] Comment on above: Order Comment: Reaso n for Exam Urinary tract infection without hematuria, site unspecified Performed By: #### U RDS, CMP, LIPID, CBC #### [facility] [address] Barbiturate Screen,Urine Negative Normal Negative [facility] Comment on above: Order Comment: Reaso n for Exam Urinary tract infection without hematuria, site unspecified Performed By: #### U RDS, CMP, LIPID, CBC #### [facility] [address] [place] [address] [place] Benzodiazepines Screen,Urine Negative Normal Negative [facility] Comment on above: Order Comment: Reaso n for Exam Urinary tract infection without hematuria, site unspecified Performed By: #### U RDS, CMP, LIPID, CBC #### [facility] [address] [place] [address] [place] Cannabinoid Screen,Urine Negative Normal Negative [facility] Comment on above: Order Comment: Reaso n for Exam Urinary tract infection without hematuria, site unspecified Result Comment: Thes e are unconfirmed results and should not be used for legal purposes. Drug Cut-Off Concentration: AMPH 1000 ng/mL KRISHNA 200 ng/mL GAURI 200 ng/mL COCM 300 ng/mL OP 300 ng/mL PCP 25 ng/mL THC 20 ng/mL PERFORMED BY: [place] [address] PATHOLOGIST ASSET RECOVERY SPECIALIST ANNALEE PARRISH M.D. Performed By: #### U RDS, CMP, LIPID, CBC #### [facility] [address] [place] [address] Cocaine Screen,Urine Negative Normal Negative [facility] Comment on above: Order Comment: Reaso n for Exam Urinary tract infection without hematuria, site unspecified Performed By: #### U RDS, CMP, LIPID, CBC #### [facility] [address] [place] [address] Opiate Screen,Urine Negative Normal Negative [facility] Comment on above: Order Comment: Reaso n for Exam Urinary tract infection without hematuria, site unspecified Performed By: #### U RDS, CMP, LIPID, CBC #### [facility] [address] [place] [address] Phencyclidine Screen,Urine Negative Normal Negative [facility] Comment on above: Order Comment: Reaso n for Exam Urinary tract infection without hematuria, site unspecified Performed By: #### U RDS, CMP, LIPID, CBC #### [facility] [address] [place] [address] Eosinophils Auto (Bld) [#/Vo l]Ordered By: Michael Moreno on 08-11-2022 Eosinophils (Bld) [#/Vol] 0.2 10*3/uL 0.0-0.45 [facility] Eosinophils/100 WBC Auto (Bl d)Ordered By: Michael Moreno on 08-11-2022 Eosinophils/100 WBC (Bld) 2.5 % . [facility] Erythrocyte distribution wid th Auto (RBC) [Ratio]Ordered By: Michael Moreno on 08-11-2022 Erythrocyte distribution width (RBC) [Ratio] 13.3 % 11.9-15.3 [facility] Globulin Calc (S) [Mass/Vol] Ordered By: Michael Moreno on 08-11-2022 Globulin (S) [Mass/Vol] 2.3 g/dL [facility] Glucose [Mass/volume] in Ser um or PlasmaOrdered By: Michael Moreno on 08-11-2022 Glucose [Mass/Vol] 107 mg/dL 74-109 [facility] Comment on above: ADA recommended refe rence rangeRandom Glucose Reference Range is dependent on time and content of last meal. Glucose of more than 200 mg/dL in a nonstressed, ambulatory subject supports the diagnosis of Diabetes Mellitus. Hematocrit Auto (Bld) [Volum e fraction]Ordered By: Michael Moreno on 08-11-2022 Hematocrit (Bld) [Volume fraction] 44.0 % 34.0-46.4 [facility] Hemoglobin [Mass/volume] in BloodOrdered By: Michael Moreno on 08-11-2022 Hemoglobin (Bld) [Mass/Vol] 15.0 g/dL 11.8-15.4 [facility] Laboratory - Chemistry and C hemistry - challengeOrdered By: Michael Moreno on 08-11-2022 GFR/1.73 sq M.predicted MDRD (S/P/Bld) [Vol rate/Area] mL/min/{1.73_m2} [facility] Leukocytes [#/volume] correc shirley for nucleated erythrocytes in Blood by Automated counOrdered By: Michael Moreno on 08-11-2022 WBC corrected for nucl RBC Auto (Bld) [#/Vol] 8.8 10*3/uL 3.8-11.6 [facility] Lipid Panelon 08-11-2022 Cholesterol [Mass/Vol] 207 mg/dL High 140-200 [facility] Comment on above: Order Comment: Reaso n for Exam Mixed hyperlipidemia Result Comment: Chol less than 200 mg/dl low risk Chol 201-239 mg/dl borderline risk Chol 240 mg/dl and greater high risk Performed By: #### U RDS, CMP, LIPID, CBC #### [address] Cholesterol in HDL [Mass/Vol] 35 mg/dL Normal 35-85 [facility] Comment on above: Order Comment: Reaso n for Exam Mixed hyperlipidemia Result Comment: HDL CHOL ATP-III CLASSIFICATION Cardiovascular Risk HDL > or equal to 60 mg/dL LOW HDL < 40 mg/dL HIGH Performed By: #### U RDS, CMP, LIPID, CBC #### [facility] [address] Cholesterol.total/Chol esterol in HDL [Mass ratio] 5.9 {ratio} Normal <5.0 [facility] Comment on above: Order Comment: Reaso n for Exam Mixed hyperlipidemia Result Comment: PERF ORMED BY: [place] [address] PATHOLOGIST ASSET RECOVERY SPECIALIST ANNALEE PARRISH M.D. Performed By: #### U RDS, CMP, LIPID, CBC #### [facility] [address] LDL Cholesterol,Calculated 127 mg/dL High 0-100 [facility] Comment on above: Order Comment: Reaso n for Exam Mixed hyperlipidemia Result Comment: LDL ATP III CLASSIFICATION LDL less than 100 mg/dL Optimal LDL 100-129 mg/dL Near or above optimal LDL 130-159 mg/dL Borderline high LDL 160-189 mg/dL High LDL greater than 189 mg/dL Very high Performed By: #### U RDS, CMP, LIPID, CBC #### [facility] [address] Triglyceride w/Reflex 223 mg/dL High 0-149 [facility] Comment on above: Order Comment: Reaso n for Exam Mixed hyperlipidemia Result Comment: TRIG ATP III CLASSIFICATION TRIG less than 150 mg/dL Normal TRIG 150-199 mg/dL Borderline high TRIG 200-500 mg/dL High TRIG greater than 500 mg/dL Very high Standard traceable to the Center for Disease Conrtrol and Prevention (CDC) test method. Performed By: #### U RDS, CMP, LIPID, CBC #### [facility] [address] VLDL CHOLESTEROL 44 mg/dL Normal [facility] Comment on above: Order Comment: Reaso n for Exam Mixed hyperlipidemia Performed By: #### U RDS, CMP, LIPID, CBC #### [facility] [address] [place] [address] [place] Lymphocytes Auto (Bld) [#/Vo l]Ordered By: Michael Moreno on 08-11-2022 Lymphocytes (Bld) [#/Vol] 2.9 10*3/uL 1.00-4.8 [facility] Lymphocytes/100 WBC Auto (Bl d)Ordered By: Michael Moreno on 08-11-2022 Lymphocytes/100 WBC (Bld) 32.8 % . [facility] MCH Auto (RBC) [Entitic mass ]Ordered By: Michael Moreno on 08-11-2022 MCH (RBC) [Entitic mass] 32.1 pg 24.7-34.3 [facility] MCHC Auto (RBC) [Mass/Vol]Or dered By: Michael Moreno on 08-11-2022 MCHC (RBC) [Mass/Vol] 34.1 g/dL 32.0-35.0 [facility] MCV Auto (RBC) [Entitic vol] Ordered By: Michael Moreno on 08-11-2022 MCV (RBC) [Entitic vol] 94.1 fL 80-100 [facility] Monocytes Auto (Bld) [#/Vol] Ordered By: Michael Moreno on 08-11-2022 Monocytes (Bld) [#/Vol] 0.6 10*3/uL 0.0-0.8 [facility] Monocytes/100 WBC Auto (Bld) Ordered By: Michael Moreno on 08-11-2022 Monocytes/100 WBC (Bld) 6.5 % . [facility] Neutrophils Auto (Bld) [#/Vo l]Ordered By: Michael Moreno on 08-11-2022 Neutrophils (Bld) [#/Vol] 5.1 10*3/uL 1.8-7.7 [facility] Neutrophils/100 WBC Auto (Bl d)Ordered By: Michael Moreno on 08-11-2022 Neutrophils/100 WBC (Bld) 57.6 % . [facility] No Panel InformationOrdered By: Michael Moreno on 08-11-2022 Pharmacy Creatinine Clearance (Chem N/A [facility] Nucleated erythrocytes [Pres ence] in Blood by Automated countOrdered By: Michael Moreno on 08-11-2022 Nucleated RBC Auto Ql (Bld) 0.0 /100{WBC} 0-0.5 [facility] Opiates [Presence] in Urine by Screen methodOrdered By: Michael Moreno on 08-11-2022 Opiates Screen Ql (U) Negative Negative [facility] Phencyclidine Screen Ql (U)O rdered By: Michael Moreno on 08-11-2022 Phencyclidine Ql (U) Negative Negative [facility] Platelet mean volume Auto (B ld) [Entitic vol]Ordered By: Michael Moreno on 08-11-2022 Platelet mean volume (Bld) [Entitic vol] 7.7 fL 6.3-10.7 [facility] Platelets Auto (Bld) [#/Vol] Ordered By: Michael Moreno on 08-11-2022 Platelets (Bld) [#/Vol] 284 10*3/uL 150-450 [facility] Potassium [Moles/volume] in Serum or PlasmaOrdered By: Michael Moreno on 08-11-2022 Potassium [Moles/Vol] 4.9 mmol/L 3.5-5.1 [facility] Protein [Mass/volume] in Ser um or PlasmaOrdered By: Michael Moreno on 08-11-2022 Protein [Mass/Vol] 6.9 g/dL 6.4-8.9 [facility] RBC Auto (Bld) [#/Vol]Ordere d By: Michael Moreno on 08-11-2022 RBC (Bld) [#/Vol] 4.68 10*6/uL 3.60-5.00 [facility] Serum or plasma albumin/glob ulin mass ratioOrdered By: Michael Moreno on 08-11-2022 Albumin/Globulin [Mass ratio] 2.0 {ratio} [facility] Serum or plasma anion gap de terminationOrdered By: Michael Moreno on 08-11-2022 Anion gap [Moles/Vol] 10.0 mmol/L 6.0-15.0 [facility] Serum or plasma high density lipoprotein (HDL) cholesterol measurementOrdered By: Michael Moreno on 08-11-2022 Cholesterol in HDL [Mass/Vol] 35 mg/dL 35-85 [facility] Comment on above: HDL CHOL ATP-III CLA SSIFICATION Cardiovascular RiskHDL > or equal to 60 mg/dL LOWHDL < 40 mg/dL HIGH Serum or plasma total choles terol/high density lipoprotein (HDL) cholesterol mass ratOrdered By: Michael Moreno on 08-11-2022 Cholesterol.total/Chol esterol in HDL [Mass ratio] 5.9 {ratio} <5.0 [facility] Sodium [Moles/volume] in Ser um or PlasmaOrdered By: Michael Moreno on 08-11-2022 Sodium [Moles/Vol] 139 mmol/L 136-145 [facility] Triglyceride [Mass/volume] i n Serum or PlasmaOrdered By: Michael Moreno on 08-11-2022 Triglyceride [Mass/Vol] 223 mg/dL 0-149 [facility] Comment on above: TRIG ATP III CLASSIF ICATIONTRIG less than 150 mg/dL NormalTRIG 150-199 mg/dL Borderline highTRIG 200-500 mg/dL High TRIG greater than 500 mg/dL Very highStandard traceable to the Center for Disease Conrtrol and Prevention (CDC) test method. Urea nitrogen [Mass/volume] in Serum or PlasmaOrdered By: Michael Moreno on 08-11-2022 Urea nitrogen [Mass/Vol] 14 mg/dL 7-25 [facility] WBC Auto (Bld) [#/Vol]Ordere d By: Michael Moreno on 08-11-2022 WBC (Bld) [#/Vol] 8.8 10*3/uL 3.8-11.6 [facility] Drugs identified in UrineOrd ered By: Michael Moreno on 07-19-2022 Drugs identified Nom (U) Final . [facility] Comment on above: =====TOXASSURE COMP DRUG ANALYSIS,UR [...] test is not intended to distinguish between gvqby-4-flzdkzjcfbzoixlorffp, the predominant form of THC in most herbal or marijuana-based products, and kecdi-0-ttqrpvcbeeeutqaazybo. Hydrocodone 1305 ng/mg creat Hydromorphone 595 ng/mg [...] clinical consultation, please call . Performed at: [employer] [address] [id number] Director: Amaya Chapin [facility], Phone: [phone] Toxassure, Urineon 3 Toxassure, Urine Summary FINAL Normal . [facility] Comment on above: Order Comment: Micaela villela [...] test is not intended to distinguish between nmmni-7-ujwqyxzqonsqgtwjismn, the predominant form of THC in most herbal or marijuana-based products, and fqbio-7-kcngduyyicwhfctvsskw. Hydrocodone 1305 ng/mg creat Hydromorphone 595 ng/mg [...] consultation, please call . ===== Performed at: [employer] [address] [place] [phone] Finishing Operator: Amaya Chapin [facility], Phone: [phone] PERFORMED BY: [address] [place] [address] PATHOLOGIST ASSET RECOVERY SPECIALIST ANNALEE PARRISH M.D. Performed By: #### T OXASSURE ####[facility] , CT lumbar spine wo [facility] CT lumbar spine wo [facility] Main [address] [address] [address] Scan Report Signed Patient: Roseann Garrido MR#: [id number] : 1975 Acct:[id number] Age/Sex: 47 / F ADM Date: 06/23/22 Loc: CT Room: Type: [facility] Attending Dr: Michael LISA Copies to: MARIA [...] Mehrdad Pino M.D.06/23/2022 6:22 PM Dictation Location: [place] [address] Transcribed By: PWS 06/23/221821 Dictated By: Mehrdad Pino II, MD 06/23/221815 Signed By: 06/23/221821 Normal [facility] H PYLORI TISSUEon 04-20-2022 H PYL TISSUE, UREASE Negative Normal NEGATIVE [facility] Comment on above: Performed By: #### H PYLT #### [facility] [address] [place] [address] Dr. Jet Nichols AMYLASEon 04-18-2022 Amylase [Catalytic activity/Vol] 35 U/L Normal 25-115 [facility] Comment on above: Performed By: #### L IPA, CMP, QUINCY #### [facility] [address] [place] [address] Dr. Jet Nichols CBC AUTO DIFFon 04-18-2022 BASO # 0.1 103/ul Normal 0.0-0.1 [facility] Comment on above: Performed By: #### C BC #### [facility] [address] [place] [address] Dr. Jet Nichols Basophils/100 WBC (Bld) 0.7 % Normal 0.2-2.0 [facility] Comment on above: Performed By: #### C BC #### [facility] [address] [place] [address] Dr. Jet Nichols EO # 0.3 103/ul Normal 0.0-0.7 [facility] Comment on above: Performed By: #### C BC #### [facility] [address] [place] [address] Dr. Jet Nichols Eosinophils/100 WBC (Bld) 3.6 % Normal 0.9-7.0 [facility] Comment on above: Performed By: #### C BC #### [facility] [address] [place] [address] Dr. Jet Ncihols Erythrocyte distribution width (RBC) [Ratio] 12.7 % Normal 11.0-15.0 [facility] Comment on above: Performed By: #### C BC #### [facility] [address] [place] [address] Dr. Jet Nichols Hematocrit (Bld) [Volume fraction] 45.6 % Normal 36.0-48.0 [facility] Comment on above: Performed By: #### C BC #### [facility] [address] [place] [address] Dr. Jet Nichols Hemoglobin (Bld) [Mass/Vol] 15.9 g/dL Normal 12.0-16.0 [facility] Comment on above: Performed By: #### C BC #### [facility] [address] [place] [address] Dr. Jet Nichols IG # 0.01 10e3/ul Normal 0.00-0.03 [facility] Comment on above: Performed By: #### C BC #### [facility] [address] [place] [address] Dr. Jet Nichols IG % 0.1 % Normal 0.0-0.5 [facility] Comment on above: Performed By: #### C BC #### [facility] [address] [place] [address] Dr. Jet Nichols LYMPH # 2.6 103/ul Normal 1.2-3.8 [facility] Comment on above: Performed By: #### C BC #### [facility] [address] [place] [address] Dr. Jet Nichols Lymphocytes/100 WBC (Bld) 37.3 % Normal 20.5-60.0 [facility] Comment on above: Performed By: #### C BC #### [facility] [address] [place] [address] Dr. Jet Nichols MANUAL DIFF REQ NO Normal [facility] Comment on above: Performed By: #### C BC #### [facility] [address] [place] [address] Dr. Jet Nichols MCH (RBC) [Entitic mass] 32.3 pg Normal 26.7-34.0 [facility] Comment on above: Performed By: #### C BC #### [facility] [address] [place] [address] Dr. Jet Nichols MCHC (RBC) [Mass/Vol] 34.9 g/dL Normal 29.9-35.2 [facility] Comment on above: Performed By: #### C BC #### [facility] [address] [address] [address] Jet Nichols MCV (RBC) [Entitic vol] 92.7 fL Normal 81.0-99.0 [facility] Comment on above: Performed By: #### C BC #### [facility] [address] [address] [address] Jet Nichols MONO # 0.5 103/ul Normal 0.3-0.8 [facility] Comment on above: Performed By: #### C BC #### [facility] [address] [address] [address] Jet Nichols Monocytes/100 WBC (Bld) 7.3 % Normal 1.7-12.0 [facility] Comment on above: Performed By: #### C BC #### [facility] [address] [address] [address] Jet Nichols NEUT # 3.5 103/ul Normal 1.4-6.5 [facility] Comment on above: Performed By: #### C BC #### [facility] [address] [address] [address] Jet Nichols Neutrophils/100 WBC (Bld) 51.0 % Normal 43.0-75.0 [facility] Comment on above: Performed By: #### C BC #### [facility] [address] [address] [address] Jet Nichols Platelet mean volume (Bld) [Entitic vol] 8.9 fL Critically low 9.5-13.5 [facility] Comment on above: Performed By: #### C BC #### [facility] [address] [address] [address] Jet Nichols PLT 287 103/ul Normal 150-450 [facility] Comment on above: Performed By: #### C BC #### [facility] [address] [address] [address] Jet Nichols RBC 4.92 106/ul Normal 4.20-5.40 [facility] Comment on above: Performed By: #### C BC #### [facility] [address] [place] [address] Dr. Jet Nichols WBC 6.9 103/ul Normal 4.0-11.0 [facility] Comment on above: Performed By: #### C BC #### [facility] [address] [place] [address] Dr. Jet Nichols [facility] SARS-CoV-2 (COVID-19) RNA LULU+probe Ql (Unsp spec) Not detected Normal NOT DETECTED [facility] Comment on above: Result Comment: This test is not yet approved or cleared by the [place] FDA. When there are no FDA-approved or cleared tests available, and other criteria are met, FDA can make tests available under an emergency access mechanism called an Emergency Use Authorization (EUA). The EUA for this test is supported by the [place] of Health and Human Service's (HHS's) declaration [...] consistent with SARS-CoV-2. Performed By: #### C VDTBH #### [facility] [address] [place] [address] Dr. Jet Nichols LIPASEon 04-18-2022 Lipase [Catalytic activity/Vol] 45.0 U/L Critically low 73.0-393.0 [facility] Comment on above: Performed By: #### L IPA, CMP, QUINCY #### [facility] [address] [place] [address] Dr. Jet Nichols PROF 14(COMP METB)on 022 Albumin [Mass/Vol] 3.8 g/dL Normal 3.4-5.0 [facility] Comment on above: Performed By: #### L IPA, CMP, QUINCY #### [facility] [address] [address] [address] Jet Nichols Albumin/Globulin [Mass ratio] 1.1 {ratio} Normal [facility] Comment on above: Performed By: #### L IPA, CMP, QUINCY #### [facility] [address] [address] [address] Jet Nichols ALP [Catalytic activity/Vol] 107 U/L Normal 46-116 [facility] Comment on above: Performed By: #### L IPA, CMP, QUINCY #### [facility] [address] [address] [address] Jet Nichols ALT [Catalytic activity/Vol] 20 U/L Normal 14-59 [facility] Comment on above: Performed By: #### L IPA, CMP, QUINCY #### [facility] [address] [address] [address] Jet Nichols Anion gap [Moles/Vol] 9.8 mmol/L Normal [facility] Comment on above: Performed By: #### L IPA, CMP, QUINCY #### [facility] [address] [address] [address] Jet Nichols AST [Catalytic activity/Vol] 15 U/L Normal 15-37 [facility] Comment on above: Performed By: #### L IPA, CMP, QUINCY #### [facility] [address] [address] [address] Jet Nichols Bilirubin [Mass/Vol] 0.4 mg/dL Normal 0.2-1.0 [facility] Comment on above: Performed By: #### L IPA, CMP, QUINCY #### [facility] [address] [address] [address] Jet Nichols Calcium [Mass/Vol] 9.6 mg/dL Normal 8.5-10.1 [facility] Comment on above: Performed By: #### L IPA, CMP, QUINCY #### [facility] [address] [address] [address] Jet Nichols Chloride [Moles/Vol] 104 mmol/L Normal 98-107 [facility] Comment on above: Performed By: #### L IPA, CMP, QUINCY #### [facility] [address] [address] [address] Jet Nichols CO2 [Moles/Vol] 27.8 mmol/L Normal 21.0-32.0 [facility] Comment on above: Performed By: #### L IPA, CMP, QUINCY #### [facility] [address] [address] [address] Jet Nichols Creatinine [Mass/Vol] 0.96 mg/dL Normal 0.55-1.02 [facility] Comment on above: Performed By: #### L IPA, CMP, QUINCY #### [facility] [address] [address] [address] Jet Nichols EGFR-AF GREENLANDIC >60 Normal >=60 [facility] Comment on above: Performed By: #### L IPA, CMP, QUINCY #### [facility] [address] [address] [address] Jet Nicohls EGFR-NON AF GREENLANDIC >60 Normal >=60 [facility] Comment on above: Performed By: #### L IPA, CMP, QUINCY #### [facility] [address] [address] [address] Jet Nichols Globulin (S) [Mass/Vol] 3.5 g/dL Normal [facility] Comment on above: Performed By: #### L IPA, CMP, QUINCY #### [facility] [address] [address] [address] Jet Nichols Glucose [Mass/Vol] 95 mg/dL Normal 74-106 [facility] Comment on above: Performed By: #### L IPA, CMP, QUINCY #### [facility] [address] [address] [address] Jet Nichols Potassium [Moles/Vol] 4.6 mmol/L Normal 3.5-5.1 [facility] Comment on above: Performed By: #### L IPA, CMP, QUINCY #### [facility] [address] [address] [address] Jet Nichols Protein [Mass/Vol] 7.3 g/dL Normal 6.4-8.2 [facility] Comment on above: Performed By: #### L IPA, CMP, QUINCY #### [facility] [address] [place] [address] Dr. Jet Nichols Sodium [Moles/Vol] 137 mmol/L Normal 136-145 [facility] Comment on above: Performed By: #### L IPA, CMP, QUINCY #### [facility] [address] [place] [address] Dr. Jet Nichols Urea nitrogen [Mass/Vol] 13.0 mg/dL Normal 7.0-18.0 [facility] Comment on above: Performed By: #### L IPA, CMP, QUINCY #### [facility] [address] [place] [address] Dr. Jet Nichols Urea nitrogen/Creatinine [Mass ratio] 13.5 mg/mg Normal [facility] Comment on above: Performed By: #### L IPA, CMP, QUINCY #### [facility] [address] [place] [address] Dr. Jet Nichols Chlamydia/GC DNA, Uron 02-09 Chlamydia Probe, Ur Negative Normal NEG [facility] Comment on above: Result Comment: CHLA [...] target. Performed By: #### U CGP #### [facility] [address] [place] [address] Finishing Operator: Jerman Haynes MD Gonorrhea Probe, Ur Negative Normal NEG [facility] Comment on above: Result Comment: NEIS [...] target. Performed By: #### U CGP #### [facility] [address] [place] [address] Finishing Operator: Jerman Haynes MD Comp Metabolic Profon 2020 (cont.) Normal [facility] Comment on above: Result Comment: Aver age GFR for 40-49 years old: 99 mL/min/1.73sq m Chronic Kidney Disease: <60 mL/min/1.73sq m Kidney failure: <15 mL/min/1.73sq m eGFR calculated using average adult body mass. Additional eGFR calculator available at: http://www.APS/multiple_crcl_2011.htm Performed By: #### C P, CDP #### [address] [place] [address] Finishing Operator: Duglas Hanley MD Albumin [Mass/Vol] 4.1 g/dL Normal 3.5-5.2 [facility] Comment on above: Performed By: #### C P, CDP #### [address] [place] [address] Finishing Operator: Duglas Hanley MD Albumin/Glob Ratio 1.5 Normal 1.0-2.5 [facility] Comment on above: Performed By: #### C P, CDP #### [address] [place] [address] Finishing Operator: Duglas Hanley MD Alkaline Phos 85 U/L Normal 35-104 [facility] Comment on above: Performed By: #### C P, CDP #### [address] [place] [address] Finishing Operator: Duglas Hanley MD ALT [Catalytic activity/Vol] 9 U/L Normal 5-33 [facility] Comment on above: Performed By: #### C P, CDP #### [facility] [address] [place], [place] [id number] Finishing Operator: Duglas Hanley MD Anion gap [Moles/Vol] 11 mmol/L Normal 9-17 [facility] Comment on above: Performed By: #### C P, CDP #### [facility] [address] [place], [place] [id number] Finishing Operator: Duglas Hanley MD AST [Catalytic activity/Vol] 13 U/L Normal <32 [facility] Comment on above: Performed By: #### C P, CDP #### [facility] [address] [place], [place] [id number] Finishing Operator: Duglas Hanley MD Bilirubin [Mass/Vol] 0.18 mg/dL Low 0.3-1.2 [facility] Comment on above: Performed By: #### C P, CDP #### [facility] [address] [place] [address] Dr[place], [place] [phone] Finishing Operator: Duglas Hanley MD BUN/CRE Ratio 12 Normal 9-20 [facility] Comment on above: Performed By: #### C P, CDP #### [address] [place], [place] [id number] Finishing Operator: Duglas Hanley MD Calcium [Mass/Vol] 9.4 mg/dL Normal 8.6-10.4 [facility] Comment on above: Performed By: #### C P, CDP #### [facility] [address] [place] [address] Dr[address] [place], [place] [phone] Finishing Operator: Duglas Hanley MD Chloride [Moles/Vol] 103 mmol/L Normal 98-107 [facility] Comment on above: Performed By: #### C P, CDP #### [address] [place], [place] [id number] Finishing Operator: Duglas Hanley MD CO2 [Moles/Vol] 25 mmol/L Normal 20-31 [facility] Comment on above: Performed By: #### C P, CDP #### [facility] [address] [place], [place] [phone] Finishing Operator: Duglas Hanley MD Creatinine [Mass/Vol] 1.11 mg/dL High 0.50-0.90 [facility] Comment on above: Performed By: #### C P, CDP #### [facility] [address] [place], [place] [phone] Finishing Operator: Duglas Hanley MD GFR, Amer >60 Normal >60 [facility] Comment on above: Performed By: #### C P, CDP #### [facility] [address] [place], [place] [phone] Finishing Operator: Duglas Hanley MD GFR,non Amer 54 mL/min Low >60 [facility] Comment on above: Performed By: #### C P, CDP #### [facility] [address] [place], [place] [phone] Finishing Operator: Duglas Hanley MD Glucose [Mass/Vol] 88 mg/dL Normal 70-99 [facility] Comment on above: Performed By: #### C P, CDP #### [address] [place], [place] [phone] Finishing Operator: Duglas Hanley MD Potassium [Moles/Vol] 3.8 mmol/L Normal 3.7-5.3 [facility] Comment on above: Performed By: #### C P, CDP #### [facility] [address] [place], [place] [phone] Finishing Operator: Duglas Hanley MD Protein [Mass/Vol] 6.8 g/dL Normal 6.4-8.3 [facility] Comment on above: Performed By: #### C P, CDP #### [facility] [address] [place], [place] [phone] Finishing Operator: Duglas Hanley MD Sodium [Moles/Vol] 139 mmol/L Normal 135-144 [facility] Comment on above: Performed By: #### C P, CDP #### [facility] [address] [place] [address] Finishing Operator: Duglas Hanley MD Staging: Normal [facility] Comment on above: Result Comment: Stag e 1: Some kidney damage normal GFR Stage 2: Mild kidney damage GFR 60-89 Stage 3: Moderate kidney damage GFR 30-59 Stage 4: Severe kidney damage GFR 15-29 Stage 5: Severe kidney damage GFR <15 ESRD - chronic treatment by dialysis or transplant Performed By: #### C P, CDP #### [address] [place] [address] Finishing Operator: Duglas Hanley MD Urea nitrogen [Mass/Vol] 13 mg/dL Normal 6-20 [facility] Comment on above: Performed By: #### C P, CDP #### [facility] [address] [place] [address] Finishing Operator: Duglas Hanley MD Trichomonas/Wet Prepon 02-06 Trichomonas/Wet Prep Specimen Descriptio n .VAGINA Special Requests NOT REPORTED Direct Exam NO YEAST OBSERVED MODERATE TRICHOMONAS NO CLUE CELLS SEEN Report Status FINAL 02/06/2021 Normal [facility] Comment on above: Performed By: #### W P #### [facility] [address] [place] [address] Finishing Operator: Duglas Hanley MD Wet Prep, GenitalOrdered By: Gee Mcmahon on 02-06-2021 Direct Exam NO YEAST OBSERVED [employer] Work Phone: Direct Exam MODERATE TRICHOMONAS Abnormal [facility] [employer] Work Phone: Direct Exam NO CLUE CELLS SEEN [facility] Phone: Interpretation and review of laboratory results Abnormal [employer] Work Phone: Special Requests NOT REPORTED [facility] Work Phone: Specimen Description .VAGINA [employer] Work Phone: [employer] Work Phone: CBC auto differentialOrdered By: Gee Mcmahon on 02-05-2021 [employer] # 0.41 [facility] Work Phone: Absolute Immature Granulocyte 0.05 [employer] Work Phone: Absolute Lymph # 4.23 High [employer] [facility] Work Phone: Absolute [place] # 1.01 [facility] Work Phone: Basophils (Bld) [#/Vol] 0.07 10*3/uL [employer] Work Phone: Basophils/100 WBC (Bld) 1 % 0 - 2 % [employer] Work Phone: Differential Type NOT REPORTED [employer] Work Phone: Eosinophils/100 WBC (Bld) 3 % 1 - 4 % [employer] Work Phone: Hematocrit (Bld) [Volume fraction] 42.8 % 36.3 - 47.1 % [employer] Work Phone: Hemoglobin.gastrointes tinal spec 1 Ql (Stl) 14.1 g/dL 11.9 - 15.1 g/dL [employer] Work Phone: Immature granulocytes/100 WBC (Bld) 0 % 0 [employer] Work Phone: Interpretation and review of laboratory results Abnormal [employer] Phone: Lymphocytes/100 WBC (Bld) 35 % 24 - 43 % [employer] Work Phone: MCH (RBC) [Entitic mass] 31.8 pg 25.2 - 33.5 pg [employer] Work Phone: MCHC (RBC) [Mass/Vol] 32.9 g/dL 28.4 - 34.8 g/dL [employer] Work Phone: MCV (RBC) [Entitic vol] 96.4 fL 82.6 - 102.9 fL [employer] Work Phone: Monocytes/100 WBC (Bld) 8 % 3 - 12 % [employer] Work Phone: NRBC Automated 0.0 0.0 per 100 WBC [employer] Phone: Platelet distribution width (Bld) [Ratio] 12.7 % 11.8 - 14.4 % [employer] Phone: Platelet Estimate NOT REPORTED [employer] Phone: Platelet mean volume (Bld) [Entitic vol] 9.3 fL 8.1 - 13.5 fL [employer] Phone: Platelets (Bld) [#/Vol] 288 10*3/uL [employer] Work Phone: RBC (Bld) [#/Vol] 4.44 10*6/uL 3.95 - 5.11 m/uL [employer] Work Phone: RBC (Bld) [#/Vol] NOT REPORTED [employer] Work Phone: Segmented neutrophils/100 WBC (Bld) 53 % 36 - 65 % [employer] Work Phone: Segs Absolute 6.48 [employer] Work Phone: WBC (Bld) [#/Vol] 12.3 10*3/uL High [employer] Work Phone: WBC (Bld) [#/Vol] NOT REPORTED [employer] Work Phone: [employer] Work Phone: CBC with Diffon 02-05-2021 Abs. Basophil 0.07 k/uL Normal 0.00-0.20 [facility] Comment on above: Performed By: #### C P, CDP #### [facility] [address] [place], [facility] Finishing Operator: Duglas Hanley MD Abs.Imm.Granulocyte 0.05 k/uL Normal 0.00-0.30 [facility] Comment on above: Performed By: #### C P, CDP #### [address] [place], [facility]83 Finishing Operator: Duglas Hanley MD Abs.Neutrophil (Seg) 6.48 k/uL Normal 1.50-8.10 [facility] Comment on above: Performed By: #### C P, CDP #### [address] [place] [address] Finishing Operator: Duglas Hanley MD Basophils/100 WBC (Bld) 1 % Normal 0-2 [facility] Comment on above: Performed By: #### C P, CDP #### [address] [place] [address] Finishing Operator: Duglas Hanley MD Eosinophils (Bld) [#/Vol] 0.41 10*3/uL Normal 0.00-0.44 [facility] Comment on above: Performed By: #### C P, CDP #### [address] [place] [address] Finishing Operator: Duglas Hanley MD Eosinophils/100 WBC (Bld) 3 % Normal 1-4 [facility] Comment on above: Performed By: #### C P, CDP #### [address] [place], [facility] [facility] Finishing Operator: Duglas Hanley MD Erythrocyte distribution width (RBC) [Ratio] 12.7 % Normal 11.8-14.4 [facility] Comment on above: Performed By: #### C P, CDP #### [address] [place] [address] Finishing Operator: Duglas Hanley MD Hematocrit (Bld) [Volume fraction] 42.8 % Normal 36.3-47.1 [facility] Comment on above: Performed By: #### C P, CDP #### [facility] [address] [place], [place] [id number] Finishing Operator: Duglas Hanley MD Hemoglobin (Bld) [Mass/Vol] 14.1 g/dL Normal 11.9-15.1 [facility] Comment on above: Performed By: #### C P, CDP #### [facility] [address] [place] [address] Dr. [place], [place] [id number] Finishing Operator: Duglas Hanley MD Immature granulocytes/100 WBC (Bld) 0 % Normal 0 [facility] Comment on above: Performed By: #### C P, CDP #### [address] [place], [facility] Finishing Operator: Duglas Hanley MD Lymphocytes (Bld) [#/Vol] 4.23 10*3/uL High 1.10-3.70 [facility] Comment on above: Performed By: #### C P, CDP #### [address] [place], [place] [id number] Finishing Operator: Duglas Hanley MD Lymphocytes/100 WBC (Bld) 35 % Normal 24-43 [facility] Comment on above: Performed By: #### C P, CDP #### [facility] [address] [place] [address] Dr. [place], [place] [id number] Finishing Operator: Duglas Hanley MD MCH (RBC) [Entitic mass] 31.8 pg Normal 25.2-33.5 [facility] Comment on above: Performed By: #### C P, CDP #### [address] [place], [place] [id number] Finishing Operator: Duglas Hanley MD MCHC (RBC) [Mass/Vol] 32.9 g/dL Normal 28.4-34.8 [facility] Comment on above: Performed By: #### C P, CDP #### [facility] [address] [place], [place] [address] Finishing Operator: Duglas Hanley MD MCV (RBC) [Entitic vol] 96.4 fL Normal 82.6-102.9 [facility] Comment on above: Performed By: #### C P, CDP #### [facility] [address] [place], [place] [address] Finishing Operator: Duglas Hanley MD Monocytes (Bld) [#/Vol] 1.01 10*3/uL Normal 0.10-1.20 [facility] Comment on above: Performed By: #### C P, CDP #### [address] [place], [place] [address] Finishing Operator: Duglas Hanley MD Monocytes/100 WBC (Bld) 8 % Normal 3-12 [facility] Comment on above: Performed By: #### C P, CDP #### [address] [place], [place] [address] Finishing Operator: Duglas Hanley MD Neutrophil (Seg) 53 % Normal 36-65 [facility] Comment on above: Performed By: #### C P, CDP #### [address] [place], [place] [address] Finishing Operator: Duglas Hanley MD NRBC Automated 0.0 per 100 WBC Normal 0.0 [facility] Comment on above: Performed By: #### C P, CDP #### [address] [place], [place] [address] Finishing Operator: Duglas Hanley MD Platelet mean volume (Bld) [Entitic vol] 9.3 fL Normal 8.1-13.5 [facility] Comment on above: Performed By: #### C P, CDP #### [address] [place], [place] [id number] Finishing Operator: Duglas Hanley MD Platelets (Bld) [#/Vol] 288 10*3/uL Normal 138-453 [facility] Comment on above: Performed By: #### C P, CDP #### [facility] [address] [place] [address] Finishing Operator: Duglas Hanley MD RBC (Bld) [#/Vol] 4.44 10*6/uL Normal 3.95-5.11 [facility] Comment on above: Performed By: #### C P, CDP #### [address] [place], [place] [id number] Finishing Operator: Duglas Hanley MD WBC (Bld) [#/Vol] 12.3 10*3/uL High 3.5-11.3 [facility] Comment on above: Performed By: #### C P, CDP #### [facility] [address] [place] [address] [place] [address] Finishing Operator: Duglas Hanley MD Auto Diff Performed NOT REPORTED Normal [facility] Comment on above: Performed By: #### C P, CDP #### [address] [place], [place] [id number] Finishing Operator: Duglas Hanley MD Platelet Estimate NOT REPORTED Normal [facility] Comment on above: Performed By: #### C P, CDP #### [facility] [address] [place] [address] [place] [address] Finishing Operator: Duglas Hanley MD RBC morphology finding Nom (Bld) NOT REPORTED Normal [facility] Comment on above: Performed By: #### C P, CDP #### [facility] [address] [place] [address] Dr. [place], [place] [phone] Finishing Operator: Duglas Hanley MD WBC Morphology NOT REPORTED Normal [facility] Comment on above: Performed By: #### C P, CDP #### [facility] [address] [place] [address] Finishing Operator: Duglas Hanley MD Comprehensive Metabolic Pane lOrdered By: Gee Mcmahon on 02-05-2021 Albumin [Mass/Vol] 4.1 g/dL 3.5 - 5.2 g/dL [employer] Phone: Albumin/Globulin [Mass ratio] 1.5 {ratio} [employer] Phone: ALP (Bld) [Catalytic activity/Vol] 85 U/L 35 - 104 U/L [employer] Phone: ALT [Catalytic activity/Vol] 9 U/L 5 - 33 U/L [employer] Phone: Anion gap [Moles/Vol] 11 mmol/L 9 - 17 mmol/L [employer] Phone: AST [Catalytic activity/Vol] 13 U/L <32 [employer] Phone: Bilirubin [Mass/Vol] 0.18 mg/dL Low 0.3 - 1 .2 mg/dL [employer] Phone: Calcium [Mass/Vol] 9.4 mg/dL 8.6 - 10. 4 mg/dL [employer] Phone: Chloride [Moles/Vol] 103 mmol/L 98 - 10 7 mmol/L [employer] Phone: CO2 [Moles/Vol] 25 mmol/L 20 - 31 mmol/L [employer] Phone: Creatinine [Mass/Vol] 1.11 mg/dL High 0.50 - 0.90 mg/dL [employer] Phone: Free PSA/Total PSA [Mass fraction] 6.8 g/dL 6.4 - 8.3 g/dL [employer] Phone: GFR >60 >60 mL/min [employer] Phone: GFR Non- 54 mL/min Low >60 [employer] Phone: Glucose [Mass/Vol] 88 mg/dL 70 - 99 mg/dL [employer] Phone: Interpretation and review of laboratory results Abnormal [employer] Phone: Potassium [Moles/Vol] 3.8 mmol/L 3.7 - 5.3 mmol/L [employer] Phone: Sodium [Moles/Vol] 139 mmol/L 135 - 144 mmol/L [employer] Phone: Urea nitrogen (BldV) [Mass/Vol] 13 mg/dL 6 - 20 mg/dL [employer] Phone: Urea nitrogen/Creatinine (Bld) [Mass ratio] 12 [facility] Phone: [facility] Phone: Laboratory - Chemistry and C hemistry - challengeOrdered By: Gee Mcmahon on 02-05-2021 GFR/1.73 sq M.predicted MDRD (S/P/Bld) [Vol rate/Area] [employer] Phone: Comment on above: Average GFR for 40-4 9 years old: 99 mL/min/1.73sq m Chronic Kidney Disease: <60 mL/min/1.73sq m Kidney failure: <15 mL/min/1.73sq m eGFR calculated using average adult body mass. Additional eGFR calculator available at: http://[email or web address].Prezma/multiple_crcl_2012.htm Stage 1: Some kidney damage normal GFR Stage 2: Mild kidney damage GFR 60-89 Stage 3: Moderate kidney damage GFR 30-59 Stage 4: Severe kidney damage GFR 15-29 Stage 5: Severe kidney damage GFR <15 ESRD - chronic treatment by dialysis or transplant Urinalysis w/ Microon 2020 ----- Normal [facility] Comment on above: Performed By: #### U AMI #### [facility] [address] [place], [place] [phone] Finishing Operator: Duglas Hanley MD Bacteria 3+ Abnormal NONE [facility] Comment on above: Performed By: #### U AMIC #### [facility] [address] [place] [address] Finishing Operator: Duglas Hanley MD Bilirubin, SemiQt,Ur SMALL Abnormal NEG [facility] Comment on above: Performed By: #### U AMIC #### [facility] [address] [place], [place] [id number] Finishing Operator: Duglas Hanley MD Blood, Urine 2+ Abnormal NEG [facility] Comment on above: Performed By: #### U AMIC #### [facility] [address] [place], [facility]83 Finishing Operator: Duglas Hanley MD Clarity (U) CLOUDY Abnormal CLEAR [facility] Comment on above: Performed By: #### U AMIC #### [facility] [address] [place], [facility]83 Finishing Operator: Duglas Hanley MD Color (U) YELLOW Normal YEL [facility] Comment on above: Performed By: #### U AMIC #### [facility] [address] [place], [facility]83 Finishing Operator: Duglas Hanley MD Epithelial cells LM Ql (Urine sed) 5 TO 10 Normal 0-25 [facility] Comment on above: Performed By: #### U AMIC #### [facility] [address] [place], [facility]83 Finishing Operator: Duglas Hanley MD Glucose Ql (U) Negative Normal NEG [facility] Comment on above: Performed By: #### U AMIC #### [facility] [address] [place], [facility]83 Finishing Operator: Duglas Hanley MD Ketones Ql (U) Negative Normal NEG [facility] Comment on above: Performed By: #### U AMIC #### [facility] [address] [place], [place] [id number] Finishing Operator: Duglas Hanley MD Leukocyte esterase Test strip Ql (U) MODERATE Abnormal NEG [facility] Comment on above: Performed By: #### U AMIC #### [facility] [address] [place], [place] [id number] Finishing Operator: Duglas Hanley MD Nitrite,Ur Negative Normal NEG [facility] Comment on above: Performed By: #### U AMIC #### [facility] [address] [place] [address] Dr. [place], [place] [phone] Finishing Operator: Duglas Hanley MD PH,Ur 6.0 Normal 5.0-9.0 [facility] Comment on above: Performed By: #### U AMIC #### [facility] [address] [place] [address] Dr. [place], [place] [phone] Finishing Operator: Duglas Hanley MD Protein Ql (U) 1+ Abnormal NEG [facility] Comment on above: Performed By: #### U AMIC #### [facility] [address] [place] [address] Dr. [place], [place] 0349183 Finishing Operator: Duglas Hanley MD Spec. Eddy,Ur >1.030 High 1.010-1.02 0 [facility] Comment on above: Performed By: #### U AMIC #### [facility] [address] [place], [place] [id number] Finishing Operator: Duglas Hanley MD Urine RBC's 2 TO 5 Normal 0-2 [facility] Comment on above: Performed By: #### U AMIC #### [facility] [address] [place] [address] Dr. [place], [place] [id number] Finishing Operator: Duglas Hanley MD Urine WBC's 20 TO 50 Normal 0-5 [facility] Comment on above: Performed By: #### U AMIC #### [facility] [address] [place], [facility]83 Finishing Operator: Duglas Hanley MD Urobilinogen,Ur Normal Normal NORM [facility] Comment on above: Performed By: #### U AMIC #### [facility] [address] [place], [facility]83 Finishing Operator: Duglas Hanley MD Amorphous sediment LM Ql (Urine sed) NOT REPORTED Normal NONE [facility] Comment on above: Performed By: #### U AMIC #### [facility] [address] [place] [address] Finishing Operator: Duglas Hanley MD Casts NOT REPORTED Normal [facility] Comment on above: Performed By: #### U AMIC #### [facility] [address] [place], [facility]83 Finishing Operator: Duglas Hanley MD Comment NOT REPORTED Normal [facility] Comment on above: Performed By: #### U AMIC #### [facility] [address] [place] [address] Dr. [place] [address]239183 Finishing Operator: Duglas Hanley MD Crystals LM Nom (Urine sed) NOT REPORTED Normal [facility] Comment on above: Performed By: #### U AMIC #### [facility] [address] [place], [facility]83 Finishing Operator: Duglas Hanley MD Epithelial, Renal NOT REPORTED Normal 0 [facility] Comment on above: Performed By: #### U AMIC #### [facility] [address] [place] [address] Finishing Operator: Duglas Hanley MD Mucus Strands NOT REPORTED Normal [facility] Comment on above: Performed By: #### U AMIC #### [facility] [address] [place] [address] Finishing Operator: Duglas Hanley MD Other Observations NOT REPORTED Normal NREQ [facility] Comment on above: Performed By: #### U AMIC #### [facility] [address] [place] [address] Finishing Operator: Duglas Hanley MD Trichomonas NOT REPORTED Normal NONE [facility] Comment on above: Performed By: #### U AMIC #### [facility] [address] [place] [address] Finishing Operator: Duglas Hanley MD Yeast NOT REPORTED Normal NONE [facility] Comment on above: Performed By: #### U AMIC #### [facility] [address] [place] [address] Finishing Operator: Duglas Hanley MD Urinalysis with microscopicO rdered By: Gee Mcmahon on 02-05-2021 - [facility] Work Phone: Amorphous, UA NOT REPORTED None [facility] Work Phone: Bacteria, UA 3+ Abnormal None [facility] Work Phone: Bilirubin Urine SMALL Abnormal NEGATIVE [facility] Work Phone: Casts UA NOT REPORTED /LPF [facility] Work Phone: Color, UA YELLOW YELLOW [facility] Work Phone: Crystals, UA NOT REPORTED None /HPF [facility] Work Phone: Epithelial Cells UA 5 TO 10 [facility] Work Phone: Glucose, Ur Negative NEGATIVE [facility] Work Phone: Interpretation and review of laboratory results Abnormal [facility] Work Phone: Ketones Ql (U) Negative NEGATIVE [facility] Work Phone: Leukocyte esterase Test strip Ql (U) MODERATE Abnormal NEGATIVE [facility] Work Phone: Mucus, UA NOT REPORTED None [facility] [employer] Work Phone: Nitrite, Urine Negative NEGATIVE [facility] Work Phone: Other Observations UA NOT REPORTED NOT REQ. [facility] [employer] Work Phone: pH, UA 6.0 [facility] [employer] Work Phone: Protein, UA 1+ Abnormal NEGATIVE [facility] [employer] Work Phone: RBC, UA 2 TO 5 [facility] [employer] Work Phone: Renal Epithelial, UA NOT REPORTED 0 /HPF [facility] [employer] Work Phone: Specific Eddy, UA >1.030 High [facility] [employer] Work Phone: Trichomonas, UA NOT REPORTED None [facility] Work Phone: Turbidity UA CLOUDY Abnormal CLEAR [facility] [employer] Work Phone: Urinalysis Comments NOT REPORTED [facility] [employer] Work Phone: Urine Hgb 2+ Abnormal NEGATIVE [facility] [employer] Work Phone: Urobilinogen, Urine Normal Normal [facility] [employer] Work Phone: WBC, UA 20 TO 50 [facility] [employer] Work Phone: Yeast, UA NOT REPORTED None [facility] [employer] Work Phone: [facility] [employer] Work Phone: MRI LUMBAR SPINE WO CONTRAST [...] Trip Garcia MD 11/23/20 Final result Normal [facility] MRI LUMBAR SPINE WO CONTRAST Ordered By: Josh Oakley on 11-23-2020 New small central di sc protrusion at L2-L3 resulting in no significant nerve root compression or stenosis. Stable central annular tear at L5-S1. [employer] Phone: EXAMINATION: MRI OF THE LUMBAR SPINE [...] is identified. No significant stenosis is identified. [employer] Phone: Ivan, pn Incoming Radiant Results From [employer] - 11/23/2020 4:04 PM EDT EXAMINATION: MRI [...] stenosis. Stable central annular tear at L5-S1. [facility] Work [facility]: [facility] Work Phone: XR LUMBAR SPINE (2-3 VIEWS)o n [...] Abida Be MD 11/01/20 Final result Normal [facility] XR LUMBAR SPINE (2-3 VIEWS)O rdered By: Rui To on 11-01-2020 Minimal to mild degenerative and degenerative disc changes without acute fracture or subluxation. [employer] Phone: EXAMINATION: THREE X RAY VIEWS OF THE LUMBAR SPINE 11/01/2020 5:36 pm COMPARISON: None. HISTORY: ORDERING SYSTEM PROVIDED HISTORY: low back pain TECHNOLOGIST PROVIDED HISTORY: low back pain FINDINGS: No acute fracture or subluxation. Minimal to mild degenerative and degenerative disc changes. Pedicles are intact. SI joints are symmetrical. Mild levo scoliotic curvature is noted. Surgical clips in the gallbladder fossa. [employer] Phone: Ivan, Mhpn Incoming Radiant Results From [employer] - 11/01/2020 5:43 PM EDT EXAMINATION: THREE [...] disc changes without acute fracture or subluxation. [employer] Phone: [employer] Phone: C Urineon 02-22-2020 Bacteria identified Cx Nom (U) Microbiology PROCEDURE: Urine Culture [R1] SOURCE: U CleanCatch BODY SITE: COLLECTED DATE/TIME: 02/20/2020 18:30 EDT RECEIVED DATE/TIME: 02/20/2020 18:44 EDT START DATE/TIME: 02/20/2020 18:45 EDT FREE TEXT SOURCE: Kay Garcia DO, DO, Erin FINAL REPORTS Final Report [] Verified Date/Time: 02/22/2020 11:33 EDT 1,000 cfu/ml Mixed skin contaminants Performing Locations R1: This test was performed at: [facility], [address] [place] [address], [id number]- , [place], Normal [facility] Comment on above: Performed By: #### 1 [id number], [id number] ####[facility] [address] [place] [address] CT Abdomen/Pelvis w/o Contra stotika 02-21-2020 CT Abdomen/Pelvis w/o Contrast Exam Date/Time: [...] Signed by: Josue Benites M.D. Transcribed by: AVTAR Technologist: DPR Technical Comments Rectal Contrast Given? No Oral contrast amount in ml's: 0 Normal [facility] Coding Summary.on 02-21-2020 Coding Summary. CODING DATE: 020 FINAL [facility] STATUS: Home (Routine DC) PAYOR: Medicare APC DESCRIPTION 5523 Level 3 Imaging without Contrast 5691 Level 1 Drug Administration 5693 Level 3 Drug Administration 5024 Level 4 Type A ED Visits ADMIT DX: REASON FOR VISIT DX: R10.9 Unspecified abdominal pain R31.9 Hematuria, unspecified R11.0 Nausea FINAL DX: PRINCIPAL: N13.30 Unspecified hydronephrosis SECONDARY: N13.4 Hydroureter F17.210 Nicotine dependence, cigarettes, uncomplicated K21.9 Gastro-esophageal reflux disease without esophagitis Z79.899 Other nursing home (current) drug therapy PYMT PROC APC STAT DESCRIPTION DOCTOR NAME DATE NOTE: The code number assigned matches the documented diagnosis and / or procedure in the patient's chart. However, the narrative phrase printed from the coding software may appear abbreviated, or result in slightly different terminology. Revised Coded By: Carito Mills Revised Date Saved: 02/21/2020 07:59 am Normal [facility] Discharge Instructionson Discharge Instructions [id number]:1 [id number] Normal [facility] ED Clinical Summaryon 2019 ED Clinical Summary (Inserted Image. Swati ble to display) [place] [id number] ED Clinical Summary Person Information Name: ROSEANN GARRIDO [facility] Age: 44 Years : 1975 Sex: Female Language: Ecuadorean PCP: MICHAEL MORENO CNP Marital Status: Visit [...] 02/20/2020 22:11:37 02/20/2020 22:11:37 02/20/2020 22:11:37 ADDRESS: [address] [place] [id number] [facility] DOC NOTES: MEDICAL INFORMATION: Prescriptions Given: [...] up: With: Address: When: MICHAEL JOSH [address] [place] [address] [employer] (1[employer]aptic[employer]ash In 1 day 02/21/2020 Comments: drink plenty of fluids and followup with your doctor for a recheck DIAGNOSIS: 1:Right flank pain; 2:Hydronephrosis of right kidney; 3:Hydroureter, right Normal [facility] ED Patient Education Noteon 02-21-2020 ED Patient [...] Document Reviewed: 05/05/2011 ExitCare? Patient Information ?2015 [employer]. This information is not intended to replace [...] clear or pale yellow. ? Only take bbtt-ejn-egimzen or prescription medicines as directed by your [...] 02/13/2013 Document Reviewed: 01/03/2013 ExitCare? Patient Information ?2014 [employer]. This information is not intended to replace advice given to you by your health care provider. Make sure you discuss any questions you have with your health care provider. Normal [facility] ED Patient Summaryon 020 ED Patient Summary (Inserted Image. Swati ble to display) [address] [address] Patient Discharge Instructions Person Information Name: ROSEANN GARRIDO Age: 44 Years Arrival Date: 02/20/2020 18:18:26 Discharge Diagnosis: 1:Right flank pain; 2:Hydronephrosis of right kidney; 3:Hydroureter, right Primary Care Physician: MICHAEL MORENO CNP Provider Information Primary Provider: Warren Hodges MD [employer] Supervisor:None The exam and treatment you received in the Emergency Department were for an urgent problem and are not intended as complete care. It is important that you follow up with a doctor, nurse practitioner, or physician?s executive chef assistant for ongoing care. If your symptoms [...] Instructions: With: Address: When: MICHAEL MORENO [address] [place] [address] Business (1) In 1 day [...] opioids can be used to help relieve wccbttrx-pd-zuzsik pain and are often prescribed following a [...] be struggling with addiction, tell your health career information specialist and ask for guidance or call [facility]?S National Helpline at 2-953-478-GIWP. q Source: [place] Department of Health and Human Services/Center for Disease Control & Prevention [facility] Medications Given: Medication Dose Route Sodium Chloride 0.9% 1000.00 mL IV Right Antecubit Liss morphine 4.00 mg IV Push Right Antecubit Liss ondansetron 4.00 mg Oral Sodium Chloride 0.9% 1000.00 mL IV Piggyback Right Antecubit [place] orphenadrine 60.00 mg IntraMuscular Left Ventragluteal fentanyl 50.00 microgram IV Push Right Antecubit [place] ondansetron 4.00 mg IV Push Right Antecubit [place] ketorolac 30.00 mg IV Push Right Antecubit [place] ceftriaxone 1000.00 mg IV Piggyback Right Antecubit [...] Information: LIANA Brar Thank you for choosing [facility] Patient Education Materials: Hydronephrosis Hydronephrosis is an [...] Document Reviewed: 05/05/2011 ExitCare? Patient Information ?2015 [employer]. This information is not intended to replace [...] clear or pale yellow. ? Only take luar-bhf-yvfszsc or prescription medicines as directed by your [...] Document Reviewed: 01/03/2013 ExitCare? Patient Information ?2015 [employer]. This information is not intended to replace advice given to you by your health care provider. Make sure you discuss any questions you have with your health care provider. ALEE Enamorado JESSICA L , have received the following patient education materials/instructions and have verbalized understanding: Patient Education Materials: Hydronephrosis; Flank Pain Follow-up Instructions: With: Address: When: MICHAEL JOSH [address] [place] [address] Business (1) In 1 day 02/21/2020 Comments: drink plenty of fluids and followup with your doctor for a recheck Patient Signature ____ Date Clinician/Nurse Signature Date 02/20/2020 22:11:40 Normal [facility] Amylaseon 02-20-2020 Amylase [Catalytic activity/Vol] 30 unit/L Normal 25-157 [facility] Comment on above: Performed By: #### 2 [id number], [id number], [id number], [id number], [id number], [id number] #### [facility] Laboratory [address] [place] [address] Auto Diffon 02-20-2020 Basophils/100 WBC (Bld) 1.2 % Normal 0.0-2.0 [facility] Comment on above: Order Comment: Order Added by Discern Expert. Performed By: #### 2 864237, 2422351, 8642349, 9431731, 9078290, 98048257, 6694798, 9195670 ####[facility] [address] [place] [address] Basophils/Leukocytes Auto (Bld) [Pure # fraction] 0.1 E9/L Normal 0.0-0.2 [facility] Comment on above: Order Comment: Order Added by Discern Expert. Performed By: #### 2 868390, 1100498, 9094112, 1216556, 0126636, 01067057, 4237100, 9061543 ####[address] [place] [address] Eosinophils/100 WBC (Bld) 1.2 % Normal 0.0-8.0 [facility] Comment on above: Order Comment: Order Added by Discern Expert. Performed By: #### 2 408053, 8216661, 8335760, 6458837, 8554267, 45818569, 8936710, 7091145 ####[address] [place] [address] Eosinophils/Leukocytes Auto (Bld) [Pure # fraction] 0.1 E9/L Normal 0.0-0.5 [facility] Comment on above: Order Comment: Order Added by Discern Expert. Performed By: #### 2 062945, 4523019, 2363887, 8180077, 3570524, 34205822, 9116898, 6349864 ####[address] [place] [address] Lymphocytes/100 WBC (Bld) 30.1 % Normal 14.0-50.0 [facility] Comment on above: Order Comment: Order Added by Discern Expert. Performed By: #### 2 007078, 0690815, 4264824, 8961049, 4762231, 42292182, 1334098, 0024646 ####[address] [address] Lymphocytes/Leukocytes Auto (Bld) [Pure # fraction] 3.1 E9/L Normal 1.0-4.0 [facility] Comment on above: Order Comment: Order Added by Discern Expert. Performed By: #### 2 790501, 9639131, 4249041, 4191917, 3811303, 25584432, 2328224, 8939623 ####[address] [place] [address] Monocytes/100 WBC (Bld) 8.6 % Normal 4.0-14.0 [facility] Comment on above: Order Comment: Order Added by Discern Expert. Performed By: #### 2 488204, 7162730, 0866294, 0591098, 3136712, 40854650, 0121941, 0078569 ####[facility] [address] [place] [address] Monocytes/Leukocytes Auto (Bld) [Pure # fraction] 0.9 E9/L Normal 0.2-1.0 [facility] Comment on above: Order Comment: Order Added by Discern Expert. Performed By: #### 2 730700, 5686496, 5990226, 1671841, 8469244, 00213463, 2473608, 2608211 ####[facility] [address] [place] [address] Neutrophils/100 WBC (Bld) 58.9 % Normal 36.0-75.0 [facility] Comment on above: Order Comment: Order Added by Discern Expert. Performed By: #### 2 499968, 7958309, 2459326, 3171610, 7599546, 40748343, 8484271, 1729270 ####[facility] [address] [place] [address] Neutrophils/Leukocytes Auto (Bld) [Pure # fraction] 6.1 E9/L Normal 2.0-7.5 [facility] Comment on above: Order Comment: Order Added by Discern Expert. Performed By: #### 2 470423, 4879286, 2680740, 3097889, 5304828, 38143860, 4710150, 1215930 ####[facility] [address] [place] [address] [facility] 02-20-2020 Creatinine [Mass/Vol] 1.1 mg/dL Normal 0.5-1.3 [facility] Comment on above: Performed By: #### 2 221516, 9199156, 4633642, 5183929, 8975475, 31788271, 2958464, 4746357 ####[facility] [address] [place] [address] Urea nitrogen [Mass/Vol] 12 mg/dL Normal 5-21 [facility] Comment on above: Performed By: #### 2 381125, 6833562, 7653493, 9774522, 4061047, 37014788, 0547890, 4076277 ####[facility] [address] [place] [address] Urea nitrogen/Creatinine [Mass ratio] 11 No Units Normal 10-20 [facility] Comment on above: Performed By: #### 2 213010, 4781760, 5623493, 9186039, 5025758, 69813674, 0418534, 8113996 ####[facility] [address] [place] [address] Anion gap [Moles/Vol] 12 mmol/L Normal 6-16 [facility] Comment on above: Performed By: #### 2 914494, 9746079, 8146858, 8362953, 4492066, 65623388, 7378477, 7652725 ####[facility] [address] [place] [address] Calcium [Mass/Vol] 8.4 mg/dL Low 8.9-11.1 [facility] Comment on above: Performed By: #### 2 987646, 3497935, 7859048, 2646558, 9205203, 89329445, 0738495, 7900447 ####[facility] [address] [place] [address] Chloride [Moles/Vol] 107 mmol/L Normal 101-111 [facility] Comment on above: Performed By: #### 2 171836, 9530775, 4699515, 0606847, 0523290, 11498934, 3657642, 5890244 ####[facility] [address] [place] [address] CO2 [Moles/Vol] 22 mmol/L Normal 21-31 [facility] Comment on above: Performed By: #### 2 472851, 7684793, 4183323, 7080321, 1116862, 22836217, 6725074, 1540216 ####[facility] [address] [place] [address] Glucose [Mass/Vol] 87 mg/dL Normal 55-199 [facility] Comment on above: Result Comment: If t his glucose result represents a fasting glucose, interpretation should refer to the following reference range: 55-99 mg/dL Performed By: #### 2 340826, 2951920, 2975877, 0098812, 3959748, 72462442, 7356361, 3671431 ####[facility] [address] [place] [address] Potassium [Moles/Vol] 3.8 mmol/L Normal 3.5-5.3 [facility] Comment on above: Performed By: #### 2 517956, 2576416, 8290602, 8872339, 1769295, 03786042, 2229032, 5738822 ####[facility] [address] [place] [address] Sodium [Moles/Vol] 137 mmol/L Normal 135-145 [facility] Comment on above: Performed By: #### 2 467897, 3859469, 6188853, 3884034, 5773798, 98819468, 1004446, 5262058 ####[facility] [address] [place] [address] CBC w/ Auto Diffon 0 Erythrocyte distribution width (RBC) [Ratio] 13.8 % Normal 10.9-14.2 [facility] Comment on above: Performed By: #### 2 110159, 7189148, 8506042, 8247156, 3721354, 38065755, 9638392, 5263553 ####[address] [place] [address] Hematocrit (Bld) [Volume fraction] 41.7 % Normal 34.0-46.0 [facility] Comment on above: Performed By: #### 2 316780, 7696353, 9523949, 0786715, 1736136, 95741796, 2609630, 4368124 ####[facility] [address] [place] [address] Hemoglobin (Bld) [Mass/Vol] 14.2 g/dL Normal 12.0-16.0 [facility] Comment on above: Performed By: #### 2 736999, 6083054, 0739814, 4168632, 1122558, 94151744, 8328012, 2945968 ####[address] [address] MCH (RBC) [Entitic mass] 32.4 pg Normal 27.0-34.0 [facility] Comment on above: Performed By: #### 2 653379, 8008093, 0535003, 7449585, 5282862, 16580155, 0801103, 4194331 ####[address] [address] MCHC (RBC) [Mass/Vol] 34.2 g/dL Normal 31.4-36.0 [facility] Comment on above: Performed By: #### 2 657327, 3296192, 8209037, 3124635, 4386200, 94247813, 0089352, 9693575 ####[address] [address] MCV (RBC) [Entitic vol] 94.9 fL Normal 80.0-100.0 [facility] Comment on above: Performed By: #### 2 029183, 8724862, 4825187, 7628266, 6288261, 02382026, 1069978, 4419621 ####[address] [address] Platelet mean volume (Bld) [Entitic vol] 8.2 fL Normal 6.4-10.8 [facility] Comment on above: Performed By: #### 2 736232, 0573108, 1496260, 3637997, 6422282, 65552053, 1729442, 2666301 ####[address] [address] Platelets (Bld) [#/Vol] 244.0 E9/L Normal 150.0-500. 0 [facility] Comment on above: Performed By: #### 2 479290, 0963718, 1703091, 1753917, 2396120, 82714456, 9666510, 9976381 ####[facility] [address] [place] [address] RBC (Bld) [#/Vol] 4.4 E12/L Normal 4.3-5.9 [facility] Comment on above: Performed By: #### 2 885361, 7886828, 7912486, 6520598, 5047471, 47165888, 4871745, 8615246 ####[facility] [address] [place] [address] WBC corrected for nucl RBC Auto (Bld) [#/Vol] 10.4 E9/L Normal 4.0-11.0 [facility] Comment on above: Performed By: #### 2 557654, 7991467, 9527247, 7157446, 9004559, 94083781, 7705934, 1426606 ####[facility] [address] [place] [address] Consent for Treatmenton 02-03 Consent for Treatment [id number]#[id number]:12 7 Normal [facility] ED Note-Physicianon 02-20-20 ED Note-Physician Basic Information Time Seen: Warren Hodges MD 02/20/2020 19:26 Chief Complaint Urology surgery Monday, right sided flank pain comes and goes. Vomiting since Monday. PCP sent here for pain History of Present Illness presents complaining of right flank pain. States she has a procedure by Urology at [facility] 4 days ago and was discharged and [...] after Urologic procedure 4 days ago at [facility]. Patient states she is here now [...] NS 1000 ml Bolus, 1000 mL, IV [id number] [F], 1000 mL, IV Piggyback ondansetron 4 [...] 10.4 E9/L (02/20/20 19:09:00) RBC: 4.4 E12/L (02/20/20 19:09:00) Hgb: 14.2 gm/dL (02/20/20 19:09:00) Hct: 41.7 % (02/20/20 19:09:00) MCV: 94.9 fL (02/20/20 19:09:00) MCH: 32.4 pg (02/20/20:09:00) MCHC: 34.2 gm/dL (02/20/20:09:00) RDW: 13.8 % (02/20/20:09:00) Platelet: 244 E9/L (02/20/20:09:00) MPV: 8.2 fL (02/20/20:09:00) Neutro Auto: 58.9 % (02/20/20:09:00) Lymph Auto: 30.1 % (02/20/20:09:00) [place] Auto: 8.6 % (02/20/20:09:00) Eos Auto: 1.2 % (02/20/20:09:00) Basophil Auto: 1.2 % (02/20/20::00) Neutro Absolute: 6.1 E9/L (02/20/20:09:00) Lymph Absolute: 3.1 E9/L (02/20/20:09:00) [place] Absolute: 0.9 E9/L (02/20/20:09:00) Eos Absolute: 0.1 E9/L (02/20/20:09:00) Basophil Absolute: 0.1 E9/L (02/20/20:09:00) Glucose Lvl: 87 mg/dL (02/20/20:09:00) BUN: 12 mg/dL (02/20/20:09:) Creatinine: 1.1 mg/dL (02/20/20:09:00) eGFR: 54 mL/min/1.73 m2 Low (02/20/20::) eGFR AA: >60 (02/20/20:09:00) BUN/Creat Ratio: 11 (02/20/20:09:00) Sodium Lvl: 137 mmol/L (02/20/20:09:00) Potassium Lvl: 3.8 mmol/L (02/20/20:09:00) Chloride: 107 mmol/L (02/20/20:09:00) CO2: 22 mmol/L (02/20/20:09:00) AGAP: 12 mEq/L (09/17/20 19:09:00) Calcium Lvl: 8.4 mg/dL Low (02/20/20:09:00) Alk Phos: 63 Int._Unit/L (02/20/20:09:00) ALT: 9 Int._Unit/L (02/20/20:09:00) AST: 13 Int._Unit/L (02/20/20:09:00) Total Protein: 5.9 gm/dL Low (02/20/20:09:00) Albumin Lvl: 3.5 gm/dL (02/20/20:09:00) Globulin: 2.4 gm/dL (02/20/20:09:00) A/G Ratio: 1.5 (02/20/20:09:00) Bili Total: 0.9 mg/dL (02/20/20:09:00) Bili Direct: 0.1 mg/dL (02/20/20:09:00) Bili Indirect: [...] Diagnostic Results No qualifying data available. Normal [facility] Comment on above: Result Comment: Elec tronically Signed By: Carroll ZAMBRANO, Warren\.br\Date and Time Signed: 02/20/20 21:58 EDT Hep Func Panelon 02-20-2020 Albumin [Mass/Vol] 1.5 g/dL Normal 1.1-2.2 [facility] Comment on above: Performed By: #### 2 312634, 4414951, 9772301, 7645291, 0801098, 99338751, 7625453, 6749069 ####[facility] [address] [place] [address] Albumin [Mass/Vol] 3.5 g/dL Normal 3.3-5.0 [facility] Comment on above: Performed By: #### 2 543201, 1192343, 4394789, 3521345, 4168052, 67913994, 7035094, 0602486 ####[facility] [address] [place] [address] ALP [Catalytic activity/Vol] 63 Int._Unit/L Normal 21-98 [facility] Comment on above: Performed By: #### 2 197015, 1161961, 9670620, 6475219, 8422902, 27348933, 4651367, 2291073 ####[facility] [address] [place] [address] ALT No additional P-5'-P [Catalytic activity/Vol] 9 Int._Unit/L Normal 6-46 [facility] Comment on above: Performed By: #### 2 106425, 8830040, 4278024, 4967593, 4078753, 51568026, 4802148, 3947026 ####[facility] [address] AST [Catalytic activity/Vol] 13 Int._Unit/L Normal 5-43 [facility] Comment on above: Performed By: #### 2 288848, 5432967, 1621222, 4133237, 0066564, 95535143, 0375582, 6748527 ####[facility] [address] Bilirubin [Mass/Vol] 0.9 mg/dL Normal 0.0-1.1 [facility] Comment on above: Performed By: #### 2 501155, 6219725, 9940616, 3292642, 2849584, 08695097, 9248672, 8710702 ####[address] Bilirubin.direct [Mass/Vol] 0.1 mg/dL Normal 0.1-0.4 [facility] Comment on above: Performed By: #### 2 183976, 7911731, 8440139, 0855214, 8259576, 55991861, 7079281, 5022375 ####[address] [address] Bilirubin.direct [Mass/Vol] 0.8 mg/dL Normal 0.1-0.9 [facility] Comment on above: Performed By: #### 2 873854, 3645632, 0551275, 8737063, 5602367, 45309868, 4677904, 6718524 ####[address] [place] [address] Globulin (S) [Mass/Vol] 2.4 g/dL Normal 1.4-4.0 [facility] Comment on above: Performed By: #### 2 564150, 9118379, 7172917, 0622821, 1731840, 50099597, 0899155, 8965774 ####[address] [place] [address] Protein [Mass/Vol] 5.9 g/dL Low 6.0-7.8 [facility] Comment on above: Performed By: #### 2 741938, 0767394, 8863049, 5976868, 8822625, 71502244, 4301002, 0560950 ####[facility] [address] [place] [address] Lactic Acidon 02-20-2020 Lactate [Mass/Vol] 0.8 mmol/L Normal 0.5-2.2 [facility] Comment on above: Performed By: #### 2 491618, 2582663, 86748225, 1943009, 3737711, 2492199 #### [facility] [address] [place] [address] Lipase Levelon 02-20-2020 Lipase [Catalytic activity/Vol] 14 unit/L Normal 13-58 [facility] Comment on above: Performed By: #### 2 380568, 0170161, 9789103, 4007666, 4798597, 04367496, 6658969, 5619946 ####[facility] [address] [place] [address] RAD - Preliminary Cat Scan R eporton 02-20-2020 RAD - Preliminary Cat Scan Report [id number]#[id number]:1 27 Normal [facility] UA With Cult Reflexon 2019 Bacteria LM Ql (Urine sed) TRACE Normal Trace [facility] Comment on above: Performed By: #### 1 7447687, 4998014 ####[facility] [address] [place] [address] Bilirubin Ql (U) Negative Normal Negative [facility] Comment on above: Performed By: #### 1 3649221, 0521786 ####[facility] [address] [place] [address] Clarity (U) CLOUDY Abnormal Clear [facility] Comment on above: Performed By: #### 1 8448703, 1016154 ####[address] [address] Color (U) YELLOW Normal Yellow [facility] Comment on above: Performed By: #### 1 9744565, 7739690 ####[address] [address] Epithelial cells.squamous LM.HPF (Urine sed) [#/Area] 3-4 Normal 0-2 [facility] Comment on above: Performed By: #### 1 5200592, 9763842 ####[address] [address] Glucose Test strip (U) [Mass/Vol] Negative Normal Negative [facility] Comment on above: Performed By: #### 1 0973814, 6657220 ####[address] [address] Hemoglobin Ql (U) 3+ Abnormal Negative [facility] Comment on above: Performed By: #### 1 3796439, 1818677 ####[address] [address] Ketones (U) [Mass/Vol] Negative Normal Negative [facility] Comment on above: Performed By: #### 1 8047773, 0191407 ####[address] [address] [place].plasma/[place] .RBC (Bld) [Mass ratio] >30 Abnormal 0-3 [facility] Comment on above: Performed By: #### 1 1010026, 0183656 ####[address] [address] Nitrite Ql (U) Negative Normal Negative [facility] Comment on above: Performed By: #### 1 9682760, 7650921 ####[address] [address] pH (U) 6.0 [pH] 5.0-9.0 [facility] Comment on above: Performed By: #### 1 6515198, 9920958 ####[address] [place] [address] Protein (U) [Mass/Vol] Negative Normal Negative [facility] Comment on above: Performed By: #### 1 3618855, 4566070 ####[address] [address] Specific gravity (U) [Rel density] 1.010 1.005-1.03 0 [facility] Comment on above: Performed By: #### 1 1384583, 6344985 ####[address] [address] UA Spec Desc Clean Catch Normal [facility] Comment on above: Performed By: #### 1 4283198, 4650406 ####[address] [address] Urobilinogen Qn (U) 0.2 {Shikha'U}/dL Normal 0.0-1.0 [facility] Comment on above: Performed By: #### 1 2830576, 2789491 ####[facility] [address] [place] [address] WBC Auto Ql (U) 1+ Abnormal Negative [facility] Comment on above: Performed By: #### 1 6932708, 5352668 ####[facility] [address] [place] [address] WBC LM.HPF (Urine sed) [#/Area] 0-5 Normal 0-5 [facility] Comment on above: Performed By: #### 1 5329199, 3343498 ####[address] [address] eGFRon 02-20-2020 GFR/1.73 sq M predicted among blacks MDRD (S/P/Bld) [Vol rate/Area] mL/min/{1.73_m2} Normal >=59 [facility] Comment on above: Order Comment: Order added by Discern Expert. Result Comment: eGFR is race adjusted. AA=. Performed By: #### 2 782102, 2996738, 25496116, 0232677, 8492679, 8948667 #### [facility] [address] [place] [address] GFR/1.73 sq M predicted among non-blacks MDRD (S/P/Bld) [Vol rate/Area] 54 mL/min/1.73 m2 Low >=59 [facility] Comment on above: Order Comment: Order added by Discern Expert. Result Comment: Spike Maker maddison kidney disease could be indicated at eGFR's of less than 60 mL/min/1.73m2. Kidney failure is indicated at less than 15 mL/min/1.73m2. Performed By: #### 2 343058, 5875185, 72876953, 3477546, 9937292, 6260852 #### [facility] [address] [place] [address] XR NECK SOFT TISSUEon 2019 XR NECK [...] Frank Gr MD 02/19/20 Final result Normal [facility] Unremarkable radiogr aphic views of the neck soft tissues and airways. [place] EXAMINATION: TWO XRA Y VIEWS OF [...] grossly unremarkable. Disc joint spaces are preserved. [place] Ivan, [facility] Incoming Radiant Results From [employer] - 02/19/2020 1:11 AM EDT EXAMINATION: TWO [...] of the neck soft tissues and airways. [facility] XR ANKLE RIGHT (2 VIEWS)on 0 12-20-2019 Partially radiopaque wrap obscuring right ankle. No definite acute bony abnormality appreciated. [facility] EXAMINATION: 2 XRAY VIEWS OF THE RIGHT ANKLE 12/20/2019 2:25 pm COMPARISON: None. HISTORY: ORDERING SYSTEM PROVIDED HISTORY: Injury FINDINGS: Ankle is obscured by overlying wrap. I see no definite evidence of of fracture line or dislocation. Alignment appears normal. [facility] Ivan, [facility] Incoming Radiant Results From [employer] - 12/20/2019 2:51 PM EDT EXAMINATION: 2 XRAY VIEWS OF THE RIGHT ANKLE 12/20/2019 2:25 pm COMPARISON: None. HISTORY: ORDERING SYSTEM PROVIDED HISTORY: Injury FINDINGS: Ankle is obscured by overlying wrap. I see no definite evidence of of fracture line or dislocation. Alignment appears normal. IMPRESSION: Partially radiopaque wrap obscuring right ankle. No definite acute bony abnormality appreciated. [facility] XR FOOT RIGHT (MIN 3 VIEWS)o n 12-20-2019 Exam degraded by overlying cast material. No fracture demonstrated in the foot. Forefoot soft tissue swelling. [facility] EXAMINATION: THREE X RAY VIEWS OF THE RIGHT FOOT 12/20/2019 2:25 pm COMPARISON: None. HISTORY: ORDERING SYSTEM PROVIDED HISTORY: Injury FINDINGS: The patient is imaged in a cast, limiting osseous detail. Soft tissue swelling in the forefoot is noted. No discrete fracture is demonstrated in the foot. No malalignment identified. The joint spaces appear maintained. [facility] Ivan, [facility] Incoming Radiant Results From [employer] - 12/20/2019 3:03 PM EDT EXAMINATION: THREE [...] in the foot. Forefoot soft tissue swelling. [place] Postoperative Documentson Postoperative Documents [id number]#[id number]:12 7 Normal [facility] Operative Reporton 0 Operative Report Date of [...] first postoperative visit. Lei Varghese Dictated: 10/30/2019 #[id number] Typed: 10/30/2019 #[id number] cc: Scotty Eller D.P.M. [facility] Comment on above: Result Comment: Elec tronically Signed By: Scotty Eller DPM\.br\Date and Time Signed: 11/06/19 17:17 EDT Coding Summary.on 11-04-2019 Coding Summary. 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, unspecified type PYMT PROC APC STAT DESCRIPTION DOCTOR NAME DATE 40063 5119 J1 Division of plantar Scotty Eller DPM 10/30/2019 fascia and muscle (eg, Steindler stripping) (separate procedure) LT Left side (used to identify procedures performed on the left side of the body) [address] Anesthesia for Raffaele Spencer MD 10/30/2019 procedures [...] Revised Date Saved: 11/04/2019 10:32 am Normal [facility] IntraOperative Documentson 0 11-04-2019 IntraOperative Documents [id number]:12 7 Normal [facility] Main OR Intraoperative Recor don 11-01-2019 Main OR Intraoperative Record IntraOp Document Type FT Summary Primary Physician: Scotty Eller DPM Finalized Date/Time: 11/01/19 10:04:36 Pt. Name: ROSEANN GARRIDO/Sex: 1975 Female Med Rec #: [id number] Physician: Scotty Eller DPM Financial #: [id number] Pt. Type: A Room/Bed: [place] [address] Admit/Disch: 10/30/19 08:02:13 - 10/30/19 12:50:00 Institution: Case Times FT Entry 1 Patient Times In Room 10/30/19 09:33:00 Out Room 10/30/19 10:01:00 Procedure Times Start 10/30/19 09:49:00 Stop 10/30/19 09:58:00 Anesthesia Times Start 10/30/19 09:33:00 Stop 10/30/19 10:01:00 Last Modified By: Antonia Cat RN 10/30/19 10:05:00 General Comments: 11/01/2019 Chart opened to review and send charges Gi Spencer INTERNIST MEDICAL DOCTOR MD Case Attendance FT Entry 1 Entry 2 Entry 3 Case Attendee Raffaele Spencer MD, DPM, Scotty Best RN, CNOR, Siena Morales Role Performed Anesthesiologist of Surgeon - 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 Record Time In 10/30/19 09:33:00 10/30/19 09:33:00 10/30/19 09:33:00 Time Out 10/30/19 10:01:00 10/30/19 10:01:00 10/30/19 10:01:00 Procedure PLANTAR FASCIA PLANTAR FASCIA PLANTAR FASCIA RELEASE(Left) RELEASE(Left) RELEASE(Left) Comments Last Modified By: Stephania RN, Antonia Cat RN, Antonia Cat RN, Antonia Lewis 10/30/19 10:05:03 10/30/19 10:05:03 10/30/19 10:05:03 Entry 4 Entry 5 Case Attendee Eugene LEIJA, Antonia Fields RN Role Performed Scrub - Primary Colloid Mill Operator - Primary Time In 10/30/19 09:33:00 [...] (If Applicable) PreOp Antibiotic Yes Time Out Tj ZAMBRANO, Raffaele, Given Christiana Eller DPM, Estephania Lagos RN, CNOR, Siena Morales, Eugene LEIJA, Stephania Martel RN, Antonia Lewis Time Out Complete 10/30/19 09:47:00 Outcomes Met? Yes Last Modified By: Antonia Cat RN 10/30/19 10:05:35 Post-Care Text: The patient is free from signs and symptoms of injury caused by extraneous objects Allergy Information FT Pre-Care Text: Verifies allergies Entry 1 Allergies Reviewed? Yes Allergies Reviewed Self/Patient With Outcomes Met? Yes Last Modified By: Anotnia Cat RN 10/30/19 09:56:09 Post-Care Text: The [...] and tissue Entry 1 Skin Integrity Intact, [place], Warm, and Skin Abnormality No Dry Outcomes [...] Yes By Antonia Cat RN, Barney MD, Daniel, Blank RN, TIMOR, Siena Morales Outcomes Met? Yes Last Modified [...] 09:35:00 10/30/19 09:53:00 By Kathi Knight CST, Antonia Cat RN, Blank RN, BLANE, Kathi Fowler CST Outcomes Met? Yes Yes Last Modified By: [...] RN Patient Status Stable Skin. Condition Intact, [place], Warm, and Dry Airway Maintenance Oxygen in [...] safely administered during the perioperative period [facility] please see scanned medication reconcilliation form for medications used at the field during the procedure. Tourniquet FT Pre-Care Text: Implements protective measures to prevent skin/tissue injury due to mechanical sources Entry 1 Tourniquet Type TOURNIQUET CUFF RED 18 Setting 250 mmHg X 4 [[id number]][F] Equipment Number C Placement Left Ankle Cuff [...] BLANKET MISTRAL AIR Quantity 1 Aid TORSO [[id number]][F] Fluid/Point Arena Unit Mistral warming system Setting HIGH/43C Body Site Upper anterior torso Last Modified By: Antonia Cat RN 10/30/19 09:50:17 Case Comments Finalized By: April Spencer CST Document Signatures Signed By: Antonia Cat RN 10/30/19 10:17 April Spencer CST 11/01/19 10:04 [facility] PACU Recordon 11-01-2019 PACU Record [id number]#1.00CD:1 27 [facility] Consent for Anesthesiaon Consent for Anesthesia [id number]#1.00CD:1 27 [facility] Discharge Instructionson Discharge Instructions [id number]#1.00CD:1 27 [facility] IntraOperative Documentson 0 10-31-2019 IntraOperative Documents [id number]#1.00CD:1 27 Normal [facility] IntraOperative Documents [id number]#1.00CD:1 27 Normal [facility] Preoperative Documentson Preoperative Documents [id number]#1.00CD:1 27 Normal [facility] Progress Note-Physicianon Progress Note-Physician Patient: ROSEANN GARRIDO Age: 44 years Sex: Female : 1975 Associated Diagnoses: None Author: Tj ZAMBRANO, Raffaele Preoperative Information Anesthesia history: Patient History: No [...] Problems Arthritis of spine / SNOMED CT 0110752981 / Confirmed Diabetes / SNOMED CT 572960828 / Confirmed Diabetes mellitus / SNOMED CT 585120358 / Confirmed Plantar fasciitis / SNOMED CT 541053604 / Confirmed Vitamin D deficiency, unspecified / SNOMED CT 37870775 / Confirmed Vitamin B deficiency, unspecified / SNOMED CT 79506770 / Confirmed Anxiety / SNOMED CT 52703275 / Confirmed Smoker 05-DEC-2013 12:37:00<$> / SNOMED CT [id number]-5813-89E2-3070-O [id number] / Confirmed Added secondary to documentation in Social History. Obesity 05-DEC-2013 12:37:00<$> / SNOMED CT U5483C08-3018-5T46-U93F-C [id number] / Confirmed Resolved: Sleep apnea / SNOMED CT 833750639 Resolved: Bursitis of hip / SNOMED CT 556109333 Resolved: Seizure / SNOMED CT 194379493 has not had one in 2 years Resolved: Acid reflux / SNOMED CT 6730753387 Resolved: Bipolar / SNOMED CT 905165682 Resolved: Neurogenic syncope / SNOMED CT [id number]-GA8T-3 9B2Q83C7YCZ cardio neurogenic syncope no problems in 2 yers Resolved: Arthritis / SNOMED CT 8128944 Resolved: Anxiety / SNOMED CT 61913169 Canceled: CPAP (continuous positive airway pressure) dependence / SNOMED CT 4888573856 Canceled: Biliary colic / SNOMED CT 39531569 Histories Past Medical History: Active Diabetes mellitus (737093040) Resolved Seizure (063727721): Resolved. Comments: 10/29/2019 EDT 13:41 EDT - Alpa LANCE, Martha has not had one in 2 years Bipolar (133781471): Resolved. Neurogenic syncope ([id number]-VQ6R- 91T2W50H4UFW): Resolved. Comments: 10/29/2019 EDT 13:43 EDT - Alpa LANCE, [facility] cardio neurogenic syncope no problems in 2 yers Sleep apnea (345658171): Resolved. Acid reflux (6971689631): Resolved. Anxiety (94738425): Resolved. Arthritis (0980844): Resolved. Bursitis of hip (420672557): Resolved. Procedure history: Epidural injection of cervical spine using fluoroscopic guidance (8761539063) on 01/05/2015 at 39 Years. Comments: 01/19/2015 8:41 EDT - Jose LANCE, Kay L5-S1 Laparoscopic adhesiolysis (8306179943) on 09/29/2014 at 39 Years. Injection of steroid into hip joint (9481773377) on 07/07/2014 at 39 Years. Comments: 10/22/2014 17:18 Kandy Justice RIGHT Injection of sacroiliac joint using fluoroscopic guidance (2339752080) on 06/04/2014 at 39 Years. Comments: 10/22/2014 17:17 Kandy Justice RIGHT Epidural injection of lumbar spine using fluoroscopic guidance (2299877425) on 03/07/2014 at 38 Years. Comments: 10/22/2014 17:16 Kandy Justice RIGHT L5-S1 Hysterectomy. gallbladder removed. Ovarian cystectomy (9168560896). NECK SURGERY 1990. Arthroscopy of hip (830687095). Tonsillectomy (264949294). Nasal septoplasty and ear dilation (18339500). Social History Social & Psychosocial Habits Alcohol [...] review: No qualifying data available . Plan [place] [employer] Anesthesiologists (ASA) physical status classification: [...] heart and lungs, allergic reactions, and .. [facility] Comment on above: Result Comment: Elec tronically Signed By: Tj ZAMBRANO, Raffaele\.br\Date and Time Signed: 10/31/19 10:32 EDT Advance Beneficiary Notifica tionson 10-30-2019 Advance Beneficiary Notifications [id number]#1.00CD:1 27 [facility] Coding Summary.on 10-30-2019 Coding Summary. CODING DATE: 020 [facility] STATUS: Home (Routine DC) PAYOR: Medicare APC [...] Alonzo CphT Date Saved: 10/30/2019 01:00 pm [facility] Consent for Treatmenton 10-04 Consent for Treatment [id number]#1.00CD:12 7 [facility] Inpatient Patient Summaryon 10-30-2019 Inpatient Patient Summary [place] [id number] [facility] Clinical Discharge Instructions PERSON INFORMATION Name: ROSEANN GARRIDO PHYSICIANS Admitting Physician: Scotty Eller DPM Attending Physician: Scotty Eller DPM PCP: michael tam Discharge Diagnosis: Comment: PATIENT EDUCATION INFORMATION Instructions: Foot Cryocuff Patient Instructions - FT (CUSTOM); Post Op Patient Instructions - FT (CUSTOM); Rafita - Post Operative Instructions (Revised 05/15/19) (Custom) (CXP565) (Custom) Medication Leaflets: Follow up: MEDICATION LIST [...] Milligram By Mouth every day. Comment: Normal [facility] Main OR PACU I Recordon 10-04 Main OR PACU I Record PACU Phase I Docum ent Type FT Summary Primary Physician: Scotty Eller DPM Finalized Date/Time: 10/30/19 10:53:10 Pt. Name: ROSEANN GARRIDO /Sex: 1975 Female Med Rec #: [id number] Physician: Scotty Eller DPM Financial #: [id number] Pt. Type: A Room/Bed: [place] [address] Admit/Disch: 10/30/19 08:02:13 - Institution: Case Times [...] Signed By: Adenike Infante RN 10/30/19 10:53 [facility] Main OR PACU II Recordon Main OR PACU II Record PACU Phase II Doc ument Type FT Summary Primary Physician: Scotty Eller DPM Finalized Date/Time: 10/30/19 13:25:44 Pt. Name: ROSEANN GARRIDO /Sex: 1975 Female Med Rec #: [id number] Physician: Scotty Eller DPM Financial #: [id number] Pt. Type: A Room/Bed: [place] [address] Admit/Disch: 10/30/19 08:02:13 - Institution: Case Times [...] By: Daniella Rao RN 10/30/19 13:25 Normal [facility] Main OR Preoperative Recordo n 10-30-2019 Main OR Preoperative Record PreOp Document Type FT Summary Primary Physician: Scotty Eller DPM Finalized Date/Time: 10/30/19 09:50:43 Pt. Name: ROSEANN GARRIDO Hailee /Sex: 1975 Female Med Rec #: [id number] Physician: Scotty Eller DPM Financial #: [id number] Pt. Type: A Room/Bed: [place] [address] Admit/Disch: 10/30/19 08:02:13 - Institution: Case Times [...] By: Antonia Cat RN 10/30/19 09:50 Normal [facility] Patient Education - Texton 0 10-30-2019 Patient Education - Text [place], [place] Scotty Eller DPM, FACFAS POST OPERATIVE [...] feel free to call the doctor at: [phone] or [phone] Eller paged. ___ Patient signature Date ___ Dr.Nicholas Rafita DPM, FACFAS Date Revised: 07-13 [facility] Progress Note-Physicianon Progress Note-Physician Patient: ROSEANN GARRIDO [...] right heel. Complications: None. Anesthesia type: General. Normal [facility] Comment on above: Result Comment: Elec tronically Signed By: Scotty Eller DPM\.br\Date and Time Signed: 10/30/19 10:01 EDT BUNon 10-29-2019 Urea nitrogen [Mass/Vol] 11 mg/dL Normal - [facility] Comment on above: Performed By: #### 2 917665, 9509878, 26713324, 8775715, 7146449, 4858494 #### [facility] Laboratory [address] [place] [address] CBC w/Indiceson 10-29-2019 Erythrocyte distribution width (RBC) [Ratio] 14.0 % Normal 10.9-14.2 [facility] Comment on above: Performed By: #### 2 507578, 2078483, 88245240, 4630098, 8900804, 5514179 #### [facility] [address] [place] [address] Hematocrit (Bld) [Volume fraction] 43.4 % Normal 34.0-46.0 [facility] Comment on above: Performed By: #### 2 325386, 0287977, 27788636, 8150980, 3473592, 7033603 #### [facility] [address] [place] [address] Hemoglobin (Bld) [Mass/Vol] 14.7 g/dL Normal 12.0-16.0 [facility] Comment on above: Performed By: #### 2 824684, 2442807, 16708133, 5232986, 3872444, 1552951 #### [facility] [address] [place] [address] MCH (RBC) [Entitic mass] 31.7 pg Normal 27.0-34.0 [facility] Comment on above: Performed By: #### 2 902096, 1241934, 69229724, 0155633, 3087200, 6585898 #### [facility] [address] [place] [address] MCHC (RBC) [Mass/Vol] 34.0 g/dL Normal 31.4-36.0 [facility] Comment on above: Performed By: #### 2 086769, 9809243, 92825972, 0852405, 2145292, 0044149 #### [facility] [address] [place] [address] MCV (RBC) [Entitic vol] 93.3 fL Normal 80.0-100.0 [facility] Comment on above: Performed By: #### 2 741556, 4290048, 13970807, 2256694, 4782000, 2782442 #### [facility] [address] [place] [address] Platelet mean volume (Bld) [Entitic vol] 7.9 fL Normal 6.4-10.8 [facility] Comment on above: Performed By: #### 2 423161, 7539578, 19483831, 3289612, 1111916, 9645399 #### [facility] [address] [place] [address] Platelets (Bld) [#/Vol] 296.0 E9/L Normal 150.0-500. 0 [facility] Comment on above: Performed By: #### 2 359706, 2470011, 11639930, 1401792, 9400615, 2471978 #### [facility] [address] [place] [address] RBC (Bld) [#/Vol] 4.6 E12/L Normal 4.3-5.9 [facility] Comment on above: Performed By: #### 2 366184, 0154334, 89050635, 9170853, 8014879, 2000734 #### [facility] [address] [place] [address] WBC corrected for nucl RBC Auto (Bld) [#/Vol] 8.1 E9/L Normal 4.0-11.0 [facility] Comment on above: Performed By: #### 2 016394, 1947372, 71719084, 6116922, 2792596, 8698396 #### [facility] [address] [place] [address] Consent for Treatmenton 10-04 Consent for Treatment [id number]#1.00CD:12 7 Normal [facility] Creatinineon 10-29-2019 Creatinine [Mass/Vol] 0.8 mg/dL Normal 0.5-1.3 [facility] Comment on above: Performed By: #### 2 455387, 7240673, 60576273, 2747203, 1435897, 6774804 #### [facility] [address] [place] [address] Glucoseon 10-29-2019 Glucose [Mass/Vol] 87 mg/dL Normal 55-199 [facility] Comment on above: Performed By: #### 2 879827, 3642004, 43739104, 5262963, 5866527, 5825051 #### [facility] [address] [place] [address] History and Physicalon 10-28 History and Physical [id number]#1.00CD:12 7 Normal [facility] History and Physical [id number]#1.00CD:12 7 Normal [facility] Lyteson 10-29-2019 Anion gap [Moles/Vol] 11 mmol/L Normal 6-16 [facility] Comment on above: Performed By: #### 2 141848, 3051490, 50929505, 7205377, 4758038, 2076514 #### [facility] [address] [place] [address] Chloride [Moles/Vol] 106 mmol/L Normal 101-111 [facility] Comment on above: Performed By: #### 2 722747, 8786917, 54525094, 8088435, 0561405, 3942059 #### [facility] [address] [place] [address] CO2 [Moles/Vol] 26 mmol/L Normal 21-31 [facility] Comment on above: Performed By: #### 2 583763, 8058812, 73327386, 2355898, 5732815, 5309134 #### [facility] [address] [place] [address] Potassium [Moles/Vol] 4.5 mmol/L Normal 3.5-5.3 [facility] Comment on above: Performed By: #### 2 673673, 9497569, 45873929, 8573340, 8732368, 1429035 #### [facility] [address] [place] [address] Sodium [Moles/Vol] 138 mmol/L Normal 135-145 [facility] Comment on above: Performed By: #### 2 211358, 0430502, 21814768, 7656248, 1765556, 7389268 #### [facility] [address] [place] [address] XR Chest 2 Viewson 0 XR Chest [...] Kelby Thornton M.D. Transcribed by: AVTAR Technologist: REUBEN Normal [facility] eGFRon 10-29-2019 GFR/1.73 sq M predicted among blacks MDRD (S/P/Bld) [Vol rate/Area] mL/min/{1.73_m2} Normal >=59 [facility] Comment on above: Order Comment: Order added by Discern Expert. Result Comment: eGFR is race adjusted. AA=. Performed By: #### 2 020662, 3937754, 51165211, 9451353, 1286037, 3677717 #### [facility] [address] [place] [address] GFR/1.73 sq M predicted among non-blacks MDRD (S/P/Bld) [Vol rate/Area] mL/min/{1.73_m2} Normal >=59 [facility] Comment on above: Order Comment: Order added by Discern Expert. Result Comment: [employer] maddison kidney disease could be indicated at eGFR's of less than 60 mL/min/1.73m2. Kidney failure is indicated at less than 15 mL/min/1.73m2. Performed By: #### 2 193665, 5218399, 91042857, 2795960, 6373492, 7107641 #### [facility] [address] [place] [address] No Panel InformationOrdered By: Josh Oakley on [...] nasal septum without spurring. 5. Dental disease. [employer] Work Phone: EXAMINATION: CT OF T HE SINUS [...] and presence of a few dental fillings. [employer] Phone: Ivan, pn Incoming Radiant Results From [facility] - 06/17/2019 3:09 PM EST EXAMINATION: CT [...] nasal septum without spurring. 5. Dental disease. [employer] Phone: [id number] B y: Josh Oakley on 05-20-2019 A-1 Antitrypsin 146 mg/dL 90 - 200 mg/dL [employer] Phone: CBC Auto DifferentialOrdered By: Josh Oakley on 05-20-2019 [employer] # 0.41 [employer] Work Phone: Absolute Immature Granulocyte 0.03 [employer] Work Phone: Absolute Lymph # 2.36 [employer] [facility] Work Phone: Absolute Newaygo # 0.56 [employer] [facility] Work Phone: Basophils (Bld) [#/Vol] 0.04 10*3/uL [employer] Work Phone: Basophils/100 WBC (Bld) 1 % 0 - 2 % [employer] Work Phone: Differential Type NOT REPORTED [employer] Phone: Eosinophils/100 WBC (Bld) 5 % High 1 - 4 % [employer] Phone: Erythrocyte distribution width (RBC) [Ratio] 13.1 % 11.8 - 14.4 % [employer] Phone: Hematocrit (Bld) [Volume fraction] 45.5 % 36.3 - 47.1 % [employer] Work Phone: Hemoglobin (Bld) [Mass/Vol] 14.7 g/dL 11.9 - 15.1 g/dL [employer] Phone: Immature granulocytes/100 WBC (Bld) 0 % 0 [employer] Phone: Interpretation and review of laboratory results Abnormal [employer] Phone: Lymphocytes/100 WBC (Bld) 30 % 24 - 43 % [employer] Work Phone: MCH (RBC) [Entitic mass] 31.4 pg 25.2 - 33.5 pg [employer] Work Phone: MCHC (RBC) [Mass/Vol] 32.3 g/dL 28.4 - 34.8 g/dL [employer] Phone: MCV (RBC) [Entitic vol] 97.2 fL 82.6 - 102.9 fL [employer] Work Phone: Monocytes/100 WBC (Bld) 7 % 3 - 12 % [employer] Work Phone: NRBC Automated 0.0 0.0 per 100 WBC [employer] Work Phone: Platelet Estimate NOT REPORTED [employer] Work Phone: Platelet mean volume (Bld) [Entitic vol] 9.6 fL 8.1 - 13.5 fL [employer] Work Phone: Platelets (Bld) [#/Vol] 287 10*3/uL [employer] Work Phone: RBC (Bld) [#/Vol] 4.68 10*6/uL 3.95 - 5.11 m/uL [employer] Work Phone: RBC morphology finding Nom (Bld) NOT REPORTED [employer] Work Phone: Segmented neutrophils/100 WBC (Bld) 57 % 36 - 65 % [employer] Work Phone: Segs Absolute 4.45 [employer] Work Phone: WBC (Bld) [#/Vol] 7.9 10*3/uL [employer] Work Phone: WBC Morphology NOT REPORTED [employer] Work Phone: Comprehensive Metabolic Pane lOrdered By: Josh Oakley on 05-20-2019 Albumin [Mass/Vol] 4.2 g/dL 3.5 - 5.2 g/dL [employer] Work Phone: Albumin/Globulin [Mass ratio] 1.4 {ratio} [employer] Work Phone: ALP [Catalytic activity/Vol] 103 U/L 35 - 104 U/L [employer] Work Phone: ALT [Catalytic activity/Vol] 32 U/L 5 - 33 U/L [employer] Work Phone: Anion gap [Moles/Vol] 11 mmol/L 9 - 17 mmol/L [employer] Phone: AST [Catalytic activity/Vol] 31 U/L <32 [employer] Phone: Bilirubin [Mass/Vol] mg/dL Low 0.3 - 1 .2 mg/dL [employer] Phone: Bun/Cre Ratio 11 [employer] Work Phone: Calcium [Mass/Vol] 9.7 mg/dL 8.6 - 10. 4 mg/dL [employer] Phone: Chloride [Moles/Vol] 101 mmol/L 98 - 10 7 mmol/L [employer] Phone: CO2 [Moles/Vol] 25 mmol/L 20 - 31 mmol/L [employer] Phone: Creatinine [Mass/Vol] 1.16 mg/dL High 0.5 - 0.9 mg/dL [employer] Phone: GFR >60 >60 mL/min [employer] Phone: GFR Comment [employer] Phone: Comment on above: Average GFR for 40-4 9 years old: 99 mL/min/1.73sq m Chronic Kidney Disease: <60 mL/min/1.73sq m Kidney failure: <15 mL/min/1.73sq m eGFR calculated using average adult body mass. Additional eGFR calculator available at: http://www.SurveyGizmo.Prezma/multiple_crcl_2012.htm GFR Non- 51 mL/min Low >60 [employer] Phone: GFR Staging [employer] Phone: Comment on above: Stage 1: Some kidney damage normal GFR Stage 2: Mild kidney damage GFR 60-89 Stage 3: Moderate kidney damage GFR 30-59 Stage 4: Severe kidney damage GFR 15-29 Stage 5: Severe kidney damage GFR <15 ESRD - chronic treatment by dialysis or transplant Glucose [Mass/Vol] 85 mg/dL 70 - 99 mg/dL [employer] Phone: Interpretation and review of laboratory results Abnormal [employer] Phone: Potassium [Moles/Vol] 4.9 mmol/L 3.7 - 5.3 mmol/L [employer] Work Phone: Protein [Mass/Vol] 7.3 g/dL 6.4 - 8.3 g/dL [employer] Phone: Sodium [Moles/Vol] 137 mmol/L 135 - 144 mmol/L [employer] Phone: Urea nitrogen [Mass/Vol] 13 mg/dL 6 - 20 mg/dL [employer] Phone: Iron and TIBCOrdered By: Patrick Oakley on 05-20-2019 Interpretation and review of laboratory results Abnormal [employer] Phone: Iron [Mass/Vol] 69 ug/dL 37 - 145 ug/dL [employer] Work Phone: Iron Saturation 19 % Low 20 - 55 % [facility] Work Phone: TIBC 364 ug/dL 250 - 450 ug/dL [employer] Phone: UIBC 295 ug/dL 112 - 347 ug/dL [employer] Phone: Vitamin [id number] By: Rox Oakley on 05-20-2019 Cobalamin (Vitamin B12) [Mass/Vol] 416 pg/mL 232 - 1245 pg/mL [employer] Phone: MRI LUMBAR SPINE WO CONTRAST on 04-03-2019 Degenerative disc di sease as described above. No spinal canal narrowing Foraminal narrowing, minimal at bilateral L4-5 and right L5-S1. [employer]- [place] EXAMINATION: MRI OF THE LUMBAR SPINE [...] foraminal narrowing. No spinal canal narrowing. Stable. [facility] [place] Ivan, pn Incoming Radiant Results From [facility] - 04/03/2019 2:27 PM EDT EXAMINATION: MRI [...] minimal at bilateral L4-5 and right L5-S1. [place] Strep Screen Group A Throato n 01-15-2019 S. pyogenes Ag IA Ql (Unsp spec) Rapid Strep A negative. A negative Rapid Group A Strep Screen result does not rule out the possibility of Group A Streptococci in the specimen. A Group A Strep DNA test is available upon request. [place] Special Requests NOT REPORTED [place] Specimen Description .THROAT [place] XR Neck Soft Tissueon 2018 No acute abnormality [place] EXAMINATION: TWO XRA Y VIEWS OF [...] is no acute fracture. Apices are clear [place], [place] Ivan, pn Incoming Radiant Results From [employer] - 01/15/2019 9:29 PM EDT EXAMINATION: TWO [...] Apices are clear IMPRESSION: No acute abnormality [place] Vital Signs Date Time Vital Sign Value Performing Clinician Facility 04-11-2023 14:10-0500 Body height 162.56 cm Vonda Bautista Other [employer] Other 04-11-2023 14:10-0500 Body mass index (BMI) [Ratio] 31.75 kg/m2 Vonda Bautista Other [employer] Other 04-11-2023 14:10-0500 Body temperature 98.8 [degF] Vonda Bautista Other [employer] Other 04-11-2023 14:10-0500 Body weight 83.92 kg Vonda Bautista Other [employer] Other 04-11-2023 14:10-0500 Diastolic blood pressure 42 mm[Hg] Vonda Bautista Other [employer] Other 04-11-2023 14:10-0500 Respiratory rate 18 /min Vonda Bautista Other [employer] Other 04-11-2023 14:10-0500 SaO2% (BldA) [Mass fraction] 96 % Vonda Bautista Other [employer] Other 04-11-2023 14:10-0500 Systolic blood pressure 126 mm[Hg] Vonda Bautista Other [employer] Other 11-08-2021 11:45-0400 Body height 162.56 cm Duglas Gomez Other [employer] Other 11-08-2021 11:45-0400 Body mass index (BMI) [Ratio] 28.49 kg/m2 Duglas Gomez Other [employer] Other 11-08-2021 11:45-0400 Body weight 75.3 kg Duglas Gomez Other [employer] Other 02-05-2021 18:53-0400 Body temperature 97.9 [degF] Gee Mcmahon MD Work Phone: [employer] Work Phone: 02-05-2021 18:53-0400 Diastolic blood pressure 82 mm[Hg] Gee Mcmahon MD Work Phone: [employer] Work Phone: 02-05-2021 18:53-0400 Heart rate 76 /min Gee Mcmahon MD Work Phone: [employer] Work Phone: 02-05-2021 18:53-0400 Respiratory rate 16 /min Gee Mcmahon MD Work Phone: [employer] Work Phone: 02-05-2021 18:53-0400 SaO2% (BldA) [Mass fraction] 98 % Gee Mcmahon MD Work Phone: [employer] Work Phone: 02-05-2021 18:53-0400 Systolic blood pressure 110 mm[Hg] Gee Mcmahon MD Work Phone: [employer] Work Phone: 12-03-2020 17:39-0400 Body mass index (BMI) [Ratio] 32.61 kg/m2 Jessica Smith DO Work Phone: [employer] Work Phone: 12-03-2020 17:39-0400 Body temperature 98.6 [degF] Jessica Smith DO Work Phone: [employer] Work Phone: 12-03-2020 17:39-0400 Body weight 86.18 kg Jessica Smith DO Work Phone: [employer] Work Phone: 12-03-2020 17:39-0400 Diastolic blood pressure 99 mm[Hg] Jessica Smith DO Work Phone: [employer] Work Phone: 12-03-2020 17:39-0400 Heart rate 109 /min Jessica Smith DO Work Phone: [employer] Work Phone: 12-03-2020 17:39-0400 Respiratory rate 24 /min Jessica Smith DO Work Phone: [employer] Work Phone: 12-03-2020 17:39-0400 SaO2% (BldA) [Mass fraction] 99 % Jessica Smith DO Work Phone: [employer] Work Phone: 12-03-2020 17:39-0400 Systolic blood pressure 126 mm[Hg] Jessica Smith DO Work Phone: [employer] Work Phone: 11-01-2020 16:37-0400 Body temperature 98.01 [degF] Spasic E Work Phone: [employer] Work Phone: 11-01-2020 16:37-0400 Heart rate 108 /min Spasic E Work Phone: [employer] Work Phone: 11-01-2020 16:37-0400 SaO2% (BldA) [Mass fraction] 99 % Spasic E Work Phone: [employer] Work Phone: 02-19-2020 00:19-0400 Body Temperature 98.01 [degF] [facility], 02-19-2020 00:19-0400 BP Diastolic 72 mm[Hg] [employer] , 02-19-2020 00:19-0400 BP Systolic 131 mm[Hg] [facility] [place] , 02-19-2020 00:19-0400 Pulse (Heart Rate) 71 /min Selina [facility] [place], [place] 02-19-2020 00:19-0400 Pulse Oximetry 96 % Selina Tyler [employer] [place] , [place] 02-19-2020 00:19-0400 Respiratory Rate 16 /min Selina [facility], EROS 06-11-2019 13:30-0500 Diastolic blood pressure 94 mm[Hg] Sp[facility] Work Phone: [employer] Work Phone: 06-11-2019 13:30-0500 Systolic blood pressure 142 mm[Hg] Spasic [facility] Work Phone: [employer] Work Phone: 06-11-2019 12:40-0500 Body mass index (BMI) [Ratio] 36.05 kg/m2 [facility] Work Phone: [employer] Work Phone: 06-11-2019 12:40-0500 Body temperature 98.91 [degF] Sp[facility] Work Phone: [employer] Work Phone: 06-11-2019 12:40-0500 Body weight 95.25 kg Sp[facility] Work Phone: [employer] Work Phone: 06-11-2019 12:40-0500 Heart rate 82 /min Sp[facility] E Work Phone: [employer] Work Phone: 06-11-2019 12:40-0500 Respiratory rate 19 /min Sp[facility] Work Phone: [employer] Work Phone: 06-11-2019 12:40-0500 SaO2% (BldA) [Mass fraction] 99 % Sp[facility] Work Phone: [employer] Work Phone: 03-24-2019 22:40-0400 Body Temperature 98.49 [degF] [facility]do [facility], [place] 03-24-2019 22:40-0400 BP Diastolic 103 mm[Hg] [facility] 03-24-2019 22:40-0400 BP Systolic 172 mm[Hg] Reynaldo Martinez [facility] , [place] 03-24-2019 22:40-0400 Pulse (Heart Rate) 107 /min [facility] 03-24-2019 22:40-0400 Pulse Oximetry 96 % Reynaldo [facility] , [place] 03-24-2019 22:40-0400 Respiratory Rate 16 /min Reynaldo [facility], [place] 03-16-2019 22:29-0400 BP Diastolic 96 mm[Hg] [facility] , [place] 03-16-2019 22:29-0400 BP Systolic 151 mm[Hg] [facility] , [place] 03-16-2019 22:21-0400 Body Temperature 97.9 [degF] , MD 03-16-2019 22:21-0400 Pulse (Heart Rate) 89 /min [facility], [place] 03-16-2019 22:21-0400 Pulse Oximetry 99 % [facility] , [place] 03-16-2019 22:21-0400 Respiratory Rate 18 /min , MD 01-15-2019 20:08-0400 BMI (Body Mass Index) 36.05 kg/m2 [facility], MD 01-15-2019 20:08-0400 Body Temperature 98.71 [degF] [facility], MD 01-15-2019 20:08-0400 Body weight 95.25 kg [facility] , MD 01-15-2019 20:08-0400 Height 162.6 cm [facility] , [place] 01-15-2019 20:08-0400 Pulse (Heart Rate) 87 /min [facility], MD 01-15-2019 20:08-0400 Pulse Oximetry 95 % Selina [facility] , EROS 01-15-2019 20:08-0400 Respiratory Rate 20 /min [facility], [facility] 01-11-2019 14:47-0400 Body Temperature 97.3 [degF] Meh[facility]ad [facility], [place] 01-11-2019 14:47-0400 BP Diastolic 88 mm[Hg] Mehrdad [facility] , EROS 01-11-2019 14:47-0400 BP Systolic 124 mm[Hg] Mehrdad [facility] , EROS 01-11-2019 14:47-0400 Pulse (Heart Rate) 88 /min Mehrdad [facility], EROS 01-11-2019 14:47-0400 Pulse Oximetry 97 % Mehrdad [facility] , EROS 01-11-2019 14:47-0400 Respiratory Rate 14 /min Mehrdad Antonio [facility], EROS Encounters Encounter Date Encounter Type Care Provider Facility Start: 08-16-2023 End: 08-17-2023 ambulatory [facility] Start: 08-09-2023 ambulatory [facility] Start: 07-21-2023 Telephone encounter Wayne Rouse ( Coord) Radiology Comment on above: Appointment Start: 07-18-2023 End: 07-18-[address] [facility] Facility:[facility] Start: 07-18-2023 End: 07-18-2023 Patient encounter procedure Matt Raay MD Work Phone: Orthopaedics Comment on above: Tear of right acetab ular labrum, initial encounter (Primary Dx); Tear of right acetabular labrum, subsequent encounter; Pain in right hip Start: 06-28-2023 End: 06-28-[address] [facility] Facility:[facility] Start: 06-15-2023 End: 06-15-2023 ambulatory [facility] Facility:[facility] Start: 06-15-2023 End: 06-15-2023 ambulatory Services [facility] Work Phone: [facility] Work Phone: Start: 06-15-2023 End: 06-15-2023 Departed Referred Services [facility] Work Phone: [facility] [facility] Start: 05-19-2023 End: 05-19-2023 ambulatory FRANK E FRANK Facility:[facility] Start: 05-03-2023 Telephone encounter [facility] Provider Becca andrade Comment on above: Schedule US Hip Inje ction Start: 04-25-2023 ambulatory Frank E Girgi s DO Work Phone: Pain Management Comment on above: Pirifomis injection Start: 04-21-2023 End: 04-21-2023 ambulatory [facility] Facility:[facility] Start: 04-13-2023 End: 04-13-2023 ambulatory [facility] Facility:[facility] Start: 04-11-2023 End: 04-11-2023 ambulatory Vonda Bautista Other [employer] Other Start: 04-11-2023 Office outpatient vi sit 25 minutes Vonda Bautista [facility] Start: 03-24-2023 End: 03-24-2023 ambulatory Ana M Krissy RT(R) Radiology Comment on above: Radiology XR Start: 03-24-2023 End: 03-24-2023 Patient encounter procedure Ana M Krissy RT(R) DAVID LOPEZ Comment on above: Psoas tendinitis of right side (Primary Dx); Tear of right acetabular labrum, initial encounter; Piriformis syndrome of right side; Pain of right hip Start: 02-27-2023 Orders Only No Pcp [employer] Referring Physician Comment on above: Pain (Primary Dx) Start: 02-23-2023 End: 02-23-2023 ambulatory Michael E Spasic Facility:[facility] Start: 02-23-2023 End: 02-23-2023 ambulatory Services [facility] Work Phone: [facility] Work Phone: Start: 02-23-2023 End: 02-23-2023 [facility]arted [facility] Work Phone: [facility] Start: 02-22-2023 Telephone encounter Frank villagis DO Work Phone: Ambulatory Surgery Comment on above: Schedule Injection Start: 02-20-2023 End: 02-20-2023 ambulatory FRANK E FRANK Facility:[facility] Start: 02-15-2023 Telephone encounter Frank jamess DO Work Phone: Pain Management Comment on above: Erroneous encounter- disregard Start: 01-12-2023 End: 01-12-2023 ambulatory Services [facility] Facility:[facility] Start: 01-12-2023 End: 01-12-2023 ambulatory Services [facility] Work Phone: [facility] Work Phone: Start: 01-12-2023 End: 01-12-2023 Patient encounter procedure Services [facility] Work Phone: [facility] [place] Work Phone: Start: 09-06-2022 End: 09-06-2022 ambulatory Michael E Spasic Facility:[facility] Start: 09-06-2022 End: 09-06-2022 ambulatory Services [facility] Work Phone: [facility] Work Phone: Start: 09-06-2022 End: 09-06-2022 Departed Referred Services [facility] Work Phone: [facility] Start: 08-11-2022 End: 08-11-2022 ambulatory Michael E Spasic Facility:[facility] Start: 08-11-2022 End: 08-11-2022 ambulatory [facility] Work Phone: [facility] Work Phone: Start: 08-11-2022 End: 08-11-2022 Departed Referred Services [facility] Work Phone: [facility] Services Start: 07-19-2022 End: 07-19-2022 ambulatory Michael Oakley Spasic Facility:[facility] Start: 07-19-2022 End: 07-19-2022 ambulatory [facility] Work Phone: [facility] Work Phone: Start: 07-19-2022 End: 07-19-2022 Departed Referred Services [facility] Work Phone: [facility] Services Start: 06-23-2022 End: 06-23-2022 ambulatory Michael Nguyensic Facility:[facility] Start: 06-23-2022 End: 06-23-2022 ambulatory [facility] Work Phone: [facility] Work Phone: Start: 06-23-2022 End: 06-23-2022 Patient encounter procedure Services [facility] Work Phone: [facility]-CT Scan [place] Work Phone: Start: 04-21-2022 Encounter for preprocedural laboratory examination DR MATT RECINOS [facility] Start: 04-20-2022 End: 04-20-[address] MATT RECINOS Facility:[facility] Start: 04-18-2022 End: 04-19-[address] MATT RECINOS Facility:[facility] Start: 04-18-2022 End: 04-19-2022 Encounter for preprocedural laboratory examination DR MATT RECINOS Facility:[facility] Start: [address] MATT RECINOS Facility:[facility] Start: 02-17-2022 End: 02-17-2022 Departed Referred Services [facility] Work Phone: [facility] Services Start: 12-30-2021 End: 12-30-2021 Patient encounter procedure [facility] Work Phone: [facility] [place] Start: 12-13-2021 End: 12-13-2021 ambulatory Duglas Gomez Other [employer] Other Start: 12-13-2021 Telephone encounter Duglas Gomez [facility] Start: 11-10-2021 End: 11-10-2021 ambulatory Duglas Gomez Other [employer] Other Start: 11-10-2021 Telephone encounter Duglas Gomez [facility] Start: 11-08-2021 End: 11-08-2021 ambulatory Duglas Gomez Other [employer] Other Start: 11-08-2021 Office outpatient vi sit 25 minutes Duglas Gomez [facility] G[facility]enter[facility] Start: 04-09-2021 End: 2021 ambulatory UNKNOWN PROVIDER Facility:[facility] Start: 02-05-2021 End: 02-06-2021 Emergency department patient visit [facility] Start: 02-05-2021 End: 02-06-2021 Emergency department patient visit Gee Mcmahon MD Work Phone: [facility] Comment on above: Trichomonas vaginali s (TV) infection (Primary Dx); Vaginal pain Start: 12-03-2020 End: 12-03-2020 Emergency department patient visit [facility] Start: 12-03-2020 End: 12-03-2020 Emergency department patient visit Jessica Smith DO Work Phone: [facility] Comment on above: Back spasm (Primary Dx) Start: 11-23-2020 End: 11-26-2020 ambulatory [facility] Start: 11-23-2020 End: 11-25-2020 Subsequent hospital visit by physician Mth Mri Scanner [facility] MRI Comment on above: Low back pain, unspe cified back pain laterality, unspecified chronicity, unspecified whether sciatica present; Accidental fall on or from stairs or steps, initial encounter; Radicular syndrome of lower limbs Start: 11-01-2020 Emergency department patient visit [facility] Start: 11-01-2020 End: 11-01-2020 Emergency department patient visit [facility] Adin Work Phone: [facility] Comment on above: Strain of lumbar reg ion, initial encounter (Primary Dx) Start: 02-19-2020 End: 02-19-2020 Emergency department patient visit [facility] Start: 02-19-2020 End: 02-19-2020 Emergency department patient visit Selina Tyler Work Phone: [facility] Comment on above: Sore throat (Primary Dx) Start: 12-20-2019 End: 12-22-2019 Subsequent hospital visit by physician [facility] Covid Screening Schedule [facility] Covid Screening Comment on above: Arrived Injury Start: 06-17-2019 End: 06-19-2019 Subsequent hospital visit by physician [facility] CT Scan Comment on above: Dizziness Right ear pain Start: 06-11-2019 End: 06-11-2019 Emergency department patient visit [facility] Work Phone: [facility] Comment on above: Right acute serous o titis media, recurrence not specified (Primary Dx) Start: 05-20-2019 End: 05-20-2019 Subsequent hospital visit by physician Josh Oakley Work Phone: [facility] Laboratory Start: 04-03-2019 End: 04-05-2019 Subsequent hospital visit by physician [facility] Mri Scanner [facility] MRI Comment on above: Lumbar radiculopathy Start: 03-24-2019 End: 03-25-2019 Emergency department patient visit Reynaldo Martinez Work Phone: [facility] Comment on above: Acute exacerbation o f chronic low back pain (Primary Dx); Sciatica of right side Start: 03-16-2019 End: 03-17-2019 Emergency department patient visit Garry Valdez Work Phone: [facility] Comment on above: Sciatica of right si de (Primary Dx) Start: 01-15-2019 End: 01-15-2019 Emergency department patient visit Selina Tyler Work Phone: [facility] Comment on above: Post-op pain (Primar y Dx) Start: 01-11-2019 End: 01-11-2019 Emergency department patient visit Mehrdad Palomino Work Phone: [facility] Comment on above: Postoperative pain ( Primary Dx) Procedures Date Procedure Procedure Detail Performing Clinician Start: 01-12-2023 Diagnostic radiograp hy of abdomen Services [facility] [employer] Work Phone: Start: 01-12-2023 Plain X-ray of right hip Services [facility] Work Phone: Start: 06-23-2022 CT of lumbar spine w ithout contrast [facility] Work Phone: Start: 12-30-2021 Plain X-ray of right hip Services [facility] Work Phone: Start: 12-30-2021 X-ray of right knee Ser vices [facility] [employer] Work Phone: Start: 02-05-2021 End: 02-05-2021 Smr prim src wet mount nfct agt Gee Mcmahon MD Work Phone: Start: 02-05-2021 Comprehensive metabo lic panel Gee Mcmahon MD Work Phone: Start: 11-23-2020 Mri spinal canal lum bar w/o contrast material Spasic Michael E Work Phone: Start: 11-01-2020 Radex spine lumbosac ral 2/3 views Rui TOMAS-Vishal Work Phone: Start: 02-19-2020 Radiologic examinati on neck soft tissue SPASIC E Start: 02-19-2020 Radiologic examinati on neck soft tissue Selina Nataliya [employer] Work Phone: Start: 12-20-2019 Radiologic examinati on ankle 2 views Spasic Michael E Work Phone: Start: 12-20-2019 Radex foot complete minimum 3 views Spasravanivishal Micahel E Work Phone: Start: 06-17-2019 End: 06-17-2019 Ct maxillofacial w/o contrast material [employer] Michael Oakley Work Phone: Start: 05-20-2019 Comprehensive metabo lic panel Roxvishal Michael Adin Work Phone: Start: 04-03-2019 Mri spinal canal lum bar w/o contrast material [employer] Michael Oakley Start: 01-15-2019 Radiologic examinati on neck soft tissue Selina Tyler Work Phone: Start: 01-15-2019 Iaadiadoo streptococ cus group a Selina An Gab Work Phone: Plan of Treatment Date Care Activity Detail Author Start: 07-17-2025 Diabetes Screening Diabetes Screenin [facility] Start: 04-14-2025 Diabetes Screening Diabetes Screenin g [facility] Start: 06-05-2023 Depression Assessment Depression Ass [facility] Start: 02-23-2023 [facility] Start: 02-03-2023 Influenza vaccination Influenza Vacc ine (#1) [facility] Start: 06-05-2022 Depression Assessment Depression Ass [facility] Start: 2022 Cologuard (FIT-DNA) Cologuard (FIT-D NA) [facility] Start: 2022 Colonoscopy Colonoscopy [facility] Start: 2022 Colorectal Cancer Screening Colorectal Cancer Screening [facility] Start: [address] COLONOGRAPHY [facility] Start: 2022 Diabetes Screening Diabetes Screenin g [facility] Start: 2022 Fecal Occult Blood Fecal Occult Bloo d [facility] Start: 2022 Lipid 1996 panel - S layla or Plasma Lipid Screening [facility] Start: 2022 Lipid panel Lipid Screening [facility] Start: 2022 Screening for malign ant neoplasm of colon [facility] Start: 2022 SIGMOIDOSCOPY SIGMOIDOSCOPY [facility] Start: 02-03-2021 Influenza vaccination [employer] Work Phone: Start: 02-04-2020 Influenza vaccination Flu vaccine (# 1) [place] Start: 02-03-2019 Influenza vaccination Flu vaccine (# 1) [place] Start: 11-25-2018 Annual Wellness Visi t (AWV) Annual Wellness Visit (AWV) [place] Start: 2017 Lipid screen Lipid screen [place], [place] Start: 2017 Mammography Mammogram Screening [facility] Start: 2017 Screening for malign ant neoplasm of breast Mammogram Screening [facility] Start: 08-16-2012 Lipid panel Lipid screen [place] Start: 08-16-2012 Lipid screen Lipid screen [facility] Work Phone: Start: 2007 HPV Testing HPV Testing [facility] Start: 2007 Screening for malign ant neoplasm of cervix HPV Testing [facility] Start: 1998 Cervical cancer screen Cervical canc er screen [place], [place] Start: 1998 Pap Testing Pap Testing [facility] Start: 1998 Screening for malign ant neoplasm of cervix [facility] Start: 1996 DTaP/Tdap/Td vaccine (1 - Tdap) DTaP/Tdap/Td vaccine (1 - Tdap) [place] Start: 1996 Urine microalbumin profile DTaP,Tdap,Td Vaccine (1 - Tdap) [facility] Start: 1995 Hepatitis C Screening Hepatitis C [facility] Start: 1995 Hepatitis C screening Hepatitis C [facility] Start: 1995 HIV Screening HIV Screening [facility] Start: 1995 HIV screening HIV Screening [facility] Start: 1992 HIV screen HIV screen [place], [place] Start: 1992 HIV screening [facility] [place] [place] Start: 1989 COVID-19 Vaccine (1) COVID-19 Vaccin e (1) [facility] Work Phone: Start: 1988 DTaP/Tdap/Td vaccine (1 - Tdap) DTaP/Tdap/Td vaccine (1 - Tdap) [employer] Phone: Start: 1987 A1C test (Diabetic o r Prediabetic) A1C test (Diabetic or Prediabetic) [place] Start: 1987 HbA1c (Bld) [Mass fraction] A1C test (Diabetic or Prediabetic) [place] Start: 1987 Hemoglobin A1c measurement A1C test (Diabetic or Prediabetic) [employer] Phone: Start: 1983 Pneumococcal 0-64 ye ars Vaccine (1 of 1 - PPSV23) Pneumococcal 0-64 years Vaccine (1 of 1 - PPSV23) [place] Start: 1983 Pneumococcal 0-64 ye ars Vaccine (1 of 2 - PPSV23) Pneumococcal 0-64 years Vaccine (1 of 2 - PPSV23) [employer] Phone: Start: 1983 Pneumococcal vaccination [facility] Start: 1977 Covid-19 Vaccine (#1) Covid-19 Vacci ne (#1) [facility] Start: 1977 Hepatitis B Vaccine (1 of 3 - 3-dose series) Hepatitis B Vaccine (1 of 3 - 3-dose series) [facility] Start: 1977 Hepatitis C screening Hepatitis C sc reen [employer] Phone: End: 05-20-2019 Qdtcm-3-Iwajotlsuyt w Phenotype Zhtpi-8-Iwgppbpryyr w Phenotype Lab Routine Once for 1 Occurrences starting 05/20/2019 until 05/20/2019 [employer] Phone: Comment on above: Once for 1 Occurrenc es starting 05/20/2019 until 05/20/2019 Tsznh-1-Omgytldukpi w Phenotype Tedly-2-Rwneuirbtgt w Phenotype Lab Routine 05/20/2019 12:57 PM EST [employer] Phone: End: 02-05-2021 C.trachomatis N.gonorrhoeae DNA, Urine C.trachomatis N.gonorrhoeae DNA, Urine Microbiology Routine One Time for 1 Occurrences starting 02/05/2021 until 02/05/2021 [facility] Work Phone: Comment on above: One Time for 1 Occur rences starting 02/05/2021 until 02/05/2021 C.trachomatis N.gonorrhoeae DNA, Urine C.trachomatis N.gonorrhoeae DNA, Urine Microbiology STAT 02/05/2021 10:49 PM EDT [facility] Work Phone: End: 12-20-2019 Covid-19 Ambulatory Covid-19 Ambulatory Lab Routine Once for 1 Occurrences starting 12/20/2019 until 12/20/2019 [facility], [place] Comment on above: Once for 1 Occurrenc es starting 12/20/2019 until 12/20/2019 Covid-19 Ambulatory Covid-19 Amb ulatory Lab Routine 12/20/2019 1:39 PM EDT [facility], [place] Drugs identified in [facility] Work Phone: Drugs identified in [facility] Drugs identified in [facility] Drugs identified in [facility] End: 08-16-2024 Guidance for 1 or 2 injections of trigger point of Muscle US INJ TRIGGER POINT RIGHT Radiology Routine Tear of right acetabular labrum, initial encounter Tear of right acetabular labrum, subsequent encounter 1 Occurrences starting 07/18/2023 until 08/16/2024 [facility] Work Phone: Comment on above: 1 Occurrences starti ng 07/18/2023 until 08/16/2024 End: 04-22-2024 MRI HIP WO IVCON RIGHT MRI HIP WO IVCON RIGHT Radiology STAT Pain of right hip 1 Occurrences starting 03/24/2023 until 04/22/2024 [facility] Work Phone: Comment on above: 1 Occurrences starti ng 03/24/2023 until 04/22/2024 End: 03-28-2024 Radex spine lumbosacral 2/3 views XR LUMBAR GENERAL 3V AP/LAT/L5-S1 Radiology Routine Radiculopathy, lumbosacral region 1 Occurrences starting 02/27/2023 until 03/28/2024 [facility] Work Phone: Comment on above: 1 Occurrences starti ng 02/27/2023 until 03/28/2024 End: 05-20-2019 Vitamin D 25 Hydroxy Vitamin D 25 Hydroxy Lab Routine Once for 1 Occurrences starting 05/20/2019 until 05/20/2019 [employer] Phone: Comment on above: Once for 1 Occurrenc es starting 05/20/2019 until 05/20/2019 Vitamin D 25 Hydroxy Vitamin D 2 5 Hydroxy Lab Routine 05/20/2019 12:57 PM EST [employer] Work Phone: End: 03-28-2024 XR HIP GENERAL 3V PELV/AP/LAT RIGHT XR HIP GENERAL 3V PELV/AP/LAT RIGHT Radiology Routine Pain 1 Occurrences starting 02/27/2023 until 03/28/2024 [facility] Work Phone: Comment on above: 1 Occurrences starti ng 02/27/2023 until 03/28/2024 End: 08-16-2024 XR Pelvis and Hip - right AP and Lateral frog XR HIP GENERAL 3V PELV/AP/LAT RIGHT Radiology Routine Tear of right acetabular labrum, initial encounter 1 Occurrences starting 07/18/2023 until 08/16/2024 [facility] Work Phone: Comment on above: 1 Occurrences starti ng 07/18/2023 until 08/16/2024 End: 05-20-2019 Zinc Zinc Lab Routine Once for 1 Occurrences starting 05/20/2019 until 05/20/2019 [employer] Phone: Comment on above: Once for 1 Occurrenc es starting 05/20/2019 until 05/20/2019 Zinc Zinc Lab Routine 05/20/2019 12:57 PM EST [employer] Phone: [facility] [facility] Immunizations Immunization Date Immunization Notes Care Provider Venu xie 03-27-2017 influenza, injectabl e, quadrivalent, preservative free Frank Frank DO Work Phone: [facility] 03-27-2017 influenza virus vacc ine, unspecified formulation Frank Marie DO Work Phone: [facility] Payers Date Payer Category Payer Self-pay [id number] 2021 Medicare UHC MEDICARE UHC DUAL COMPLETE HMO POS SNP [id number] 2021-Present [phone] [address] [place] [address] Medicare [id number] 2020 Medicare [id number] .[id number] 2017 Medicare [id number] 2015 [place] xxxxxxxxxxxx 2015-Present [phone] [address] [place] [address] xxxxxxxxxxxx [id number] .[id number] 2015 Medicaid MEDICAID [facility] DEPT OF JOB [id number] 2015-Present [phone] [address] [place] [address] [id number] .[id number] 2015 Medicare MEDICARE MEDICAR E PART A AND B xxxxxxxxxx 2015-Present [phone] [place] [address] xxxxxxxxxx [id number] .[id number] 2015 Medicare MEDICARE MEDICAR E PART A AND B xxxxxxxxxxx 2015-Present [phone] [place] [address] xxxxxxxxxxx [id number] .[id number] 2015 Medicare MEDICARE MEDICAR E PART A AND B [id number] 2015-Present [phone] [place] [address] [id number] [id number] .[id number] 2014 Medicaid [id number] [id number] .715560.315 2014 Medicaid MEDICAID [facility] MEDICAID [id number] 2014-Present [phone] [address] [place] [address] Medicaid [id number] .[id number] 2012 Medicare [id number] [id number] .716003.315 1977 Unknown [id number] 2.16.840.1.684172.3.579.2.173 1977 Unknown [id number] 2.16.840.1.664580.3.579.2.173 1977 Unknown [id number] 2.16.840.1.086602.3.579.2.173 1977 Unknown [id number] 2.16.840.1.106873.3.579.2.173 1977 Unknown [id number] 2.16.840.1.817770.3.579.2.173 1977 Unknown [id number] 2.16.840.1.604411.3.579.2.732 1977 Unknown [id number] 2.16.840.1.372670.3.579.2.593 1977 Unknown [id number] 2.16.840.1.444060.3.579.2.593 1977 Unknown [id number] 2.16.840.1.011368.3.579.2.593 1977 Unknown [id number] 2.16.840.1.636156.3.579.2.128 6 1977 Unknown [id number] 2.16.840.1.358506.3.579.2.128 6 1977 Unknown [id number] 2.16.840.1.088538.3.579.2.128 6 1977 Unknown [id number] 2.16.840.1.847934.3.579.2.128 6 Medicare [id number] 2.16.840.1.679956.19 Unknown [id number] 2.16.840.1.103220.3.579.2.531 Unknown [id number] 2.16.840.1.718020.3.579.2.531 Unknown [id number] 2.16.840.1.701647.3.579.2.531 Unknown [id number] 2.16.840.1.087471.3.579.2.531 Unknown [id number] 2.16.840.1.294900.3.579.2.531 Unknown [id number] 2.16.840.1.714245.3.579.2.531 Unknown [id number] 2.16.840.1.462166.3.579.2.531 Social History Date Type Detail Facility Start: 01-10-2019 End: 02-20-2023 Tobacco smoking status PAIS Current every day smoker [facility] Work Phone: Start: 01-10-2019 End: 03-24-2023 Cigarettes smoked current (pack per day) - Reported [facility] Start: 01-10-2019 End: 03-24-2023 Alcohol intake No [facility] Start: 1975 Sex Assigned At Not on file [place], [place] Start: 06-11-2019 End: 02-06-2021 Tobacco use and exposure Never used [employer] Start: 06-11-2019 End: 07-18-2023 Alcohol intake Current non-drinker of alcohol (finding) [employer] Work Phone: Exposure to SARS-CoV -2 (event) Yes [employer] Exposure to SARS-CoV -2 (event) Not sure [employer] Start: 11-29-2018 End: 11-29-2018 Tobacco smoking status NHIS Smoker (finding) [facility] Start: 1975 Sex Assigned At Female F [facility] History of tobacco use Cigarette Smoker [facility] Work Phone: Start: 03-27-2017 End: 02-20-2023 Tobacco use and exposure User of smokeless tobacco [facility] Work Phone: National Score (1-10 0), lower number is lower risk [address] [facility] Medical Equipment Procedure Code Equipment Code Equipment Origin al Text Equipment Identifier Dates Sut Anchr 1.8m Q-Fx All Sut - [id number] Start: 08-04-2014 Comment on above: Description: Q-FIX I MPLANT Clinical Notes 10-03-2014 to 07-21-2023 Telephone Encounter - Sultana Koo - 07/21/2023 10:24 AM ESTTelephone Encounter - Wayne Rouse PCNA - 07/21/2023 10:09 AM ESTAddendum Note - Matt Raya MD - 07/18/2023 2:05 PM EST Note Date & Type Note Facility 07-21-2023 Miscellaneous Notes Formattin g of this note might be different from the original. Patient has been scheduled for their MSK US INJ exam on 07/31/23 : 1:00 PM at [facility]. Visit Type: INJ ONLY 2 Visit Length: 60 MINUTES Order Name/Protocol: US INJ TRIGGER POINT RT; RT HAMSTRING ORIGIN INJ PER DR. RAYA VIA EMAIL Preferred Provider: DR. AISSATOU TEAGUE Comment: PT WILL NEED A SECURITY RESEARCHER Location[facility] Slot held: N/A documented in this encounter [facility] 07-18-2023 Note HNO ID: [id number] Author: MATT RAYA MD Service: ? Author Type: Physician Type: Progress Notes Filed: 07/18/2023 13:58 Note Text: NEW ENCOUNTER This patient is being seen at the request of Roseann Bryson CNP and the progress note from this visit will be communicated via shared medical record Chief Complaint: right acetabular labrum tear 04/13/23 RT HIP MRI W/O IMPRESSION: 1. POSTOPERATIVE CHANGES OF ACETABULAR ANTERIOR LABRAL REPAIR IN THE RIGHT HIP WITH FINDINGS SUGGESTING LABRAL DEGENERATION AND DEGENERATIVE TEARING IN THE SUPERIOR LABRUM. 2. MILD INSERTIONAL GLUTEAL TENDINOSIS BILATERALLY, WORSE ON THE LEFT AND MILD GREATER TROCHANTERIC BURSITIS BILATERALLY. History: Patient is a 48 year old female; she denies an acute injury event. Recently had right hip IA USG CSI with Dr. Grimaldo on 06/28/23 and also had right piriformis fluoro guided CSI with Dr. Marie on 05/19/23. Date of injury/duration of pain: pain started over a year ago. Location: right hip Intensity: Severe Quality: Burning throbbing Job Related: No Symptoms with the following activities: Sleeping, walking or sitting for too long. The following things help the symptoms: Percocet reports catching Social History: Tobacco Use: 1 packs/day Types: Cigarettes Work: Disability due to Hx of Epilepsy Exercise: No regular routine, but does walk and do stairs daily while caring for elderly parents. Patient History PAST MEDICAL HISTORY Diagnosis Date Anxiety Panic disorder PAST SURGICAL HISTORY Procedure Laterality Date CHOLECYSTECTOMY HIP SURGERY HX 2015 HYSTERECTOMY 2007 oxyCODONE-acetaminophen (PERCOCET) 5-325 mg tablet esomeprazole (NEXIUM) 20 mg capsule Take 20 [...] prescribed for 10-14 days then as needed). Allergies: ALLERGIES Allergen Reactions Baclofen (Bulk) Hives Ciprofloxacin Other: See Comments seizures Dilantin [Phenytoin] Other: See Comments Aches and pain REVIEW OF SYSTEMS: CONSTITUTIONAL: Denies fever and weight loss. EYES: Denies acute vision changes. ENT: Denies hearing changes or difficulty swallowing. CARDIAC: Denies chest pain or edema. RESPIRATORY: Denies dyspnea, cough or wheeze. GASTROINTESTINAL: Denies abdominal pain, nausea, vomiting. MUSCULOSKELETAL: See HPI. SKIN: Denies any recent rash or lesion. NEUROLOGICAL: Denies numbness or focal weakness. PSYCHIATRIC: No history of psychiatric symptoms or problems. ENDOCRINE: Denies current diagnosis of diabetes. HEMATOLOGY: Denies episodes of easy bleeding. Allergies, medications, past surgical history and past medical history were reviewed per this encounter. Physical Examination: Region: Hip General Appearance: Appears healthy, well-nourished, no deformities. Neck/Spine/Station/Gait: Antalgic gait Left Exam: AROM: Flexion 120, IR: 20, ER: 70 PROM: Normal and Same as active Point Tenderness location: none Swelling/Effusion: none Stability: normal Muscle Strength: normal Sensation:normal Reflexes:normal Skin: normal Pulses: normal Special Tests: None Right Exam: AROM: Flexion 120, IR 20, ER 60 PROM: Same as active Point Tenderness location:anterior hip, groin, ischial tuberosity, greater trochanter Swelling/Effusion: none Stability: normal Muscle Strength: 5/5 Abductor strength, 4/5 hip flexion, 4/5 resisted knee extension Sensation:normal Reflexes:normal Skin: normal Pulses: normal Special Tests: Positive KRISTINE, FADIR, Right Trendelenburg Images have been personally reviewed by me and discussed with patient. MRI which shows trochanteric bursitis and postoperative/degenerative changes of the labrum without discrete retear. There is also streaking in the proximal hamstring tendon at the origin from the ischial tuberosity, suggestive of tendinitis/tendinosis, Assessment and Plan: 48-year-old female with right hip pain. We discussed with her that based on her history, physical examination, and imaging, with believe that the primary local hazmat driver of her pain is the proximal hamstring tendon. She does have some tendinosis in this area. We explained to her that the treatment for this is primarily conservative management. We recommend a course of physical therapy focusing on hamstring strengthening as well as an ultrasound-guided corticosteroid injection, she cannot take NSAIDs due to gastritis. We did explain that there may be some contribution from the labrum as well as t (more content not included)... [facility] 07-18-2023 Miscellaneous Notes Addended by: MATT RAYA on: 07/18/2023 02:05 PM Modules accepted: Orders documented in this encounter [facility] 07-18-2023 History of Presen t illness Narrative NEW ENCOUNTER This patient is being seen at the request of Roseann Bryson CNP and the progress note from this visit will be communicated via shared medical record Chief Complaint: right acetabular labrum tear 04/13/23 RT HIP MRI W/O IMPRESSION: 1. POSTOPERATIVE CHANGES OF ACETABULAR ANTERIOR LABRAL REPAIR IN THE RIGHT HIP WITH FINDINGS SUGGESTING LABRAL DEGENERATION AND DEGENERATIVE TEARING IN THE SUPERIOR LABRUM. 2. MILD INSERTIONAL GLUTEAL TENDINOSIS BILATERALLY, WORSE ON THE LEFT AND MILD GREATER TROCHANTERIC BURSITIS BILATERALLY. History: Patient is a 48 year old female; she denies an acute injury event. Recently had right hip IA USG CSI with Dr. Grimaldo on 06/28/23 and also had right piriformis fluoro guided CSI with Dr. Marie on 05/19/23. Date of injury/duration of pain: pain started over a year ago. Location: right hip Intensity: Severe Quality: Burning throbbing Job Related: No Symptoms with the following activities: Sleeping, walking or sitting for too long. The following things help the symptoms: Percocet reports catching Social History: Tobacco Use: 1 packs/day Types: Cigarettes Work: Disability due to Hx of Epilepsy Exercise: No regular routine, but does walk and do stairs daily while caring for elderly parents. Patient History PAST MEDICAL HISTORY Diagnosis Date Anxiety Panic disorder PAST SURGICAL HISTORY Procedure Laterality Date CHOLECYSTECTOMY HIP SURGERY HX 2015 HYSTERECTOMY 2006 oxyCODONE-acetaminophen (PERCOCET) 5-325 mg tablet esomeprazole (NEXIUM) 20 mg capsule Take 20 [...] prescribed for 10-14 days then as needed). Allergies: ALLERGIES Allergen Reactions Baclofen (Bulk) Hives Ciprofloxacin Other: See Comments seizures Dilantin [Phenytoin] Other: See Comments Aches and pain REVIEW OF SYSTEMS: CONSTITUTIONAL: Denies fever and weight loss. EYES: Denies acute vision changes. ENT: Denies hearing changes or difficulty swallowing. CARDIAC: Denies chest pain or edema. RESPIRATORY: Denies dyspnea, cough or wheeze. GASTROINTESTINAL: Denies abdominal pain, nausea, vomiting. MUSCULOSKELETAL: See HPI. SKIN: Denies any recent rash or lesion. NEUROLOGICAL: Denies numbness or focal weakness. PSYCHIATRIC: No history of psychiatric symptoms or problems. ENDOCRINE: Denies current diagnosis of diabetes. HEMATOLOGY: Denies episodes of easy bleeding. Allergies, medications, past surgical history and past medical history were reviewed per this encounter. Physical Examination: Region: Hip General Appearance: Appears healthy, well-nourished, no deformities. Neck/Spine/Station/Gait: Antalgic gait Left Exam: AROM: Flexion 120, IR: 20, ER: 70 PROM: Normal and Same as active Point Tenderness location: none Swelling/Effusion: none Stability: normal Muscle Strength: normal Sensation:normal Reflexes:normal Skin: normal Pulses: normal Special Tests: None Right Exam: AROM: Flexion 120, IR 20, ER 60 PROM: Same as active Point Tenderness location:anterior hip, groin, ischial tuberosity, greater trochanter Swelling/Effusion: none Stability: normal Muscle Strength: 5/5 Abductor strength, 4/5 hip flexion, 4/5 resisted knee extension Sensation:normal Reflexes:normal Skin: normal Pulses: normal Special Tests: Positive KRISTINE, FADIR, Right Trendelenburg Images have been personally reviewed by me and discussed with patient. MRI which shows trochanteric bursitis and postoperative/degenerative changes of the labrum without discrete retear. There is also streaking in the proximal hamstring tendon at the origin from the ischial tuberosity, suggestive of tendinitis/tendinosis, Assessment and Plan: 48-year-old female with right hip pain. We discussed with her that based on her history, physical examination, and imaging, with believe that the primary local hazmat driver of her pain is the proximal hamstring tendon. She does have some tendinosis in this area. We explained to her that the treatment for this is primarily conservative management. We recommend a course of physical therapy focusing on hamstring strengthening as well as an ultrasound-guided corticosteroid injection, she cannot take NSAIDs due to gastritis. We did explain that there may be some contribution from the labrum as well as the gluteal tendon/trochanteric bursa, however this does not seem to be the primary local hazmat driver of her pain. Follow-up as needed. Becca Ndiaye MD Orthopaedic Sports Medicine Fellow [facility] STAFF PHYSICIAN NOTE OF PERSONAL INVOLVEMENT IN CARE Resident's history reviewed. I have personally examined the patient and repeated the bernard components of the exam/history. The assessment and plan were formulated and discussed with the resident/fellow. Please see my below dicatation for all pertinent highlights, including historical emphasis, clinical exam, tests ordered, and the plan moving forward. See resident's note for additional details. Regarding the plan, we have had an in depth discussion today regarding the current symptomatology and possible causes for the current symptoms. This discussion included a personal review of all the available imaging studies with the patient, pertinent lab values, and highlighting bernard findings. In Summary: Highlights: Agree with above. Patient reports that the primary area of pain is in her buttock and with sitting. When evaluating in a resting position she sits leaning onto her left gluteal muscle and off of her right. On examination she does have some minor pain with FADIR but this does not reproduce her primary pain. She has exquisite pain with popliteal angle testing, resisted hamstring tested, and palpation over the ischial tuberosity. MRI does demonstrate some hamstring tendinopathy compared to the contralateral side. There is admittedly a labrum tear. Based on the constellation of symptoms, observation, and history I believe the hamstring and IFI space are the primary issue for this patient. Her examination and observation of her posturing are not consistent with hip labrum is the primary issue. Flexion of her hip in the seated position is not her issue, rather the sitting directly on the ischial tuberosity. Explained to the patient that we must treat her symptoms not just imaging on an MRI. With this in mind recommended for an ultrasound-guided IFI/hamstring injection followed by physical therapy. Follow-up steps could consider ultrasound based tendon procedure. I explained to the patient that it is unlikely that I have any surgical option that will help to alleviate her pain. Matt Raya MD Sports Medicine/Orthopaedic Surgery documented in this encounter [facility] 06-28-2023 Note HNO ID: [id number] Author: ROSEANN BRYSON APRN.RN TRANSFER Service: ? Author Type: Nurse Practitioner Type: Progress Notes Filed: 06/28/2023 12:51 Note Text: Ms. Garrido a 48 year old female returns today for follow up of post injection, she states that symptoms are slightly worse. PAIN: Pain Yes. Location: low back and right hip, rates pain a 7 on a pain scale of 1-10. Patient describes pain as burning, duration to the present time occuring daily x 4. MEDICATIONS: Medications reviewed and verified. Current Outpatient Medications Medication Sig oxyCODONE-acetaminophen (PERCOCET) 5-325 mg tablet esomeprazole (NEXIUM) 20 mg capsule Take 20 [...] No current facility-administered medications for this visit. Patient feels that medications have helped PREVIOUS TREATMENTS LASTING SIX WEEKS IN THE LAST SIX MONTHS Active conservative therapy lasting 6 weeks in the last six months (see below) 1. Physical therapy: No 2. Home exercise program after PT: No 3. Occupational therapy: No 4. A physician supervised home exercise program (HEP): No 5. Aircraft Metalsmith: No Passive conservative therapy lasting 6 weeks in the last six months (see below) 1. Medical devises: No 2. Acupuncture: No 3. Tens unit: No 4. Prescription pain medication: Yes 5. NSAIDS: No TREATMENTS: Right piriformis muscle steroid injection under fluoroscopy On 05/19/2023 gave no relief Oxycodone 5-325 mg EXAM: Pulse 85 Ht 162.6 cm (5' 4 ) Wt 84.4 kg (186 lb) SpO2 96% BMI 31.93 kg/m? No acute distress noted, patient alert and oriented X's 3. Resistive testing proximal and distal in the upper and the lower extremeties show 5/5 strength. DTR's are symmetrical in the upper and the lower extremeties. Nerve root tension signs: Negative. Heart: RRR Lungs: Clear Abdomen: Soft, non tender Spine: Tenderness with palpation of right lumbar spine, gluteal area Right hip: GTB tenderness with limited ability to internally/externally rotate hip IMPRESSION: This is a 48 year old female with history of chronic right gluteal/hip pain in the setting of lumbar DDD, tear of right acetabular labrum. She recently established care with Dr. Marie. Since last office visit she has undergone the following procedures: 05/19/2023 Right piriformis injection She reports this injection did not offer her any relief of her pain. She continues to report having pain that is pronounced in her right gluteal area. She describes having difficulty sitting, at times it can feel like a pressure sensation in her gluteal area. This pain can wrap around her hip and radiate into her pelvic girdle. She has difficulty placing her socks and shoes on her right foot. She has GTB tenderness and cannot lay on her right side. She denies any red flag symptoms including weight loss, fevers, chills, night time awakening of pain, bowel bladder incontinence, saddle anesthesia, progressive numbness or weakness. We discussed that if these symptoms should arise she should seek emergency treatment. She had recent MRI of hip that was revealing for POSTOPERATIVE CHANGES OF ACETABULAR ANTERIOR LABRAL REPAIR IN THE RIGHT HIP WITH FINDINGS SUGGESTING LABRAL DEGENERATION AND DEGENERATIVE TEARING IN THE SUPERIOR LABRUM. 2. MILD INSERTIONAL GLUTEAL TENDINOSIS BILATERALLY, WORSE ON THE LEFT AND MILD GREATER TROCHANTERIC BURSITIS BILATERALLY. She was seen today in office by Dr. Grimaldo and underwent Right hip injection. She was also instructed to schedule office visit with Ortho surgery. I spent a total of 30 minutes on the date of the service which included preparing to see the patient, [id number] patient care, completing clinical documentation, obtaining and/or reviewing separately obtained history, performing a medically appropriate examination, counseling and educating the patient/family/caregiver, and ordering medications, tests, or procedures. Pain in right hip (primary encounter diagnosis) Tear of right acetabular labrum, initial encounter PLAN: Agree with evaluation by Ortho surgery Consider updated MRI of lumbar spine Reviewed red flag symptoms to watch for Continue Salonpas to right hip/gluteal area RTC following ortho surgery evaluation Roseann Bryson APRN.RN TRANSFER June 28, 2023 [facility] 06-28-2023 Note HNO ID: [id number] Author: PERRI GRIMALDO, DO Service: ? Author Type: Physician Type: Progress Notes Filed: 06/28/2023 07:59 Note Text: Patient presents for a right hip injection. Large Joint Arthro/Inj: R hip joint Informed Consent Consent Obtained: Verbal [place] Protocol A moment to CARE was completed. SIGN IN Personnel directly involved with the procedure wore the appropriate PPE. Special Equipment: N/A Patient/Surrogate Stated/Verified: Patient name, Date of , Relevant allergies and Intended procedure TIME OUT Intended patient and procedure match the source document(s). Relevant labs, photos, and/or imaging studies have been reviewed. Correct side/site marked and visible. Medications required for procedure verified. No fire risk assessment and interventions applicable. No implant(s) inserted. 06/28/2023 7:56 AM The procedure site was prepped in the usual sterile fashion. Site: R hip joint Details:Musculoskeletal ultrasound was utilized to successfully localize placement of the injection needle at the appropriate site. Ultrasound images demonstrating local vasculature and demonstrating injection of solution were saved. Medications: 40 mg triamcinolone acetonide 40 mg/mL Anesthetics: 4 mL ROPivacaine (PF) 5 mg/mL (0.5 %) Outcome: Tolerated well, no immediate complications Post-injection instructions were reviewed with the patient and the patient voiced understanding of these instructions. SIGN OUT All instruments, equipment, possible retained foreign bodies accounted for. (S73.191A) Tear of right acetabular labrum, initial encounter (primary encounter diagnosis) Perri Grimaldo DO 06/28/2023 [facility] 05-03-2023 Miscellaneous Notes Formattin g of this note might be different from the original. Attempted to contact patient to schedule an US Hip Injection with Dr. Grimaldo. Left voicemail with my direct phone number. documented in this encounter [facility] 05-02-2023 Note HNO ID: [id number] Author: Salma Gamino PA-C Service: ? Author Type: Physician [employer] Cutting Machine Operator Type: Progress Notes Filed: 05/12/2023 9:39 AM [...] intra-articular injection under ultrasound guidance with Dr. Grimaldo. Total Time Spent: 9 minutes Salma Scotch, PA-C [facility] 04-28-2023 Miscellaneous Notes Formattin g of this note might be different from the original. Right Piriformis injection ROSEANN GARRIDO [id number] [facility] 05/19 -thinners -DM Patient was made aware that the [facility] will call the day prior to scheduled procedure between the hours of 12 and 4 pm to advise patient of arrival time the day of procedure. Patient was advised that they will require a local hazmat driver on the day of their procedure, and procedure will be cancelled if they arrive without a responsible adult to transport them home from the procedure. Patient advised that all medication management instructions prior to procedure will need addressed by clinical staff. Patient expresses understanding with no further questions or concerns at this time. Patient transferred to [facility] scheduling line to authorize procedure, or greencoat appointment made. Please assist with scheduling the below injection: Right Piriformis injection -DM -thinners documented in this encounter [facility] 04-13-2023 Note HNO ID: [id number] Author: Rosie Steward RT(R) Service: Radiology Author Type: Technologist Type: Progress Notes Filed: 04/13/2023 7:48 AM Note Text: Summary: mri Radiology Service Progress Note PATIENT NAME: Roseann LEOSN: [id number] DATE OF SERVICE: April 13, 2023 TIME: [...] IV DATA: Not applicable SIGNED BY: RT Ravinder(R) April 13, 2023 7:47 AM [facility] 04-11-2023 Evaluation note Encounter Date Diagnosis [...] treatment plan. Patient left in stable condition 1.618 [employer] Other 10-20-2023 NoteHNO ID: [id number] Author: Salma Gamino PA-C Service: ? Author Type: Physician Sole Leather Cutting Machine Operator Type: Progress Notes Filed: 03/30/2023 5:55 PM [...] 5/5 Flexion: 5/5 Tests (more content not included)...[facility]10-20-2023 NoteHNO ID: [id number] Author: Ana M Rey RT(R) Service: ? [...] BY: RT Jaciel(R) March 24, 2023 2:34 [facility]10-20-2023 History of Present illness Narrative* Salma Gamino [...] 2023 TIME: 3:51 PM [facility] History of Present illness Narrative* Ana M [...] 24, 2023 2:34 PM [facility] Miscellaneous Notes* Telephone Encounter - Ivette Garcia - 02/27/2023 12:09 PM EDT Called patient in an attempt to get her scheduled for Xray and Physical Therapy. Patient expressed that she lives in [place] and requested that orders be faxed to [facility]. She would like tocomplete both Physical Therapy and Xray closed to home. PSS explained to patient that she would have to make sure that she asks for a disc after she gets the XRay and she would have to make sure that [facility] sends results to Dr. Marie. Patient aware that MRI would not be covered unless there is documentation of conservative therapiesfirst. Patient aware and [facility]. PSS will fax orders to [facility]. * Telephone Encounter - Mulu Aquino LPN [...] Right Piriformis muscle steroid injection ROSEANN GARRIDO [id number] FRANK -THINNERS -DM Patient prefers to have imaging done prior to injection. documented [facility] NoteHNO ID: [id number] Author: Frank Marie, DO Service: ? Author Type: Physician Type: Progress Notes Filed: 02/20/2023 3:40 PM Note Text: [facility] Initial Evaluation February 20, 2023 This appointment was requested by Michael Moreno CNP, for my medical opinion regarding the evaluation and management of the patient's Roseann Garrido problems, and my final recommendations will be communicated to the requesting health care provider by way of the shared medical record for internal providers or letter via the [employer] for external providers. SUBJECTIVE: Roseann Garrido a 47 year old presents to [facility], accompanied by daughter, was [...] Mitigated by standing. Current treatments and response: [place] PRN - helps only 4 hrs Gabapentin 800 mg- once daily- Lidocaine Patch- some relief Response to previous treatments: Cortizone injection in [place] - no relief PT- yrs ago - no relief Alcohol Abuse - No Drug Abuse - No Current Anticoagulant Therapy: No Sleep Disturbance: Yes: Difficulty staying asleep. PAST MEDICAL HISTORY Diagnosis Date Anxiety Panic disorder PAST SURGICAL HISTORY Procedure Laterality Date CHOLECYSTECTOMY HIP SURGERY HX 2015 HYSTERECTOMY 2006 Social History Tobacco Use Smoking status: Every [...] No history of dysuria, frequency or incontinence PATIENT CONSUMER MARKETER: Negative for abnormal vaginal bleeding, abnormal vaginal [...] supervised home exercise program (HEP): No 5. Aircraft Metalsmith: No Passive conservative therapy lasting 6 weeks in the last six months (see below) 1. Medical devises: No 2. Acupuncture: No 3. Tens unit: No 4. Prescription pain medication: Yes 5. NSAIDS: Do you feel safe at home? Yes Risk assessment at risk due to fall:NONE Michelle Sy, (more content not included)...[facility] 11-08-2021 Evaluation note* Encounter Date Diagnosis Assessment Notes Treatment Notes Treatment Clinical Notes Nov, Gastroesophageal reflux disease with esophagitis (ICD-10 - K21.0) Nov, History of peptic ulcer disease (ICD-10 - Z87.11) Nov, Abdominal pain (ICD- 10 - R10.9) STOP DICYCLOMINE START LEVBID BID ABD US RUQ Nov, Weight loss (ICD-10 - R63.4) 1.618 [employer] Other 07-01-2021 Hospital Discharge instructions* Instructions* Jessica Smith, DO - 12/03/2020 Week medication as prescribed follow-up with your primary care provider return ER for additional concerns. Avoid heavy lifting twisting, or bending over at the waist to lift up objects. Return to ER for numbness, tingling or persistent pain that is not controlled. documented in this encounterVisualnest Phone: [phone]) 304-430805-01-2015 History general Narrative - Reported* Type Description [...] cholecystectomy Hospitalization History See past surgical hx 1.618 Technology Other Evaluation note* Diagnosis Strain of lumbar region, initial encounter- Primary documented in this encounter [employer] Phone: evaluation note* Diagnosis Low back pain, unspecified back pain laterality, unspecified chronicity, unspecified whether sciatica present Accidental fall on or from stairs or steps, initial encounter Radicular syndrome of lower limbs Thoracic or lumbosacral neuritis or radiculitis, unspecified documented in this encounter [employer] Phone: evaluation note* Diagnosis Back spasm- Primary Other symptoms referable to back documented in this encounter [employer] Phone: evalsvmruy note* Diagnosis Trichomonas vaginalis (TV) infection- Primary Vaginal pain Unspecified symptom associated with female genital organs documented in this encounter [employer] Phone: evalopspne note* Diagnosis Right acute serous otitis media, recurrence not specified- Primary documented in this encounter [employer] Phone: evaluation note* Diagnosis Dizziness Dizziness and giddiness documented in this encounter [employer] Phone: evaluation note* Diagnosis Right ear pain Otalgia, unspecified documented in this encounter [employer] Phone: [email or web address] noteNo InformationNort [employer] Other Evaluation noteNo assessment information [facility] Work Phone: Evaluation note* Diagnosis Radiculopathy, lumbosacral region- Primary Thoracic or lumbosacral neuritis or radiculitis, unspecified documented [facility] this [facility]* Diagnosis Pain- Primary Generalized pain documented in this [facility]* Diagnosis Psoas tendinitis of right side- Primary Enthesopathy of hip region Tear of right acetabular labrum, initial encounter Piriformis syndrome of right side Lesion of sciatic nerve Pain of right hip [facility]* Diagnosis Piriformis syndrome of right side- Primary Lesion of sciatic nerve Radiculopathy, lumbosacral region Thoracic or lumbosacral neuritis or radiculitis, unspecified Piriformis syndrome of right side Lesion of sciatic nerve Radiculopathy, lumbosacral region Thoracic or lumbosacral neuritis or radiculitis, unspecified documented in this encounter [facility]* Diagnosis Tear of right acetabular labrum, initial encounter- Primary Tear of right acetabular labrum, subsequent encounter Pain in right hip Pain in joint, pelvic region and thigh [facility]* Attachments The following attachments cannot be sent through Care Everywhere. * Back: Strain (Ecuadorean) [facility] Phone: Hospital Discharge instructions* Attachments The following attachments cannot be sent through Care Everywhere. * Trichomoniasis (Ecuadorean) documented in this [facility] [employer] Phone: Hospital Discharge instructions* Instructions* Amalia Cochran PA-C - 06/11/2019 Keep your appointment as scheduled for with your ENT. If you go home and exhibit any worsening symptoms before then please return to the ER. Please discuss with your ENT the drops for your ear infection. * Attachments The following attachments cannot be sent through Care Everywhere. * Serous Otitis Media (Ecuadorean) documented in this [facility] [employer] Phone: reason for referral (narrative)* Diagnostic Procedure Only (Routine) - Pending Review Specialty Diagnoses / Procedures Referred By Contac t Referred To Contact XR IMAGING Diagnoses Radiculopathy, lumbosacral region Procedures XR LUMBAR GENERAL 3V AP/LAT/L5-S1 RADEX SPINE LUMBOSACRAL 2/3 VIEWS Roseann Bryson, STENCIL SPRAYER.RN TRANSFER [address] [place] [address] [place] [address] Referral ID Status Reason Start Date Expiration Date Visits Requested Visits Authorized [id number] Pending Review Auto-Generat ed Referral 02/27/2023 03/28/2024 1 1 [facility] for referral (narrative)* Diagnostic Procedure Only (Routine) - Pending Review Specialty Diagnoses / Procedures Referred By Contac t Referred To Contact XR IMAGING Diagnoses Pain Procedures XR HIP GENERAL 3V PELV/AP/LAT RIGHT RADEX HIP UNILATERAL WITH PELVIS 2-3 VIEWS Salma Gamino PA-C [address] [place] [address] [place] [address] Referral ID Status Reason Start Date Expiration Date Visits Requested Visits Authorized [id number] Pending Review Auto-Generat ed Referral 02/27/2023 03/28/2024 [address] [address] [facility] (narrative)* Diagnostic Procedure Only (Routine) - Pending Review Specialty Diagnoses / Procedures Referred By Corin clemens Referred To Contact US IMAGING Diagnoses Tear of right acetabular labrum, initial encounter Tear of right acetabular labrum, subsequent encounter Procedures US [place] [address] [place] [address] [place] [address] Referral ID Status Reason Start Date Expiration Date Visits Requested Visits Authorized [id number] Pending Review Auto-Generat ed Referral 07/18/2023 08/16/2024 1 1 * Diagnostic Procedure Only (Routine) - Pending Review Specialty Diagnoses / Procedures Referred By Corin clemens Referred To Contact XR IMAGING Diagnoses Tear of right acetabular labrum, initial encounter Procedures XR HIP GENERAL 3V PELV/AP/LAT RIGHT RADEX HIP UNILATERAL WITH PELVIS 2-[place] [address] [place] [address] [place] [address] Referral ID Status Reason Start Date Expiration Date Visits Requested Visits Authorized [id number] Pending Review Auto-Generat ed Referral 07/18/2023 08/16/2024 [address] [facility] Discharge Instructions * Attachments The following attachments cannot be sent through Care Everywhere. * Pain Post-Surgery: Acute (Ecuadorean) documented in this encounter* Attachments The following attachments cannot be sent through Care Everywhere. * Back Pain (Ecuadorean) * Sciatica (Ecuadorean) documented in this encounter* Instructions* Selina Tyler [...] sent through Care Everywhere. * Sore Throat (Ecuadorean) documented in this encounter* Instructions* Selina Tyler [...] through Care Everywhere. * Pain Post-Surgery: Acute (Ecuadorean) documented in this encounter* Attachments The following attachments cannot be sent through Care Everywhere. * Back Pain (Ecuadorean) documented in this encounter Assessments Diagnosis Postoperative [...] FoundDocuments on File Type Date Recorded Patient Machine Rope Maker Expl anation Advance Directives and Living Will Power of Networker Latest Code Status on File Code Status Date Activated Date Inactivated Comments Full Code 02/21/2016 2:19 AM 02/22/2016 9:12 PM Documents on File Type Date Recorded Patient Machine Rope Maker Expl anation Advance Directives and Living Will Power of Networker Latest Code Status on File Code Status Date Activated Date Inactivated Comments Full Code 02/21/2016 2:19 AM 02/22/2016 9:12 PM Documents on File Type Date Recorded Patient Machine Rope Maker Expl anation ACP-Advance Directive ACP-Power of Networker Documents on File Type Date Recorded Patient Machine Rope Maker Expl anation ACP-Advance Directive ACP-Power of Networker Advance Directive Response Recorded Date/ Time Advance [...] CONTRAST E, Spasic Michael [address] [place] [address] Status Reason Specialty Diagnoses / Procedures Referred By Contact Referred To Contact Pending Review Radiology Diagnoses Dizziness Procedures CT SINUS WO CONTRAST E, Spasic Michael [address] [place] [address] Status Reason Specialty Diagnoses / Procedures Referred By Contact Referred To Contact Pending Review Radiology Diagnoses Right ear pain Procedures CT HEAD WO CONTRAST E, Spasic Michael [address] [place] [address] Specialty Diagnoses / Procedures Referred By Contac t Referred To Contact MR IMAGING Diagnoses Pain of right hip Procedures MRI HIP WO IVCON RIGHT MRI ANY JT LOWER EXTREM W/O CONTRAST Salma Pat PA-C [address] [place] [address] [place] [address] Referral ID Status Reason Start Date Expiration Date Visits Requested Visits Authorized [id number] Authorized Auto-Generat ed Referral 3 04/22/2024 1 [...] Problems Arthritis of spine / SNOMED CT 1886785497 / Confirmed Diabetes / SNOMED CT 578718992 / Confirmed Diabetes mellitus / SNOMED CT 531534716 / Confirmed Plantar fasciitis / SNOMED CT 645625382 / Confirmed Vitamin D deficiency, unspecified / SNOMED CT 79251904 / Confirmed Vitamin B deficiency, unspecified / SNOMED CT 48959539 / Confirmed Anxiety / SNOMED CT 28355078 / Confirmed Smoker 05-DEC-2013 12:37:00<$> / SNOMED CT [id number] / Confirmed Added seconda (more content not included)... Chief Complaint and Reason for Visit Chief Complaint M25.561 M25.559 Chief Complaint M25.561 M25.559 Unexplained weight loss Chief Complaint M89.8X8 R22.2 Chief Complaint M89.8X8 R22.2 Disorientation Chief Complaint M89.8X8 R22.2 R41.0 Chief Complaint M89.8X8 R22.2 R41.0 E78.2 N39.0 Hair loss History of tonsillectomy Chief Complaint R39.89;M25.551 Chief Complaint Diet-controlled diab etes mellitus Additional Source Comments Reason for Visit (unrecogniz [...] right side Procedures HC MRI-SPINE LUMBAR WO Josh CABRERA [facility] [address] [place] [address] Reason Comments Pharyngitis surgery yesterday, o nset [...] CONTRAST E, Spasic Michael [address] [place] [id number] Reason Comments Back Pain pt states low [...] CONTRAST E, Spasic Michael [address] [place] [address] Scan [address] [place], [place] [address] Status Reason Specialty Diagnoses / Procedures Referre d By Contact Referred To Contact Closed Radiology Diagnoses Dizziness and giddiness Otalgia, right ear Otitis media, unspecified, unspecified ear Procedures HC CT BRAIN W/O CONTRAST E, Spasic Michael [address] [place] [address] Scan [address] [place], [place] [address] Reason Comments Erroneous encounter-disregard Reason Comments Schedule Injection Reason Comments Radiology XR Reason Comments New Pain Reason Comments Schedule US Hip Injection Reason Comments New Pain Specialty Diagnoses / Procedures Referred By Corin clemens Referred To Contact Orthopedics Diagnoses Tear of right acetabular labrum, subsequent encounter Pain in right hip Procedures CONSULT PANEL TO ORTHOPAEDICS OFFICE/OUTPATIENT [facility] 60 MINUTES Roseann Bryson, STENCIL SPRAYER.RN TRANSFER [address] [place] [address] Referral ID Status Reason Start Date Expiration Date V isits Requested Visits Authorized [id number] Closed PCP Requested Referral 07/06/2023 07/05/2024 1 1 Reason Comments Appointment INFORMATION SOURCE (unrecogn ized section and content) DATE CREATED AUTHOR 02/22/2020 [facility] DATE CREATED AUTHOR AUTHOR'S ORGANIZ ATION 02/14/2021 [facility] DATE CREATED AUTHOR AUTHOR'S ORGANIZ ATION 04/13/2021 [facility] DATE CREATED AUTHOR AUTHOR'S ORGANIZ ATION 04/23/2022 [facility] DATE CREATED AUTHOR AUTHOR'S ORGANIZ ATION 06/21/2023 [facility] DATE CREATED AUTHOR AUTHOR'S ORGANIZ ATION 07/23/2023 [facility] DATE CREATED AUTHOR AUTHOR'S ORGANIZ ATION 08[facility]17/2023 [facility] DATE CREATED AUTHOR AUTHOR'S ORGANIZ ATION 08/19/2023 [facility] Ordered Prescriptions (unrec ognized section and [...] On 11/01/20 at 1700, For 1 dose 1708 (Given - Provid er: Kayleen Malone RN) [...] On 11/01/20 at 1700, For 1 dose 1710 (Given - Provid er: Kayleen Malone RN) Scheduled Medication Order 12/01/2020 12/02/2020 12/03/2020 cyclobenzaprine (FLEXERIL) tablet 10 mg (COMPLETED) 10 mg, Oral, ONCE, On Ros 12/03/20 at 1800, For 1 dose 180 (Given - Provid er: Sienna Kay RN) [...] ordered. 180 (Given - Provid er: Sienna Kay RN) ketorolac (TORADOL) injection 30 mg (COMPLETED) 30 mg, Intramuscular, ONCE, On Ros 12/03/20 at 1800, For 1 dose, Do not administer for more than 5 days. 180 (Given - Provid er: Sienna Kay RN) Scheduled Medication Order 02/04/2021 02/05/2021 02/06/2021 HYDROcodone-acetaminophen [...] content) Team Status: Active Member Role Status Dates Services [facility] Primary Care Provider Papo snell Team Status: Inactive Member Role Status Dates Services [facility] Primary Care Provider GIANCARLO TompkinsC Attending Provider Active Grade Checker Relationship Specialty Start Date End Date Michael Moreno [address] [place] [address] Referring Family Medicine 12/22/22 Grade Checker Relationship Specialty Start Date End Date PatrickMichael abbott Adin [address] [place] [address] Referring Family Medicine 12/22/22 Kulwinder Atkinson DO [address] [place] [address] Referring Family Medicine 02/23/23 Kulwinder Atkinson DO [address] [place] [address] Referring Family Medicine 02/24/23 Grade Checker Relationship Specialty Start Date End Date Josh Michael Adin [address] [place] [address] Referring Family Medicine 12/22/22 Kulwinder Atkinson DO [address] [place] [address] Referring Family Medicine 02/23/23 Kulwinder Atkinson DO [address] [place] [address] Referring Family Medicine 02/24/23 Grade Checker Relationship Specialty Start Date End Date PatricksravanivishalMichael Adin [address] [place] [address] Referring Family Medicine 12/22/22 Kulwinder Atkinson DO [address] [place] [address] Referring Family Medicine 02/23/23 Kulwinder Atkinson DO [address] [place] [address] Referring Family Medicine 02/24/23 Grade Checker Relationship Specialty Start Date End Date Michael Moreno [address] [place] [address] Referring Family Medicine 12/22/22 Kulwinder Atkinson DO [address] [place] [address] Referring Family Medicine 02/23/23 Kulwinder Atkinson DO [address] [place] [address] Referring Family Medicine 02/24/23 Grade Checker Relationship Specialty Start Date End Date Michael Moreno NP [address] [place] [address] Referring Family Medicine 12/22/22 Kulwinder Atkinson DO [address] [place] [address] Referring Family Medicine 02/23/23 Kulwinder Atkinson DO [address] [place] [address] Referring Family Medicine 02/24/23 Grade Checker Relationship Specialty Start Date End Date Michael Moreno NP [address] [place] [address] Referring Family Medicine 12/22/22 Kulwinder Atkinson DO [address] [place] [address] Referring Family Medicine 02/23/23 Kulwinder Atkinson DO [address] [place] [address] Referring Family Medicine 02/24/23 Grade Checker Relationship Specialty Start Date End Date Michael Moreno NP [address] [place] [address] PCP - General Family Medicine 05/19/23 Michael Moreno NP [address] [place] [address] Referring Family Medicine 12/22/22 Kulwinder Atkinson DO [address] [place] [address] Referring Family Medicine 02/23/23 Kulwinder Atkinson DO [address] [place] [address] Referring Family Medicine 02/24/23 Grade Checker Relationship Specialty Start Date End Date Michael Moreno NP [address] [place] [address] PCP - General Family Medicine 05/19/23 Michael Moreno NP [address] [place] [address] Referring Family Medicine 12/22/22 Kulwinder Atkinson DO [address] [place] [address] Referring Family Medicine 02/23/23 Kulwinder Atkinson DO [address] [place] [address] Referring Family Medicine 02/24/23 Goals (unrecognized section [...] or prosecute any alcohol or drug abuse patient.[facility] the event this information is protected by the Federal Confidentiality of Alcohol and Drug Abuse Patient Records regulations: The Federal rules restrict any use of the information to criminally investigate or prosecute any alcohol or drug abuse patient.[facility] the event this information is protected by the Federal Confidentiality of Alcohol and Drug Abuse Patient Records regulations: The Federal rules restrict any use of the information to criminally investigate or prosecute any alcohol or drug abuse patient.[facility] the event this information is protected by the Federal Confidentiality of Alcohol and Drug Abuse Patient Records regulations: The Federal rules restrict any use of the information to criminally investigate or prosecute any alcohol or drug abuse patient.[facility] the event this information is protected by the Federal Confidentiality of Alcohol and Drug Abuse Patient Records regulations: The Federal rules restrict any use of the information to criminally investigate or prosecute any alcohol or drug abuse patient.[facility] the event this information is protected by the Federal Confidentiality of Alcohol and Drug Abuse Patient Records regulations: The Federal rules restrict any use of the information to criminally investigate or prosecute any alcohol or drug abuse patient.[facility] the event this information is protected by the Federal Confidentiality of Alcohol and Drug Abuse Patient Records regulations: The Federal rules restrict any use of the information to criminally investigate or prosecute any alcohol or drug abuse patient.[facility] the event this information is protected by the Federal Confidentiality of Alcohol and Drug Abuse Patient Records regulations: The Federal rules restrict any use of the information to criminally investigate or prosecute any alcohol or drug abuse patient.[facility] the event this information is protected by the Federal Confidentiality of Alcohol and Drug Abuse Patient Records regulations: The Federal rules restrict any use of the information to criminally investigate or prosecute any alcohol or drug abuse patient.[facility] FOR RECORDS PERTAINING TO PATIENTS WHO ARE [...] BE BASED ON THE PRIMARY CLINICAL RECORDS. [employer] [facility]. provides no warranty or guarantee of the accuracy or completeness of information in this document.
--- NOTE | 2023-08-20 13:07 | XR_ITS ---
The [address] [address] Patient Name: CLAIRE VICKERS MRN: [id number] date: 1975 Sex: F Assigned Patient Location: ER Current Patient Location: ER Accession/Order Number: [id number] Exam Date: 08/20/2023 13:15 Report Date: 08/20/2023 14:22 At the request of: JAGDISH ORLANDO Procedure: XR lumbar spine 2-3V IMAGES REVIEWED: XR lumbar spine 2-3V COMPARISON: 01/31/2013. CLINICAL INDICATION: Atraumatic pain, history of back issues FINDINGS/IMPRESSION: 1. No radiographic evidence of acute osseous abnormality of the lumbar spine. 2. Mild levocurvature. 3. Mild degenerative changes, particularly at L3-5. 4. No spondylolisthesis. Electronically authenticated by: YOLANDA GAY Date: 08/20/2023 14:22
--- NOTE | 2023-08-20 13:08 | ED_ITS ---
HPI - Back Pain/Injury General Chief Complaint: Back Pain/Injury Stated Complaint: BACK PAIN Time Seen by Provider: 08/20/23 13:03 Source: patient Mode of arrival: walk-in Limitations: no limitations History of Present Illness HPI Narrative: 48-year-old female presents for lower back pain. She has a history of disc problems and also a torn right hip labrum. She sees a specialist in [place] and ran out of her Percocet. No new injury. It does not seem to radiate. She feels pressure when she tries to urinate. Related Data Home Medications Medication Instructions Recorded Confirmed atorvastatin 80 mg tablet mg 05/27/23 buspirone 15 mg tablet mg 05/27/23 famotidine 20 mg tablet mg 05/27/23 famotidine 40 mg tablet mg 05/27/23 gabapentin 800 mg tablet mg 05/27/23 lidocaine 5 % topical patch patch 05/27/23 loratadine 10 mg tablet mg 05/27/23 meclizine 25 mg tablet mg 05/27/23 oxybutynin chloride 5 mg tablet mg 05/27/23 pantoprazole 40 mg tablet,delayed mg PO 05/27/23 release pregabalin 75 mg capsule mg 05/27/23 Previous Rx's Medication Instructions Recorded oxycodone-acetaminophen 5 mg-325 1 tab PO Q6H PRN pain 3 days #10 04/22/23 mg tablet (Percocet) tabs oxycodone-acetaminophen 5 mg-325 1 tab PO Q6H PRN pain 5 days #20 05/27/23 mg tablet (Percocet) tabs oxycodone-acetaminophen 5 mg-325 1 tab PO Q6H PRN pain 2 days #6 08/20/23 mg tablet (Percocet) tabs Allergies Allergy/AdvReac Type Severity Reaction Status Date / Time baclofen Allergy Mild Hives Verified 05/27/23 14:21 phenytoin [From Dilantin] AdvReac Mild Muscle Pain Verified 05/27/23 14:21 Review of Systems ROS Narrative A ten point review of systems is negative except as noted above. PFSH PFSH Social History Smoking status: Current every day smoker Exam Narrative Exam Narrative: Nurses note and vital signs reviewed and patient is not hypoxic. General: The patient appears well and in no apparent distress. Patient is resting comfortably on cart. Skin: Warm, dry, no pallor noted. There is no rash noted. Head: Normocephalic, atraumatic Eye: Normal conjunctiva, no drainage Ears, Nose, Mouth, and Throat: oral mucosa is moist. Nares patent. Cardiovascular: Regular Rate and Rhythm Respiratory: Patient is in no distress, no accessory muscle use, lungs are clear to auscultation, no wheezing, rales or rhonchi Back: No bruise or rash GI: Soft and nontender Musculoskeletal: The patient has no evidence of calf tenderness, no pitting edema, symmetrical pulses noted bilaterally Neurological: A&O, normal speech Psychiatric: Cooperative Constitutional Vital Signs, click to edit/add: Last Vital Signs Temp 97.9 F 08/20/23 12:26 Pulse 93 H 08/20/23 12:26 Resp 22 08/20/23 12:26 BP 147/88 H 08/20/23 12:26 Pulse Ox 98 08/20/23 12:26 O2 Del Method Room Air 08/20/23 12:26 Course Vital Signs Vital signs: Vital Signs Temperature 97.9 F 08/20/23 12:26 Pulse Rate 93 H 08/20/23 12:26 Respiratory Rate 22 08/20/23 12:26 Blood Pressure 147/88 H 08/20/23 12:26 Pulse Oximetry 98 08/20/23 12:26 Oxygen Delivery Method Room Air 08/20/23 12:26 Temperature 97.9 F 08/20/23 12:26 Pulse Rate 93 H 08/20/23 12:26 Respiratory Rate 22 08/20/23 12:26 Blood Pressure 147/88 H 08/20/23 12:26 Pulse Oximetry 98 08/20/23 12:26 Oxygen Delivery Method Room Air 08/20/23 12:26 MDM - Back Pain/Injury MDM Narrative Medical decision making narrative: X-rays and urinalysis are negative. I have reviewed her prescription history. She was given a prescription for 6 Percocet and she has an appointment with her PCP the day after tomorrow. Treatment diagnosis and follow-up were discussed with the patient. She was encouraged to obtain her pain medications from her PCP. Differential Diagnosis Differential diagnosis: Likely other (Chronic back pain, lumbar fracture, UTI) Lab Data Attestation: I reviewed the patient's lab results. Labs: Lab Results 03/17/24 Range/Units 14:50 Urine Color Yellow (YELLOW) Urine Clarity Clear (CLEAR) Urine pH 6.0 (5.0-9.0) Ur Specific [employer] 1.015 (1.005-1.025) Urine Protein Negative (NEG/TRACE) mg/dL Urine Glucose (UA) Negative (NEGATIVE) mg/dL Urine Ketones Negative (NEGATIVE) mg/dL Urine Occult Blood Negative (NEGATIVE) Urine Nitrite Negative (NEGATIVE) Urine Bilirubin Negative (NEGATIVE) Urine Urobilinogen 0.2 (0.2-1.0) EU/dL Ur Leukocyte Esterase Negative (NEGATIVE) Imaging Data Lumbar x-rays: Radiologist's impression: No acute findings Discharge Plan Discharge Stand Alone Forms: Portal Instructions Chief Complaint: Back Pain/Injury Clinical Impression: Acute exacerbation of chronic low back pain Patient Disposition: Home, Self-Care Time of Disposition Decision: 15:06 Condition: Good Mode of Transportation: Private Vehicle Prescriptions / Home Meds: New oxycodone-acetaminophen [Percocet] 5-325 mg tablet 1 tab PO Q6H PRN (Reason: pain) 2 Days Qty: 6 0RF No Action oxycodone-acetaminophen [Percocet] 5-325 mg tablet 1 tab PO Q6H PRN (Reason: pain) 3 Days Qty: 10 0RF atorvastatin 80 mg tablet famotidine 40 mg tablet famotidine 20 mg tablet gabapentin 800 mg tablet meclizine 25 mg tablet pantoprazole 40 mg tablet,delayed release (DR/EC) PO lidocaine 5 % adhesive patch,medicated oxybutynin chloride 5 mg tablet loratadine 10 mg tablet buspirone 15 mg tablet pregabalin 75 mg capsule oxycodone-acetaminophen [Percocet] 5-325 mg tablet 1 tab PO Q6H PRN (Reason: pain) 5 Days Qty: 20 0RF Instructions: Chronic Pain (ED), Acute Low Back Pain (ED) Referrals: Physician,Non-Staff, MD [Primary Care Provider] - 1 week
[2023-08-20] MEDS: KETOROLAC TROMETHAMINE 60 MG/2 ML VIAL IM (13:28)
[2023-08-20] MEDS: ORPHENADRINE 60 MG/ 2 ML VIAL IM (13:28)
[2023-08-20 14:59] LABS: Bilirubin Urine NEGATIVE (NEGATIVE); Blood Urine NEGATIVE (NEGATIVE); Clarity Urine CLEAR (CLEAR); Color Urine YELLOW (YELLOW); Glucose Urine UA NEGATIVE (NEGATIVE); Ketones Urine NEGATIVE (NEGATIVE); Leukocyte Esterase Urine NEGATIVE (NEGATIVE); Nitrite Urine NEGATIVE (NEGATIVE); Protein Urine NEGATIVE (NEG/TRACE); Specific Gravity Urine 1.015 (1.005-1.025); Urobilinogen Urine 0.2 EU/dL (0.2-1.0)
[2023-08-20 15:20] LABS: Bacteria Urine TRACE #/HPF (NONE SEEN); Cast Seen? NONE SEEN #/LPF (NONE SEEN); Crystals Seen? None Seen #/HPF (None Seen); Mucus Urine NONE SEEN (NONE SEEN); RBC Urine 0-2 #/HPF (0-2); Squamous Epithelial Cell Urine MODERATE #/LPF (NONE/RARE); WBC Urine 0-2 #/HPF (NONE SEEN)
[2023-08-20 15:28] VITALS: BP 120/58; PULSE 63; RESP 16; TEMP 36.6; O2SAT 99
== END 2023-08-20 15:31 | disposition home or self-care (01) ==
PROVIDERS: Emergency Provider Emergency Medicine
DX: M54.50 Low back pain, unspecified (principal); G89.29 Other chronic pain; Z79.899 Other long term (current) drug therapy; F17.210 Nicotine dependence, cigarettes, uncomplicated
CPT/HCPCS: 72100; 81001; 96372; 99285